=== PATIENT | male | born 1970 | race Caucasian/White ===

== ENCOUNTER 2017-03-30 13:00 | Emergency (ER) | payer BC ==
--- NOTE | 2017-03-30 13:41 | EKG REPORT ---
SEVERITY:- NORMAL ECG - SINUS RHYTHM : Confirmed by: Tereso Le MD 30-Mar-2017 13:40:14
--- NOTE | 2017-03-30 13:48 | ER Document Report ---
ED Medical Screen (RME) - General Chief Complaint: Chest Pain Stated Complaint: CHEST PAIN Time Seen by Provider: 03/30/17 13:45 Notes: Patient complains of epigastric abdominal pain. It does radiate to the chest. No shortness of breath. No cough or cold symptoms. He did recently have a Clostridium difficile infection but has finished the antibiotics. He states he has been constipated as well. TRAVEL OUTSIDE OF THE [place] 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 - Immunizations Hx Diphtheria, Pertussis, Tetanus Vaccination: Yes - unknowon Physical Exam - Vital signs Vitals: Temp Pulse Resp BP Pulse Ox 97.8 F 105 H 18 141/111 H 100 03/30/17 13:12 03/30/17 13:12 03/30/17 13:12 03/30/17 13:12 03/30/17 13:12 Course - Vital Signs Vital signs: Temp Pulse Resp BP Pulse Ox 97.8 F 105 H 18 141/111 H 100 03/30/17 13:12 03/30/17 13:12 03/30/17 13:12 03/30/17 13:12 03/30/17 13:12
[2017-03-30] MEDS ORDERED: LIDOCAINE 2% VISCOUS SOLN 20 ML UDCUP PO ONE (14:20)
[2017-03-30] MEDS ORDERED: METOCLOPRAMIDE HCL ORAL SOLN 10 MG/10 ML UDCUP PO ONE (14:20)
[2017-03-30] MEDS ORDERED: MAG HYDROX/AL HYDROX/SIMETH SUSP 30 ML UDCUP PO ONE (14:20)
[2017-03-30 14:29] LABS: ABSOLUTE BASOPHILS # (AUTO) 0.1 10^3/uL (0.0-0.2); ABSOLUTE LYMPHOCYTES (AUTO) 1.6 10^3/uL (0.5-4.7); ABSOLUTE NEUT (AUTO) 7.7 10^3/uL (1.7-8.2); BASOPHILS % (AUTO) 0.7 % (0-2); EOSINOPHILS % (AUTO) 0.2 % (0-6); HEMATOCRIT 49.8 % (37.9-51.0); HEMOGLOBIN 17.4 g/dL (13.5-17.0); HGB HCT DIFFERENCE 2.4; LYMPHOCYTES % (AUTO) 15.2 % (13-45); MEAN CORPUSCULAR VOLUME 106 fl (80-97); MONOCYTES % (AUTO) 9.7 % (3-13); RED BLOOD COUNT 4.72 10^6/uL (4.35-5.55); RED CELL DISTRIBUTION WIDTH 17.4 % (11.5-14.0); SEGMENTED NEUTROPHILS % (AUTO) 74.2 % (42-78); WHITE BLOOD COUNT 10.4 10^3/uL (4.0-10.5)
[2017-03-30 14:41] LABS: ALANINE AMINOTRANSFERASE 32 U/L (21-72); ALBUMIN 4.2 g/dL (3.5-5.0); ALKALINE PHOSPHATASE 120 U/L (38-126); ANION GAP 11 (5-19); ASPARTATE AMINO TRANSFERASE 29 U/L (17-59); BILIRUBIN,DIRECT 0.4 mg/dL (0.0-0.4); BILIRUBIN,TOTAL 0.9 mg/dL (0.2-1.3); BLOOD UREA NITROGEN 4 mg/dL (7-20); CALCIUM 9.7 mg/dL (8.4-10.2); CARBON DIOXIDE 29 mmol/L (22-30); CHLORIDE 100 mmol/L (98-107); CREATININE RESULT 0.68 mg/dL (0.52-1.25); GLUCOSE 98 mg/dL (75-110); LIPASE 34.6 U/L (23-300); POTASSIUM 4.6 mmol/L (3.6-5.0); SODIUM 139.7 mmol/L (137-145); TOTAL PROTEIN 7.5 g/dL (6.3-8.2)
--- NOTE | 2017-03-30 15:07 | RADIOLOGY REPORT (SQ) ---
EXAM DESCRIPTION: CHEST SINGLE VIEW COMPLETED DATE/TIME: 03/30/2017 2:56 pm REASON FOR STUDY: chest pain COMPARISON: 08/27/2014. EXAM PARAMETERS: NUMBER OF VIEWS: One view. TECHNIQUE: Single frontal radiographic view of the chest acquired. RADIATION DOSE: NA LIMITATIONS: None. FINDINGS: LUNGS AND PLEURA: No opacities, masses or pneumothorax. No pleural effusion. MEDIASTINUM AND HILAR STRUCTURES: No masses. Contour normal. HEART AND VASCULAR STRUCTURES: Heart normal in size. Normal vasculature. BONES: No acute findings. HARDWARE: None in the chest. OTHER: No other significant finding. IMPRESSION: NO ACUTE RADIOGRAPHIC FINDING IN THE CHEST. TECHNICAL DOCUMENTATION: JOB ID: [id number]
[2017-03-30] MEDS ORDERED: SUCRALFATE 1 GM TABLET PO ONE (15:11)
--- NOTE | 2017-03-30 15:44 | RADIOLOGY REPORT (SQ) ---
EXAM DESCRIPTION: CT HEAD WITHOUT COMPLETED DATE/TIME: 03/30/2017 3:34 pm REASON FOR STUDY: headache, blurred vision COMPARISON: 12/16/2006. TECHNIQUE: Axial images acquired through the brain without intravenous contrast. Images reviewed wi th bone, brain and subdural windows. Images stored on PACS. All CT scanners at this facility use dose modulation, iterative reconstruction, and/or weight based d osing when appropriate to reduce radiation dose to as low as reasonably achievable (ALARA). [facility]: Dose Right [facility]: CareDose [facility]: Dose Right [facility]: Teradose 4D [facility]: [employer] RADIATION DOSE: Up-to-date CT equipment and radiation dose reduction techniques were employed. CTDIv ol: 49.0 mGy. DLP: 881 mGy-cm. mGy. LIMITATIONS: None. FINDINGS: VENTRICLES: Normal size and contour. CEREBRUM: No masses. No hemorrhage. No midline shift. Normal romo/white matter differentiation. N o evidence for acute infarction. CEREBELLUM: No masses. No hemorrhage. No alteration of density. No evidence for acute infarction. EXTRAAXIAL SPACES: No fluid collections. No masses. ORBITS AND GLOBE: No intra- or extraconal masses. Normal contour of globe without masses. CALVARIUM: No fracture. PARANASAL SINUSES: Mucosal nodules in the left maxillary sinus. No fluid levels. SOFT TISSUES: No mass or hematoma. OTHER: No other significant finding. IMPRESSION: NORMAL BRAIN CT WITHOUT CONTRAST. 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 TECHNICAL DOCUMENTATION: JOB ID: [id number] Quality ID # [id number]: Final reports with documentation of one or more dose reduction techniques (e.g., Au tomated exposure control, adjustment of the mA and/or kV according to patient size, use of iterative reconstruction technique) 2010 [employer]- All Rights Reserved
[2017-03-30] MEDS ORDERED: ONDANSETRON HCL INJ/PF 4 MG/2 ML SDV IV ONE (17:35)
[2017-03-30] MEDS ORDERED: MORPHINE SULFATE 10 MG/ML INJ IV ONE ×2 (17:35→18:33)
[2017-03-30] MEDS ORDERED: NORMAL SALINE 1000 ML 1,000 ML IV ONE (17:35)
--- NOTE | 2017-03-30 18:36 | ER Document Report ---
ED General - General Chief Complaint: Chest Pain Stated Complaint: CHEST PAIN Time Seen by Provider: 03/30/17 13:45 Mode of Arrival: Ambulatory Information source: Patient Notes: Patient is a 47-year-old male presents to the ER today for upper abdominal pain. Patient just got off antibiotics for C. difficile infection, states that he and felt a little better from that but never completely recovered this feels "like the same pain." He states that it is more difficult to have a bowel movement but when he does it is mucousy and diarrhea. He denies any fevers or chills that he is noticed, admits to some nausea but no vomiting. Also complains of a headache worse on the left side of his head with some blurred vision. He is not on any blood thinners, he denies any head injury. He denies history of migraines. TRAVEL OUTSIDE OF THE [place] 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 - Immunizations Hx Diphtheria, Pertussis, Tetanus Vaccination: Yes - unknowon Review of Systems - Review of Systems Constitutional: No symptoms reported EENT: No symptoms reported Cardiovascular: No symptoms reported Respiratory: No symptoms reported Gastrointestinal: See HPI Genitourinary: No symptoms reported Male Genitourinary: No symptoms reported Musculoskeletal: No symptoms reported Skin: No symptoms reported Hematologic/Lymphatic: No symptoms reported Neurological/Psychological: See HPI Physical Exam - Vital signs Vitals: Temp Pulse Resp BP Pulse Ox 97.8 F 105 H 18 141/111 H 100 03/30/17 13:12 03/30/17 13:12 03/30/17 13:12 03/30/17 13:12 03/30/17 13:12 - Notes Notes: PHYSICAL EXAMINATION: GENERAL: obviously uncomfortable, but in no acute distress. HEAD: Atraumatic, normocephalic. EYES: Pupils equal round and reactive to light, extraocular movements intact, sclera anicteric, conjunctiva are normal. NECK: Normal range of motion, supple without lymphadenopathy LUNGS: CTAB and equal. No wheezes rales or rhonchi. HEART: Regular rate and rhythm without murmurs ABDOMEN: Soft, epigastric, periumbilical tenderness. No guarding, no rebound BACK: no vertebral tenderness, normal ROM GI/: no CVA tenderness EXTREMITIES: Normal range of motion, no pitting edema. No cyanosis. NEUROLOGICAL: Cranial nerves grossly intact. Normal sensory/motor exams. PSYCH: Normal mood, normal affect. SKIN: Warm, Dry, normal turgor, no rashes or lesions noted Course - Re-evaluation Re-evalutation: 03/30/17 19:08 Lab work is unremarkable including a normal white blood cell count, however patient is still positive for C. difficile today. CAT scan was ordered to evaluate patient's abdominal pain after GI cocktail and Carafate failed to help his pain at all. After C. difficile came back positive, patient elected to cancel the CAT scan and start the new antibiotic for the C. difficile recurrence. As his vital signs are all stable, he is not tachycardic or febrile and his lab work is unremarkable today, he is also not vomited here and can tolerate p.o. medication, I see no problem with this and I am sending him home on new abx for 14 days for the c diff infection for first recurrence. - Vital Signs Vital signs: Temp Pulse Resp BP Pulse Ox 98.1 F 105 H 20 146/97 H 97 03/30/17 18:54 03/30/17 13:12 03/30/17 18:43 03/30/17 18:43 03/30/17 18:43 - Laboratory Result Diagrams: 03/30/17 14:10 03/30/17 14:10 Laboratory results interpreted by me: 03/30/17 03/30/17 14:10 14:10 Hgb 17.4 H MCV 106 H MCH 37.0 H RDW 17.4 H BUN 4 L Discharge - Discharge Clinical Impression: C. difficile colitis Condition: Stable Disposition: HOME, SELF-CARE Additional Instructions: Drink plenty fluids! return immediately for any new or worsening symptoms. Follow up with primary care provider, call tomorrow to make followup appointment. Prescriptions: Fidaxomicin [Dificid 200 mg Tablet] 200 mg PO BID #28 tablet Oxycodone HCl/Acetaminophen [Percocet 5-325 mg Tablet] 1 tab PO Q4 PRN #15 tab PRN Reason:
[2017-03-30 18:49] VITALS: BP 146/97
== END 2017-03-30 18:54 | disposition home or self-care (01) ==
LOC: ER 13:00
DX: A04.7 Enterocolitis due to Clostridium difficile (principal); R07.9 Chest pain, unspecified; R10.10 Upper abdominal pain, unspecified; R19.7 Diarrhea, unspecified; F17.200 Nicotine dependence, unspecified, uncomplicated
CPT/HCPCS: 93005; 96376; 99285; 96361; 96374; 96375; 36415; 87045; 87205; 83690; 85025; 80053; 84484; 87493 ×2; 71010; 70450; 93010; J3490; J2270; J2405; J7030

== ENCOUNTER 2017-04-02 16:12 | Emergency (ER) | payer OTHER, BC ==
[2017-04-02] MEDS ORDERED: METOCLOPRAMIDE HCL ORAL SOLN 10 MG/10 ML UDCUP PO ONE (17:02)
[2017-04-02] MEDS ORDERED: MAG HYDROX/AL HYDROX/SIMETH SUSP 30 ML UDCUP PO ONE (17:02)
[2017-04-02] MEDS ORDERED: LIDOCAINE 2% VISCOUS SOLN 20 ML UDCUP PO ONE (17:02)
--- NOTE | 2017-04-02 17:04 | ER Document Report ---
ED Medical Screen (RME) - General Chief Complaint: Abdominal Pain Stated Complaint: ABDOMINAL PAIN Time Seen by Provider: 04/02/17 16:22 Mode of Arrival: Ambulatory Information source: Patient TRAVEL OUTSIDE OF THE [place] IN LAST 30 DAYS: No - HPI Patient complains to provider of: Epigastric abdominal pain Onset: Other - 4 days Quality of pain: Sharp, Stabbing Severity: Severe Pain Level: 5 Associated Symptoms: Diarrhea, Nausea, Vomiting Notes: 04/02/17 17:03 Patient is a 47-year-old male who presents to the emergency room complaining of sharp stabbing epigastric pain that has been present constantly over the past 4- 5 days, he reports nausea, vomiting and diarrhea associated, no fevers, was seen in this emergency room 4 days ago and diagnosed with C. 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 - Immunizations Hx Diphtheria, Pertussis, Tetanus Vaccination: Yes - unknowon Physical Exam - Vital signs Vitals: Temp Pulse Resp BP Pulse Ox 98.3 F 86 8 L 149/97 H 100 04/02/17 16:16 04/02/17 16:16 04/02/17 16:16 04/02/17 16:16 04/02/17 16:16 Course - Vital Signs Vital signs: Temp Pulse Resp BP Pulse Ox 98.3 F 86 8 L 149/97 H 100 04/02/17 16:16 04/02/17 16:16 04/02/17 16:16 04/02/17 16:16 04/02/17 16:16
[2017-04-02] MEDS ORDERED: ONDANSETRON 4 MG TAB.RAPDIS SL ONE (17:10)
[2017-04-02] MEDS ORDERED: HYDROMORPHONE HCL INJ/PF 2 MG/ML AMPULE IV ONE ×5 (17:37→21:45)
[2017-04-02 17:49] LABS: ABSOLUTE BASOPHILS # (AUTO) 0.1 10^3/uL (0.0-0.2); ABSOLUTE EOSINOPHILS # (AUTO) 0.1 10^3/uL (0.0-0.6); ABSOLUTE LYMPHOCYTES (AUTO) 3.1 10^3/uL (0.5-4.7); ABSOLUTE MONOCYTES (AUTO) 1.2 10^3/uL (0.1-1.4); ABSOLUTE NEUT (AUTO) 5.3 10^3/uL (1.7-8.2); EOSINOPHILS % (AUTO) 0.7 % (0-6); HEMATOCRIT 51.4 % (37.9-51.0); HEMOGLOBIN 17.5 g/dL (13.5-17.0); HGB HCT DIFFERENCE 1.1; LYMPHOCYTES % (AUTO) 31.7 % (13-45); MEAN CORPUSCULAR HGB CONC 34.1 g/dL (32.0-36.0); MEAN CORPUSCULAR VOLUME 106 fl (80-97); RED BLOOD COUNT 4.87 10^6/uL (4.35-5.55); RED CELL DISTRIBUTION WIDTH 17.7 % (11.5-14.0); SEGMENTED NEUTROPHILS % (AUTO) 54.6 % (42-78); WHITE BLOOD COUNT 9.7 10^3/uL (4.0-10.5)
[2017-04-02] MEDS ORDERED: NORMAL SALINE 1000 ML 1,000 ML IV ONE (18:29)
[2017-04-02] MEDS ORDERED: ENOXAPARIN SODIUM INJ 100 MG/1 ML DISP.SYRIN SUBCUT SCH (18:30)
--- NOTE | 2017-04-02 18:31 | RADIOLOGY REPORT (SQ) ---
EXAM DESCRIPTION: CTA ABDOMEN/PELVIS W WO; CTA CHEST COMPLETED DATE/TIME: 04/02/2017 6:00 pm REASON FOR STUDY: epigastric tearing COMPARISON: None. CONTRAST TYPE AND DOSE: contrast/concentration: Isovue 370.00 mg/ml; Total Contrast Delivered: 95.0 ml; Total Saline Delivered: 55.0 ml RENAL FUNCTION: BUN 4 creatinine 0.68 TECHNIQUE: CTA scan of the chest performed using helical scanning technique with dynamic intravenous contrast injection. Images reviewed with lung, soft tissue and bone windows. Reconstructed coronal and sagittal MPR images reviewed. All images stored on PACS. CTA scan of the abdomen and pelvis performed with intravenous and without oral contrastusing helical scanning technique with dynamic intravenous contrast injection. Images reviewed with lung, soft tiss ue and bone windows. Reconstructed coronal and sagittal MPR images reviewed. Delayed images for javier luation of the urinary system also acquired and evaluated. All images stored on PACS. All CT scanners at this facility use dose modulation, iterative reconstruction, and/or weight based d osing when appropriate to reduce radiation dose to as low as reasonably achievable (ALARA). [facility]: Dose Right [facility]: CareDose [facility]: Dose Right [facility]: Teradose 4D [facility]: [employer] RADIATION DOSE: Up-to-date CT equipment and radiation dose reduction techniques were employed. CTDIv ol: 9.7 - 28.3 mGy. DLP: 1524 mGy-cm. . LIMITATIONS: None. FINDINGS: Angiographic findings: AORTA: The ascending, descending, and abdominal aorta are free of dissection, aneurysm, penetrating ulcer, or pseudoaneurysm. No hemodynamically significant stenosis identified. There is calcific and fibrofatty plaque noted of the infrarenal abdominal aorta which is moderate in nature. GREAT VESSELS: Normal three-vessel arch. Visualized portions of the great vessels are patent. No d issection identified. ILIACS: No dissection or significant aneurysm identified. There is fibrofatty plaque versus thrombu s seen within the mid right common iliac artery causing approximately 50% narrowing of the vessel (im age 89). The common iliac arteries are otherwise patent. The hypogastric arteries are patent witho ut hemodynamically significant stenosis. External iliac arteries are patent without hemodynamically significant stenosis. FEMORALS: The common femoral arteries demonstrate calcific in fiber fatty atheromatous plaque withou t greater than 50% stenosis. The visualized portions of the SFA and profunda femoral arteries are pa tent without hemodynamically significant stenosis. MESENTERIC & RENALS: There is acute thrombus noted within the proximal SMA consistent with acute emb sandro (series 3 image 145 through 157 and series 204, image 54)). This is concerning for possible dev elopment of acute mesenteric ischemia. There is filling cyst within the SMA distal to the thrombus. The celiac artery is patent without hemodynamically significant stenosis. The CAITLIN is patent. Both renal arteries are noted to be patent. PULMONARY: No acute pulmonary embolus. Non Angiographic findings: CHEST: LUNGS AND PLEURA: Mild paraseptal emphysematous disease noted at the lung apices on the right. No fo rosemarie consolidations. No worrisome pulmonary nodules. No pleural pericardial effusions. No pneumotho rax. HILAR AND MEDIASTINAL STRUCTURES: No identified masses or abnormal nodes. HARDWARE: None. THYROID AND OTHER SOFT TISSUES: No masses. No adenopathy. BONES: Multilevel degenerative changes. No acute osseous abnormality identified. OTHER: No other significant finding. ABDOMEN AND PELVIS: LIVER: Normal size. No masses. No dilated ducts. SPLEEN: Normal size. No focal lesions. PANCREAS: No masses. No significant calcifications. No adjacent inflammation or peripancreatic fluid collections. Pancreatic duct not dilated. GALLBLADDER: No identified stones by CT criteria. No inflammatory changes to suggest cholecystitis. ADRENAL GLANDS: No significant masses or asymmetry. RIGHT KIDNEY AND URETER: No solid masses. No significant calcification. No hydronephrosis or hydroure ter. LEFT KIDNEY AND URETER: No solid masses. No significant calcification. No hydronephrosis or hydrouret er. RETROPERITONEUM: No retroperitoneal adenopathy, hemorrhage or masses. BOWEL AND PERITONEAL CAVITY: No masses or inflammatory changes. No evidence of abnormal profusion se en to the bowel wall. No pneumatosis. No free air. No free fluid or peritoneal masses. Colonic di verticulosis, uncomplicated. APPENDIX: Normal. ABDOMINAL WALL: No masses. No hernias. BONES: Multilevel degenerative changes of the spine. OTHER: No other significant finding. IMPRESSION: 1. Acute thrombus noted within the SMA proximally. There is flow contrast seen distal t o the thrombus within the distal portions of the SMA. This is concerning for acute embolic event and possible development of acute mesenteric ischemia though there is no current CT evidence. 2. Focal fibrofatty plaque was seen within the mid common iliac artery causing approximately 50% ermias nosis. This is not appear to demonstrate nonocclusive thrombus but this is not occludes at entirely excluded. 3. No evidence of aortic dissection, aneurysm, or pseudoaneurysm. 4. Uncomplicated colonic diverticulosis. COMMENT: Pertinent findings on the imaging study reported as a CRITICAL RESULT to MOHSEN HUITRON MD at18:23 on 04/02/2017. Category of Critical Result: 1 TECHNICAL DOCUMENTATION: JOB ID: [id number] Quality ID # [id number]: Final reports with documentation of one or more dose reduction techniques (e.g., Au tomated exposure control, adjustment of the mA and/or kV according to patient size, use of iterative reconstruction technique) 2010 [employer]- All Rights Reserved
[2017-04-02 18:52] LABS: ALANINE AMINOTRANSFERASE 29 U/L (21-72); ALBUMIN 3.8 g/dL (3.5-5.0); ALCOHOL 26 mg/dL (NONE DETECTED); ALKALINE PHOSPHATASE 120 U/L (38-126); ANION GAP 16 (5-19); ASPARTATE AMINO TRANSFERASE 23 U/L (17-59); BILIRUBIN,DIRECT 0.4 mg/dL (0.0-0.4); BILIRUBIN,TOTAL 0.7 mg/dL (0.2-1.3); BLOOD UREA NITROGEN 5 mg/dL (7-20); CALCIUM 9.3 mg/dL (8.4-10.2); CARBON DIOXIDE 18 mmol/L (22-30); CHLORIDE 103 mmol/L (98-107); CREATININE RESULT 0.69 mg/dL (0.52-1.25); GLUCOSE 78 mg/dL (75-110); LIPASE 41.1 U/L (23-300); POTASSIUM 4.1 mmol/L (3.6-5.0); SODIUM 137.4 mmol/L (137-145); TOTAL PROTEIN 6.7 g/dL (6.3-8.2)
[2017-04-02] MEDS ORDERED: HYDROMORPHONE HCL INJ/PF 2 MG/ML AMPULE ONE (19:03)
--- NOTE | 2017-04-02 19:28 | ER Document Report ---
ED GI/ - General Chief Complaint: Abdominal Pain Stated Complaint: ABDOMINAL PAIN Time Seen by Provider: 04/02/17 16:22 Mode of Arrival: Ambulatory Notes: The patient is a 47-year-old male, past medical history C. difficile colitis diagnosed 2 weeks ago, GERD, presents with sudden onset of epigastric and back pain and nausea. He says that this pain is different than his GERD episodes. He also felt some tingling in his left arm that has resolved. He is on Dificid for his C. diff. Patient denies vomiting, fevers, ataxia, blurry vision, saddle anesthesia, difficulty walking, chest pain or shortness of breath. TRAVEL OUTSIDE OF THE [place] 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 - Immunizations Hx Diphtheria, Pertussis, Tetanus Vaccination: Yes - unknowon Review of Systems - Review of Systems Notes: REVIEW OF SYSTEMS: CONSTITUTIONAL: -fevers, -chills EENT: -eye pain, -difficulty swallowing, -nasal congestion CARDIOVASCULAR:-chest pain, -syncope. RESPIRATORY: -cough, -SOB GASTROINTESTINAL: +abdominal pain, +nausea, -vomiting, -diarrhea GENITOURINARY: -dysuria, -hematuria MUSCULOSKELETAL: -back pain, -neck pain SKIN: -rash or skin lesions. HEMATOLOGIC: -easy bruising or bleeding. LYMPHATIC: -swollen, enlarged glands. NEUROLOGICAL: -altered mental status or loss of consciousness, -headache, - neurologic symptoms PSYCHIATRIC: -anxiety, -depression. ALL OTHER SYSTEMS REVIEWED AND NEGATIVE. Physical Exam - Vital signs Vitals: Temp Pulse Resp BP Pulse Ox 98.3 F 86 8 L 149/97 H 100 08/03/17 16:16 04/02/17 16:16 04/02/17 16:16 04/02/17 16:16 04/02/17 16:16 - Notes Notes: PHYSICAL EXAMINATION: GENERAL: Moderate distress. Writhing on bed. HEAD: Atraumatic, normocephalic. EYES: Pupils equal round and reactive to light, extraocular movements intact, sclera anicteric, conjunctiva are normal. ENT: nares patent, oropharynx clear without exudates. Moist mucous membranes. NECK: Normal range of motion, supple without lymphadenopathy LUNGS: Breath sounds clear to auscultation bilaterally and equal. No wheezes rales or rhonchi. HEART: Regular rate and rhythm without murmurs ABDOMEN: Soft, moderate epigastric tenderness, normoactive bowel sounds. No masses appreciated. EXTREMITIES: Normal range of motion, no pitting or edema. No cyanosis. NEUROLOGICAL: Cranial nerves grossly intact. Normal speech, normal gait. Normal sensory and motor exams. PSYCH: Normal mood, normal affect. SKIN: Warm, Dry, normal turgor, no rashes or lesions noted. Course - Re-evaluation Re-evalutation: Patient seen immediately when brought back to the main ER. Concern for aortic dissection with severe abdominal pain and back pain and patient was rushed to the CT scan. CT scan shows evidence of acute SMA thrombus, but no evidence of mesenteric ischemia on CT scan. Lactate 2.2 and IVF given. No signs of infection at this time. Spoke to Dr. Rosado (radiologist) and he suspects that there was a clot that was thrown from the heart. No history of a fib or hypercoaguable disorders. With normal kidney function, Lovenox started. Pain under control. 04/02/17 20:[address] Alba (Hospitalist) and he recommends transfer to center with Vascular Surgery. 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 [facility] to [facility] Placed call to [facility] and waiting for callback. 04/02/17 20:[address] Delgado ([facility]) and he recommends transfer to [facility] for potential catheter-directed tPa due to the specialized nature of the procedure. Placed call to [facility]. 04/02/17 21:[address] Sinha ([facility]) and he recommends consult with Vascular Surgery. 04/02/17 21:[address] Tavarez ([facility] Surgery) and he has accepted patient as ER to ER transfer. Trying to arrange helicopter transport. - Vital Signs Vital signs: Temp Pulse Resp BP Pulse Ox 98.3 F 86 19 133/84 H 93 04/02/17 16:16 04/02/17 16:16 04/02/17 21:01 04/02/17 21:01 04/02/17 21:01 - Laboratory Result Diagrams: 04/02/17 17:35 04/02/17 18:20 Laboratory results interpreted by me: 04/02/17 04/02/17 04/02/17 17:35 18:20 19:01 Hgb 17.5 H Hct 51.4 H MCV 106 H MCH 36.0 H RDW 17.7 H Carbon Dioxide 18 L BUN 5 L Lactic Acid 2.2 H - Diagnostic Test Radiology reviewed: Image reviewed, Reports reviewed Radiology results interpreted by me: CTA Chest/A/P: 1. Acute thrombus noted within the SMA proximally. There is flow contrast seen distal to the thrombus within the distal portions of the SMA. This is concerning for acute embolic event and possible development of acute mesenteric ischemia though there is no current CT evidence. 2. Focal fibrofatty plaque was seen within the mid common iliac artery causing approximately 50% stenosis. This is not appear to demonstrate nonocclusive thrombus but this is not occludes at entirely excluded. 3. No evidence of aortic dissection, aneurysm, or pseudoaneurysm. 4. Uncomplicated colonic diverticulosis. - EKG Interpretation by Me EKG shows normal: Sinus rhythm, [place], Intervals, QRS Complexes, ST-T Waves Rate: Normal Critical Care Note - Critical Care Note Total time excluding time spent on procedures (mins): 65 Discharge - Discharge Clinical Impression: Superior mesenteric artery thrombosis Condition: Stable Disposition: [facility] Referrals: FLEX EVERETT FNP [Primary Care Provider] - Follow up as needed
[2017-04-02 19:50] LABS: APPEARANCE,URINE CLEAR; BILIRUBIN,URINE NEGATIVE (NEGATIVE); GLUCOSE, URINE NEGATIVE (NEGATIVE); KETONES,URINE NEGATIVE (NEGATIVE); LEUKOCYTE ESTERASE,URINE NEGATIVE (NEGATIVE); NITRITE,URINE NEGATIVE (NEGATIVE); PROTEIN,URINE NEGATIVE (NEGATIVE); URINE SPECIFIC GRAVITY 1.038; UROBILINOGEN,URINE NEGATIVE mg/dL (<2.0)
[2017-04-02] MEDS ORDERED: NORMAL SALINE 1000 ML 1,000 ML IV PRN (20:14)
[2017-04-02] MEDS ORDERED: KETOROLAC TROMETHAMINE INJ/PF 30 MG/1 ML SDV IV ONE (20:37)
[2017-04-02 22:25] VITALS: BP 139/93
--- NOTE | 2017-04-03 13:03 | EKG REPORT ---
SEVERITY:- NORMAL ECG - SINUS RHYTHM : Confirmed by: Tereso Le MD 03-Apr-2017 13:02:50
== END 2017-04-02 22:26 | disposition short-term general hospital (02) ==
LOC: ER 16:12
DX: K55.069 Acute infarction of intestine, part and extent unspecified (principal); K21.9 Gastro-esophageal reflux disease without esophagitis; A04.7 Enterocolitis due to Clostridium difficile; F17.200 Nicotine dependence, unspecified, uncomplicated
CPT/HCPCS: 93005; 96376; 99291; 96372; 96361; 96374; 96375; 36415; 80307; 83690; 85025; 80053; 81001; 84484; 83605; 71275; 74174; 93010; S0119; J3490; J1885; J1170; J7030; J1650

== ENCOUNTER 2017-05-06 18:34 | Emergency (ER) | payer BC ==
[2017-05-06] MEDS ORDERED: NORMAL SALINE 1000 ML 1,000 ML IV ONE (19:33)
[2017-05-06] MEDS ORDERED: ONDANSETRON HCL INJ/PF 4 MG/2 ML SDV IV ONE (19:43)
[2017-05-06] MEDS ORDERED: MORPHINE SULFATE 10 MG/ML INJ IV ONE ×2 (19:43→23:14)
[2017-05-06 20:32] LABS: ABSOLUTE BASOPHILS # (AUTO) 0.1 10^3/uL (0.0-0.2); ABSOLUTE EOSINOPHILS # (AUTO) 0.1 10^3/uL (0.0-0.6); ABSOLUTE LYMPHOCYTES (AUTO) 2.3 10^3/uL (0.5-4.7); ABSOLUTE MONOCYTES (AUTO) 0.8 10^3/uL (0.1-1.4); ABSOLUTE NEUT (AUTO) 5.4 10^3/uL (1.7-8.2); BASOPHILS % (AUTO) 0.7 % (0-2); EOSINOPHILS % (AUTO) 1.6 % (0-6); HEMATOCRIT 41.5 % (37.9-51.0); HEMOGLOBIN 14.2 g/dL (13.5-17.0); HGB HCT DIFFERENCE 1.1; LYMPHOCYTES % (AUTO) 26.2 % (13-45); MEAN CORPUSCULAR HEMOGLOBIN 34.2 pg (27.0-33.4); MEAN CORPUSCULAR HGB CONC 34.3 g/dL (32.0-36.0); MEAN CORPUSCULAR VOLUME 100 fl (80-97); MONOCYTES % (AUTO) 9.3 % (3-13); RED BLOOD COUNT 4.17 10^6/uL (4.35-5.55); RED CELL DISTRIBUTION WIDTH 16.5 % (11.5-14.0); SEGMENTED NEUTROPHILS % (AUTO) 62.2 % (42-78); WHITE BLOOD COUNT 8.6 10^3/uL (4.0-10.5)
[2017-05-06 20:38] LABS: PROTHROMBIN TIME 14.1 SEC (11.4-15.4)
[2017-05-06 20:54] LABS: ALANINE AMINOTRANSFERASE 39 U/L (21-72); ALBUMIN 3.5 g/dL (3.5-5.0); ALKALINE PHOSPHATASE 99 U/L (38-126); ANION GAP 11 (5-19); ASPARTATE AMINO TRANSFERASE 31 U/L (17-59); BILIRUBIN,DIRECT 0.4 mg/dL (0.0-0.4); BILIRUBIN,TOTAL 0.7 mg/dL (0.2-1.3); BLOOD UREA NITROGEN 11 mg/dL (7-20); CALCIUM 9.5 mg/dL (8.4-10.2); CARBON DIOXIDE 26 mmol/L (22-30); CHLORIDE 99 mmol/L (98-107); CREATININE RESULT 0.65 mg/dL (0.52-1.25); GLUCOSE 94 mg/dL (75-110); LIPASE 91.5 U/L (23-300); SODIUM 135.5 mmol/L (137-145); TOTAL PROTEIN 6.2 g/dL (6.3-8.2)
--- NOTE | 2017-05-06 21:51 | RADIOLOGY REPORT (SQ) ---
EXAM DESCRIPTION: CTA ABDOMEN COMPLETED DATE/TIME: 05/06/2017 9:34 pm REASON FOR STUDY: LLQ recent sx for ischemic bowel COMPARISON: 04/02/2017 TECHNIQUE: CT scan of the abdominal aorta extending to the iliac bifurcation performed with intraven ous contrast using helical scanning technique with dynamic intravenous contrast injection. Images rev iewed with lung, soft tissue, and bone windows. Reconstructed coronal and sagittal MPR images reviewe d. All images stored on PACS. Advanced 3D imaging as volume rendering, MIPS, SSD performed? yes All CT scanners at this facility use dose modulation, iterative reconstruction, and/or weight based d osing when appropriate to reduce radiation dose to as low as reasonably achievable (ALARA). [facility]: Dose Right [facility]: CareDose [facility]: Dose Right [facility]: Teradose 4D [facility]: [place] CONTRAST TYPE AND DOSE: contrast/concentration: Isovue 370.00 mg/ml; Total Contrast Delivered: 75.0 ml; Total Saline Delivered: 40.0 ml RENAL FUNCTION: BUN 11, creatinine 0.65 LIMITATIONS: None. FINDINGS: POST-CONTRAST IMAGING: AORTA AND VESSELS: The aorta demonstrates no aneurysmal dilatation. No dissection. Mild inflammatio n is again noted surrounding the proximal SMA. The SMA has recannulized. No significant narrowing a t this time. The celiac axis is patent. Both renal arteries are patent. There is considerable dise ase in the right common iliac artery stable from prior study. LUNG BASES: No significant findings. No nodules or infiltrates. LIVER: Normal size. No masses or dilated ducts. SPLEEN: Normal size. No focal lesions. PANCREAS: No masses. No significant calcifications. No adjacent inflammation or peripancreatic fluid collections. Pancreatic duct not dilated. GALLBLADDER: No identified stones by CT criteria. No inflammatory changes to suggest cholecystitis. ADRENAL GLANDS: No significant masses or asymmetry. RIGHT KIDNEY AND URETER: No mass, calculi or urinary tract obstruction. LEFT KIDNEY AND URETER: No mass, calculi or urinary tract obstruction. RETROPERITONEUM: No retroperitoneal adenopathy, hemorrhage or masses. BOWEL AND PERITONEAL CAVITY: No bowel wall thickening. No obstruction. No mesenteric edema. There is diverticular change in the sigmoid colon. There is no CT evidence of acute diverticulitis. The g astric wall does appear thickened but the stomach is nondistended. APPENDIX: Normal. ABDOMINAL WALL: There is an umbilical hernia containing omental fat. BONY STRUCTURES: No significant or acute findings. 3-D IMAGING: Confirms the above findings. OTHER: No other significant finding. IMPRESSION: Mild inflammation surrounding the proximal superior mesenteric artery. The SMA has reca nnulized. No significant stenosis. No CT evidence of acute bowel wall ischemia. There is diverticu lar change in the sigmoid colon but no acute diverticulitis. TECHNICAL DOCUMENTATION: JOB ID: [id number] Quality ID # [id number]: Final reports with documentation of one or more dose reduction techniques (e.g., Au tomated exposure control, adjustment of the mA and/or kV according to patient size, use of iterative reconstruction technique) 2010 [employer]- All Rights Reserved
--- NOTE | 2017-05-06 21:51 | RADIOLOGY REPORT (SQ) ---
EXAM DESCRIPTION: CTA PELVIS COMPLETE DATE/TIME: 05/06/2017 9:34 pm REASON FOR STUDY: LLQ recent sx for ischemic bowel FINDINGS: Please see combined report for performance of procedure and radiologic supervision and int erpretation. IMPRESSION: Please see combined report for performance of procedure and radiologic supervision and i nterpretation.
[2017-05-06 22:49] LABS: APPEARANCE,URINE CLEAR; BILIRUBIN,URINE NEGATIVE (NEGATIVE); GLUCOSE, URINE NEGATIVE (NEGATIVE); KETONES,URINE NEGATIVE (NEGATIVE); LEUKOCYTE ESTERASE,URINE NEGATIVE (NEGATIVE); NITRITE,URINE NEGATIVE (NEGATIVE); PROTEIN,URINE NEGATIVE (NEGATIVE); URINE SPECIFIC GRAVITY 1.029; UROBILINOGEN,URINE NEGATIVE mg/dL (<2.0)
--- NOTE | 2017-05-06 23:22 | ER Document Report ---
ED General - General TRAVEL OUTSIDE OF THE [place] IN LAST 30 DAYS: No - HPI Patient complains to provider of: Left lower quadrant abdominal pain <RUBEN DOMÍNGUEZ - Last Filed: 05/06/17 23:19> <CYNDEE GARCIA - Last Filed: 05/07/17 04:51> - General Chief Complaint: Lower Abdominal Pain Stated Complaint: LOW LEFT ABDOMINAL PAIN Time Seen by Provider: 05/06/17 19:29 - HPI Notes: Patient coming in for evaluation left lower quadrant abdominal pain with nausea vomiting diarrhea. 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 Patient underwent thrombectomy however uncertain etiology of the origin of the clot. Patient currently has a court monitor in place. Patient states pain similar to this episode however initially was epigastric pain. Patient now complaining of lower quadrant pain. Patient states no recent antibiotics. Denies fevers or chills. Patient states multiple bouts of diarrhea states diarrhea is more mucousy now. Denies any recent travel. Patient is resting guarding the left lower quadrant upon my evaluation. 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 - Immunizations Hx Diphtheria, Pertussis, Tetanus Vaccination: Yes - unknowon <RUBEN DOMÍNGUEZ - Last Filed: 05/06/17 23:19> Review of Systems - Review of Systems Constitutional: No symptoms reported EENT: No symptoms reported Cardiovascular: No symptoms reported Respiratory: No symptoms reported Gastrointestinal: Abdominal pain, Diarrhea, Nausea, Vomiting Genitourinary: No symptoms reported Male Genitourinary: No symptoms reported Musculoskeletal: No symptoms reported Skin: No symptoms reported Hematologic/Lymphatic: No symptoms reported Neurological/Psychological: No symptoms reported <RUBEN DOMÍNGUEZ - Last Filed: 05/06/17 23:19> Physical Exam - Vital signs Interpretation: Normal - General General appearance: Appears well, Alert - HEENT Head: Normocephalic, Atraumatic Eyes: Normal Pupils: PERRL - Respiratory Respiratory status: No respiratory distress Chest status: Nontender Breath sounds: Normal Chest palpation: Normal - Cardiovascular Rhythm: Regular Heart sounds: Normal auscultation Murmur: No - Abdominal Inspection: No: Normal - Surgical scar midline Distension: No distension Bowel sounds: Normal Tenderness: Tender - Left lower quadrant pain mild to moderate to palpation voluntary guarding Organomegaly: No organomegaly - Back Back: Normal, Nontender - Extremities General upper extremity: Normal inspection, Nontender, Normal color, Normal ROM , Normal temperature General lower extremity: Normal inspection, Nontender, Normal color, Normal ROM , Normal temperature, Normal weight bearing. No: Ihsan's sign - Neurological Neuro grossly intact: Yes Cognition: Normal Orientation: AAOx4 Ines Coma Scale Eye Opening: Spontaneous Lindsay Coma Scale Verbal: Oriented Lindsay Coma Scale Motor: Obeys Commands Lindsay Coma Scale Total: 15 Speech: Normal Motor strength normal: LUE, RUE, LLE, RLE Sensory: Normal - Psychological Associated symptoms: Normal affect, Normal mood - Skin Skin Temperature: Warm Skin Moisture: Dry Skin Color: Normal <RUBEN DOMÍNGUEZ - Last Filed: 05/06/17 23:19> - Vital signs Vitals: Temp Pulse Resp BP Pulse Ox 98.5 F 94 22 H 144/96 H 100 05/06/17 18:46 05/06/17 18:46 05/06/17 18:46 05/06/17 18:46 05/06/17 18:46 Course - Laboratory Result Diagrams: 05/06/17 20:07 05/06/17 20:07 <RUBEN DOMÍNGUEZ - Last Filed: 05/06/17 23:19> - Laboratory Result Diagrams: 05/06/17 20:07 05/06/17 20:07 <CYNDEE GARCIA - Last Filed: 05/07/17 04:51> - Re-evaluation Re-evalutation: 05/06/17 23:21 CTA was performed evaluating the patient's abdominal pain show any inflammation around the mesenteric artery however no signs of thrombosis. Diverticular changes however no signs diverticulitis. Patient continues to have pain therefore did have our surgeon cotton tipper evaluate the patient. Requesting a CT scan of the abdomen performed with oral contrast at this time updated family surgeon cotton tipper will be notified with the CT scan results (RUBEN DOMNÍGUEZ) 05/07/17 04:49 Patient was checked out to me by Dr. Domínguez with pending repeat CT scan that was requested by the general surgeon. Repeat CT scan did not show any abnormalities about self. Did show thickened gastric mucosa consistent with chronic gastritis versus malignancy. I did call Dr. majano informed him of the results. At this time he agrees with Dr. Domínguez's original opinion that this could be early diverticulitis based on location of pain the patient's diarrhea. He recommends Cipro and Flagyl. He recommends the patient follow-up closely with his surgeon at [facility] to arrange for an outpatient endoscopy and colonoscopy. A straight informed the patient of the recommendations and agrees with the plan. He strongly encouraged to return to ER if has worsening pain, fevers, vomiting, or bloody stools. On reassessment the patient looks well. His abdomen is tender in the left lower quadrant only. His abdomen is not rigid. It is soft. Dictation of this chart was performed using voice recognition software; therefore, there may be some unintended grammatical errors. (CYNDEE GARCIA) - Vital Signs Vital signs: Temp Pulse Resp BP Pulse Ox 98.2 F 64 16 135/97 H 99 05/06/17 19:59 05/07/17 02:32 05/07/17 04:01 05/07/17 04:00 05/07/17 04:01 - Laboratory Laboratory results interpreted by me: 05/06/17 05/06/17 20:07 20:07 RBC 4.17 L MCV 100 H MCH 34.2 H RDW 16.5 H Sodium 135.5 L Total Protein 6.2 L Discharge <RUBEN DOMÍNGUEZ - Last Filed: 05/06/17 23:19> <CYNDEE GARCIA - Last Filed: 05/07/17 04:51> - Discharge Clinical Impression: Abdominal pain Qualifiers: Abdominal location: left lower quadrant Qualified Code(s): R10.32 - Left lower quadrant pain Condition: Good Disposition: HOME, SELF-CARE Additional Instructions: ABDOMINAL PAIN: There are many causes of abdominal pain. Pain can mean a serious problem requiring surgery (such as appendicitis). It can also be an innocent problem that goes away on its own (such as a viral infection). Often, time must pass to determine the cause of pain. The physician does not feel that hospitalization is necessary, at present. Things may change within the next 24 hours. Call the doctor or come back for re- examination if any problems occur, such as: (1) Pain that becomes more severe, steady, or becomes concentrated in one specific area. Also, pain that is more severe with movement or coughing. (2) Vomiting that persists or becomes more frequent. (3) Blood in the vomitus, urine, or bowel movements. Blood in the stool may have a tarry or black appearance. (4) Shaking chills or fever greater than 100 degrees F. (5) The abdomen becomes more distended or swollen. (6) Bowel movements cease. (7) Failure to improve as expected. PAIN MEDICATION INJECTION: You have received an injection of a pain medication. You should experience significant pain relief within 45 minutes. This drug is a narcotic - - it will impair your judgement, slow your reaction time and make you sleepy ( as well as relieve your pain). Narcotics also can cause nausea. You should not drive, work with machinery, or perform any task requiring mental alertness until all effects of the medication are gone -- six to eight hours. Do not take any alcohol, or sedatives, and do not take any other medication without checking with your physician. ORAL NARCOTIC MEDICATION: You have been given a prescription for pain control. This medication is a narcotic. It's best taken with food, as nausea can result if taken on an empty stomach. Don't operate machinery or drive within six hours of taking this medication. Do not combine this medicine with alcohol, or with any medication which can cause sedation (such as cold tablets or sleeping pills) unless you get permission from the physician. Narcotics tend to cause constipation. If possible, drink plenty of fluids and eat a diet high in fiber and fruits. Please be aware that prescription narcotics also have the potential for abuse. People become addicted to these medications because of the general sense of wellbeing that they induce. This feeling along with a significant reduction in tension, anxiety, and aggression provides a stimulating seductive quality to these drugs. Once your pain is under control, we encourage you to discard your unused narcotics. FOLLOW-UP CARE: If you have been referred to a physician for follow-up care, call the physician s office for an appointment as you were instructed or within the next two days. If you experience worsening or a significant change in your symptoms, notify the physician immediately or return to the Emergency Department at any time for re-evaluation. FOLLOW-UP CARE: Please take the antibiotics as prescribed. Please only take the [place] pain medicine if pain is moderate to severe. Please call your doctors at [facility] to be reevaluated and talk to them about arranging a colonoscopy and upper endoscopy. This is Dr. Wilkerson's recommendations. Please return to the ER immediately if you develop worsening pain, fevers, vomiting, or bloody diarrhea. Prescriptions: Ciprofloxacin HCl [Cipro 500 mg Tablet] 500 mg PO BID #14 tablet Metronidazole [Flagyl 500 mg Tablet] 500 mg PO Q6H #28 tablet Referrals: FLEX EVERETT FNP [Primary Care Provider] - Follow up in 3-5 days
[2017-05-07] MEDS ORDERED: MORPHINE SULFATE 10 MG/ML INJ IV ONE ×2 (01:44→03:56)
--- NOTE | 2017-05-07 01:53 | CONSULTATION REPORT E ---
Consultation Report NAME: BRENDA JENSEN : 1970 AGE: 47Y DATE: 05/06/2017 TO: MICHAEL TURNER M.D. FROM: Janet MARCELO, Requesting Physician REASON FOR CONSULTATION: Patient is post SMA embolectomy on 04/02/17 at [facility]. Patient has been complaining of abdominal pain since postop and been taking pain medications. He stopped the OxyContin about 2 1/2 weeks ago and his pain were more noticeable, going up to 5 with a range of 1-10, 10 being the worse pain. This has been for the past week, and almost every day it has been getting worse. Only associated with nausea. He went to the emergency room today where a CT angio of the abdomen was performed, which showed recanalized SMA. Patient also has diverticulosis but no acute diverticulitis. This is primarily noted in the sigmoid colon. Patient's pain is primarily on the left lower quadrant. His white count is normal at 8.6 and hemoglobin of 14.2. He has been on Xarelto since postop. His PT is 14.1 and INR is 1.02, and a PTT of 31 seconds. His chemistries are essentially normal with electrolytes, BUN, and creatinine, and liver function tests. Amylase normal at 91.5. PAST MEDICAL HISTORY: 1. History of hypertension. 2. Insect bites. 3. Hypercholesterolemia. 4 Malignancy: Reports history of skin cancer. Squamous cell cancer removal from the hand. 5 Gastrointestinal: History of GERD and ulcer. 6 Psychiatric History: Reports history of anxiety and depression. PAST SURGICAL HISTORY: 1. Abdominal surgery with embolectomy of the superior mesenteric artery. 2. Foot surgery. 3. 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 SOCIAL HISTORY: Still smokes at this time. Denies alcohol or drug use. FAMILY HISTORY: Brother who is age 41, just had sigmoid resection for diverticulitis. Also, his father had diverticulitis. REVIEW OF SYSTEMS: CONSTITUTIONAL: Denies any fever or weakness. ENT: No symptoms reported. CARDIOVASCULAR: No symptoms reported. RESPIRATORY: No symptoms reported. GASTROINTESTINAL: Abdominal pains primarily in the left lower quadrant. There is also mild diarrhea with nausea. GENITOURINARY: No dysuria. MALE GENITOURINARY: No symptoms reported. MUSCULOSKELETAL: No joint pain. SKIN: No rash. hematologic/LYMPHATIC: No history of bruisability or lymph node enlargement. NEUROLOGIC/PSYCHOLOGICAL: No symptoms reported. Other systems reviewed and all are normal. PHYSICAL EXAM: VITAL SIGNS: Temperature 98.5 degrees Fahrenheit, pulse rate of 94 per minute, respiration of 22 per minute, blood pressure 144/96, and pulse ox of 100% on room air. GENERAL APPEARANCE: Appears well, alert. HEENT: Head: Normocephalic, atraumatic. Eyes: Normal. RESPIRATORY: No respiratory distress. Lungs clear. HEART: Regular rate and rhythm. ABDOMEN: There is a midline surgical scar. Soft, mild tenderness in the left lower quadrant but no rebound tenderness. The rest of the abdomen is nontender. No organomegaly. BACK: Normal, nontender. EXTREMITIES: No edema. No Ihsan's sign. Intact ankle pulses, both dorsalis pedis and posterior tibial arteries. For his wrist, the right radial artery was not palpable but the ulnar artery is palpable. In the left wrist, both radial and ulnar arteries are palpable. NEUROLOGIC: Patient is alert and oriented x3. IMAGING STUDIES: CT angio of the chest showed no evidence of pulmonary embolism. CTA down to the mid abdomen was unremarkable. No evidence of bleeding around the liver or the spleen. However, the CT scan did not have any p.o. contrast. LABORATORY DATA: His white count is normal at 8.6 with a hemoglobin of 14.2. Platelet count is 250. Differential also is normal. Coagulation is PT 14.1, INR 1.02, and APTT was 31.0 seconds. Patient on Xarelto. Chemistry: Electrolytes are within normal limits. BUN and creatinine are normal. Glucose 94, lactic acid 1.3. Liver function tests are all normal with a lipase of 91.5. IMPRESSION: 1. Abdominal pains; etiology ?.Possibly post operative vs early diverticulitis 2. Post embolectomy of SMA. Source of the clot unknown but patient placed on Xarelto. No apparent clot from the heart. PLAN: We will do a CT scan of the abdomen with p.o. contrast, primarily concentrating on the left lower quadrant. Make sure there is no evidence of sigmoid diverticulitis since his pains are quite localized in the left lower quadrant. However, if there is definite diverticulitis, he might still need to be followed closely or to be admitted to [facility], since he is on Xarelto, they can monitor his anticoagulation and better for them to differentiate from the effect of postoperative versus definite diverticulitis. DICTATING PHYSICIAN: MICHAEL TURNER M.D. [id number] PHY#: [id number] ID: [id number] JOB#: [id number] ACCT: [id number] cc:MICHAEL TURNER M.D. > [facility]
--- NOTE | 2017-05-07 02:43 | RADIOLOGY REPORT (SQ) ---
EXAM DESCRIPTION: CT ABD/PELVIS ORAL ONLY COMPLETED DATE/TIME: 05/07/2017 2:20 am REASON FOR STUDY: LLQ pain COMPARISON: CTA abdomen and pelvis 05/06/2017, 04/02/2017. CT abdomen and pelvis 02/23/2014, 06/21/2013. TECHNIQUE: CT scan of the abdomen and pelvis performed without intravenous contrast. Oral contrast was administered. Images reviewed with lung, soft tissue, and bone windows. Reconstructed coronal an d sagittal MPR images reviewed. All images stored on PACS. All CT scanners at this facility use dose modulation, iterative reconstruction, and/or weight based d osing when appropriate to reduce radiation dose to as low as reasonably achievable (ALARA). [facility]: Dose Right [facility]: CareDose [facility]: Dose Right [facility]: Teradose 4D [facility]: [employer] RADIATION DOSE: Up-to-date CT equipment and radiation dose reduction techniques were employed. CTDIv ol: 9.6 mGy. DLP: 517 mGy-cm.mGy. LIMITATIONS: None. FINDINGS: LOWER CHEST: There is mild bibasilar atelectasis. No pleural effusion. NON-CONTRASTED LIVER, SPLEEN, ADRENALS: Evaluation limited by lack of IV contrast. No identified sign ificant masses. PANCREAS: No peripancreatic inflammatory changes. GALLBLADDER: Hyperdense material is seen within the gallbladder. RIGHT KIDNEY AND URETER: There is contrast excretion from the recent CT angiogram. No hydronephrosi s or hydroureter. LEFT KIDNEY AND URETER: There is contrast excretion from the recent CT angiogram. No hydronephrosis or hydroureter. AORTA AND RETROPERITONEUM: No abdominal aortic aneurysm. No retroperitoneal masses or hemorrhage. BOWEL AND PERITONEAL CAVITY: No small bowel obstruction, the oral contrast has reached the cecum. Th ere are prominent gastric folds. There is sigmoid diverticulosis with no CT evidence of acute divert iculitis. APPENDIX: Normal. PELVIS, BLADDER, AND ABDOMINAL WALL:Contrast excretion within the urinary bladder. No pelvic mass. No free fluid. Postsurgical changes are seen in the midline upper abdomen. There is a small fat con taining paraumbilical hernia. BONES: Degenerative disc disease at L4-L5. IMPRESSION: No small bowel obstruction. Hyperdense material in the gallbladder, suggestive of vicar ious excretion of intravenous contrast. Prominent gastric folds, nonspecific, may be seen with chronic gastritis, lymphoid hyperplasia, gastr ic malignancy. Evaluation with upper endoscopy may be worthwhile. Sigmoid diverticulosis. COMMENT: Quality ID # [id number]: Final reports with documentation of one or more dose reduction techniques (e.g., Automated exposure control, adjustment of the mA and/or kV according to patient size, use of iterative reconstruction technique) TECHNICAL DOCUMENTATION: JOB ID: [id number] 2010 [employer]- All Rights Reserved
[2017-05-07 04:04] VITALS: BP 135/97
[2017-05-07] MEDS ORDERED: METRONIDAZOLE 500 MG TABLET PO ONE (04:06)
[2017-05-07] MEDS ORDERED: CIPROFLOXACIN HCL 500 MG TABLET PO ONE (04:06)
[2017-05-07] MEDS ORDERED: HYDROCODONE/ACETAMINOPHEN 5-325 MG 6 TAB/DSPK PO PRN (04:07)
== END 2017-05-07 04:35 | disposition home or self-care (01) ==
LOC: ER 18:34
DX: R10.32 Left lower quadrant pain (principal); R11.2 Nausea with vomiting, unspecified; R19.7 Diarrhea, unspecified; F17.200 Nicotine dependence, unspecified, uncomplicated
CPT/HCPCS: 96376; 99285; 96361; 96374; 96375; 36415; 83690; 85025; 85610; 85730; 80053; 81001; 83605; 74176; 74175; 72191; J2270 ×2; J2405; J7030

== ENCOUNTER 2017-06-05 15:26 | Emergency (ER) | payer BC ==
[2017-06-05] MEDS ORDERED: DICYCLOMINE HCL 20 MG TABLET PO ONE (16:42)
[2017-06-05] MEDS ORDERED: LORAZEPAM 1 MG TABLET PO ONE (16:42)
[2017-06-05 17:44] LABS: ABSOLUTE BASOPHILS # (AUTO) 0.1 10^3/uL (0.0-0.2); ABSOLUTE MONOCYTES (AUTO) 0.7 10^3/uL (0.1-1.4); ABSOLUTE NEUT (AUTO) 7.8 10^3/uL (1.7-8.2); BASOPHILS % (AUTO) 0.9 % (0-2); EOSINOPHILS % (AUTO) 0.3 % (0-6); HEMATOCRIT 44.9 % (37.9-51.0); HEMOGLOBIN 15.3 g/dL (13.5-17.0); MEAN CORPUSCULAR HEMOGLOBIN 32.9 pg (27.0-33.4); MEAN CORPUSCULAR VOLUME 97 fl (80-97); MONOCYTES % (AUTO) 6.7 % (3-13); RED BLOOD COUNT 4.65 10^6/uL (4.35-5.55); RED CELL DISTRIBUTION WIDTH 16.1 % (11.5-14.0); SEGMENTED NEUTROPHILS % (AUTO) 73.1 % (42-78); WHITE BLOOD COUNT 10.7 10^3/uL (4.0-10.5)
[2017-06-05 17:59] LABS: ALANINE AMINOTRANSFERASE 37 U/L (21-72); ALBUMIN 3.8 g/dL (3.5-5.0); ALKALINE PHOSPHATASE 108 U/L (38-126); ANION GAP 12 (5-19); APPEARANCE,URINE CLEAR; ASPARTATE AMINO TRANSFERASE 36 U/L (17-59); BILIRUBIN,DIRECT 0.4 mg/dL (0.0-0.4); BILIRUBIN,TOTAL 0.8 mg/dL (0.2-1.3); BILIRUBIN,URINE NEGATIVE (NEGATIVE); BLOOD UREA NITROGEN 3 mg/dL (7-20); CALCIUM 9.3 mg/dL (8.4-10.2); CARBON DIOXIDE 22 mmol/L (22-30); CHLORIDE 106 mmol/L (98-107); GLUCOSE 89 mg/dL (75-110); GLUCOSE, URINE NEGATIVE (NEGATIVE); KETONES,URINE NEGATIVE (NEGATIVE); LEUKOCYTE ESTERASE,URINE NEGATIVE (NEGATIVE); LIPASE 46.2 U/L (23-300); NITRITE,URINE NEGATIVE (NEGATIVE); POTASSIUM 4.2 mmol/L (3.6-5.0); PROTEIN,URINE NEGATIVE (NEGATIVE); SODIUM 139.8 mmol/L (137-145); TOTAL PROTEIN 6.5 g/dL (6.3-8.2); URINE SPECIFIC GRAVITY 1.004; UROBILINOGEN,URINE NEGATIVE mg/dL (<2.0)
[2017-06-05 18:29] VITALS: BP 150/95
--- NOTE | 2017-06-05 18:55 | ER Document Report ---
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 He has been seen and had a couple of CT scans of his abdomen, the most recent being just 3 days ago in [place]. Both of these CT scans have been negative. All of his labs have been negative as well. He has been referred to pain management and was at that office this afternoon when he was having abdominal pains and his blood pressure was noted to be 125/70, which is low for him, so EMS was called and brought the patient here. Patient has nausea but not vomiting. He had some diarrhea about a week ago. For the past couple of days, he has been passing tarry stools. Has not taken any Pepto-Bismol. He was here at this emergency department 2 weeks ago with a normal workup for the same complaint. He is also had an upper GI and a colonoscopy done in May without significant findings. Patient is currently taking 5 mg oxycodone once a day in the morning to try to avoid the pain. He occasionally takes a second pill in the evening. He is also taking plain Tylenol. He has been tried on gabapentin with no help. He has an appointment to see his surgeon who did the procedure in March next .. He is also supposed to return to pain management the first of the week. TRAVEL OUTSIDE OF THE [place] 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 - Immunizations Hx Diphtheria, Pertussis, Tetanus Vaccination: Yes - unknowon Review of Systems - Review of Systems Notes: REVIEW OF SYSTEMS: CONSTITUTIONAL : Denies fever. EENT: Denies eye, ear, nose or mouth or throat pain or other symptoms. CARDIOVASCULAR: Denies chest pain. RESPIRATORY: Denies cough, chest congestion, or shortness of breath. GASTROINTESTINAL: See HPI. GENITOURINARY: Denies difficulty or painful urinating, urinary frequency, blood in urine. MUSCULOSKELETAL: Denies back or neck pain. Denies joint pain or swelling. SKIN: Denies rash or skin lesions. NEUROLOGICAL: Denies LOC or altered mental status. Denies headache. Denies sensory loss or motor deficits. ALL OTHER SYSTEMS REVIEWED AND NEGATIVE. Physical Exam - Vital signs Vitals: Temp Pulse Resp BP Pulse Ox 98.5 F 93 16 152/103 H 99 06/05/17 16:25 06/05/17 16:25 06/05/17 16:25 06/05/17 16:25 06/05/17 16:25 Interpretation: Hypertensive - Mild - Notes Notes: PHYSICAL EXAMINATION: GENERAL: Well-appearing, in no acute distress. Blood pressure slightly elevated , but other vital signs are unremarkable. HEAD: Atraumatic, normocephalic. NECK: Normal range of motion, supple. LUNGS: Breath sounds clear and equal bilaterally. HEART: Regular rate and rhythm without murmurs. ABDOMEN: Soft, tender but not true guarding or rebound. No masses present. No bruits heard. Long vertical scar present. No hernia felt around the umbilicus or around the scar. BACK: No tenderness throughout entire back. EXTREMITIES: Normal range of motion without pain. NEUROLOGICAL: Normal speech, normal gait. Normal sensory, motor, and reflex exams. Awake, alert, and oriented x3. Cranial nerves normal. PSYCH: Normal mood, normal affect. Anxious SKIN: Warm, dry, no rashes. Course - Re-evaluation Re-evalutation: 06/06/17 00:32 All the labs are essentially normal. Shared this information with the patient. Patient says 1 mg of Ativan with 40 mg of Bentyl did not help his pain at all. I have no idea why he is having this continuing pain and he will have to work that out with his doctors. At his request, I did write him a prescription for about 10 Percocets to hold him until he sees his doctor next week. - Vital Signs Vital signs: Temp Pulse Resp BP Pulse Ox 98.5 F 93 15 150/95 H 98 06/05/17 16:25 06/05/17 16:25 06/05/17 18:00 06/05/17 18:00 06/05/17 18:00 - Laboratory Result Diagrams: 06/05/17 17:30 06/05/17 17:30 Laboratory results interpreted by me: 06/05/17 06/05/17 06/05/17 17:30 17:30 17:30 WBC 10.7 H RDW 16.1 H BUN 3 L Urine Blood SMALL H Discharge - Discharge Clinical Impression: Abdominal pain Condition: Stable Disposition: HOME, SELF-CARE Additional Instructions: ABDOMINAL PAIN: There are many causes of abdominal pain. Pain can mean a serious problem requiring surgery (such as appendicitis). It can also be an innocent problem that goes away on its own (such as a viral infection). Often, time must pass to determine the cause of pain. The physician does not feel that hospitalization is necessary, at present. Things may change within the next 24 hours. Call the doctor or come back for re- examination if any problems occur, such as: (1) Pain that becomes more severe, steady, or becomes concentrated in one specific area. Also, pain that is more severe with movement or coughing. (2) Vomiting that persists or becomes more frequent. (3) Blood in the vomitus, urine, or bowel movements. Blood in the stool may have a tarry or black appearance. (4) Shaking chills or fever greater than 100 degrees F. (5) The abdomen becomes more distended or swollen. (6) Bowel movements cease. (7) Failure to improve as expected. NORMAL EXAM AND WORKUP: At this time, your examination and workup show no significant abnormality. No significant abnormal physical findings are noted. All laboratory, EKG, and imaging (x-ray, CT scans, ultrasound) studies that were ordered show no significant abnormality. Although your examination and all studies that were ordered showed no significant abnormal finding, there are no examinations and no studies that are 100% accurate. There is always the possibility that some abnormality could exist and not be detected with physical examination or within the limits and capabilities of laboratory and other studies. You should return or follow up as you were instructed on your visit today for further evaluation if your symptoms do not resolve. ORAL NARCOTIC MEDICATION: You have been given a prescription for pain control. This medication is a narcotic. It's best taken with food, as nausea can result if taken on an empty stomach. Don't operate machinery or drive within six hours of taking this medication. Do not combine this medicine with alcohol, or with any medication which can cause sedation (such as cold tablets or sleeping pills) unless you get permission from the physician. Narcotics tend to cause constipation. If possible, drink plenty of fluids and eat a diet high in fiber and fruits. FOLLOW-UP CARE: If you have been referred to a physician for follow-up care, call the physician s office for an appointment as you were instructed or within the next two days. If you experience worsening or a significant change in your symptoms, notify the physician immediately or return to the Emergency Department at any time for re-evaluation. Prescriptions: Oxycodone HCl 5 mg PO QAMP PRN #10 tablet PRN Reason: Forms: Return to Work Referrals: MATILDE DANIELS PA-C [Primary Care Provider] - Follow up as needed
== END 2017-06-05 19:02 | disposition home or self-care (01) ==
LOC: ER 15:26
DX: R10.9 Unspecified abdominal pain (principal); Z79.899 Other long term (current) drug therapy
CPT/HCPCS: 99284; 36415; 83690; 85025; 82272; 80053; 81001; J3490

== ENCOUNTER → 2017-07-10 | Outpatient (CLI) | payer BC ==
--- NOTE | 2017-07-10 09:14 | RADIOLOGY REPORT (SQ) ---
EXAM DESCRIPTION: CT CHEST WITHOUT COMPLETED DATE/TIME: 07/10/2017 8:33 am REASON FOR STUDY: K55.069 SUPERIOR MESENTERIC ARTERY THROMBOSIS K55.069 ACUTE INFARCTION OF INTESTI NE, PART AND EXTENT UNSPE R19.7 DIARRHEA, UNSPECIFIED R10.30 LOWER ABDOMINAL PAIN, UNSPECIFIED COMPARISON: 05/07/2017 CT. TECHNIQUE: CT scan performed of the chest without intravenous contrast. Images reviewed with lung, soft tissue and bone windows. Reconstructed coronal and sagittal MPR images reviewed. All images st ored on PACS. All CT scanners at this facility use dose modulation, iterative reconstruction, and/or weight based d osing when appropriate to reduce radiation dose to as low as reasonably achievable (ALARA). [facility]: Dose Right [facility]: CareDose [facility]: Dose Right [facility]: Teradose 4D [facility]: [employer] RADIATION DOSE: Up-to-date CT equipment and radiation dose reduction techniques were employed. CTDIv ol: 5.5 mGy. DLP: 246 mGy-cm. mGy. LIMITATIONS: No technical limitations. FINDINGS: LUNGS AND PLEURA: No masses, infiltrates, pneumothorax. No pleural effusions, calcificati ons. HILAR AND MEDIASTINAL STRUCTURES: No identified masses or abnormal nodes. No obvious aneurysm. HEART AND VASCULAR STRUCTURES: No aneurysm. No pericardial effusion. UPPER ABDOMEN: See recent dedicated dictation. There is diffuse hepatic steatosis. No adrenal mass. THYROID AND OTHER SOFT TISSUES: Subcentimeter calcified nodule left thyroid. Normal size. No axilla ry or supraclavicular adenopathy evident. BONES: No significant finding. HARDWARE: None in the chest. OTHER: No other significant findings. IMPRESSION: 1. No acute or suspicious thoracic abnormality. TECHNICAL DOCUMENTATION: JOB ID: [id number] Quality ID # [id number]: Final reports with documentation of one or more dose reduction techniques (e.g., Au tomated exposure control, adjustment of the mA and/or kV according to patient size, use of iterative reconstruction technique) 2010 [employer]- All Rights Reserved
--- NOTE | 2017-07-10 12:41 | RADIOLOGY REPORT (SQ) ---
EXAM DESCRIPTION: UPPER GI/SM BOWEL COMPLETED DATE/TIME: 07/10/2017 11:37 am REASON FOR STUDY: R10.30 LOWER ABDOMINAL PAIN K55.069 ACUTE INFARCTION OF INTESTINE, PART AND EXTEN T UNSPE R19.7 DIARRHEA, UNSPECIFIED R10.30 LOWER ABDOMINAL PAIN, UNSPECIFIED COMPARISON: None. TECHNIQUE: Under fluoroscopic guidance, patient ingested effervescent granules followed by thick an d thin barium. Fluoroscopic spot images and routine radiographic images acquired and stored on PACS . Following evaluation of esophagus and stomach, additional barium administered with serial delayed ab dominal radiographs until colonic identification. Fluoroscopic images recorded of the terminal ileu m. 12 MM BARIUM TABLET GIVEN: Yes Barium tablet paused in the mid 3rd of the esophagus at the level of the aortic arch for 5 minutes be fore dropping through into the stomach. No stricture in the mid 3rd esophagus is identified. FLUOROSCOPY TIME: 54 seconds 23 seriesof images saved to PACS. LIMITATIONS: None. FINDINGS: NEUROMUSCULAR COORDINATION OF SWALLOW: Normal. No aspiration. ESOPHAGEAL MOTILITY: Normal peristalsis. No esophageal spasm. ESOPHAGEAL MUCOSA: Normal mucosa without masses or ulceration. GASTRO-ESOPHAGEAL JUNCTION: Tiny hiatal hernia with trace gastroesophageal reflux. STOMACH: Markedly thickened folds throughout the stomach, with barium pooling in recesses between fol ds. Findings are strongly suggestive of H pylori gastritis. Sejal-Gray syndrome is possible. Menetriere disease or lymphoma are considered much less likely. No gastric outlet obstruction. GASTRIC OUTLET: No delay in emptying. Normal pylorus. DUODENAL BULB: Thickened folds, likely from H pylori or peptic disease DUODENUM: Thickened folds, likely from H pylori or peptic disease PROXIMAL SMALL BOWEL: Normal as visualized. JEJUNUM: Normal mucosal pattern. No dilatation, segmentation, strictures or masses. ILEUM: Normal mucosal pattern. No dilatation, segmentation, strictures or masses. TERMINAL ILEUM AND ILEO-CECAL VALVE: Normal mucosal pattern without cobble-stoning or stricture. Nor mal compression. PROXIMAL COLON: Incompletely imaged. No abnormality. NON-GI TRACT STRUCTURES: No significant finding. OTHER: No other significant finding. IMPRESSION: Tiny hiatal hernia with mild gastroesophageal reflux Diffuse massive thickening of gastric and duodenum folds, most likely seen in H pylori infection. Zo llinger-Gray syndrome could also cause this appearance. Menetriere disease or lymphoma are consid ered less likely. COMMENT: Radiology 246;1:33-48 Quality ID [id number]: Final reports for procedures using fluoroscopy that document radiation exposure siva tracy, or exposure time and number of fluorographic images (if radiation exposure indices are not avail able) TECHNICAL DOCUMENTATION: JOB ID: [id number] [employer]- All Rights Reserved
== END ==
LOC: RAD 08:17
PROVIDERS: ATTEND Internal Medicine Gastroenterology
DX: K55.069 Acute infarction of intestine, part and extent unspecified (principal)
CPT/HCPCS: 71250; 74249

== ENCOUNTER 2017-08-10 10:06 | Emergency (ER) | payer BC ==
[2017-08-10] MEDS ORDERED: NORMAL SALINE 1000 ML 1,000 ML IV ONE (10:46)
--- NOTE | 2017-08-10 11:00 | ER Document Report ---
ED GI Bleed / Rectal Pain - General Mode of Arrival: Ambulatory Information source: Patient TRAVEL OUTSIDE OF THE [place] IN LAST 30 DAYS: No - HPI Patient complains to provider of: Bright red bld from rect.. No: Hemorrhoids Onset: Yesterday Timing/Duration: Persistent Quality of pain: Achy, Sharp Pain Level: 5 Emesis description: Bright red blood Rectal bleeding: Bleeding w/o stool Associated symptoms: Abdominal pain. denies: Back pain, Chest pain, Constipation, Sweaty Exacerbated by: Denies Relieved by: Denies Similar symptoms previously: No Recently seen / treated by doctor: No <RC ALMANZAR - Last Filed: 08/10/17 20:48> <ROBSON SOLORIO - Last Filed: 08/11/17 06:47> <RADHA SIDHU - Last Filed: 08/11/17 10:16> - General Chief Complaint: Bloody Stools Stated Complaint: POSSIBLE BLOOD IN STOOL ABDOMINAL PAIN Time Seen by Provider: 08/10/17 10:36 Notes: Patient presents complaining of rectal bleeding that started yesterday with increased abdominal pain today. 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 Patient states that since the surgery he has had loose stools chronically and chronic abdominal pain. Patient states that the intensity of his pain changed today becoming more severe. Patient states that he had bloody bowel movements 11 yesterday and 1 today but is a new symptom for him. Patient does take Xarelto. Patient denies any fever, nausea or vomiting. 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 - Immunizations Hx Diphtheria, Pertussis, Tetanus Vaccination: Yes - unknowon <RC ALMANZAR - Last Filed: 08/10/17 20:48> Review of Systems - Review of Systems Constitutional: No symptoms reported. denies: Fever, Recent illness EENT: No symptoms reported Cardiovascular: No symptoms reported. denies: Chest pain, Syncope, Dizziness Respiratory: No symptoms reported. denies: Cough, Short of breath Gastrointestinal: Abdominal pain, Diarrhea, Rectal bleeding. denies: Vomiting, Constipation Genitourinary: No symptoms reported. denies: Dysuria, Flank pain Male Genitourinary: No symptoms reported Musculoskeletal: No symptoms reported. denies: Back pain Skin: No symptoms reported Hematologic/Lymphatic: No symptoms reported Neurological/Psychological: No symptoms reported <RC ALMANZAR - Last Filed: 08/10/17 20:48> Physical Exam - General General appearance: Alert, Anxious In distress: None - HEENT Head: Normocephalic, Atraumatic Eyes: Normal Conjunctiva: Normal Nasal: Normal Mouth/Lips: Normal Mucous membranes: Normal Neck: Normal - Respiratory Respiratory status: No respiratory distress Chest status: Nontender Breath sounds: Normal. No: Rales, Rhonchi, Stridor, Wheezing Chest palpation: Normal - Cardiovascular Rhythm: Regular Heart sounds: S1 appreciated, S2 appreciated Murmur: No - Abdominal Inspection: Other - linear scar Distension: No distension Bowel sounds: Normal Tenderness: Tender - Right lower pelvic tenderness, left lower pelvic tenderness Organomegaly: No organomegaly - Rectal Tenderness: Yes Stool: See lab result - Back Back: Normal, Nontender. No: CVA tenderness - Extremities General upper extremity: Normal inspection, Normal ROM General lower extremity: Normal inspection, Normal ROM - Neurological Neuro grossly intact: Yes Cognition: Normal [place] Coma Scale Eye Opening: Spontaneous [place] Coma Scale Verbal: Oriented [place] Coma Scale Motor: Obeys Commands [place] Coma Scale Total: 15 - Psychological Associated symptoms: Normal affect, Normal mood - Skin Skin Temperature: Warm Skin Moisture: Dry Skin Color: Normal <RC ALMANZAR - Last Filed: 08/10/17 20:48> <ROBSON SOLORIO - Last Filed: 08/11/17 06:47> <RADHA SIDHU - Last Filed: 08/11/17 10:16> - Vital signs Vitals: Temp Pulse Resp BP Pulse Ox 98.1 F 103 H 18 153/104 H 98 08/10/17 10:17 08/10/17 10:17 08/10/17 10:17 08/10/17 10:17 08/10/17 10:17 - Rectal Notes: PCT Jada as standby (RC ALMANZAR) Course - Laboratory Result Diagrams: 08/10/17 15:13 08/10/17 11:12 - Diagnostic Test Radiology reviewed: Reports reviewed <RC ALMANZAR - Last Filed: 08/10/17 20:48> - Laboratory Result Diagrams: 08/10/17 15:13 08/10/17 11:12 <ROBSON SOLORIO - Last Filed: 08/11/17 06:47> - Laboratory Result Diagrams: 08/11/17 07:45 08/10/17 11:12 <RADHA SIDHU - Last Filed: 08/11/17 10:16> - Re-evaluation Re-evalutation: 08/10/17 11:[address] Jaime who recommends CT imaging with IV contrast as well as transfer to facility with GI services 08/10/17 14:03 Discuss results of patient's CT scan with Dr. Jaime, Dr. Jaime advises consultation and transfer to provide and where patient's GI doctor is on staff Patient states that he continues with abdominal pain and has had 2 episodes of bloody stools today. Rectal exam performed, no obvious blood on digital rectal , no stool on SAMPSON. 08/10/17 14:[address] Canada (GI) at [facility] who does advise transferring patient to their facility but recommends having patient admitted to the hospitalist services. Consulted with Dr. Cummins who is the hospitalist at [facility], who does agree to accept patient for transfer. Advises holding patient Xarelto and repeating H&H. If H&H drops recommends consultation with transfer center so that bed assignment can be adjusted. 08/10/17 17:23 Call center advised of repeat H&H results. Patient continues stable no additional bleeding episodes. 08/10/17 18:47 Dr. Garcia (GI) at [facility] advised of patient's occult blood test results. Patient continues with similar abdominal tenderness at this time. Patient's vital signs continue stable. Consulted with Dr. Lake, discussed patient's presentation as well as diagnostic test results including negative occult blood stool test results here. Discussed concern about possible intermittent bleeding and patient's history of SMA thrombus in the past. Dr. Lake advises transferring patient to facility with GI services on so that patient can still receive colonoscopy to definitively evaluate source of patient's rectal bleeding given his complicated history as well as use of Xarelto. Pt is agreeable with this plan of care. 08/10/17 19:00 Patient states that he just had a bloody stool, patient states that the toilet flushed prior to being able to notify the nurse. Patient given a handout and advised to let nursing know when he has bowel movements. 08/10/17 20:48 RN to contact transfer center to get an estimate on wait time. Bedside report and handoff given to Robson MATOS (RC ALMANZAR) 08/11/17 09:04 08/11/17 10:[address] Dk Martin GI fellow at [facility] who states there is not urgent need for transfer if we have not been able to assess presence of GI bleed over the past 24 hours over the course of his stay in the ED. has had two negative occult stools, with stable hgb x3. will d/c patient home to continue taking his xarelto and dollow up with GI this week. (RADHA SIDHU) - Vital Signs Vital signs: Temp Pulse Resp BP Pulse Ox 97.5 F 90 12 158/102 H 99 08/11/17 07:02 08/11/17 07:02 08/11/17 07:02 08/11/17 07:02 08/11/17 07:02 - Laboratory Laboratory results interpreted by id: 08/10/17 08/10/17 08/10/17 11:12 11:12 11:12 WBC RBC MCV 99 H MCH 34.3 H RDW 21.9 H PT 16.6 H APTT 36.7 H BUN 4 L Direct Bilirubin 0.5 H AST 90 H Alkaline Phosphatase 166 H 08/10/17 08/11/17 15:13 07:45 WBC 10.8 H RBC 4.18 L MCV 98 H 99 H MCH 34.8 H 33.7 H RDW 22.1 H 21.9 H PT APTT BUN Direct Bilirubin AST Alkaline Phosphatase Labs- Entire Visit 08/10/17 08/10/17 08/10/17 11:12 11:12 11:12 WBC 8.6 RBC 4.43 Hgb 15.2 Hct 44.0 MCV 99 H MCH 34.3 H MCHC 34.5 RDW 21.9 H Plt Count 347 Seg Neutrophils % 60.1 Lymphocytes % 28.2 Monocytes % 9.1 Eosinophils % 1.8 Basophils % 0.8 Absolute Neutrophils 5.2 Absolute Lymphocytes 2.4 Absolute Monocytes 0.8 Absolute Eosinophils 0.2 Absolute Basophils 0.1 PT 16.6 H INR 1.26 APTT 36.7 H Sodium 138.3 Potassium 3.7 Chloride 102 Carbon Dioxide 24 Anion Gap 12 BUN 4 L Creatinine 0.67 Est GFR ( Amer) > 60 Est GFR (Non-Af Amer) > 60 Glucose 89 Lactic Acid Calcium 8.5 Total Bilirubin 0.6 Direct Bilirubin 0.5 H Neonat Total Bilirubin Not Reportable Neonat Direct Bilirubin Not Reportable Neonat Indirect Bili Not Reportable AST 90 H ALT 70 Alkaline Phosphatase 166 H Total Protein 7.0 Albumin 3.9 Lipase 41.9 Urine Color Urine Appearance Urine pH Ur Specific Rosenberg Urine Protein Urine Glucose (UA) Urine Ketones Urine Blood Urine Nitrite Urine Bilirubin Urine Urobilinogen Ur Leukocyte Esterase Urine WBC (Auto) Urine Mucus (Auto) Urine Ascorbic Acid Stool Occult Blood Blood Type Antibody Screen 08/10/17 08/10/17 08/10/17 11:12 11:12 13:20 WBC RBC Hgb Hct MCV MCH MCHC RDW Plt Count Seg Neutrophils % Lymphocytes % Monocytes % Eosinophils % Basophils % Absolute Neutrophils Absolute Lymphocytes Absolute Monocytes Absolute Eosinophils Absolute Basophils PT INR APTT Sodium Potassium Chloride Carbon Dioxide Anion Gap BUN Creatinine Est GFR ( Amer) Est GFR (Non-Af Amer) Glucose Lactic Acid 1.7 Calcium Total Bilirubin Direct Bilirubin Neonat Total Bilirubin Neonat Direct Bilirubin Neonat Indirect Bili AST ALT Alkaline Phosphatase Total Protein Albumin Lipase Urine Color Urine Appearance Urine pH Ur Specific Rosenberg Urine Protein Urine Glucose (UA) Urine Ketones Urine Blood Urine Nitrite Urine Bilirubin Urine Urobilinogen Ur Leukocyte Esterase Urine WBC (Auto) Urine Mucus (Auto) Urine Ascorbic Acid Stool Occult Blood Blood Type Cancelled O POSITIVE Antibody Screen Cancelled NEGATIVE 08/10/17 08/10/17 13:58 14:15 WBC RBC Hgb Hct MCV MCH MCHC RDW Plt Count Seg Neutrophils % Lymphocytes % Monocytes % Eosinophils % Basophils % Absolute Neutrophils Absolute Lymphocytes Absolute Monocytes Absolute Eosinophils Absolute Basophils PT INR APTT Sodium Potassium Chloride Carbon Dioxide Anion Gap BUN Creatinine Est GFR ( Amer) Est GFR (Non-Af Amer) Glucose Lactic Acid Calcium Total Bilirubin Direct Bilirubin Neonat Total Bilirubin Neonat Direct Bilirubin Neonat Indirect Bili AST ALT Alkaline Phosphatase Total Protein Albumin Lipase Urine Color STRAW Urine Appearance CLEAR Urine pH 7.0 Ur Specific Rosenberg 1.010 Urine Protein NEGATIVE Urine Glucose (UA) NEGATIVE Urine Ketones NEGATIVE Urine Blood NEGATIVE Urine Nitrite NEGATIVE Urine Bilirubin NEGATIVE Urine Urobilinogen NEGATIVE Ur Leukocyte Esterase NEGATIVE Urine WBC (Auto) 0 Urine Mucus (Auto) RARE Urine Ascorbic Acid NEGATIVE Stool Occult Blood NEGATIVE Blood Type Antibody Screen (RC ALMANZAR) Discharge <RC ALMANZAR - Last Filed: 08/10/17 20:48> <ROBSON SOLORIO - Last Filed: 08/11/17 06:47> <RADHA SIDHU - Last Filed: 08/11/17 10:16> - Discharge Clinical Impression: Rectal bleeding Abdominal pain Qualifiers: Abdominal location: lower abdomen, unspecified Qualified Code(s): R10.30 - Lower abdominal pain, unspecified Condition: Stable Disposition: HOME, SELF-CARE Additional Instructions: You have been evaluated in our emergency department for presence of a gastrointestinal bleed. You have been bleed free for approximately 24 hours with stable blood work and lab testing. Based on your assessment here in consultation with gwen, you have been deemed stable for discharge home. Please follow-up with [facility] gastroenterology this week. Please call to touch base with their office after your discharge. If you do notice signs of GI bleeding again please stop your xarelto, attempt to get to [place] given relationship of gastroenterology care. If not able, please return to the emergency department immediately Referrals: EDINSON HUIZAR PA-C [Primary Care Provider] - Follow up as needed [facility] [Provider Group] - Follow up tomorrow (Gasrtoenterology)
[2017-08-10 11:45] LABS: ABSOLUTE BASOPHILS # (AUTO) 0.1 10^3/uL (0.0-0.2); ABSOLUTE EOSINOPHILS # (AUTO) 0.2 10^3/uL (0.0-0.6); ABSOLUTE LYMPHOCYTES (AUTO) 2.4 10^3/uL (0.5-4.7); ABSOLUTE MONOCYTES (AUTO) 0.8 10^3/uL (0.1-1.4); ABSOLUTE NEUT (AUTO) 5.2 10^3/uL (1.7-8.2); BASOPHILS % (AUTO) 0.8 % (0-2); EOSINOPHILS % (AUTO) 1.8 % (0-6); HEMOGLOBIN 15.2 g/dL (13.5-17.0); HGB HCT DIFFERENCE 1.6; LYMPHOCYTES % (AUTO) 28.2 % (13-45); MEAN CORPUSCULAR HEMOGLOBIN 34.3 pg (27.0-33.4); MEAN CORPUSCULAR HGB CONC 34.5 g/dL (32.0-36.0); MEAN CORPUSCULAR VOLUME 99 fl (80-97); MONOCYTES % (AUTO) 9.1 % (3-13); RED BLOOD COUNT 4.43 10^6/uL (4.35-5.55); RED CELL DISTRIBUTION WIDTH 21.9 % (11.5-14.0); SEGMENTED NEUTROPHILS % (AUTO) 60.1 % (42-78); WHITE BLOOD COUNT 8.6 10^3/uL (4.0-10.5)
[2017-08-10 11:52] LABS: PROTHROMBIN TIME 16.6 SEC (11.4-15.4)
[2017-08-10 11:53] LABS: PARTIAL THROMBOPLASTIN TIME 36.7 SEC (23.5-35.8)
[2017-08-10] MEDS ORDERED: HYDROMORPHONE HCL INJ/PF 2 MG/ML AMPULE IV ONE ×5 (11:54→22:01)
[2017-08-10 12:30] LABS: ALANINE AMINOTRANSFERASE 70 U/L (21-72); ALBUMIN 3.9 g/dL (3.5-5.0); ALKALINE PHOSPHATASE 166 U/L (38-126); ANION GAP 12 (5-19); ASPARTATE AMINO TRANSFERASE 90 U/L (17-59); BILIRUBIN,DIRECT 0.5 mg/dL (0.0-0.4); BILIRUBIN,TOTAL 0.6 mg/dL (0.2-1.3); BLOOD UREA NITROGEN 4 mg/dL (7-20); CALCIUM 8.5 mg/dL (8.4-10.2); CARBON DIOXIDE 24 mmol/L (22-30); CHLORIDE 102 mmol/L (98-107); CREATININE RESULT 0.67 mg/dL (0.52-1.25); GLUCOSE 89 mg/dL (75-110); LIPASE 41.9 U/L (23-300); POTASSIUM 3.7 mmol/L (3.6-5.0); SODIUM 138.3 mmol/L (137-145)
--- NOTE | 2017-08-10 13:28 | RADIOLOGY REPORT (SQ) ---
EXAM DESCRIPTION: CT ABD/PELVIS WITH IV ONLY COMPLETED DATE/TIME: 08/10/2017 12:37 pm REASON FOR STUDY: abd pain,rect bleeding,hx sma thrombus, menetriers COMPARISON: 05/06/2017 TECHNIQUE: CT scan of the abdomen and pelvis performed using helical scanning technique with dynamic intravenous contrast injection. No oral contrast. Images reviewed with lung, soft tissue, and bone windows. Reconstructed coronal and sagittal MPR images reviewed. Delayed images for evaluation of the urinary system also acquired. All images stored on PACS. All CT scanners at this facility use dose modulation, iterative reconstruction, and/or weight based d osing when appropriate to reduce radiation dose to as low as reasonably achievable (ALARA). [facility]: Dose Right [facility]: CareDose [facility]: Dose Right [facility]: Teradose 4D [facility]: WittyParrot CONTRAST TYPE AND DOSE: contrast/concentration: Isovue 370.00 mg/ml; Total Contrast Delivered: 91.0 ml; Total Saline Delivered: 69.1 ml RENAL FUNCTION: Not available. RADIATION DOSE: CT Rad equipment meets quality standard of care and radiation dose reduction techniq ues were employed. CTDIvol: 7.4 - 10.2 mGy. DLP: 980 mGy-cm.. LIMITATIONS: None. FINDINGS: LOWER CHEST: No significant findings. No nodules or infiltrates. LIVER: Steatosis. Normal size. No masses. No dilated ducts. SPLEEN: Normal size. No focal lesions. PANCREAS: No masses. No significant calcifications. No adjacent inflammation or peripancreatic fluid collections. Pancreatic duct not dilated. GALLBLADDER: No identified stones by CT criteria. No inflammatory changes to suggest cholecystitis. ADRENAL GLANDS: No significant masses or asymmetry. RIGHT KIDNEY AND URETER: No solid masses. No significant calcifications. No hydronephrosis or hyd roureter. LEFT KIDNEY AND URETER: No solid masses. No significant calcifications. No hydronephrosis or hydr oureter. AORTA AND VESSELS: Chronic nonocclusive thrombus in the SMA. RETROPERITONEUM: No retroperitoneal adenopathy, hemorrhage or masses. BOWEL AND PERITONEAL CAVITY: No masses or inflammatory changes. No free fluid or peritoneal masses. APPENDIX: Normal. PELVIS: No mass. No free fluid. Normal bladder. ABDOMINAL WALL: Anterior abdominal wall hernia containing fat. BONES: No acute findings. OTHER: No other significant finding. IMPRESSION: Chronic nonocclusive thrombus in the SMA. No acute findings. TECHNICAL DOCUMENTATION: JOB ID: [id number] Quality ID # [id number]: Final reports with documentation of one or more dose reduction techniques (e.g., Au tomated exposure control, adjustment of the mA and/or kV according to patient size, use of iterative reconstruction technique) 2010 [employer]- All Rights Reserved
[2017-08-10 14:30] LABS: APPEARANCE,URINE CLEAR; BILIRUBIN,URINE NEGATIVE (NEGATIVE); GLUCOSE, URINE NEGATIVE (NEGATIVE); KETONES,URINE NEGATIVE (NEGATIVE); LEUKOCYTE ESTERASE,URINE NEGATIVE (NEGATIVE); NITRITE,URINE NEGATIVE (NEGATIVE); PROTEIN,URINE NEGATIVE (NEGATIVE); UROBILINOGEN,URINE NEGATIVE mg/dL (<2.0)
[2017-08-10] MEDS ORDERED: NICOTINE 21 MG/24 HR PATCH.TD24 TD ONE (15:16)
[2017-08-10 15:23] LABS: HEMOGLOBIN 14.5 g/dL (13.5-17.0); HGB HCT DIFFERENCE 2.5; MEAN CORPUSCULAR HEMOGLOBIN 34.8 pg (27.0-33.4); MEAN CORPUSCULAR HGB CONC 35.4 g/dL (32.0-36.0); MEAN CORPUSCULAR VOLUME 98 fl (80-97); RED BLOOD COUNT 4.18 10^6/uL (4.35-5.55); RED CELL DISTRIBUTION WIDTH 22.1 % (11.5-14.0); WHITE BLOOD COUNT 7.7 10^3/uL (4.0-10.5)
[2017-08-10] MEDS: NORMAL SALINE 1000 ML 1,000 ML IV PRN (15:45)
[2017-08-11] MEDS: NORMAL SALINE 1000 ML 1,000 ML IV PRN (02:27)
[2017-08-11] MEDS ORDERED: HYDROMORPHONE HCL INJ/PF 2 MG/ML AMPULE IV ONE (02:51)
[2017-08-11] MEDS ORDERED: ONDANSETRON HCL INJ/PF 4 MG/2 ML SDV IV ONE (07:42)
[2017-08-11] MEDS: HYDROMORPHONE HCL INJ/PF 2 MG/ML AMPULE IV PRN ×2 (07:50→11:05)
[2017-08-11 07:56] LABS: ABSOLUTE BASOPHILS # (AUTO) 0.1 10^3/uL (0.0-0.2); ABSOLUTE EOSINOPHILS # (AUTO) 0.4 10^3/uL (0.0-0.6); ABSOLUTE LYMPHOCYTES (AUTO) 2.3 10^3/uL (0.5-4.7); ABSOLUTE MONOCYTES (AUTO) 1.1 10^3/uL (0.1-1.4); BASOPHILS % (AUTO) 0.6 % (0-2); EOSINOPHILS % (AUTO) 3.9 % (0-6); HEMATOCRIT 43.8 % (37.9-51.0); HEMOGLOBIN 14.9 g/dL (13.5-17.0); HGB HCT DIFFERENCE 0.9; LYMPHOCYTES % (AUTO) 20.9 % (13-45); MEAN CORPUSCULAR HEMOGLOBIN 33.7 pg (27.0-33.4); MEAN CORPUSCULAR HGB CONC 34.1 g/dL (32.0-36.0); MEAN CORPUSCULAR VOLUME 99 fl (80-97); MONOCYTES % (AUTO) 9.8 % (3-13); RED BLOOD COUNT 4.43 10^6/uL (4.35-5.55); RED CELL DISTRIBUTION WIDTH 21.9 % (11.5-14.0); SEGMENTED NEUTROPHILS % (AUTO) 64.8 % (42-78); WHITE BLOOD COUNT 10.8 10^3/uL (4.0-10.5)
[2017-08-11 12:17] VITALS: BP 139/105
== END 2017-08-11 11:10 | disposition home or self-care (01) ==
LOC: ER 10:06
DX: K62.5 Hemorrhage of anus and rectum (principal); R10.30 Lower abdominal pain, unspecified; F17.200 Nicotine dependence, unspecified, uncomplicated; E78.00 Pure hypercholesterolemia, unspecified; I10 Essential (primary) hypertension; K21.9 Gastro-esophageal reflux disease without esophagitis; Z85.828 Personal history of other malignant neoplasm of skin; Z79.02 Long term (current) use of antithrombotics/antiplatelets
CPT/HCPCS: 96376; 99284; 96374; 96361; 86900; 86901; 36415; 87045; 87205; 86850; 83605; 83690; 85025; 85027; 85610; 85730; 82272; 80053; 81001; 87493; 74177; J1170 ×2; J2405; J7030 ×2

== ENCOUNTER 2017-10-12 10:09 | Emergency (ER) | payer BC ==
[2017-10-12] MEDS ORDERED: NORMAL SALINE 1000 ML 1,000 ML IV ONE (10:32)
[2017-10-12] MEDS ORDERED: ONDANSETRON HCL INJ/PF 4 MG/2 ML SDV IV ONE (10:33)
--- NOTE | 2017-10-12 10:35 | ER Document Report ---
ED Medical Screen (RME) - General Chief Complaint: Abdominal Pain Stated Complaint: ABDOMINAL AND BACK PAIN Time Seen by Provider: 10/12/17 10:32 Mode of Arrival: Ambulatory Information source: Patient Notes: Patient presents complaining of right-sided abdominal pain with abdominal swelling. 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 Patient states he has had nausea vomiting 8 times and diarrhea 15 today. Patient denies any fever. I have greeted and performed a rapid initial assessment of this patient. A comprehensive ED assessment and evaluation of the patient, analysis of test results and completion of the medical decision making process will be conducted by additional ED providers. TRAVEL OUTSIDE OF THE [place] 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 - Immunizations Hx Diphtheria, Pertussis, Tetanus Vaccination: Yes - unknowon Physical Exam - Vital signs Vitals: Temp Pulse Resp BP Pulse Ox 98.4 F 112 H 16 129/98 H 96 10/12/17 10:24 10/12/17 10:24 10/12/17 10:24 10/12/17 10:24 10/12/17 10:24 - Abdominal Tenderness: Tender - Right side abdominal tenderness with subtle swelling Course - Re-evaluation Re-evalutation: 10/12/17 10:[address] Jaime and who advises CT of abdomen - Vital Signs Vital signs: Temp Pulse Resp BP Pulse Ox 98.4 F 112 H 16 129/98 H 96 10/12/17 10:24 10/12/17 10:24 10/12/17 10:24 10/12/17 10:24 10/12/17 10:24
[2017-10-12 11:28] LABS: APPEARANCE,URINE SLIGHTLY-CLOUDY; BILIRUBIN,URINE NEGATIVE (NEGATIVE); GLUCOSE, URINE NEGATIVE (NEGATIVE); KETONES,URINE TRACE mg/dL (NEGATIVE); LEUKOCYTE ESTERASE,URINE NEGATIVE (NEGATIVE); NITRITE,URINE NEGATIVE (NEGATIVE); PROTEIN,URINE 30 mg/dL (NEGATIVE); URINE SPECIFIC GRAVITY 1.021
[2017-10-12 11:29] LABS: COLOR,URINE YELLOW
[2017-10-12 12:00] LABS: ABSOLUTE BASOPHILS # (AUTO) 0.1 10^3/uL (0.0-0.2); ABSOLUTE EOSINOPHILS # (AUTO) 0.2 10^3/uL (0.0-0.6); ABSOLUTE MONOCYTES (AUTO) 0.6 10^3/uL (0.1-1.4); ABSOLUTE NEUT (AUTO) 7.4 10^3/uL (1.7-8.2); BASOPHILS % (AUTO) 0.8 % (0-2); EOSINOPHILS % (AUTO) 2.3 % (0-6); HEMATOCRIT 40.3 % (37.9-51.0); HEMOGLOBIN 13.6 g/dL (13.5-17.0); LYMPHOCYTES % (AUTO) 19.7 % (13-45); MEAN CORPUSCULAR HGB CONC 33.8 g/dL (32.0-36.0); MEAN CORPUSCULAR VOLUME 98 fl (80-97); MONOCYTES % (AUTO) 5.4 % (3-13); PLATELET COUNT 552 10^3/uL (150-450); RED BLOOD COUNT 4.12 10^6/uL (4.35-5.55); RED CELL DISTRIBUTION WIDTH 17.9 % (11.5-14.0); SEGMENTED NEUTROPHILS % (AUTO) 71.8 % (42-78); TOTAL CELLS COUNTED % (AUTO) 100 %; WHITE BLOOD COUNT 10.4 10^3/uL (4.0-10.5)
[2017-10-12 12:05] LABS: PROTHROMBIN TIME 21.9 SEC (11.4-15.4)
[2017-10-12 12:06] LABS: PARTIAL THROMBOPLASTIN TIME 38.5 SEC (23.5-35.8)
[2017-10-12 12:25] LABS: ALANINE AMINOTRANSFERASE 37 U/L (21-72); ALBUMIN 4.4 g/dL (3.5-5.0); ALKALINE PHOSPHATASE 107 U/L (38-126); ANION GAP 13 (5-19); ASPARTATE AMINO TRANSFERASE 48 U/L (17-59); BILIRUBIN,DIRECT 0.4 mg/dL (0.0-0.4); BILIRUBIN,TOTAL 0.4 mg/dL (0.2-1.3); BLOOD UREA NITROGEN 4 mg/dL (7-20); CARBON DIOXIDE 24 mmol/L (22-30); CHLORIDE 104 mmol/L (98-107); GLUCOSE 80 mg/dL (75-110); LIPASE 101.4 U/L (23-300); SODIUM 141.4 mmol/L (137-145); TOTAL PROTEIN 7.7 g/dL (6.3-8.2)
--- NOTE | 2017-10-12 13:47 | RADIOLOGY REPORT (SQ) ---
EXAM DESCRIPTION: CTA ABDOMEN COMPLETED DATE/TIME: 10/12/2017 1:17 pm REASON FOR STUDY: hx mesenteric artery clot/stent, abd pain COMPARISON: 05/06/2017 and 04/02/2017. TECHNIQUE: CT scan of the abdomen and pelvis performed using helical scanning technique with dynamic intravenous contrast injection. No oral contrast. Images reviewed with lung, soft tissue, and bone windows. Reconstructed coronal and sagittal MPR images reviewed. Delayed images for evaluation of the urinary system also acquired. All images stored on PACS. All CT scanners at this facility use dose modulation, iterative reconstruction, and/or weight based d osing when appropriate to reduce radiation dose to as low as reasonably achievable (ALARA). [facility]: Dose Right [facility]: CareDose [facility]: Dose Right [facility]: Teradose 4D [facility]: Linq3 CONTRAST TYPE AND DOSE: contrast/concentration: Isovue 370.00 mg/ml; Total Contrast Delivered: 89.0 ml; Total Saline Delivered: 50.0 ml RENAL FUNCTION: BUN 4 creatinine 0.67. RADIATION DOSE: CT Rad equipment meets quality standard of care and radiation dose reduction techniq ues were employed. CTDIvol: 9.9 - 25.5 mGy. DLP: 982 mGy-cm.. LIMITATIONS: None. FINDINGS: LOWER CHEST: No significant findings. No nodules or infiltrates. LIVER: Normal size. Diffuse fatty infiltration. No masses. No dilated ducts. SPLEEN: Normal size. No focal lesions. PANCREAS: No masses. No significant calcifications. No adjacent inflammation or peripancreatic fluid collections. Pancreatic duct not dilated. GALLBLADDER: No identified stones by CT criteria. No inflammatory changes to suggest cholecystitis. ADRENAL GLANDS: No significant masses or asymmetry. RIGHT KIDNEY AND URETER: No solid masses. No significant calcifications. No hydronephrosis or hyd roureter. LEFT KIDNEY AND URETER: No solid masses. No significant calcifications. No hydronephrosis or hydr oureter. AORTA AND VESSELS: No aneurysm. No dissection. Progressive narrowing of the proximal superior mesent holly artery with at least 90% luminal narrowing at this time. Length of involvement is approximately 2.5 cm. Distal mesenteric arterial branches appear patent. RETROPERITONEUM: No retroperitoneal adenopathy, hemorrhage or masses. BOWEL AND PERITONEAL CAVITY: Bowel wall thickening, suspect bowel wall edema, involving the colon fro m the hepatic flexure to the lower descending colon. Scattered diverticuli primarily in the sigmoid colon. No masses or inflammatory changes. No free fluid or peritoneal masses. APPENDIX: Normal. PELVIS: No mass. No free fluid. Normal bladder. ABDOMINAL WALL: No masses. No hernias. BONES: No significant or acute findings. OTHER: No other significant finding. IMPRESSION: 1. PROGRESSIVE NARROWING OF THE PROXIMAL SUPERIOR MESENTERIC ARTERY DESCRIBED. HIGH-GRADE STENOSI S WITH AT LEAST 90% LUMINAL NARROWING. 2. SUSPECT BOWEL WALL EDEMA INVOLVING THE COLON DESCRIBED. THIS COULD BE DUE TO BOWEL ISCHEMIA. 3. SIGMOID DIVERTICULOSIS. NO CT FINDINGS OF ACUTE DIVERTICULITIS. 4. DIFFUSE FATTY INFILTRATION OF THE LIVER. NO OTHER SIGNIFICANT OR ACUTE FINDING IN THE ABDOMEN OR PELVIS ON CT SCAN WITH IV CONTRAST. TECHNICAL DOCUMENTATION: JOB ID: [id number] Quality ID # [id number]: Final reports with documentation of one or more dose reduction techniques (e.g., Au tomated exposure control, adjustment of the mA and/or kV according to patient size, use of iterative reconstruction technique) 2010 [employer]- All Rights Reserved
[2017-10-12] MEDS ORDERED: HEPARIN SODIUM,PORCINE/D5W 25,000 UNIT/250 ML RTUINJ IV PRN (13:59)
[2017-10-12] MEDS ORDERED: HEPARIN SOD (PORCINE) 1,000 UNIT/ML 10 ML VIAL IV ONE (13:59)
[2017-10-12] MEDS ORDERED: NORMAL SALINE 1000 ML 1,000 ML IV PRN (14:02)
--- NOTE | 2017-10-12 14:12 | ER Document Report ---
ED GI/ - General Mode of Arrival: Ambulatory Information source: Patient TRAVEL OUTSIDE OF THE [place] IN LAST 30 DAYS: No - HPI Patient complains to provider of: Abdominal pain Onset: Other - 2 weeks, worse today Timing/Duration: Worse Quality of pain: Sharp Pain Level: 5 Location: Other - Right periumbilical area Associated symptoms: Other - Abdominal, back pain. denies: Constipation, Dysuria, Fever, Loss of appetite, Nausea, Urinary hesitancy, Urinary frequency, Urinary retention, Urinary urgency Exacerbated by: Movement Relieved by: Denies Similar symptoms previously: Yes Recently seen / treated by doctor: Yes <RC ALMANZAR - Last Filed: 10/12/17 19:09> <MOHSEN HUITRON - Last Filed: 10/12/17 21:03> - General Chief Complaint: Abdominal Pain Stated Complaint: ABDOMINAL AND BACK PAIN Time Seen by Provider: 10/12/17 10:32 Notes: Patient presents complaining of right-sided abdominal pain that he states he chronically has but that the pain worsened gradually over the past 2 weeks that became noticeably worse today. Patient reports nausea vomiting and diarrhea. Patient states he has vomited 8 times today and had diarrhea about 15. Patient additionally complains of increased abdominal swelling to the right side of his abdomen. Patient denies any fever. 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 Patient states the stent was placed 2 weeks ago. Patient does take Xarelto. (RC ALMANZAR) - Related Data Allergies/Adverse Reactions: No Known Allergies Allergy (Verified 10/12/17 20:00) Past Medical History - General Information source: Patient - Social History Smoking Status: Current Every Day Smoker Frequency of alcohol use: Occasional Occupation: None Lives with: Family Family History: CAD, DM, Reviewed & Not Pertinent Patient has suicidal ideation: No Patient has homicidal ideation: No - Past Medical History Cardiac Medical History: Reports: Hx Hypercholesterolemia, Hx Hypertension, Other - SMA thrombus Renal/ Medical History: Denies: Hx Peritoneal Dialysis Malignancy Medical History: Reports Hx Skin Cancer - 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 Squamous cell carcinoma removed from the hand., Other - Stent SMA - Immunizations Hx Diphtheria, Pertussis, Tetanus Vaccination: Yes - unknowon <RC ALMANZAR - Last Filed: 10/12/17 19:09> Review of Systems - Review of Systems Constitutional: No symptoms reported. denies: Fever EENT: No symptoms reported Cardiovascular: No symptoms reported. denies: Chest pain Respiratory: No symptoms reported. denies: Cough, Short of breath Gastrointestinal: Abdominal pain, Diarrhea, Nausea, Vomiting. denies: Constipation Genitourinary: No symptoms reported. denies: Dysuria, Flank pain Male Genitourinary: No symptoms reported Musculoskeletal: Back pain Skin: No symptoms reported Hematologic/Lymphatic: No symptoms reported Neurological/Psychological: No symptoms reported <RC ALMANZAR - Last Filed: 10/12/17 19:09> Physical Exam - General General appearance: Appears well, Alert In distress: None - HEENT Head: Normocephalic Eyes: Normal Nasal: Normal Mouth/Lips: Normal Mucous membranes: Normal Neck: Normal, Supple. No: Lymphadenopathy - Respiratory Respiratory status: No respiratory distress Chest status: Nontender Breath sounds: Normal. No: Rales, Rhonchi, Stridor, Wheezing Chest palpation: Normal - Cardiovascular Rhythm: Tachycardia Heart sounds: S1 appreciated Murmur: No - Abdominal Inspection: Other - Scars from previous abdominal surgery Distension: Other - Subtle fullness noted to the right periumbilical area Bowel sounds: Normal Tenderness: Tender - Right abdominal tenderness. No: Guarding Organomegaly: No organomegaly - Back Back: Nontender. No: CVA tenderness, Vertebra tenderness - Extremities General upper extremity: Normal inspection, Normal strength General lower extremity: Normal inspection, Normal strength - Neurological Neuro grossly intact: Yes Cognition: Normal [place] Coma Scale Eye Opening: Spontaneous [place] Coma Scale Verbal: Oriented [place] Coma Scale Motor: Obeys Commands Ines Coma Scale Total: 15 - Psychological Associated symptoms: Normal affect, Normal mood - Skin Skin Temperature: Warm Skin Moisture: Dry Skin Color: Normal <RC ALMANZAR - Last Filed: 10/12/17 19:09> - Vital signs Vitals: Temp Pulse Resp BP Pulse Ox 98.4 F 112 H 16 129/98 H 96 10/12/17 10:24 10/12/17 10:24 10/12/17 10:24 10/12/17 10:24 10/12/17 10:24 Course - Laboratory Result Diagrams: 10/12/17 11:35 10/12/17 11:35 - Diagnostic Test Radiology reviewed: Reports reviewed <RC ALMANZAR - Last Filed: 10/12/17 19:09> - Laboratory Result Diagrams: 10/12/17 11:35 10/12/17 11:35 <MOHSEN HUITRON Elen - Last Filed: 10/12/17 21:03> - Re-evaluation Re-evalutation: 10/12/17 14:00 Consulted with general surgeon who does not feel that this facility can manage patient's symptoms as he will need a vascular surgeon. Recommends consultation with vascular surgeon. Dr. Jaime recommends starting patient on heparin drip at this time. Call placed to [facility] transfer center for consultation with vascular surgeon. 10/12/17 14:[address] Shaw, vascular surgeon, at [facility]. Dr. Shaw states that patient recently had an angiogram 2 weeks ago that did not show any occlusion and he does not feel that patient could have reoccluded in [address] Shaw advises having our general surgeon admit patient here, Dr. Shaw plans excepting patient for transfer. Dr. Jaime spoke with Dr. Shaw regarding request for transfer given concerning findings on CT scan, pt's reported worsening symptoms, and due to the fact that we do not have interventional vascular services here. Dr Shaw again declines accepting pt for transfer. Pt agreeable with transfer to different facility. [facility] to [facility]. 10/12/17 16:[address] Hunter, vascular surgery, at [facility] who agrees to accept patient for transfer and recommends having patient transferred via helicopter. 10/12/17 16:14 Patient with stable vital signs, patient continues with subtle swelling to right side of abdomen. Patient stable for transfer at this time. 10/12/17 18:00 Patient does have a ready bed but is awaiting trans-rotation. Helicopter is not flying due to weather. [facility] is attempting to arrange transport. [facility] is available to transport patient at 830 tonight. 10/12/17 19:09 Bedside report and handout given to Shadi MATOS (RC ALMANZAR) 10/12/17 21:03 Transport in ED. Patient reevaluated and he is stable for transport. (MOHSEN HUITRON) - Vital Signs Vital signs: Temp Pulse Resp BP Pulse Ox 97.9 F 112 H 15 117/83 99 10/12/17 19:57 10/12/17 16:04 10/12/17 20:36 10/12/17 20:36 10/12/17 20:36 - Laboratory Laboratory results interpreted by me: 10/12/17 10/12/17 10/12/17 10:35 11:35 11:35 RBC 4.12 L MCV 98 H RDW 17.9 H Plt Count 552 H PT 21.9 H APTT 38.5 H BUN Urine Protein 30 H Urine Ketones TRACE H Urine Urobilinogen 2.0 H Urine Ascorbic Acid 20 H 10/12/17 11:35 RBC MCV RDW Plt Count PT APTT BUN 4 L Urine Protein Urine Ketones Urine Urobilinogen Urine Ascorbic Acid 10/12/17 18:35 Labs- Entire Visit 10/12/17 10/12/17 10/12/17 10:35 11:35 11:35 WBC 10.4 RBC 4.12 L Hgb 13.6 Hct 40.3 MCV 98 H MCH 33.0 MCHC 33.8 RDW 17.9 H Plt Count 552 H Seg Neutrophils % 71.8 Lymphocytes % 19.7 Monocytes % 5.4 Eosinophils % 2.3 Basophils % 0.8 Absolute Neutrophils 7.4 Absolute Lymphocytes 2.0 Absolute Monocytes 0.6 Absolute Eosinophils 0.2 Absolute Basophils 0.1 PT 21.9 H INR 1.80 APTT 38.5 H Sodium Potassium Chloride Carbon Dioxide Anion Gap BUN Creatinine Est GFR ( Amer) Est GFR (Non-Af Amer) Glucose Lactic Acid Calcium Total Bilirubin Direct Bilirubin Neonat Total Bilirubin Neonat Direct Bilirubin Neonat Indirect Bili AST ALT Alkaline Phosphatase Total Protein Albumin Lipase Urine Color YELLOW Urine Appearance SLIGHTLY-CLOUDY Urine pH 5.0 Ur Specific [place] 1.021 Urine Protein 30 H Urine Glucose (UA) NEGATIVE Urine Ketones TRACE H Urine Blood NEGATIVE Urine Nitrite NEGATIVE Urine Bilirubin NEGATIVE Urine Urobilinogen 2.0 H Ur Leukocyte Esterase NEGATIVE Urine WBC (Auto) 2 Urine RBC (Auto) 3 U Hyaline Cast (Auto) 52 Squamous Epi Cells Auto <1 Urine Mucus (Auto) MANY Urine Ascorbic Acid 20 H 10/12/17 10/12/17 11:35 14:41 WBC RBC Hgb Hct MCV MCH MCHC RDW Plt Count Seg Neutrophils % Lymphocytes % Monocytes % Eosinophils % Basophils % Absolute Neutrophils Absolute Lymphocytes Absolute Monocytes Absolute Eosinophils Absolute Basophils PT INR APTT Sodium 141.4 Potassium 4.0 Chloride 104 Carbon Dioxide 24 Anion Gap 13 BUN 4 L Creatinine 0.67 Est GFR ( Amer) > 60 Est GFR (Non-Af Amer) > 60 Glucose 80 Lactic Acid 1.7 Calcium 10.0 Total Bilirubin 0.4 Direct Bilirubin 0.4 Neonat Total Bilirubin Not Reportable Neonat Direct Bilirubin Not Reportable Neonat Indirect Bili Not Reportable AST 48 ALT 37 Alkaline Phosphatase 107 Total Protein 7.7 Albumin 4.4 Lipase 101.4 Urine Color Urine Appearance Urine pH Ur Specific [place] Urine Protein Urine Glucose (UA) Urine Ketones Urine Blood Urine Nitrite Urine Bilirubin Urine Urobilinogen Ur Leukocyte Esterase Urine WBC (Auto) Urine RBC (Auto) U Hyaline Cast (Auto) Squamous Epi Cells Auto Urine Mucus (Auto) Urine Ascorbic Acid (RC ALMANZAR) Discharge <RC ALMANZAR - Last Filed: 10/12/17 19:09> <MOHSEN HUITRON - Last Filed: 10/12/17 21:03> - Discharge Referrals: GALILEA HATCH DO [Primary Care Provider] - Follow up as needed
[2017-10-12] MEDS ORDERED: MORPHINE SULFATE 10 MG/ML INJ IV ONE (14:51)
[2017-10-12] MEDS ORDERED: HYDROMORPHONE HCL INJ/PF 2 MG/ML AMPULE IV ONE ×6 (15:12→20:12)
[2017-10-12] MEDS ORDERED: CEFTRIAXONE 1 GM/D5W RTU 1 GM/50 ML RTUPB IV ONE (17:27)
[2017-10-12] MEDS ORDERED: CEFTRIAXONE SODIUM 1,000 MG in NORMAL SALINE 50 ML IV ONE (19:00)
[2017-10-12 21:03] VITALS: BP 139/103
== END 2017-10-12 21:24 | disposition short-term general hospital (02) ==
LOC: ER 10:09
DX: M54.9 Dorsalgia, unspecified (principal); R10.33 Periumbilical pain; R19.7 Diarrhea, unspecified; R11.2 Nausea with vomiting, unspecified; Z79.01 Long term (current) use of anticoagulants; F17.200 Nicotine dependence, unspecified, uncomplicated
CPT/HCPCS: 96376; 99285; 96375; 96365; 36415; 87040; 83605; 83690; 85025; 85610; 85730; 80053; 81001; 74175; J1644 ×2; J1170; J0696; J2405; J7030

== ENCOUNTER → 2017-10-31 | Outpatient (CLI) | payer BC ==
--- NOTE | 2017-11-01 16:57 | RADIOLOGY REPORT (SQ) ---
EXAM DESCRIPTION: MRI LUMBAR SPINE COMBO COMPLETED DATE/TIME: 10/31/2017 11:08 am REASON FOR STUDY: LOW BACK OAIN Z53.9 PROCEDURE AND TREATMENT NOT CARRIED OUT, UNSPECIFIED R COMPARISON: 08/04/2013 TECHNIQUE: Sagittal and Axial imaging includes T1, T1 post gadolinium, T2, STIR and gradient echo se quences. Coronal T2/HASTE imaging. CONTRAST TYPE AND DOSE: 15 mL Multihance. RENAL FUNCTION: GFR > 60. LIMITATIONS: Motion. FINDINGS: VISUALIZED UPPER ABDOMEN: Limited evaluation. No acute or suspicious findings suggested. SEGMENTATION: No transitional anatomy. The lowest well-developed disc space is labeled L5-S1. ALIGNMENT: Mild convex left scoliosis. VERTEBRAE: Intact. No fractures. BONE MARROW: Chronic endplate changes L4-5. Sclerosis to right of midline sacrum. DISC SIGNAL: Desiccation multiple levels. POSTERIOR ELEMENTS: Intact. HARDWARE: None in the spine. CORD AND CONUS: Normal in size and signal intensity. Conus at the appropriate level. SOFT TISSUES: No aortic aneurysm seen. No bulky retroperitoneal adenopathy or mass. No paraspinal mas s or fluid. L1-L2: No significant spinal stenosis or exit foraminal stenosis. L2-L3: No significant spinal stenosis or exit foraminal stenosis. L3-L4: Minimal spinal stenosis due to disc bulge. Unchanged small right lateral disc protrusion cont acts the exiting right L3 nerve root. L4-L5: Mild spinal stenosis due to small chronic central disc protrusion and facet arthropathy. Mode rate neural foraminal narrowing bilaterally. L5-S1: Left paracentral annular fissure. No significant spinal stenosis. Facet arthropathy. LOWER THORACIC: Incompletely imaged. No stenosis seen. SACRUM: Visualized upper sacrum intact. ENHANCEMENT: No abnormal enhancement. OTHER: No other significant findings. IMPRESSION: Mild spinal stenosis. No acute findings. No significant change. TECHNICAL DOCUMENTATION: JOB ID: [id number] [employer]- All Rights Reserved Reading location - IP/workstation name: [email or web address]
== END ==
LOC: RAD 10-16 17:05
PROVIDERS: ATTEND Student in an Organized Health Care Education/Training Program
DX: M54.5 Low back pain (principal)
CPT/HCPCS: 72158; A9577

== ENCOUNTER 2017-11-05 22:25 | Emergency (ER) | payer BC ==
[2017-11-05] MEDS ORDERED: HYDROMORPHONE HCL INJ/PF 2 MG/ML AMPULE IV ONE (23:27)
--- NOTE | 2017-11-05 23:35 | RADIOLOGY REPORT (SQ) ---
EXAM DESCRIPTION: CHEST SINGLE VIEW COMPLETED DATE/TIME: 11/05/2017 11:26 pm REASON FOR STUDY: chest pain COMPARISON: 07/10/2017 EXAM PARAMETERS: NUMBER OF VIEWS: One view. TECHNIQUE: Single frontal radiographic view of the chest acquired. RADIATION DOSE: NA LIMITATIONS: None. FINDINGS: LUNGS AND PLEURA: No opacities, masses or pneumothorax. No pleural effusion. MEDIASTINUM AND HILAR STRUCTURES: No masses. Contour normal. HEART AND VASCULAR STRUCTURES: Heart normal in size. Normal vasculature. BONES: No acute findings. HARDWARE: None in the chest. OTHER: No other significant finding. IMPRESSION: NO ACUTE RADIOGRAPHIC FINDING IN THE CHEST. TECHNICAL DOCUMENTATION: JOB ID: [id number] [id number] 2010 [employer] acquired by [employer]- All Rights Reserved Reading location - IP/workstation name: [email or web address]
--- NOTE | 2017-11-05 23:40 | RADIOLOGY REPORT (SQ) ---
EXAM DESCRIPTION: CT HEAD WITHOUT COMPLETED DATE/TIME: 11/05/2017 11:27 pm REASON FOR STUDY: left arm numbness COMPARISON: 03/30/2017 TECHNIQUE: Axial images acquired through the brain without intravenous contrast. Images reviewed wi th bone, brain and subdural windows. Images stored on PACS. All CT scanners at this facility use dose modulation, iterative reconstruction, and/or weight based d osing when appropriate to reduce radiation dose to as low as reasonably achievable (ALARA). [facility]: Dose Right [facility]: CareDose [facility]: Dose Right [facility]: Teradose 4D [facility]: Smart [employer] RADIATION DOSE: CT Rad equipment meets quality standard of care and radiation dose reduction techniq ues were employed. CTDIvol: 64.6 mGy. DLP: 1163 mGy-cm. mGy. LIMITATIONS: None. FINDINGS: VENTRICLES: Normal size and contour. CEREBRUM: No masses. No hemorrhage. No midline shift. No evidence for acute infarction. Normal gra y/white matter differentiation. No areas of low density in the white matter. CEREBELLUM: No masses. No hemorrhage. No alteration of density. No evidence for acute infarction. EXTRAAXIAL SPACES: No fluid collections. No masses. ORBITS AND GLOBE: No intra- or extraconal masses. Normal contour of globe without masses. CALVARIUM: No fracture. PARANASAL SINUSES: Similar left maxillary sinus mucosal thickening. SOFT TISSUES: No mass or hematoma. OTHER: No other significant finding. IMPRESSION: No acute intracranial findings. EVIDENCE OF ACUTE STROKE: NO. COMMENT: Quality ID # [id number]: Final reports with documentation of one or more dose reduction techniques (e.g., Automated exposure control, adjustment of the mA and/or kV according to patient size, use of iterative reconstruction technique) TECHNICAL DOCUMENTATION: JOB ID: [id number] [place]-72 2010 [employer]- All Rights Reserved Reading location - IP/workstation name: [email or web address]
--- NOTE | 2017-11-05 23:47 | ER Document Report ---
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 He is also having some mild shortness of breath. Pt has had extensive workup at [facility] for his abdominal pain and possibility of carcinoid syndrome. Pt is also having increased diarrhea and worsening pain in his left lower quadrant. Patient denies fevers, nausea, vomiting, difficulty walking, weakness, neck pain, ataxia, rash or headache. TRAVEL OUTSIDE OF THE [place] 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 Squamous cell carcinoma removed from the hand., Other - Stent SMA - Immunizations Hx Diphtheria, Pertussis, Tetanus Vaccination: Yes - unknowon Review of Systems - Review of Systems Notes: REVIEW OF SYSTEMS: CONSTITUTIONAL: -fevers, -chills EENT: -eye pain, -difficulty swallowing, -nasal congestion CARDIOVASCULAR: +chest pain, -syncope. RESPIRATORY: -cough, -SOB GASTROINTESTINAL: +LLQ abdominal pain, -nausea, -vomiting, +diarrhea GENITOURINARY: -dysuria, -hematuria MUSCULOSKELETAL: +back pain, -neck pain SKIN: -rash or skin lesions. HEMATOLOGIC: -easy bruising or bleeding. LYMPHATIC: -swollen, enlarged glands. NEUROLOGICAL: -altered mental status or loss of consciousness, -headache, +left arm numbness PSYCHIATRIC: -anxiety, -depression. ALL OTHER SYSTEMS REVIEWED AND NEGATIVE. Physical Exam - Vital signs Vitals: Temp Pulse Resp BP Pulse Ox 98.2 F 117 H 20 139/96 H 98 11/05/17 22:40 11/05/17 22:40 11/05/17 22:40 11/05/17 22:40 11/05/17 22:40 - Notes Notes: PHYSICAL EXAMINATION: GENERAL: Uncomfortable. HEAD: Atraumatic, normocephalic. EYES: Pupils equal round and reactive to light, extraocular movements intact, sclera anicteric, conjunctiva are normal. ENT: nares patent, oropharynx clear without exudates. Moist mucous membranes. NECK: Normal range of motion, supple without lymphadenopathy LUNGS: Breath sounds clear to auscultation bilaterally and equal. No wheezes rales or rhonchi. HEART: Tachycardia, regular rhythm. ABDOMEN: Soft, mild LLQ tenderness, normoactive bowel sounds. No guarding, no rebound. No masses appreciated. EXTREMITIES: Normal range of motion, no pitting or edema. No cyanosis. Strong distal pulses. NEUROLOGICAL: Cranial nerves grossly intact. Normal speech. Normal sensory and motor exams. PSYCH: Normal mood, normal affect. SKIN: Warm, Dry, normal turgor, no rashes or lesions noted. Course - Re-evaluation Re-evalutation: Patient seen immediately on arrival to the room. He appeared distressed. Concern for aortic dissection with chest pain, back pain and decreased sensation in his left arm. Patient emergently taken over to CT scan to assess for aortic dissection. However CT did not show any evidence of an aortic dissection and he has no evidence of CVA on his Head CT. EKG shows sinus tachycardia without ischemic changes and two troponins are negative. HEART score is 2. Patient does have evidence of possible colitis in the sigmoid and he does have tenderness in his left lower quadrant with diarrhea. Will treat him for colitis with Cipro and Flagyl. Upon discharge, patient feels much more comfortable and his tachycardia resolved. Patient is following at [facility] for his GI issues. Given very strict return precautions and he understands. - Vital Signs Vital signs: Temp Pulse Resp BP Pulse Ox 98.2 F 117 H 19 139/96 H 96 11/05/17 22:40 11/05/17 22:40 11/06/17 01:00 11/05/17 22:40 11/06/17 01:00 - Laboratory Result Diagrams: 11/06/17 01:15 11/06/17 01:15 Laboratory results interpreted by me: 11/06/17 11/06/17 01:15 01:15 RBC 3.80 L Hgb 11.9 L Hct 35.1 L RDW 19.2 H Chloride 108 H BUN 3 L Direct Bilirubin 0.5 H AST 65 H Creatine Kinase 338 H - Diagnostic Test Radiology reviewed: Image reviewed, Reports reviewed Radiology results interpreted by me: CT Head: NAD CXR: NAD - EKG Interpretation by Me EKG shows normal: Sinus rhythm Rate: Tachycardia Additional EKG results interpreted by me: QTc 479, no STEMI Discharge - Discharge Clinical Impression: Colitis Chest pain Qualifiers: Chest pain type: unspecified Qualified Code(s): R07.9 - Chest pain, unspecified Condition: Stable Disposition: HOME, SELF-CARE Additional Instructions: CHEST PAIN OF UNCLEAR CAUSE: The exact cause of your chest pain isn't clear. Fortunately, there is no evidence of a dangerous medical condition. Further testing may be required to find the source of the pain. Most often, we find that this pain is coming from the chest wall -- the muscles or rib joints in the chest. But chest pain can come from the lung and lung lining, the esophagus, the heart valves or heart lining, and even the stomach or gallbladder. Rest. Eat lightly until the pain is gone. We may prescribe medicine for pain and inflammation. You should call the physician immediately if the pain radiates to the shoulder, jaw or arms; if you start to run a fever or develop a cough; or if you develop shortness of breath, or other new or alarming symptoms. NORMAL EXAM AND WORKUP: At this time, your examination and workup show no significant abnormality. No significant abnormal physical findings were noted. All laboratory, EKG, and imaging (x-ray, CT scans, ultrasound) studies that were ordered show no significant abnormality. Although your examination and all studies that were ordered showed no significant abnormal finding, there are no examinations and no studies that are 100% accurate. There is always the possibility that some abnormality could exist and not be detected with physical examination or within the limits and capabilities of laboratory and other studies. You should return or follow up as you were instructed on your visit today for further evaluation if your symptoms do not resolve. FOLLOW-UP CARE: If you have been referred to a physician for follow-up care, call the physician s office for an appointment as you were instructed or within the next two days. If you experience worsening or a significant change in your symptoms, notify the physician immediately or return to the Emergency Department at any time for re-evaluation. ABDOMINAL PAIN: There are many causes of abdominal pain. Pain can mean a serious problem requiring surgery (such as appendicitis). It can also be an innocent problem that goes away on its own (such as a viral infection). Often, time must pass to determine the cause of pain. The physician does not feel that hospitalization is necessary, at present. Things may change within the next 24 hours. Call the doctor or come back for re- examination if any problems occur, such as: (1) Pain that becomes more severe, steady, or becomes concentrated in one specific area. Also, pain that is more severe with movement or coughing. (2) Vomiting that persists or becomes more frequent. (3) Blood in the vomitus, urine, or bowel movements. Blood in the stool may have a tarry or black appearance. (4) Shaking chills or fever greater than 100 degrees F. (5) The abdomen becomes more distended or swollen. (6) Bowel movements cease. (7) Failure to improve as expected. COLITIS, NONSPECIFIC: Colitis is an inflammatory disease of the large intestine which affects the lining of the bowel. The cause is uncertain, though it is often caused by an infection. In some cases, the symptoms resolve and can return again in the future. Colitis is characterized by abdominal pain, often nausea and vomiting, and either diarrhea or difficulty with bowel movements. Sometimes blood will be present in the bowel movements. Fever is often present as well. Milder cases of colitis can be managed as an outpatient with medications for nausea and vomiting and pain, oral fluid therapy, and perhaps antibiotics, if a bacterial origin is suspected. Antidiarrhea medicine should usually be avoided in colitis. If you have increasing abdominal pain, repeated vomiting, fever, rectal bleeding, or worsening diarrhea, you should return for re-evaluation. PAIN MEDICATION INJECTION: You have received an injection of a pain medication. You should experience significant pain relief within 45 minutes. This drug is a narcotic - - it will impair your judgement, slow your reaction time and make you sleepy ( as well as relieve your pain). Narcotics also can cause nausea. You should not drive, work with machinery, or perform any task requiring mental alertness until all effects of the medication are gone -- six to eight hours. Do not take any alcohol, or sedatives, and do not take any other medication without checking with your physician. ANTIBIOTIC THERAPY: You have been given an antibiotic prescription. It's important that you take all the medication, unless instructed otherwise by your physician. Failure to complete the entire course can result in relapse of your condition. Common side effects of antibiotics include nausea, intestinal cramping, or diarrhea. Women may develop vaginal yeast infections, and babies can get yeast (thrush) in the mouth following the use of antibiotics. Contact your physician if you develop significant side effects from this medication. Allergy to this antibiotic can result in hives, wheezing, faintness, or itching. If symptoms of allergy occur, stop the medication and call the doctor. CIPROFLOXACIN: You have been given an antibacterial agent, ciprofloxacin (Cipro). This medicine is not related to the penicillins, sulfas, cephalosporins, or tetracyclines. It is often given to patients who are allergic to these drugs. It has been chosen for you either because other drugs are not appropriate, or because of the nature of your problem. Cipro should not be taken with antacids, as these can decrease its effectiveness. It can be taken without regard to meals. CIPRO SHOULD NOT BE TAKEN BY CHILDREN, NURSING WOMEN, OR WOMEN. Although Cipro is usually well-tolerated, common side effects can include nausea and diarrhea. Contact your doctor if you experience any unusual symptoms while on this medication, such as joint pain or swelling, shortness of breath, wheezing, faintness, or hives. METRONIDAZOLE: Metronidazole (Flagyl) has been prescribed. This medication is used to kill a type of bacteria called anaerobes, and protozoan parasites such as trichomonas and Giardia. Flagyl often causes a metallic taste in the mouth and mild nausea. Do not use alcohol in any form with Flagyl (including alcohol in medication elixirs). Flagyl interacts with alcohol to cause flushing, palpitations, headache, stomach cramps, and vomiting. Do not use Flagyl if you are taking Antabuse (disulfiram). Call the doctor at once if you develop rash, shortness of breath, itching, or lightheadedness. FOLLOW-UP CARE: If you have been referred to a physician for follow-up care, call the physician s office for an appointment as you were instructed or within the next two days. If you experience worsening or a significant change in your symptoms, notify the physician immediately or return to the Emergency Department at any time for re-evaluation. Prescriptions: Ciprofloxacin HCl [Cipro 500 mg Tablet] 500 mg PO BID #14 tablet Metronidazole [Flagyl 500 mg Tablet] 500 mg PO Q8H #21 tablet Forms: Elevated Blood Pressure Referrals: GALILEA HATCH DO [Primary Care Provider] - Follow up as needed
--- NOTE | 2017-11-06 00:39 | RADIOLOGY REPORT (SQ) ---
EXAM DESCRIPTION: CTA of the chest, abdomen, and pelvis evaluating the aorta. CLINICAL HISTORY: chest/back pain, numbness of left arm COMPARISON: 10/12/2017 TECHNIQUE: CTA of the chest, abdomen, and pelvis obtained following the uncomplicated intravenous administration of 100 mL Isovue-370. 3-D/MIP reformatted images available. DLP: 1939.88 mGycm FINDINGS: CTA: The descending thoracic aorta, aortic arch, and descending thoracic aorta have normal caliber. Mild atherosclerotic plaque. No evidence of aneurysm or dissection. No penetrating aortic ulcer identified. The great vessels have normal anatomic configuration. The abdominal aorta has normal caliber with mild atherosclerotic plaque. No aneurysm or dissection identified. Renal arteries are widely patent without evidence of flow-limiting stenosis. No evidence of significant atherosclerosis involving the celiac artery. Redemonstrated superior mesenteric artery stent. There is approximately 55% stenosis of the superior mesenteric artery immediately prior to the origin of the superior mesenteric arterial stent. No definite stenosis of the origin of the inferior mesenteric artery. There is flow from the aorta into the common iliac arteries where there is diffuse atherosclerotic plaque. There is in-line flow from the common to the external iliac arteries and common femoral arteries without evidence of flow-limiting stenosis. No evidence of stenosis involving the proximal superior mesenteric arteries. No visceral artery pseudoaneurysm identified. CHEST: There is a 1.5 cm calcified left thyroid nodule. This is stable. No abnormalities of the esophagus. No definite mediastinal lymphadenopathy. No cardiomegaly or pericardial effusion. Coronary artery atherosclerosis. No large pulmonary embolus identified. No consolidation, pneumothorax, or pleural effusion. Minimal dependent atelectasis. Abdomen: The liver has normal size and decreased density. No intrahepatic mass or biliary dilatation. No calcified gallstones. The spleen, pancreas, and adrenal glands are unremarkable. The kidneys have normal size and contour without evidence of solid mass or hydronephrosis. IVC is unremarkable. The portal vein is patent. No free intraperitoneal air. The stomach and duodenum have normal course. Pelvis: Prostate is not enlarged. Urinary bladder is unremarkable. No free pelvic fluid or lymphadenopathy. Scattered diverticula of the colon. No dilated loops of large or small bowel. Questionable wall thickening versus underdistention of the sigmoid colon. Normal appendix. No destructive bone lesions identified. Degenerative spondylosis thoracic and lumbar spine. Degenerative change of the hips. IMPRESSION: 1. No evidence of aortic aneurysm or dissection. 2. Greater than 50% stenosis of the proximal superior mesenteric artery proximal to the previously placed stent. 3. Diverticulosis without evidence of diverticulitis. 4. Hepatic steatosis. 5. Mild wall thickening versus under distention of the sigmoid colon. 6. 1.5 cm left thyroid nodule. Thyroid ultrasound recommended if not previously performed. This exam was performed according to our departmental dose-optimization program, which includes automated exposure control, adjustment of the mA and/or kV according to patient size and/or use of iterative reconstruction technique.
[2017-11-06 01:26] LABS: ABSOLUTE BASOPHILS # (AUTO) 0.1 10^3/uL (0.0-0.2); ABSOLUTE EOSINOPHILS # (AUTO) 0.1 10^3/uL (0.0-0.6); ABSOLUTE LYMPHOCYTES (AUTO) 2.1 10^3/uL (0.5-4.7); ABSOLUTE MONOCYTES (AUTO) 0.8 10^3/uL (0.1-1.4); ABSOLUTE NEUT (AUTO) 4.7 10^3/uL (1.7-8.2); BASOPHILS % (AUTO) 0.7 % (0-2); EOSINOPHILS % (AUTO) 1.7 % (0-6); HEMATOCRIT 35.1 % (37.9-51.0); HEMOGLOBIN 11.9 g/dL (13.5-17.0); LYMPHOCYTES % (AUTO) 27.4 % (13-45); MEAN CORPUSCULAR HEMOGLOBIN 31.2 pg (27.0-33.4); MEAN CORPUSCULAR HGB CONC 33.8 g/dL (32.0-36.0); MONOCYTES % (AUTO) 9.8 % (3-13); PLATELET COUNT 242 10^3/uL (150-450); RED CELL DISTRIBUTION WIDTH 19.2 % (11.5-14.0); SEGMENTED NEUTROPHILS % (AUTO) 60.4 % (42-78); TOTAL CELLS COUNTED % (AUTO) 100 %; WHITE BLOOD COUNT 7.8 10^3/uL (4.0-10.5)
[2017-11-06 01:30] LABS: INTERNATIONAL RATION (INR) 1.01
[2017-11-06 01:31] LABS: PARTIAL THROMBOPLASTIN TIME 33.2 SEC (23.5-35.8)
[2017-11-06] MEDS ORDERED: CIPROFLOXACIN 400 MG/D5W RTU 400 MG/200 ML RTUPB IV ONE (01:32)
[2017-11-06] MEDS ORDERED: METRONIDAZOLE 500 MG/NS RTU 100 ML IV ONE (01:32)
[2017-11-06] MEDS ORDERED: NORMAL SALINE 1000 ML 1,000 ML IV ONE (01:32)
[2017-11-06 01:39] LABS: MEAN CORPUSCULAR VOLUME 92 fl (80-97)
[2017-11-06 01:47] LABS: ALANINE AMINOTRANSFERASE 52 U/L (21-72); ALBUMIN 3.8 g/dL (3.5-5.0); ALKALINE PHOSPHATASE 108 U/L (38-126); ANION GAP 11 (5-19); ASPARTATE AMINO TRANSFERASE 65 U/L (17-59); BILIRUBIN,DIRECT 0.5 mg/dL (0.0-0.4); BILIRUBIN,TOTAL 0.6 mg/dL (0.2-1.3); BLOOD UREA NITROGEN 3 mg/dL (7-20); CALCIUM 9.2 mg/dL (8.4-10.2); CARBON DIOXIDE 23 mmol/L (22-30); CHLORIDE 108 mmol/L (98-107); CREATINE KINASE 338 U/L (55-170); GLUCOSE 79 mg/dL (75-110); LIPASE 197.5 U/L (23-300); POTASSIUM 3.7 mmol/L (3.6-5.0); SODIUM 142.1 mmol/L (137-145); TOTAL PROTEIN 6.8 g/dL (6.3-8.2)
[2017-11-06 02:01] LABS: NT PRO BNP 44 pg/mL (<125)
[2017-11-06 02:03] LABS: TROPONIN I < 0.012 ng/mL
[2017-11-06] MEDS ORDERED: HYDROMORPHONE HCL INJ/PF 2 MG/ML AMPULE IV ONE (02:18)
[2017-11-06] MEDS ORDERED: KETOROLAC TROMETHAMINE INJ/PF 30 MG/1 ML SDV IV ONE (02:18)
[2017-11-06 05:15] VITALS: BP 141/87
--- NOTE | 2017-11-06 08:42 | EKG REPORT ---
SEVERITY:- ABNORMAL ECG - SINUS TACHYCARDIA PROBABLE INFERIOR INFARCT, OLD BORDERLINE PROLONGED QT INTERVAL : Confirmed by: Lorne Hanson 06-Nov-2017 08:42:11
== END 2017-11-06 05:40 | disposition home or self-care (01) ==
LOC: ER 22:25
DX: K52.9 Noninfective gastroenteritis and colitis, unspecified (principal); R07.9 Chest pain, unspecified; R06.02 Shortness of breath; R20.0 Anesthesia of skin; R10.32 Left lower quadrant pain; R00.0 Tachycardia, unspecified; I10 Essential (primary) hypertension; Z79.01 Long term (current) use of anticoagulants; Z79.02 Long term (current) use of antithrombotics/antiplatelets; Z86.718 Personal history of other venous thrombosis and embolism; Z85.828 Personal history of other malignant neoplasm of skin
CPT/HCPCS: 93005; 96376; 99285; 96375; 96365; 96368; 36415; 82550; 83690; 85025; 85610; 85730; 80053; 84484; 83880; 71045; 70450; 71275; 74174; 93010; J1885; J1170; J7030; J0744

== ENCOUNTER 2017-12-25 11:27 | Inpatient (IN) | payer BC ==
--- NOTE | 2017-12-25 12:16 | ER Document Report ---
ED Medical Screen (RME) - General Chief Complaint: Rectal Bleeding Stated Complaint: RECTAL BLEEDING Time Seen by Provider: 12/25/17 12:15 Mode of Arrival: Ambulatory Information source: Patient Notes: 47 yr old male history of mesenteric ischemia who is on Xarelto presents with complaints of rectal bleeding nasal bleeding. Patient denies any fevers or chills admits to abdominal pain as well as a fall yesterday striking his back causing some back pain revcieved call [facility], noting history of mesenteric ischemia I have greeted and performed a rapid initial assessment of this patient. A comprehensive ED assessment and evaluation of the patient, analysis of test results and completion of the medical decision making process will be conducted by additional ED providers. PHYSICAL EXAMINATION: GENERAL: Well-appearing, well-nourished and in mild distress HEAD: Atraumatic, normocephalic. EYES: Pupils equal round extraocular movements intact, conjunctiva are normal. ENT: Nares patent NECK: Normal range of motion LUNGS: No respiratory distress Musculoskeletal: Normal range of motion NEUROLOGICAL: Normal speech, normal gait. PSYCH: Normal mood, normal affect. SKIN: Warm, Dry, normal turgor, no rashes or lesions noted. TRAVEL OUTSIDE OF THE [place] 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 Squamous cell carcinoma removed from the hand., Other - Stent SMA - Immunizations Hx Diphtheria, Pertussis, Tetanus Vaccination: Yes - unknowon Physical Exam - Vital signs Vitals: Temp Pulse Resp BP Pulse Ox 98.1 F 102 H 16 135/95 H 99 12/25/17 11:34 12/25/17 11:34 12/25/17 11:34 12/25/17 11:34 12/25/17 11:34 Course - Vital Signs Vital signs: Temp Pulse Resp BP Pulse Ox 98.1 F 102 H 16 135/95 H 99 12/25/17 11:34 12/25/17 11:34 12/25/17 11:34 12/25/17 11:34 12/25/17 11:34
[2017-12-25] MEDS ORDERED: HYDROMORPHONE HCL INJ/PF 2 MG/ML AMPULE IV ONE (12:34)
[2017-12-25] MEDS ORDERED: NORMAL SALINE 1000 ML 1,000 ML IV ONE ×2 (12:35→15:34)
[2017-12-25 13:17] LABS: ABSOLUTE BASOPHILS # (AUTO) 0.1 10^3/uL (0.0-0.2); ABSOLUTE LYMPHOCYTES (AUTO) 1.1 10^3/uL (0.5-4.7); ABSOLUTE MONOCYTES (AUTO) 0.5 10^3/uL (0.1-1.4); ABSOLUTE NEUT (AUTO) 4.6 10^3/uL (1.7-8.2); BASOPHILS % (AUTO) 1.1 % (0-2); EOSINOPHILS % (AUTO) 0.4 % (0-6); HEMATOCRIT 32.3 % (37.9-51.0); HEMOGLOBIN 10.6 g/dL (13.5-17.0); LYMPHOCYTES % (AUTO) 17.8 % (13-45); MEAN CORPUSCULAR HEMOGLOBIN 29.7 pg (27.0-33.4); MEAN CORPUSCULAR HGB CONC 32.7 g/dL (32.0-36.0); MEAN CORPUSCULAR VOLUME 91 fl (80-97); MONOCYTES % (AUTO) 7.7 % (3-13); PLATELET COUNT 211 10^3/uL (150-450); RED BLOOD COUNT 3.56 10^6/uL (4.35-5.55); RED CELL DISTRIBUTION WIDTH 23.7 % (11.5-14.0); TOTAL CELLS COUNTED % (AUTO) 100 %; WHITE BLOOD COUNT 6.3 10^3/uL (4.0-10.5)
[2017-12-25 13:20] LABS: INTERNATIONAL RATION (INR) 1.19; PROTHROMBIN TIME 15.7 SEC (11.4-15.4)
[2017-12-25] MEDS ORDERED: ONDANSETRON HCL INJ/PF 4 MG/2 ML SDV IV ONE (13:25)
[2017-12-25] MEDS ORDERED: DIAZEPAM INJ 10 MG/2 ML DISP.SYRIN IV ONE (13:25)
[2017-12-25 13:26] LABS: ALANINE AMINOTRANSFERASE 140 U/L (21-72); ALBUMIN 4.2 g/dL (3.5-5.0); ALKALINE PHOSPHATASE 199 U/L (38-126); ANION GAP 12 (5-19); ASPARTATE AMINO TRANSFERASE 263 U/L (17-59); BILIRUBIN,DIRECT 0.4 mg/dL (0.0-0.4); BILIRUBIN,TOTAL 0.6 mg/dL (0.2-1.3); BLOOD UREA NITROGEN 5 mg/dL (7-20); CALCIUM 9.1 mg/dL (8.4-10.2); CARBON DIOXIDE 27 mmol/L (22-30); CHLORIDE 106 mmol/L (98-107); GLUCOSE 83 mg/dL (75-110); POTASSIUM 3.8 mmol/L (3.6-5.0); SODIUM 145.1 mmol/L (137-145); TOTAL PROTEIN 7.4 g/dL (6.3-8.2)
--- NOTE | 2017-12-25 13:30 | ER Document Report ---
ED General - General Chief Complaint: Rectal Bleeding Stated Complaint: RECTAL BLEEDING Time Seen by Provider: 12/25/17 12:15 Mode of Arrival: Ambulatory Notes: History of complain-47 years old male with a history of mesenteric thrombosis, colitis, was having abdominal pain particularly on the right side as well as shaking since yesterday. This morning he fell and hit his lower back on the bathtub. Since then having pain over the lower back too. Therefore he presented to the ED. Denies any nausea vomiting diarrhea or constipation. But had nosebleed as well as rectal bleed on and off for the last few days. Denies any headache focal weaknesses. Denies any neck pain neck stiffness. Denies any chest pain shortness of breath. Denies any dysuria frequency or urgency. REVIEW OF SYSTEMS: CONSTITUTIONAL : Denies fever, chills, or sweats. Denies recent illness. EENT: Denies eye, ear, throat, or mouth pain or symptoms. Denies nasal or sinus congestion or discharge. Denies throat, tongue, or mouth swelling or difficulty swallowing. CARDIOVASCULAR: Denies chest pain. Denies palpitations or racing or irregular heart beat. Denies ankle edema. RESPIRATORY: Denies cough, cold, or chest congestion. Denies shortness of breath, difficulty breathing, or wheezing. GASTROINTESTINAL: Denies abdominal pain or distention. Denies nausea, vomiting , or diarrhea. Denies blood in vomitus, stools, or per rectum. Denies black, tarry stools. Denies constipation. GENITOURINARY: Denies difficulty urinating, painful urination, burning, frequency, blood in urine, or discharge. MUSCULOSKELETAL: Denies back or neck pain or stiffness. Denies joint pain or swelling. SKIN: Denies rash, lesions or sores. HEMATOLOGIC : Denies easy bruising or bleeding. LYMPHATIC: Denies swollen, enlarged glands. NEUROLOGICAL: Denies confusion or altered mental status. Denies passing out or loss of consciousness. Denies dizziness or lightheadedness. Denies headache. Denies weakness or paralysis or loss of use of either side. Denies problems with gait or speech. Denies sensory loss, numbness, or tingling. Denies seizures. PSYCHIATRIC: Denies anxiety or stress. Denies depression, suicidal ideation, or homicidal ideation. ALL OTHER SYSTEMS REVIEWED AND NEGATIVE. Dictation was performed using Dragon voice recognition software PHYSICAL EXAMINATION: GENERAL: He was shivering throughout. Seems to be in severe pain and discomfort. HEAD: Atraumatic, normocephalic. EYES: Pupils equal round and reactive to light, extraocular movements intact, sclera anicteric, conjunctiva are normal. ENT: Nares patent, oropharynx clear without exudates. Moist mucous membranes. NECK: Normal range of motion, supple without lymphadenopathy LUNGS: Breath sounds clear to auscultation bilaterally and equal. No wheezes rales or rhonchi. HEART: Regular rate and rhythm without murmurs ABDOMEN: Abdomen has midline surgical scar, right side of the abdomen around the umbilical region there is slight bulging which is very tender on palpation. With guarding. Positive bowel sounds. Musculoskeletal: Normal range of motion, no pitting or edema. No cyanosis. NEUROLOGICAL: Cranial nerves grossly intact. Normal speech, normal gait. Normal sensory, motor exams PSYCH: Normal mood, normal affect. SKIN: Warm, Dry, normal turgor, no rashes or lesions noted. TRAVEL OUTSIDE OF THE [place] IN LAST 30 DAYS: No - HPI Onset: Yesterday Onset/Duration: Gradual Quality of pain: Sharp Severity: Severe Pain Level: 4 Associated symptoms: Nausea, Other - Shivering. denies: None, Allergy/hay fever , Body/muscle aches, Chest pain, Chills, Nonproductive cough, Productive cough, Diarrhea, Drooling, Earache, Fever, Headache, Hoarseness, Hurts to breath, Leg swelling, Vomiting, Rhinnorhea, Sinus pain/drainage, Shortness of breath, Slow to respond, Sore throat, Sweating, Weakness Exacerbated by: Denies, Supine, Sitting, Standing, Movement, Walking, Coughing, Deep breathing, Food, Other Relieved by: denies: Denies, Supine, Sitting, Standing, Remaining still, Antacids, Food, Other Similar symptoms previously: No Recently seen / treated by doctor: No - Related Data Allergies/Adverse Reactions: No Known Allergies Allergy (Verified 12/25/17 11:29) Past Medical History - General Information source: Patient - Social History Smoking Status: Current Every Day Smoker Chew tobacco use (# tins/day): No Frequency of alcohol use: Occasional Drug Abuse: None Family History: CAD, DM, Reviewed & Not Pertinent Patient has suicidal ideation: No Patient has homicidal ideation: No - Past Medical History Cardiac Medical History: Reports: Hx Hypercholesterolemia, Hx Hypertension Renal/ Medical History: Denies: Hx Peritoneal Dialysis Malignancy Medical History: Reports Hx Skin Cancer - 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 Squamous cell carcinoma removed from the hand., Other - Stent SMA - Immunizations Hx Diphtheria, Pertussis, Tetanus Vaccination: Yes - unknowon Review of Systems - Review of Systems Constitutional: Chills. denies: No symptoms reported, See HPI, Diaphoresis, Fever, Malaise, Weakness, Other, Weight gain, Weight loss, Recent illness EENT: denies: No symptoms reported, See HPI, Eye pain, Eye discharge, Blurred vision, Tearing, Double vision, Ear pain, Ear discharge, Nose pain, Nose congestion, Nose discharge, Sinus pressure, Sinus discharge, Throat pain, Difficulty swallowing, Throat swelling, Mouth pain, Mouth swelling, Dental problem, Vertigo, Other Cardiovascular: denies: No symptoms reported, See HPI, Chest pain, Palpitations , Heart racing, Orthopnea, Dyspnea, Syncope, Dizziness, Lightheaded, Edema, Other, Paroxysmal Nocturnal Dysp Respiratory: denies: No symptoms reported, See HPI, Cough, Hurts to breathe, Hemoptysis, Short of breath, Sputum, Stridor, Wheezing, Other Gastrointestinal: See HPI Genitourinary: denies: No symptoms reported, See HPI, Burning, Dysuria, Discharge, Frequency, Flank pain, Hematuria, Incontinence, Pain, Urgency, Retention, Other Male Genitourinary: denies: No symptoms reported, See HPI, Erectile dysfunction , Testicular pain, Penile discharge, Other Hematologic/Lymphatic: denies: No symptoms reported, See HPI, Anemia, Blood clots, Easy bleeding, Easy bruising, Enlarged lymph nodes, Swollen glands, Other Neurological/Psychological: denies: No symptoms reported, See HPI, Confusion, Dementia, Depression, Hallucinations, Anxiety, Homicidal ideation, Sensory change, Weakness, Gait changes, Loss of power, Paralysis, Seizure, Lost consciousness, Headaches, Speech impairment, Numbness, Suicidal ideation, Tingling, Tremor, Other Physical Exam - Vital signs Vitals: Temp Pulse Resp BP Pulse Ox 98.1 F 102 H 16 135/95 H 99 12/25/17 11:34 12/25/17 11:34 12/25/17 11:34 12/25/17 11:34 12/25/17 11:34 - Notes Notes: Dictated Course - Re-evaluation Re-evalutation: 12/25/17 16:04 Patient was reevaluated finding was explained to the patient. 12/25/17 16:05 This case also discussed in detail with the surgeon spinner continuous - Vital Signs Vital signs: Temp Pulse Resp BP Pulse Ox 98.1 F 102 H 16 135/95 H 99 12/25/17 11:34 12/25/17 11:34 12/25/17 11:34 12/25/17 11:34 12/25/17 11:34 - Laboratory Result Diagrams: 12/25/17 12:54 12/25/17 12:54 Laboratory results interpreted by me: 12/25/17 12/25/17 12/25/17 12:54 12:54 12:54 RBC 3.56 L Hgb 10.6 L Hct 32.3 L RDW 23.7 H PT 15.7 H Sodium 145.1 H BUN 5 L Lactic Acid AST 263 H ALT 140 H Alkaline Phosphatase 199 H 12/25/17 14:50 RBC Hgb Hct RDW PT Sodium BUN Lactic Acid 2.2 H AST ALT Alkaline Phosphatase - Diagnostic Test Radiology reviewed: Reports reviewed - CTA was report was reviewed, and also discussed with the radiologist. No signs of obstruction Discharge - Discharge Clinical Impression: Elevated lactic acid level, SMA stenosis, Chills Condition: Fair Disposition: ADMITTED INPATIENT Admitting Provider: Hospitalist Unit Admitted: Telemetry Referrals: GALILEA HATCH DO [Primary Care Provider] - Follow up as needed
--- NOTE | 2017-12-25 14:32 | RADIOLOGY REPORT (SQ) ---
EXAM DESCRIPTION: CTA ABDOMEN/PELVIS W WO COMPLETED DATE/TIME: 12/25/2017 1:53 pm REASON FOR STUDY: hx mesenteric ischemia COMPARISON: 11/05/2017 TECHNIQUE: CT scan of the abdomen and pelvis performed with intravenous contrast using helical scann ing technique with dynamic intravenous contrast injection. Images reviewed with lung, soft tissue, an d bone windows. Reconstructed coronal and sagittal MPR images reviewed. All images stored on PACS. Advanced 3D imaging as volume rendering, MIPS, SSD performed? yes All CT scanners at this facility use dose modulation, iterative reconstruction, and/or weight based d osing when appropriate to reduce radiation dose to as low as reasonably achievable (ALARA). [facility]: Dose Right [facility]: CareDose [facility]: Dose Right [facility]: Teradose 4D [facility]: [employer] CONTRAST TYPE AND DOSE: contrast/concentration: Isovue 370.00 mg/ml; Total Contrast Delivered: 65.0 ml; Total Saline Delivered: 60.0 ml RENAL FUNCTION: GFR > 60. LIMITATIONS: None. FINDINGS: NON-CONTRASTED IMAGING: Post contrast images only. POST-CONTRAST IMAGING: AORTA AND VESSELS: Stenosis proximal to the SMA stent is unchanged. No significant stenosis in the c eliac artery. The CAITLIN is patent. No aneurysm. LUNG BASES: No significant findings. No nodules or infiltrates. LIVER: Steatosis. No masses. SPLEEN: Normal size. No focal lesions. PANCREAS: No masses. No significant calcifications. No adjacent inflammation or peripancreatic fluid collections. Pancreatic duct not dilated. GALLBLADDER: No identified stones by CT criteria. No inflammatory changes to suggest cholecystitis. ADRENAL GLANDS: No significant masses or asymmetry. RIGHT KIDNEY AND URETER: No mass, calculi or urinary tract obstruction. LEFT KIDNEY AND URETER: No mass, calculi or urinary tract obstruction. RETROPERITONEUM: No retroperitoneal adenopathy, hemorrhage or masses. BOWEL AND PERITONEAL CAVITY: Sigmoid diverticulosis. No masses or inflammatory changes. No free flui d or peritoneal masses. APPENDIX: Normal. ABDOMINAL WALL: Anterior abdominal wall hernia containing fat. BONY STRUCTURES: No acute findings. 3-D IMAGING: Confirms the above findings. OTHER: No other significant finding. IMPRESSION: Unchanged stenosis proximal to the SMA stent, which is patent. The celiac and CAITLIN are p atent. No acute findings. TECHNICAL DOCUMENTATION: JOB ID: [id number] Quality ID # [id number]: Final reports with documentation of one or more dose reduction techniques (e.g., Au tomated exposure control, adjustment of the mA and/or kV according to patient size, use of iterative reconstruction technique) 2010 [employer]- All Rights Reserved Reading location - IP/workstation name: [email or web address]
[2017-12-25] MEDS ORDERED: NORMAL SALINE 1000 ML 1,000 ML IV PRN (15:34)
[2017-12-25] MEDS ORDERED: IPRATROPIUM/ALBUTEROL 0.5-2.5 MG/3 ML AMPUL NEB PRN (17:19)
[2017-12-25] MEDS ORDERED: ONDANSETRON HCL INJ/PF 4 MG/2 ML SDV IV PRN (17:19)
--- NOTE | 2017-12-25 17:20 | PDOC CONSULTATION ---
Consultation Consult Date: 12/25/17 Consult reason:: Rule out ischemic intestines History of Present Illness Admission Date/PCP: 12/25/17 16:36 GALILEA HATCH DO History of Present Illness: BRENDA JENSEN is a 47 year old male Patient presents emergency department via ground rescue complaining of abdominal pain, shaking, blood per rectum. 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 Patient has a long history of alcohol abuse, worse over the last 2 months. He did not started drinking again after taking himself off of prescription pain medicine and prescription anti-anxiety medications. He is accompanied by his who spoke with Dr. Hays and the hospitalist this afternoon. He admits to drinking up until yesterday. Evaluated in the emergency department where he is found to have abdominal tenderness, mild elevation in lactate level in the CT scan of the abdomen showing patent superior mesenteric artery with stent. No evidence of acute findings otherwise. Surgery was consulted for opinion. According to patient's , patient has been evaluated over the last 6 months by multiple providers at multiple institutions including gastroenterology vascular surgery general medicine etc. He is also been seen by pain management. He has a history of GI bleeding, previous upper and lower endoscopy proximally 3 months ago. We do not have any of these formal records. Patient has been on Eliquis for months. According to the patient he fell in the shower yesterday for unexplained reasons. 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 Squamous cell carcinoma removed from the hand., Other - Exploratory laparotomy, superior mesenteric artery thrombectomy; sstent SMA Social History Smoking Status: Current Every Day Smoker Amount of Alcoholic Beverages Per Day: Drinks 4 beers a day Last Alcohol Use: 12/24/17 Family History Family History: CAD, DM, Reviewed & Not Pertinent Parental Family History Reviewed: No Children Family History Reviewed: No Sibling(s) Family History Reviewed.: No Medication/Allergy Home Medications: Clopidogrel Bisulfate [Clopidogrel] 75 mg PO DAILY 12/25/17 Dexlansoprazole [Dexilant 60 mg Capsule] 60 mg PO DAILY 12/25/17 Oxycodone HCl/Acetaminophen [Percocet 10-325 Mg Tablet] 1 tab PO BIDP PRN Ropinirole HCl 0.25 mg PO DAILY 12/25/17 Sertraline HCl 100 mg PO DAILY 12/25/17 Allergies/Adverse Reactions: No Known Allergies Allergy (Verified 12/25/17 11:29) Review of Systems ROS unobtainable: Due to mental status, Other - Patient very agitated unable to reliably convey consistent information about review of systems Physical Exam Vital Signs: Temp Pulse Resp BP Pulse Ox 98.1 F 102 H 16 135/95 H 99 12/25/17 11:34 12/25/17 11:34 12/25/17 11:34 12/25/17 11:34 12/25/17 11:34 General appearance: PRESENT: other - Taking very agitated, smells of alcohol Head exam: PRESENT: normocephalic Eye exam: PRESENT: EOMI Ear exam: PRESENT: normal external ear exam Mouth exam: PRESENT: dry mucosa Neck exam: PRESENT: full ROM Respiratory exam: PRESENT: decreased breath sounds Cardiovascular exam: PRESENT: RRR Pulses: PRESENT: normal carotid pulses GI/Abdominal exam: PRESENT: other - Midline scar well-healed no hernias; no peritoneal signs no rigidity no organomegaly. Rectal exam: PRESENT: deferred Musculoskeletal exam: PRESENT: full ROM Neurological exam: PRESENT: other - Agitated but follows commands with no neurologic deficit. Results Impressions: Abdomen/Pelvis CTA 12/25/17 12:34 IMPRESSION: Unchanged stenosis proximal to the SMA stent, which is patent. The celiac and CAITLIN are patent. No acute findings. Assessment & Plan - Diagnosis (1) Alcohol withdrawal Qualifiers: Complication of substance-induced condition: uncomplicated Qualified Code(s ): F10.230 - Alcohol dependence with withdrawal, uncomplicated Is this a current diagnosis for this admission?: Yes Plan: Overall impression and discussion I believe the patient is suffering acutely from alcohol withdrawal, possible anxiolytic withdrawal. Patient has multiple comorbidities some acute some chronic including atherosclerotic aortic disease, chronic pharmacologic anticoagulation. Acutely he has elevation in his liver function studies and worsening anemia may be due to chronic alcohol abuse, possible peptic ulcer disease or other etiology. I have personally reviewed the CT scan of the abdomen and pelvis which reveals no acute findings. The SMA stent is in satisfactory position and all mesenteric vessels are patent. Recommendations: 1. I do not believe the patient is experiencing acute intra-abdominal pathologic process. Therefore further immediate imaging is required. Furthermore no exploratory surgery is required. 2. The patient is suffering primarily from substance withdrawal and needs admission for withdrawal management which can be handled by the primary care team. 3. Acquisition of previous medical records may be useful in determining what further studies if any from a diagnostic standpoint should be performed. Patient may require upper and lower endoscopy pending clinical stability. 4. We explained to the patient's that he is he deteriorates clinically he may require transfer to higher level of care institution. (2) Anemia Qualifiers: Iron deficiency anemia type: chronic blood loss Is this a current diagnosis for this admission?: Yes (3) SMA stenosis Is this a current diagnosis for this admission?: Yes (4) GI bleed Qualifiers: GI bleed type/associated pathology: unspecified gastrointestinal hemorrhage type Qualified Code(s): K92.2 - Gastrointestinal hemorrhage, unspecified Is this a current diagnosis for this admission?: Yes (5) Pain management Is this a current diagnosis for this admission?: Yes - Time Time Spent: 50 to 70 Minutes Smoking Cessation Education: over 10 minutes - Inpatient Certification Based on my medical assessment, after consideration of the patient's comorbidities, presenting symptoms, or acuity I expect that the services needed warrant INPATIENT care.: Yes I certify that my determination is in accordance with my understanding of Medicare's requirements for reasonable and necessary INPATIENT services [42 CFR 412.3e].: Yes Medical Necessity: Need For IV Fluids, Need for Neurological Checks
[2017-12-25] MEDS ORDERED: LORAZEPAM INJ 2 MG/1 ML VIAL IV PRN (17:30)
[2017-12-25] MEDS ORDERED: (PENDING PHARMACY ID) (Oxycodone Hcl/Acetaminophen [Percocet 10-325 Mg Tablet] 1 TAB) PO PRN (17:57)
--- NOTE | 2017-12-25 17:57 | PDOC H&P ---
History of Present Illness Admission Date/PCP: 12/25/17 16:36 GALILEA HATCH DO Patient complains of: This patient presents to the emergency room with complaints of abdominal pain for about a week. Patient is a 47-year-old complicated gentleman with recent history of mesenteric thrombosis as well as colitis who has been having some abdominal and back pain History of Present Illness: BRENDA JENSEN is a 47 year old male This patient presents to the emergency room with complaints of abdominal pain for about a week. Patient is a 47-year-old complicated gentleman with recent history of mesenteric thrombosis as well as colitis who has been having some abdominal and back pain. He was flown to [place] in March last year when he had presented with abdominal pain and he appears was found to have a mesentery ischemia. He had a clot removed according to him and subsequently also had a stent put in. CT scan done today reveals patent SMA stent as well as celiac and CAITLIN. There is a unchanged stenosis proximal to the SMA stent. Patient also complained of back pain. He apparently had falling yesterday in the bathtub and he also complains of rectal bleeding as well as epistaxis. Patient is on Xarelto. He says his bleeding has been a little bit more than usual and was uncontrollable although the epistaxis has since stopped. Patient also says he is depressed and been thinking of unspecified things. In fact he called the [place] suicide hotline. He denies being suicidal currently and states he has no intention of harming himself. Patient has been drinking alcohol daily he says 2-4 beers per day with his last drink being yesterday. He is very jittery and shaking while talking to him. Because of his myriad medical problems and his abdominal pain which is no clear of the severe review of acuteness I requested Dr. Hays to see him which he did in the ED. After examining him and after consultations with him it was felt that his abdominal pain was likely chronic and no acute surgical intervention was needed. It is felt that his main problems at this time are likely related to alcohol use and abuse. He also has some transaminitis which is likely from the alcohol abuse and his hemoglobin is noted to be lower than his baseline. 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 Squamous cell carcinoma removed from the hand., Other - Exploratory laparotomy, superior mesenteric artery thrombectomy; sstent SMA Social History Information Source: Patient Smoking Status: Current Every Day Smoker Frequency of Alcohol Use: Heavy Amount of Alcoholic Beverages Per Day: 2 to 4 Last Alcohol Use: 12/24/17 Hx Recreational Drug Use: No Hx Prescription Drug Abuse: Yes - since his surgery - Advance Directive Resuscitation Status: Full Code Family History Family History: CAD, DM, Reviewed & Not Pertinent Parental Family History Reviewed: Yes Children Family History Reviewed: Yes Sibling(s) Family History Reviewed.: Yes Medication/Allergy Home Medications: Clopidogrel Bisulfate [Clopidogrel] 75 mg PO DAILY 12/25/17 Dexlansoprazole [Dexilant 60 mg Capsule] 60 mg PO DAILY 12/25/17 Oxycodone HCl/Acetaminophen [Percocet 10-325 Mg Tablet] 1 tab PO BIDP PRN Ropinirole HCl 0.25 mg PO DAILY 12/25/17 Sertraline HCl 100 mg PO DAILY 12/25/17 Allergies/Adverse Reactions: No Known Allergies Allergy (Verified 12/25/17 11:29) Review of Systems Constitutional: PRESENT: as per HPI Eyes: PRESENT: as per HPI Nose, Mouth, and Throat: PRESENT: other - epistatxis Cardiovascular: ABSENT: chest pain, dyspnea on exertion, edema, orthropnea, palpitations Respiratory: ABSENT: cough, hemoptysis Gastrointestinal: PRESENT: abdominal pain, diarrhea, hematochezia, melena Genitourinary: ABSENT: dysuria, hematuria Neurological: PRESENT: tremor(s) Psychiatric: PRESENT: depression Hematologic/Lymphatic: PRESENT: easy bleeding Physical Exam Vital Signs: Temp Pulse Resp BP Pulse Ox 98.7 F 102 H 25 H 139/84 H 97 12/25/17 17:26 12/25/17 11:34 12/25/17 17:01 12/25/17 17:00 12/25/17 17:01 General appearance: PRESENT: no acute distress, well-developed, well-nourished, other - shaking and tremors Head exam: PRESENT: atraumatic, normocephalic Eye exam: PRESENT: conjunctiva pink, EOMI, PERRLA. ABSENT: scleral icterus Ear exam: PRESENT: normal external ear exam Mouth exam: PRESENT: moist, tongue midline Neck exam: ABSENT: carotid bruit, JVD, lymphadenopathy, thyromegaly Respiratory exam: PRESENT: clear to auscultation elia. ABSENT: rales, rhonchi, wheezes Cardiovascular exam: PRESENT: tachycardia. ABSENT: diastolic murmur, rubs, systolic murmur Pulses: PRESENT: normal dorsalis pedis pul Vascular exam: PRESENT: normal capillary refill GI/Abdominal exam: PRESENT: normal bowel sounds, soft, tenderness - RLQ tenderness. ABSENT: distended, guarding, mass, organolmegaly, rebound Rectal exam: PRESENT: deferred Extremities exam: PRESENT: full ROM. ABSENT: calf tenderness, clubbing, pedal edema Musculoskeletal exam: PRESENT: ambulatory Neurological exam: PRESENT: alert, awake, oriented to person, oriented to place , oriented to time, oriented to situation, CN II-XII grossly intact. ABSENT: motor sensory deficit Psychiatric exam: PRESENT: appropriate affect, depressed, normal mood, suicidal ideation, other. ABSENT: homicidal ideation Skin exam: PRESENT: dry, intact, warm. ABSENT: cyanosis, rash Results Laboratory Results: Laboratory 12/25/17 12/25/17 12/25/17 12:54 12:54 12:54 WBC 6.3 RBC 3.56 L Hgb 10.6 L Hct 32.3 L MCV 91 MCH 29.7 MCHC 32.7 RDW 23.7 H Plt Count 211 Seg Neutrophils % 73.0 Lymphocytes % 17.8 Monocytes % 7.7 Eosinophils % 0.4 Basophils % 1.1 Absolute Neutrophils 4.6 Absolute Lymphocytes 1.1 Absolute Monocytes 0.5 Absolute Eosinophils 0.0 Absolute Basophils 0.1 PT 15.7 H INR 1.19 Sodium 145.1 H Potassium 3.8 Chloride 106 Carbon Dioxide 27 Anion Gap 12 BUN 5 L Creatinine 0.61 Est GFR ( Amer) > 60 Est GFR (Non-Af Amer) > 60 Glucose 83 Lactic Acid Calcium 9.1 Total Bilirubin 0.6 Direct Bilirubin 0.4 Neonat Total Bilirubin Not Reportable Neonat Direct Bilirubin Not Reportable Neonat Indirect Bili Not Reportable AST 263 H ALT 140 H Alkaline Phosphatase 199 H Total Protein 7.4 Albumin 4.2 12/25/17 14:50 WBC RBC Hgb Hct MCV MCH MCHC RDW Plt Count Seg Neutrophils % Lymphocytes % Monocytes % Eosinophils % Basophils % Absolute Neutrophils Absolute Lymphocytes Absolute Monocytes Absolute Eosinophils Absolute Basophils PT INR Sodium Potassium Chloride Carbon Dioxide Anion Gap BUN Creatinine Est GFR ( Amer) Est GFR (Non-Af Amer) Glucose Lactic Acid 2.2 H Calcium Total Bilirubin Direct Bilirubin Neonat Total Bilirubin Neonat Direct Bilirubin Neonat Indirect Bili AST ALT Alkaline Phosphatase Total Protein Albumin Impressions: Abdomen/Pelvis CTA 12/25/17 12:34 IMPRESSION: Unchanged stenosis proximal to the SMA stent, which is patent. The celiac and CAITLIN are patent. No acute findings. Assessment & Plan - Diagnosis (1) Transaminitis Is this a current diagnosis for this admission?: Yes Plan: Likely from ETOH abuse. Will trend LFT (2) Depression Qualifiers: Depression Type: unspecified Qualified Code(s): F32.9 - Major depressive disorder, single episode, unspecified Plan: Psychiatry evaluation (3) Alcohol withdrawal Qualifiers: Complication of substance-induced condition: uncomplicated Qualified Code(s ): F10.230 - Alcohol dependence with withdrawal, uncomplicated Is this a current diagnosis for this admission?: Yes Plan: Patient was placed on alcohol withdrawal protocol. Will continue with Ringer's lactate as well as multivitamin and thiamine. Bruits judicious benzodiazepines. Patient needs counseling regarding alcohol abuse (4) Anemia Qualifiers: Iron deficiency anemia type: chronic blood loss Is this a current diagnosis for this admission?: Yes Plan: I am concerned about his anemia although there is no evidence of large volume bleeding. He does have some rectal bleeding and his hemoglobin has trended down from about 13.6 in October -10.6 today. He does admit to some rectal bleeding and he has also had some epistaxis although there is none at this time. Because of his SMA stenosis and stent he is on Plavix as well as Xarelto. Throwing the fact of his alcohol abuse wound has to be worried about occult bleeding. At this time I will continue his antiplatelet and Xarelto and will carefully monitor his H&H. (5) GI bleed Qualifiers: GI bleed type/associated pathology: unspecified gastrointestinal hemorrhage type Qualified Code(s): K92.2 - Gastrointestinal hemorrhage, unspecified Is this a current diagnosis for this admission?: Yes Plan: We will place on intravenous PPI carefully monitor his H&H (6) SMA stenosis Is this a current diagnosis for this admission?: Yes Plan: Patient has a recent history. He does have a stent which is patent - Time Time Spent: 50 to 70 Minutes Critical Time spent with patient: Less than 15 minutes Medications reviewed and adjusted accordingly: Yes Anticipated discharge: Home - Inpatient Certification Based on my medical assessment, after consideration of the patient's comorbidities, presenting symptoms, or acuity I expect that the services needed warrant INPATIENT care.: Yes Medical Necessity: Need Close Monitoring Due to Risk of Patient Decompensation, Risk of Complication if Not Cared For in Hospital, Risk of Diagnosis Which Will Require Inpatient Eval/Care/Monitoring
[2017-12-25] MEDS ORDERED: OXYCODONE-ACETAMINOPHEN 5-325 MG TABLET PO PRN (18:06)
[2017-12-25] MEDS: HYDROMORPHONE HCL INJ/PF 2 MG/ML AMPULE IV PRN ×2 (18:24→23:12)
[2017-12-25] MEDS ORDERED: LORAZEPAM INJ 2 MG/1 ML VIAL ONE ×2 (19:17→20:17)
[2017-12-25] MEDS: RINGERS SOLUTION,LACTATED 1,000 ML IV PRN (19:29)
[2017-12-25] MEDS ORDERED: LORAZEPAM INJ 2 MG/1 ML VIAL IV ONE ×2 (19:45→21:00)
[2017-12-25 20:15] LABS: HEMATOCRIT 25.7 % (37.9-51.0); MEAN CORPUSCULAR HEMOGLOBIN 29.8 pg (27.0-33.4); MEAN CORPUSCULAR HGB CONC 33.2 g/dL (32.0-36.0); MEAN CORPUSCULAR VOLUME 90 fl (80-97); PLATELET COUNT 155 10^3/uL (150-450); RED BLOOD COUNT 2.86 10^6/uL (4.35-5.55); RED CELL DISTRIBUTION WIDTH 23.1 % (11.5-14.0); WHITE BLOOD COUNT 5.4 10^3/uL (4.0-10.5)
[2017-12-25] MEDS: LORAZEPAM INJ 2 MG/1 ML VIAL IV PRN ×2 (20:21→23:15)
[2017-12-25 20:24] LABS: HEMOGLOBIN 8.5 g/dL (13.5-17.0)
[2017-12-26 04:56] LABS: ABSOLUTE MONOCYTES (AUTO) 0.4 10^3/uL (0.1-1.4); ABSOLUTE NEUT (AUTO) 3.2 10^3/uL (1.7-8.2); BASOPHILS % (AUTO) 0.9 % (0-2); HEMATOCRIT 25.3 % (37.9-51.0); HEMOGLOBIN 8.5 g/dL (13.5-17.0); LYMPHOCYTES % (AUTO) 20.4 % (13-45); MEAN CORPUSCULAR HEMOGLOBIN 29.9 pg (27.0-33.4); MEAN CORPUSCULAR HGB CONC 33.5 g/dL (32.0-36.0); MEAN CORPUSCULAR VOLUME 89 fl (80-97); MONOCYTES % (AUTO) 8.2 % (3-13); PLATELET COUNT 139 10^3/uL (150-450); RED BLOOD COUNT 2.83 10^6/uL (4.35-5.55); RED CELL DISTRIBUTION WIDTH 23.3 % (11.5-14.0); SEGMENTED NEUTROPHILS % (AUTO) 69.5 % (42-78); TOTAL CELLS COUNTED % (AUTO) 100 %; WHITE BLOOD COUNT 4.7 10^3/uL (4.0-10.5)
[2017-12-26 05:14] LABS: ALANINE AMINOTRANSFERASE 160 U/L (21-72); ALBUMIN 3.2 g/dL (3.5-5.0); ALKALINE PHOSPHATASE 182 U/L (38-126); ANION GAP 9 (5-19); ASPARTATE AMINO TRANSFERASE 379 U/L (17-59); BILIRUBIN,DIRECT 0.4 mg/dL (0.0-0.4); BLOOD UREA NITROGEN 5 mg/dL (7-20); CALCIUM 8.9 mg/dL (8.4-10.2); CARBON DIOXIDE 29 mmol/L (22-30); CHLORIDE 106 mmol/L (98-107); GLUCOSE 101 mg/dL (75-110); POTASSIUM 3.6 mmol/L (3.6-5.0); SODIUM 143.9 mmol/L (137-145); TOTAL PROTEIN 5.9 g/dL (6.3-8.2)
[2017-12-26] MEDS: DIAZEPAM 5 MG TABLET PO SCH ×3 (06:17→19:12)
[2017-12-26] MEDS: FAMOTIDINE INJ/PF 20 MG/2 ML SDV IV SCH ×3 (06:17→21:37)
[2017-12-26] MEDS: LORAZEPAM INJ 2 MG/1 ML VIAL IV PRN ×5 (09:04→21:38)
[2017-12-26] MEDS: CLOPIDOGREL BISULFATE 75 MG TABLET PO SCH (09:04)
[2017-12-26] MEDS: OXYCODONE-ACETAMINOPHEN 5-325 MG TABLET PO PRN (09:05)
[2017-12-26] MEDS: OXYCODONE HCL IR 5 MG TABLET PO PRN (09:05)
[2017-12-26] MEDS: DOCUSATE SODIUM 100 MG CAPSULE PO SCH (09:19)
[2017-12-26] MEDS ORDERED: RIVAROXABAN 15 MG TABLET PO SCH (10:00)
[2017-12-26 10:18] LABS: URINE AMPHETAMINES SCREEN NEGATIVE; URINE BARBITURATES SCREEN NEGATIVE; URINE COCAINE SCREEN NEGATIVE; URINE MARIJUANA (THC) SCREEN NEGATIVE; URINE METHADONE SCREEN NEGATIVE; URINE PHENCYCLIDINE SCREEN NEGATIVE
[2017-12-26 10:21] LABS: URINE BENZODIAZEPINES SCREEN UNCONFIRMED POSITIVE
--- NOTE | 2017-12-26 10:33 | PDOC PROGRESS REPORT ---
Subjective Progress Note for:: 12/26/17 Subjective:: Patient very tremulous, shaking but awake and alert and insisting that he drinks 4-6 bears max daily and denies illicit drug use, He is full blown DT. He was hallucinating and requiring a heavy dose of Ativan so he was moved to ICU overnight. He is still trembling but not agitated at this time. His other symptoms are unchanged Reason For Visit: ALCOHOL ABUSE,ANEMIA,ETOH WITHDRAWAL Physical Exam Vital Signs: Temp Pulse Resp BP Pulse Ox 98.9 F 96 19 124/109 H 99 12/25/17 20:27 12/26/17 08:00 12/26/17 08:00 12/26/17 05:33 12/26/17 08:00 Intake & Output 12/25/17 12/26/17 12/27/17 06:59 06:59 06:59 Intake Total 1116 Output Total 350 Balance 766 Weight 86.8 kg General appearance: PRESENT: no acute distress, other - tremor Head exam: PRESENT: atraumatic Eye exam: PRESENT: conjunctiva pink, EOMI, PERRLA. ABSENT: scleral icterus Ear exam: ABSENT: bleeding Neck exam: ABSENT: carotid bruit, JVD, lymphadenopathy, thyromegaly Respiratory exam: PRESENT: clear to auscultation elia. ABSENT: rales, rhonchi, wheezes Cardiovascular exam: PRESENT: +S1, +S2, tachycardia Pulses: PRESENT: normal dorsalis pedis pul GI/Abdominal exam: PRESENT: normal bowel sounds, soft, tenderness - minimal RLQ. ABSENT: distended, guarding, mass, organolmegaly, rebound Rectal exam: PRESENT: deferred Extremities exam: PRESENT: full ROM. ABSENT: calf tenderness, clubbing, pedal edema Neurological exam: PRESENT: alert, awake, oriented to person, oriented to place , oriented to time, oriented to situation Psychiatric exam: PRESENT: appropriate affect Results Laboratory Results: 12/26/17 04:40 12/26/17 04:40 12/25/17 12/25/17 12/26/17 19:56 19:56 04:40 WBC 5.4 4.7 RBC 2.86 L 2.83 L Hgb 8.5 L D 8.5 L Hct 25.7 L 25.3 L MCV 90 89 MCH 29.8 29.9 MCHC 33.2 33.5 RDW 23.1 H 23.3 H Plt Count 155 139 L Seg Neutrophils % 69.5 Lymphocytes % 20.4 Monocytes % 8.2 Eosinophils % 1.0 Basophils % 0.9 Absolute Neutrophils 3.2 Absolute Lymphocytes 1.0 Absolute Monocytes 0.4 Absolute Eosinophils 0.0 Absolute Basophils 0.0 Sodium Potassium Chloride Carbon Dioxide Anion Gap BUN Creatinine Est GFR ( Amer) Est GFR (Non-Af Amer) Glucose Lactic Acid 2.0 Calcium Total Bilirubin AST ALT Alkaline Phosphatase Ammonia Total Protein Albumin Lipase 12/26/17 12/26/17 12/26/17 04:40 04:40 04:40 WBC RBC Hgb Hct MCV MCH MCHC RDW Plt Count Seg Neutrophils % Lymphocytes % Monocytes % Eosinophils % Basophils % Absolute Neutrophils Absolute Lymphocytes Absolute Monocytes Absolute Eosinophils Absolute Basophils Sodium 143.9 Potassium 3.6 Chloride 106 Carbon Dioxide 29 Anion Gap 9 BUN 5 L Creatinine 0.55 Est GFR ( Amer) > 60 Est GFR (Non-Af Amer) > 60 Glucose 101 Lactic Acid 0.7 Calcium 8.9 Total Bilirubin 1.0 AST 379 H ALT 160 H Alkaline Phosphatase 182 H Ammonia 22.8 Total Protein 5.9 L Albumin 3.2 L Lipase 68.0 Impressions: Abdomen/Pelvis CTA 12/25/17 12:34 IMPRESSION: Unchanged stenosis proximal to the SMA stent, which is patent. The celiac and CAITLIN are patent. No acute findings. Assessment & Plan - Diagnosis (1) Alcohol withdrawal Qualifiers: Complication of substance-induced condition: with delirium Qualified Code(s ): F10.231 - Alcohol dependence with withdrawal delirium Is this a current diagnosis for this admission?: Yes Plan: Patient was moved to ICU for better care. He is in full DT Continue judicious Benzo prn Patient needs counseling regarding alcohol abuse (2) Transaminitis Is this a current diagnosis for this admission?: Yes Plan: Likely from ETOH abuse. LFT worse today. Obtail Sono when more stable Check Hepatitis profile (3) Depression Qualifiers: Depression Type: unspecified Qualified Code(s): F32.9 - Major depressive disorder, single episode, unspecified Is this a current diagnosis for this admission?: Yes Plan: Psychiatry evaluation pending (4) Anemia Qualifiers: Iron deficiency anemia type: chronic blood loss Is this a current diagnosis for this admission?: Yes Plan: Hg dropped again but remains stable, no evidence of acute bleeding. Will check iron studies, B12 and Folate and occult blood. Continue with PPI (5) GI bleed Qualifiers: GI bleed type/associated pathology: unspecified gastrointestinal hemorrhage type Qualified Code(s): K92.2 - Gastrointestinal hemorrhage, unspecified Is this a current diagnosis for this admission?: Yes (6) SMA stenosis Is this a current diagnosis for this admission?: Yes Plan: Patient has a recent history. He does have a stent which is patent Appreciate Dr. Denton input (7) Alcohol withdrawal delirium Is this a current diagnosis for this admission?: Yes Plan: Supportive care - Time Time Spent with patient: 25-34 minutes Medications reviewed and adjusted accordingly: Yes Anticipated discharge: Home - Inpatient Certification Based on my medical assessment, after consideration of the patient's comorbidities, presenting symptoms, or acuity I expect that the services needed warrant INPATIENT care.: Yes Medical Necessity: Significant Comorbidiites Make Outpatient Treatment Too Risky , Need For IV Fluids, Risk of Complication if Not Cared For in Hospital
[2017-12-26] MEDS ORDERED: RIVAROXABAN 10 MG TABLET PO ONE (10:45)
[2017-12-26] MEDS: ROPINIROLE HCL 0.25 MG TABLET PO SCH (10:48)
[2017-12-26] MEDS: RINGERS SOLUTION,LACTATED 1,000 ML IV PRN (11:38)
[2017-12-26 11:43] LABS: ABSOLUTE RETICS # 0.044 10^6/uL (0.028-0.122); HEMOGLOBIN 8.5 g/dL (13.5-17.0); MEAN CORPUSCULAR HEMOGLOBIN 30.7 pg (27.0-33.4); MEAN CORPUSCULAR VOLUME 90 fl (80-97); PLATELET COUNT 129 10^3/uL (150-450); RED BLOOD COUNT 2.77 10^6/uL (4.35-5.55); RED CELL DISTRIBUTION WIDTH 23.8 % (11.5-14.0); WHITE BLOOD COUNT 5.3 10^3/uL (4.0-10.5)
[2017-12-26 11:59] LABS: IRON(TIBC) 237.2 ug/dL (49-181)
[2017-12-26 13:17] LABS: FOLATE 5.36 ng/mL (>2.76)
--- NOTE | 2017-12-26 13:30 | PDOC PROGRESS REPORT ---
Subjective Progress Note for:: 12/26/17 Subjective:: This is a 47-year-old alcoholic male, undergoing alcohol withdrawals. He presents to the emergency department with tremors, hallucinations, agitation, and abdominal pain. Surgery was consulted to evaluate the patient's abdominal pain. This morning he does complain of abdominal pain, but states that it is stable from yesterday. Patient denies any nausea or vomiting. He is hungry this morning. Patient denies fevers, chills, chest pain, shortness of breath. Reason For Visit: ALCOHOL ABUSE,ANEMIA,ETOH WITHDRAWAL Physical Exam Vital Signs: Temp Pulse Resp BP Pulse Ox 98.9 F 97 21 H 143/93 H 97 12/25/17 20:27 12/26/17 10:00 12/26/17 12:48 12/26/17 12:48 12/26/17 12:48 Intake & Output 12/25/17 12/26/17 12/27/17 06:59 06:59 06:59 Intake Total 1116 Output Total 350 250 Balance 766 -250 Weight 86.8 kg General appearance: PRESENT: other - Moderate distress. Tremulous. Mildly tachycardic. Head exam: PRESENT: atraumatic, normocephalic Eye exam: PRESENT: EOMI, PERRLA Mouth exam: PRESENT: neck supple Neck exam: ABSENT: lymphadenopathy, meningismus, tenderness, thyromegaly, tracheal deviation Respiratory exam: PRESENT: clear to auscultation elia. ABSENT: accessory muscle use, chest wall tenderness, rales, retraction, rhonchi, stridor Cardiovascular exam: PRESENT: tachycardia - Mild Pulses: PRESENT: normal radial pulses Vascular exam: PRESENT: normal capillary refill GI/Abdominal exam: PRESENT: soft, tenderness - Mild epigastric abdominal tenderness.. ABSENT: distended, firm, guarding, Meadows's sign, rebound, rigid Extremities exam: ABSENT: joint swelling, pedal edema Neurological exam: PRESENT: alert, awake, other - Tremulous. Psychiatric exam: PRESENT: agitated - Mild Skin exam: ABSENT: cyanosis, jaundice, rash Results Laboratory Results: 12/26/17 11:25 12/26/17 04:40 12/25/17 12/25/17 12/26/17 19:56 19:56 04:40 WBC 5.4 4.7 RBC 2.86 L 2.83 L Hgb 8.5 L D 8.5 L Hct 25.7 L 25.3 L MCV 90 89 MCH 29.8 29.9 MCHC 33.2 33.5 RDW 23.1 H 23.3 H Plt Count 155 139 L Seg Neutrophils % 69.5 Lymphocytes % 20.4 Monocytes % 8.2 Eosinophils % 1.0 Basophils % 0.9 Absolute Neutrophils 3.2 Absolute Lymphocytes 1.0 Absolute Monocytes 0.4 Absolute Eosinophils 0.0 Absolute Basophils 0.0 Retic Count (auto) Absolute Retic Sodium Potassium Chloride Carbon Dioxide Anion Gap BUN Creatinine Est GFR ( Amer) Est GFR (Non-Af Amer) Glucose Lactic Acid 2.0 Calcium Total Bilirubin AST ALT Alkaline Phosphatase Ammonia Total Protein Albumin Lipase 12/26/17 12/26/17 12/26/17 04:40 04:40 04:40 WBC RBC Hgb Hct MCV MCH MCHC RDW Plt Count Seg Neutrophils % Lymphocytes % Monocytes % Eosinophils % Basophils % Absolute Neutrophils Absolute Lymphocytes Absolute Monocytes Absolute Eosinophils Absolute Basophils Retic Count (auto) Absolute Retic Sodium 143.9 Potassium 3.6 Chloride 106 Carbon Dioxide 29 Anion Gap 9 BUN 5 L Creatinine 0.55 Est GFR ( Amer) > 60 Est GFR (Non-Af Amer) > 60 Glucose 101 Lactic Acid 0.7 Calcium 8.9 Total Bilirubin 1.0 AST 379 H ALT 160 H Alkaline Phosphatase 182 H Ammonia 22.8 Total Protein 5.9 L Albumin 3.2 L Lipase 68.0 12/26/17 11:25 WBC 5.3 RBC 2.77 L Hgb 8.5 L Hct 25.0 L MCV 90 MCH 30.7 MCHC 34.0 RDW 23.8 H Plt Count 129 L Seg Neutrophils % Lymphocytes % Monocytes % Eosinophils % Basophils % Absolute Neutrophils Absolute Lymphocytes Absolute Monocytes Absolute Eosinophils Absolute Basophils Retic Count (auto) 1.60 Absolute Retic 0.044 Sodium Potassium Chloride Carbon Dioxide Anion Gap BUN Creatinine Est GFR ( Amer) Est GFR (Non-Af Amer) Glucose Lactic Acid Calcium Total Bilirubin AST ALT Alkaline Phosphatase Ammonia Total Protein Albumin Lipase Impressions: Abdomen/Pelvis CTA 12/25/17 12:34 IMPRESSION: Unchanged stenosis proximal to the SMA stent, which is patent. The celiac and CAITLIN are patent. No acute findings. Assessment & Plan - Diagnosis (1) Abdominal pain Is this a current diagnosis for this admission?: Yes - Plan Summary Plan Summary: This is a 47-year-old male undergoing delirium tremens/alcohol withdrawal. Patient does have mild abdominal pain, however he does not have significant tenderness on exam. The patient's lipase is normal. The patient is hungry and eating breakfast upon my exam. He has no nausea or vomiting. At this time, I recommend continuation of his current treatment for delirium tremens. The patient does not require any surgical intervention at present. I will see the patient again on an as-needed basis. Please re-notify with any new questions or concerns.
[2017-12-26] MEDS: MAGNESIUM SULFATE/D5W 1 GM/100 ML RTUPB IV SCH ×3 (15:15→18:38)
[2017-12-26] MEDS: HYDROMORPHONE HCL INJ/PF 2 MG/ML AMPULE IV PRN (21:37)
[2017-12-27] MEDS: DIAZEPAM 5 MG TABLET PO SCH ×3 (01:27→11:07)
[2017-12-27] MEDS: OXYCODONE HCL IR 5 MG TABLET PO PRN ×2 (03:17→18:42)
[2017-12-27] MEDS: OXYCODONE-ACETAMINOPHEN 5-325 MG TABLET PO PRN ×2 (03:18→18:43)
[2017-12-27 04:16] LABS: ABSOLUTE BASOPHILS # (AUTO) 0.1 10^3/uL (0.0-0.2); ABSOLUTE EOSINOPHILS # (AUTO) 0.1 10^3/uL (0.0-0.6); ABSOLUTE LYMPHOCYTES (AUTO) 1.1 10^3/uL (0.5-4.7); ABSOLUTE MONOCYTES (AUTO) 0.5 10^3/uL (0.1-1.4); ABSOLUTE NEUT (AUTO) 3.5 10^3/uL (1.7-8.2); BASOPHILS % (AUTO) 1.1 % (0-2); EOSINOPHILS % (AUTO) 1.6 % (0-6); HEMATOCRIT 26.2 % (37.9-51.0); HEMOGLOBIN 8.8 g/dL (13.5-17.0); LYMPHOCYTES % (AUTO) 21.1 % (13-45); MEAN CORPUSCULAR HGB CONC 33.4 g/dL (32.0-36.0); MEAN CORPUSCULAR VOLUME 90 fl (80-97); MONOCYTES % (AUTO) 9.2 % (3-13); PLATELET COUNT 132 10^3/uL (150-450); RED BLOOD COUNT 2.92 10^6/uL (4.35-5.55); RED CELL DISTRIBUTION WIDTH 23.2 % (11.5-14.0); TOTAL CELLS COUNTED % (AUTO) 100 %; WHITE BLOOD COUNT 5.3 10^3/uL (4.0-10.5)
[2017-12-27 04:36] LABS: ALANINE AMINOTRANSFERASE 205 U/L (21-72); ALBUMIN 3.2 g/dL (3.5-5.0); ALKALINE PHOSPHATASE 213 U/L (38-126); ANION GAP 7 (5-19); ASPARTATE AMINO TRANSFERASE 459 U/L (17-59); BILIRUBIN,DIRECT 0.5 mg/dL (0.0-0.4); BILIRUBIN,TOTAL 1.1 mg/dL (0.2-1.3); BLOOD UREA NITROGEN 3 mg/dL (7-20); CALCIUM 8.9 mg/dL (8.4-10.2); CARBON DIOXIDE 30 mmol/L (22-30); CHLORIDE 102 mmol/L (98-107); GLUCOSE 84 mg/dL (75-110); POTASSIUM 3.3 mmol/L (3.6-5.0); SODIUM 139.2 mmol/L (137-145); TOTAL PROTEIN 6.1 g/dL (6.3-8.2)
[2017-12-27] MEDS: HYDROMORPHONE HCL INJ/PF 2 MG/ML AMPULE IV PRN ×2 (07:43→20:35)
[2017-12-27] MEDS: LORAZEPAM INJ 2 MG/1 ML VIAL IV PRN ×2 (07:44→17:39)
--- NOTE | 2017-12-27 08:44 | RADIOLOGY REPORT (SQ) ---
EXAM DESCRIPTION: U/S ABDOMEN COMPLETE W/DOPPLER COMPLETED DATE/TIME: 12/27/2017 8:19 am REASON FOR STUDY: Alcohol abuse COMPARISON: None. TECHNIQUE: Dynamic and static grayscale images acquired of the abdomen and recorded on PACS. Additio nal selected color Doppler and spectral images recorded. LIMITATIONS: None. FINDINGS: PANCREAS: No masses. Visualized pancreatic duct normal caliber. LIVER: Echotexture is coarse with increased echogenicity consistent with fatty infiltration. LIVER VASCULATURE: Normal directional flow of the main portal vein and hepatic veins. GALLBLADDER: No stones. Normal wall thickness. No pericholecystic fluid. ULTRASOUND-DETECTED ANDREWS'S SIGN: Negative. INTRAHEPATIC DUCTS AND COMMON DUCT: CBD and intrahepatic ducts normal caliber. No filling defects. INFERIOR VENA CAVA: Normal flow. AORTA: No aneurysm. RIGHT KIDNEY: Normal size. Normal echogenicity. No solid or suspicious masses. No hydronephrosis. No calcifications. LEFT KIDNEY: Normal size. Normal echogenicity. No solid or suspicious masses. No hydronephrosis. No calcifications. SPLEEN:Normal size. No solid masses. PERITONEAL AND PLEURAL SPACES: No ascites or effusions. OTHER: No other significant finding. IMPRESSION: FATTY LIVER. NO OTHER SIGNIFICANT FINDING. TECHNICAL DOCUMENTATION: JOB ID: [id number] [employer]- All Rights Reserved Reading location - IP/workstation name: [email or web address]
[2017-12-27] MEDS ORDERED: POTASSIUM CHLORIDE 10 MEQ TABLET.SA PO ONE (10:00)
[2017-12-27] MEDS: RINGERS SOLUTION,LACTATED 1,000 ML IV PRN (10:39)
[2017-12-27] MEDS: ROPINIROLE HCL 0.25 MG TABLET PO SCH (10:39)
[2017-12-27] MEDS: FAMOTIDINE INJ/PF 20 MG/2 ML SDV IV SCH ×2 (10:40→22:44)
[2017-12-27] MEDS: DOCUSATE SODIUM 100 MG CAPSULE PO SCH (10:40)
[2017-12-27] MEDS: CLOPIDOGREL BISULFATE 75 MG TABLET PO SCH (10:40)
[2017-12-27] MEDS: RIVAROXABAN 10 MG TABLET PO SCH (10:40)
--- NOTE | 2017-12-27 13:34 | PDOC PROGRESS REPORT ---
Subjective Progress Note for:: 12/27/17 Subjective:: Patient very tremulous, shaking but awake and alert and insisting that he drinks 4-6 beers max daily and denies illicit drug use, He is still tremulous but less agitated. Reason For Visit: ALCOHOL ABUSE,ANEMIA,ETOH WITHDRAWAL Physical Exam Vital Signs: Temp Pulse Resp BP Pulse Ox 98.9 F 105 H 23 H 125/81 92 12/25/17 20:27 12/27/17 08:39 12/27/17 12:18 12/27/17 12:18 12/27/17 12:18 Intake & Output 12/26/17 12/27/17 12/28/17 06:59 06:59 06:59 Intake Total 1116 2433 100 Output Total 350 3835 400 Balance 766 -1402 -300 Weight 86.8 kg 84.8 kg General appearance: PRESENT: no acute distress Neck exam: ABSENT: carotid bruit, JVD, lymphadenopathy, thyromegaly Respiratory exam: PRESENT: clear to auscultation elia. ABSENT: rales, rhonchi, wheezes Cardiovascular exam: PRESENT: tachycardia GI/Abdominal exam: PRESENT: normal bowel sounds, soft. ABSENT: distended, guarding, mass, organolmegaly, rebound, tenderness Rectal exam: PRESENT: deferred - sleeping but easily arousable tremors Results Laboratory Results: 12/27/17 04:03 12/27/17 04:03 12/26/17 12/27/17 12/27/17 11:25 04:03 04:03 WBC 5.3 RBC 2.92 L Hgb 8.8 L Hct 26.2 L MCV 90 MCH 30.0 MCHC 33.4 RDW 23.2 H Plt Count 132 L Seg Neutrophils % 67.0 Lymphocytes % 21.1 Monocytes % 9.2 Eosinophils % 1.6 Basophils % 1.1 Absolute Neutrophils 3.5 Absolute Lymphocytes 1.1 Absolute Monocytes 0.5 Absolute Eosinophils 0.1 Absolute Basophils 0.1 Sodium 139.2 Potassium 3.3 L Chloride 102 Carbon Dioxide 30 Anion Gap 7 BUN 3 L Creatinine 0.47 L Est GFR ( Amer) > 60 Est GFR (Non-Af Amer) > 60 Glucose 84 Calcium 8.9 Magnesium 1.5 L Iron 237.2 H TIBC 305 % Saturation 78 Ferritin 45.10 Total Bilirubin 1.1 AST 459 H ALT 205 H Alkaline Phosphatase 213 H Total Protein 6.1 L Albumin 3.2 L Vitamin B12 591.0 Folate 5.36 12/27/17 04:03 WBC RBC Hgb Hct MCV MCH MCHC RDW Plt Count Seg Neutrophils % Lymphocytes % Monocytes % Eosinophils % Basophils % Absolute Neutrophils Absolute Lymphocytes Absolute Monocytes Absolute Eosinophils Absolute Basophils Sodium Potassium Chloride Carbon Dioxide Anion Gap BUN Creatinine Est GFR ( Amer) Est GFR (Non-Af Amer) Glucose Calcium Magnesium 2.2 Iron TIBC % Saturation Ferritin Total Bilirubin AST ALT Alkaline Phosphatase Total Protein Albumin Vitamin B12 Folate Impressions: Abdomen/Pelvis CTA 12/25/17 12:34 IMPRESSION: Unchanged stenosis proximal to the SMA stent, which is patent. The celiac and CAITLIN are patent. No acute findings. Abdomen Ultrasound 12/27/17 00:00 IMPRESSION: FATTY LIVER. NO OTHER SIGNIFICANT FINDING. Assessment & Plan - Diagnosis (1) Transaminitis Is this a current diagnosis for this admission?: Yes Plan: Likely from ETOH abuse. Abdominal sonogram shows fatty liver but otherwise negative. We will continue to trend LFTs (2) Depression Qualifiers: Depression Type: unspecified Qualified Code(s): F32.9 - Major depressive disorder, single episode, unspecified Is this a current diagnosis for this admission?: Yes Plan: Psychiatry evaluation (3) Alcohol withdrawal Qualifiers: Complication of substance-induced condition: with delirium Qualified Code(s ): F10.231 - Alcohol dependence with withdrawal delirium Is this a current diagnosis for this admission?: Yes Plan: Continue judicious benzodiazepines to monitor closely however patient has been relatively stable think he can be moved out of the ICU Patient needs counseling regarding alcohol abuse (4) Anemia Qualifiers: Iron deficiency anemia type: chronic blood loss Is this a current diagnosis for this admission?: Yes Plan: hemoglobin remains stable (5) GI bleed Qualifiers: GI bleed type/associated pathology: unspecified gastrointestinal hemorrhage type Qualified Code(s): K92.2 - Gastrointestinal hemorrhage, unspecified Is this a current diagnosis for this admission?: Yes Plan: cont on intravenous PPI carefully monitor his H&H (6) SMA stenosis Is this a current diagnosis for this admission?: Yes Plan: Patient has a recent history. He does have a stent which is patent No acute abdominal issues symptoms seem to be related to his alcohol abuse (7) Alcoholic hepatitis Qualifiers: Ascites presence: without ascites Qualified Code(s): K70.10 - Alcoholic hepatitis without ascites Is this a current diagnosis for this admission?: Yes Plan: Viral hepatitis profile is negative. We will continue to trend - Time Time Spent with patient: 15-24 minutes Medications reviewed and adjusted accordingly: Yes Anticipated discharge: Home Within: within 72 hours
--- NOTE | 2017-12-27 14:34 | PSYCHOLOGICAL NOTE ---
Psych Note - Psych Note Psych Note: Reason for Consult: Depression Patient disclosed that he drinks 4-6 24oz beers a day. He reports that he did have 3 years of sobriety back in 2006 but he then had a blood clot and started drinking again. He disclosed that he was thinking of suicide last Thursday and thought about "going into the backyard and ending it all...but I thought about the neighborhood kids and didn't want them to see it...then I realized that I just did not have the guts." Patient continued to disclose that he is "very glad" he did not do anything. Patient reports he no longer wants to but is still depressed. he disclosed he is in a lot of pain and [facility] Patient is alert and orientated to person, place, time and circumstance. Mood is euthymic with congruent affect. Patient is observed with tremors and has difficulties using his hands because of this. Patient denies suicidal and homicidal ideation; reports depression. Delusions are absent and behavior is congruent with an intact reality based presentation ie organized and linear thought processes. eye contact is well maintained. Intellectual abilities appear to be average range. Attention and concentration are good. Insight, judgment and impulse control are currently good. Medication recommendations per [facility]'s contracted psychiatrist, Dr. Donya SIMPSON are as follows 1. please discontinue Valium or Ativan 2. please discontinue requip 3. please start effexor 37.5mg twice daily for depression and assistance with alcohol cravings 4.please start buspar 10mg twice daily for anxiety and agitation Diagnosis 1. 291.81 (F10.239) Alcohol Withdrawal without perceptual disturbances 2. 311 (F32.9) Unspecified Depressive Disorder Impression/Plan: patient is cleared from acute psychological services. Patient does not meet IVC criteria per [place] GS 122C. Patient disclosed depression with pervious suicidal ideation. Patient currently denies wanting to and reports he was "very glad" he did not act on his thoughts. Patient is currently suffering from alcohol withdrawal (tremors). Medication recommendations have been provided. If any new concerns present, please re-consult. Dr. Crocker was consulted on the care and management of this patient.
[2017-12-27] MEDS: BUSPIRONE HCL 10 MG TABLET PO SCH (17:38)
[2017-12-27] MEDS: VENLAFAXINE HCL 37.5 MG CAP.SR.24H PO SCH (22:42)
[2017-12-28] MEDS: RINGERS SOLUTION,LACTATED 1,000 ML IV PRN ×2 (02:19→13:24)
[2017-12-28] MEDS: HYDROMORPHONE HCL INJ/PF 2 MG/ML AMPULE IV PRN ×5 (02:33→23:34)
[2017-12-28] MEDS: RIVAROXABAN 10 MG TABLET PO SCH (09:22)
[2017-12-28] MEDS: CLOPIDOGREL BISULFATE 75 MG TABLET PO SCH (09:33)
[2017-12-28] MEDS: OXYCODONE HCL IR 5 MG TABLET PO PRN (09:33)
[2017-12-28] MEDS: DOCUSATE SODIUM 100 MG CAPSULE PO SCH (09:33)
[2017-12-28] MEDS: BUSPIRONE HCL 10 MG TABLET PO SCH ×3 (09:33→18:47)
[2017-12-28] MEDS: FAMOTIDINE INJ/PF 20 MG/2 ML SDV IV SCH ×2 (09:34→23:34)
[2017-12-28] MEDS: LORAZEPAM INJ 2 MG/1 ML VIAL IV PRN ×3 (09:34→18:46)
[2017-12-28] MEDS ORDERED: NICOTINE 21 MG/24 HR PATCH.TD24 TD ONE (12:00)
--- NOTE | 2017-12-28 12:16 | PDOC PROGRESS REPORT ---
Subjective Progress Note for:: 12/28/17 Subjective:: Patient very tremulous, shaking but awake and alert and insisting that he drinks 4-6 beers max daily and denies illicit drug use, Patient is much calmer today and is less tremulous. He is still very shaky with movement. He is much less agitated. His is at bedside. She has expressed some concern about patient being discharged home. It appears he was seen by behavioral health and I have not read their notes. As it is not in the computer however there is a suggestion that he had been cleared for discharge. I do concur that this patient is probably not safe to be discharged home in his present condition and I will like to see an inpatient disposition arranged for him. He said that they have been in contact with [facility] for the last month or so and so this probably should be another avenue to pursue. At this time I do not think patient is safe to go home with his . Reason For Visit: ALCOHOL ABUSE,ANEMIA,ETOH WITHDRAWAL Physical Exam Vital Signs: Temp Pulse Resp BP Pulse Ox 98.4 F 96 12 132/90 H 94 12/28/17 07:42 12/28/17 08:00 12/28/17 07:42 12/28/17 07:42 12/28/17 07:42 Intake & Output 12/27/17 12/28/17 12/29/17 06:59 06:59 06:59 Intake Total 2433 3086 360 Output Total 3835 2050 Balance -1402 1036 360 Weight 84.8 kg 86 kg General appearance: PRESENT: no acute distress Head exam: PRESENT: atraumatic Respiratory exam: PRESENT: clear to auscultation elia. ABSENT: rales, rhonchi, wheezes Pulses: PRESENT: normal dorsalis pedis pul GI/Abdominal exam: PRESENT: firm, tenderness - mild vague RLQ. ABSENT: ascites , diminished bowel sounds, distended Rectal exam: PRESENT: deferred Neurological exam: PRESENT: alert, awake, oriented to person, oriented to place , oriented to time, other - unsraedy gait Psychiatric exam: PRESENT: anxious, other - tremor Results Laboratory Results: 12/27/17 04:03 12/27/17 04:03 Impressions: Abdomen/Pelvis CTA 12/25/17 12:34 IMPRESSION: Unchanged stenosis proximal to the SMA stent, which is patent. The celiac and CAITLIN are patent. No acute findings. Abdomen Ultrasound 12/27/17 00:00 IMPRESSION: FATTY LIVER. NO OTHER SIGNIFICANT FINDING. Assessment & Plan - Diagnosis (1) Transaminitis Is this a current diagnosis for this admission?: Yes Plan: Likely from ETOH abuse. Abdominal sonogram shows fatty liver but otherwise negative. We will continue to trend LFTs (2) Depression Qualifiers: Depression Type: unspecified Qualified Code(s): F32.9 - Major depressive disorder, single episode, unspecified Is this a current diagnosis for this admission?: Yes Plan: Psychiatry evaluation and further management. I feel patient needs inpatient angella and he is not safe for home discharge at this time (3) Alcohol withdrawal Qualifiers: Complication of substance-induced condition: with delirium Qualified Code(s ): F10.231 - Alcohol dependence with withdrawal delirium Is this a current diagnosis for this admission?: Yes Plan: Continue judicious benzodiazepines. PT eval Patient needs counseling regarding alcohol abuse (4) Anemia Qualifiers: Iron deficiency anemia type: chronic blood loss Is this a current diagnosis for this admission?: Yes Plan: hemoglobin remains stable, no evidence of acute blood loss (5) GI bleed Qualifiers: GI bleed type/associated pathology: unspecified gastrointestinal hemorrhage type Qualified Code(s): K92.2 - Gastrointestinal hemorrhage, unspecified Is this a current diagnosis for this admission?: Yes Plan: cont on intravenous PPI carefully monitor his H&H (6) SMA stenosis Is this a current diagnosis for this admission?: Yes Plan: Patient has a recent history. He does have a stent which is patent No acute abdominal issues symptoms seem to be related to his alcohol abuse (7) Alcoholic hepatitis Qualifiers: Ascites presence: without ascites Qualified Code(s): K70.10 - Alcoholic hepatitis without ascites Is this a current diagnosis for this admission?: Yes Plan: Viral hepatitis profile is negative. We will continue to trend LFT - Time Time Spent with patient: 15-24 minutes Medications reviewed and adjusted accordingly: Yes Anticipated discharge: Home - Inpatient Certification Based on my medical assessment, after consideration of the patient's comorbidities, presenting symptoms, or acuity I expect that the services needed warrant INPATIENT care.: Yes Medical Necessity: Need Close Monitoring Due to Risk of Patient Decompensation, Risk of Diagnosis Which Will Require Inpatient Eval/Care/Monitoring
[2017-12-28 12:37] LABS: HEPATITIS A AB IGM Negative (Negative); HEPATITIS B CORE AB IGM Negative (Negative); HEPATITS B SURFACE ANTIGEN Negative (Negative)
[2017-12-28 13:00] LABS: HEPATITIS C VIRUS ANTIBODY <0.1 s/co ratio (0.0-0.9)
[2017-12-28] MEDS: VENLAFAXINE HCL 37.5 MG CAP.SR.24H PO SCH ×2 (15:52→23:34)
--- NOTE | 2017-12-28 18:03 | Progress Note ---
Provider Note Provider Note: Discussed patient's care with behavioral health. patient will be reevaluated in am as he is less sedated and on less Benzo. Will follow up with assessment in am.
[2017-12-29] MEDS: LORAZEPAM INJ 2 MG/1 ML VIAL IV PRN ×4 (01:10→22:41)
[2017-12-29] MEDS: HYDROMORPHONE HCL INJ/PF 2 MG/ML AMPULE IV PRN ×5 (03:48→22:41)
[2017-12-29] MEDS: RINGERS SOLUTION,LACTATED 1,000 ML IV PRN ×2 (03:56→18:09)
[2017-12-29 05:14] LABS: ABSOLUTE EOSINOPHILS # (AUTO) 0.2 10^3/uL (0.0-0.6); ABSOLUTE LYMPHOCYTES (AUTO) 1.5 10^3/uL (0.5-4.7); ABSOLUTE NEUT (AUTO) 4.2 10^3/uL (1.7-8.2); BASOPHILS % (AUTO) 0.4 % (0-2); EOSINOPHILS % (AUTO) 3.1 % (0-6); HEMATOCRIT 25.9 % (37.9-51.0); HEMOGLOBIN 8.7 g/dL (13.5-17.0); LYMPHOCYTES % (AUTO) 21.7 % (13-45); MEAN CORPUSCULAR HEMOGLOBIN 30.7 pg (27.0-33.4); MEAN CORPUSCULAR HGB CONC 33.4 g/dL (32.0-36.0); MEAN CORPUSCULAR VOLUME 92 fl (80-97); MONOCYTES % (AUTO) 14.5 % (3-13); PLATELET COUNT 171 10^3/uL (150-450); RED BLOOD COUNT 2.82 10^6/uL (4.35-5.55); RED CELL DISTRIBUTION WIDTH 23.5 % (11.5-14.0); SEGMENTED NEUTROPHILS % (AUTO) 60.3 % (42-78); TOTAL CELLS COUNTED % (AUTO) 100 %
[2017-12-29 05:34] LABS: ALANINE AMINOTRANSFERASE 160 U/L (21-72); ALBUMIN 3.2 g/dL (3.5-5.0); ALKALINE PHOSPHATASE 200 U/L (38-126); ANION GAP 9 (5-19); ASPARTATE AMINO TRANSFERASE 207 U/L (17-59); BILIRUBIN,DIRECT 0.5 mg/dL (0.0-0.4); BILIRUBIN,TOTAL 0.7 mg/dL (0.2-1.3); BLOOD UREA NITROGEN 3 mg/dL (7-20); CALCIUM 9.1 mg/dL (8.4-10.2); CARBON DIOXIDE 27 mmol/L (22-30); CHLORIDE 105 mmol/L (98-107); GLUCOSE 91 mg/dL (75-110); POTASSIUM 3.5 mmol/L (3.6-5.0); SODIUM 140.9 mmol/L (137-145)
[2017-12-29] MEDS: RIVAROXABAN 10 MG TABLET PO SCH (09:33)
[2017-12-29] MEDS: CLOPIDOGREL BISULFATE 75 MG TABLET PO SCH (09:33)
[2017-12-29] MEDS: BUSPIRONE HCL 10 MG TABLET PO SCH ×3 (09:33→17:19)
[2017-12-29] MEDS: FAMOTIDINE INJ/PF 20 MG/2 ML SDV IV SCH (09:33)
[2017-12-29] MEDS: DOCUSATE SODIUM 100 MG CAPSULE PO SCH (09:33)
[2017-12-29] MEDS: NICOTINE 21 MG/24 HR PATCH.TD24 TD SCH (09:33)
[2017-12-29] MEDS ORDERED: POTASSIUM CHLORIDE 10 MEQ TABLET.SA PO ONE (11:00)
[2017-12-29] MEDS ORDERED: THIAMINE HCL 100 MG TABLET PO SCH (12:00)
--- NOTE | 2017-12-29 12:57 | PDOC PROGRESS REPORT ---
Subjective Progress Note for:: 12/29/17 Subjective:: Patient relates that a lot of doctors do not understand what is going through. States that since he got the surgery far the SMA, the pain has driven him to go back to drinking alcohol. Nurse reports that patient was agitated and unable to sleep last night. Patient's father is at bedside and corroborates story. Review of systems All organ systems evaluated and negative except as in subjective All significant laboratories and diagnostics have been reviewed Reason For Visit: ALCOHOL ABUSE,ANEMIA,ETOH WITHDRAWAL Physical Exam Vital Signs: Temp Pulse Resp BP Pulse Ox 98.4 F 85 18 132/86 H 96 12/28/17 17:35 12/29/17 02:00 12/28/17 17:35 12/28/17 17:35 12/28/17 17:35 Intake & Output 12/28/17 12/29/17 12/30/17 06:59 06:59 06:59 Intake Total 3086 2524 Output Total 2050 1650 Balance 1036 874 Weight 86 kg 87.8 kg General appearance: PRESENT: cooperative, obese Head exam: PRESENT: atraumatic, normocephalic Eye exam: PRESENT: conjunctiva pink, EOMI, PERRLA Ear exam: PRESENT: normal external ear exam Mouth exam: PRESENT: moist Neck exam: PRESENT: full ROM. ABSENT: JVD, lymphadenopathy, tenderness Respiratory exam: PRESENT: clear to auscultation elia Cardiovascular exam: PRESENT: RRR. ABSENT: diastolic murmur, systolic murmur Vascular exam: PRESENT: normal capillary refill GI/Abdominal exam: PRESENT: tenderness. ABSENT: normal bowel sounds, soft Extremities exam: PRESENT: full ROM. ABSENT: pedal edema Musculoskeletal exam: PRESENT: ambulatory Neurological exam: PRESENT: alert, awake, oriented to person, oriented to place , oriented to time, other - Tremulous Psychiatric exam: PRESENT: anxious, depressed Skin exam: PRESENT: intact, normal color Results Laboratory Results: 12/29/17 04:29 12/29/17 04:29 12/26/17 12/29/17 12/29/17 11:25 04:29 04:29 WBC 7.0 RBC 2.82 L Hgb 8.7 L Hct 25.9 L MCV 92 MCH 30.7 MCHC 33.4 RDW 23.5 H Plt Count 171 Seg Neutrophils % 60.3 Lymphocytes % 21.7 Monocytes % 14.5 H Eosinophils % 3.1 Basophils % 0.4 Absolute Neutrophils 4.2 Absolute Lymphocytes 1.5 Absolute Monocytes 1.0 Absolute Eosinophils 0.2 Absolute Basophils 0.0 Sodium 140.9 Potassium 3.5 L Chloride 105 Carbon Dioxide 27 Anion Gap 9 BUN 3 L Creatinine 0.49 L Est GFR ( Amer) > 60 Est GFR (Non-Af Amer) > 60 Glucose 91 Calcium 9.1 Transferrin 208 Total Bilirubin 0.7 AST 207 H ALT 160 H Alkaline Phosphatase 200 H Total Protein 6.0 L Albumin 3.2 L Impressions: Abdomen/Pelvis CTA 12/25/17 12:34 IMPRESSION: Unchanged stenosis proximal to the SMA stent, which is patent. The celiac and CAITLIN are patent. No acute findings. Abdomen Ultrasound 12/27/17 00:00 IMPRESSION: FATTY LIVER. NO OTHER SIGNIFICANT FINDING. Assessment & Plan - Diagnosis (1) Chronic pain Qualifiers: Chronic pain type: chronic pain syndrome Qualified Code(s): G89.4 - Chronic pain syndrome Is this a current diagnosis for this admission?: Yes Plan: Will add gabapentin his current regimen (2) Alcohol withdrawal Qualifiers: Complication of substance-induced condition: with delirium Qualified Code(s ): F10.231 - Alcohol dependence with withdrawal delirium Is this a current diagnosis for this admission?: Yes Plan: To place patient on scheduled and schedule Valium. Continue Ativan as needed IV for agitation. Will wean off as tolerated. To add low-dose metoprolol (3) Anemia Qualifiers: Iron deficiency anemia type: chronic blood loss Is this a current diagnosis for this admission?: Yes Plan: Stable (4) Depression Qualifiers: Depression Type: unspecified Qualified Code(s): F32.9 - Major depressive disorder, single episode, unspecified Is this a current diagnosis for this admission?: Yes (5) Hypokalemia Is this a current diagnosis for this admission?: Yes Plan: Replace orally and trend (6) Alcoholic fatty liver Is this a current diagnosis for this admission?: Yes Plan: Contributing to elevated transaminases which are trending down (7) Depression Qualifiers: Major depression recurrence: recurrent Psychotic features: without psychotic features Is this a current diagnosis for this admission?: Yes Plan: Patient appears to be suffering from bipolar depression. Will change Effexor to once a day to avoid insomnia. To add Seroquel at bedtime. For now continue BuSpar. Awaiting psych evaluation - Time Time Spent with patient: 15-24 minutes Medications reviewed and adjusted accordingly: Yes Anticipated discharge: Home, Acute Rehab - Inpatient Certification Based on my medical assessment, after consideration of the patient's comorbidities, presenting symptoms, or acuity I expect that the services needed warrant INPATIENT care.: Yes I certify that my determination is in accordance with my understanding of Medicare's requirements for reasonable and necessary INPATIENT services [42 CFR 412.3e].: Yes Medical Necessity: Need Close Monitoring Due to Risk of Patient Decompensation, Need For Continuous Telemetry Monitoring, Need for Nebulizer Therapy and Monitoring of Response
[2017-12-29] MEDS: METOPROLOL SUCCINATE 50 MG TAB.SR.24H PO SCH (13:04)
[2017-12-29] MEDS: DIAZEPAM 5 MG TABLET PO SCH ×2 (13:04→17:19)
[2017-12-29] MEDS: MULTIVITAMIN TABLET PO SCH (13:05)
[2017-12-29] MEDS: GABAPENTIN 300 MG CAPSULE PO SCH ×2 (13:07→20:58)
--- NOTE | 2017-12-29 18:39 | PSYCHOLOGICAL NOTE ---
Psych Note - Psych Note Psych Note: Reason for consult: Suicidal ideation Contact Permissions: Patient's Carmela Hinkle and patient's father Ata Hinkle It is a 47-year-old male. Patient reports he is feeling better because he was able to get pain medication and feels that the people have been giving him enough information. Patient reports he feels that his main problem is drinking. Patient reports that he can drink on average 25-30 beers per day. Patient reports in 2006 he went to a 7 day program with [facility] and got better. Patient reports that right now he wants to do is get physically and mentally better. Patient reports he feels there is a fishhook inside of him that his stock and the pain gets so bad that he drinks to mask the pain. Patient reports his left eye will go blank and he has blurred vision. Patient reports he is also dealing with blood clots. Patient reports that if he can shake it out away he would be a whole new person. Patient reports that he is getting frustrated with his because she will not listen to him. Patient reports that he will think and talk about suicide but he would never act on it stating he is "not a selfish person". Patient reports he wants to live because he wants to see his 16-year-old graduate and wants to see his children get and one day become a grandfather. Patient reports he would never leave his children behind. Patient reports that he is willing to get help to address the drinking because he knows he has a problem. Patient reports that he would like to get set up with the detox facility with the [facility] or anywhere that he can go. Patient reports that he feels his does not understand him. Patient stated " you would think you would get more bees with honey but instead my is like vinegar". Collateral information: Patient's Carmela Patient's is upset because she wants patient to go to an acute inpatient psychiatric stay at the [facility]. Patient's reports she was told that the psych department could help her transferring the patient to a psych unit at the [facility]. Patient's reports [facility]. Patient's reports she is afraid he is suicidal and does not understand the difference between having suicidal thoughts and actually going to be attempting suicide. Patient's reports she is angry. Patient's reports she does not want him to go home. Patient's reports that she is going to drive her straight to the [facility] hospital. Impression/Plan: Patient is psychiatrically cleared, our original disposition has not changed. Clinician observed patient denied SI intent/ and plan. We are signing off of this case as we have already provided resource and plan to family and physician. Below were our original recommendations Medication recommendations per [facility]'s contracted psychiatrist, Dr. Donya SIMPSON are as follows 1. please discontinue Valium or Ativan 2. please discontinue requip 3. please start effexor 37.5mg twice daily for depression and assistance with alcohol cravings 4.please start buspar 10mg twice daily for anxiety and agitation Diagnosis 1. 291.81 (F10.239) Alcohol Withdrawal without perceptual disturbances 2. 311 (F32.9) Unspecified Depressive Disorder Impression/Plan: patient is cleared from acute psychological services. Patient does not meet IVC criteria per [facility] GS 122C. Patient disclosed depression with pervious suicidal ideation. Patient currently denies wanting to and reports he was "very glad" he did not act on his thoughts. Patient is currently suffering from alcohol withdrawal (tremors). Medication recommendations have been provided. Dr. Crocker was consulted on the care and management of this patient.
[2017-12-29] MEDS: QUETIAPINE FUMARATE 100 MG TABLET PO SCH (21:00)
[2017-12-30] MEDS: DIAZEPAM 5 MG TABLET PO SCH ×5 (02:10→23:37)
[2017-12-30] MEDS: HYDROMORPHONE HCL INJ/PF 2 MG/ML AMPULE IV PRN ×4 (03:42→22:54)
[2017-12-30 05:12] LABS: ABSOLUTE BASOPHILS # (AUTO) 0.1 10^3/uL (0.0-0.2); ABSOLUTE EOSINOPHILS # (AUTO) 0.2 10^3/uL (0.0-0.6); ABSOLUTE LYMPHOCYTES (AUTO) 1.6 10^3/uL (0.5-4.7); ABSOLUTE MONOCYTES (AUTO) 1.1 10^3/uL (0.1-1.4); ABSOLUTE NEUT (AUTO) 3.3 10^3/uL (1.7-8.2); BASOPHILS % (AUTO) 0.8 % (0-2); EOSINOPHILS % (AUTO) 3.5 % (0-6); HEMATOCRIT 26.3 % (37.9-51.0); HEMOGLOBIN 8.7 g/dL (13.5-17.0); LYMPHOCYTES % (AUTO) 25.9 % (13-45); MEAN CORPUSCULAR HEMOGLOBIN 30.5 pg (27.0-33.4); MEAN CORPUSCULAR VOLUME 92 fl (80-97); MONOCYTES % (AUTO) 17.1 % (3-13); PLATELET COUNT 185 10^3/uL (150-450); RED BLOOD COUNT 2.85 10^6/uL (4.35-5.55); RED CELL DISTRIBUTION WIDTH 24.1 % (11.5-14.0); SEGMENTED NEUTROPHILS % (AUTO) 52.7 % (42-78); TOTAL CELLS COUNTED % (AUTO) 100 %; WHITE BLOOD COUNT 6.3 10^3/uL (4.0-10.5)
[2017-12-30] MEDS: GABAPENTIN 300 MG CAPSULE PO SCH ×3 (05:12→21:04)
[2017-12-30 05:28] LABS: ALANINE AMINOTRANSFERASE 116 U/L (21-72); ALKALINE PHOSPHATASE 178 U/L (38-126); ANION GAP 7 (5-19); ASPARTATE AMINO TRANSFERASE 105 U/L (17-59); BILIRUBIN,DIRECT 0.4 mg/dL (0.0-0.4); BILIRUBIN,TOTAL 0.5 mg/dL (0.2-1.3); BLOOD UREA NITROGEN 5 mg/dL (7-20); CALCIUM 9.2 mg/dL (8.4-10.2); CARBON DIOXIDE 27 mmol/L (22-30); CHLORIDE 106 mmol/L (98-107); GLUCOSE 97 mg/dL (75-110); POTASSIUM 3.9 mmol/L (3.6-5.0); SODIUM 140.1 mmol/L (137-145); TOTAL PROTEIN 5.7 g/dL (6.3-8.2)
[2017-12-30 06:07] LABS: ANISOCYTOSIS 3+; HYPOCHROMASIA 1+; POLYCHROMASIA 1+
[2017-12-30 06:08] LABS: PLATELET COMMENT ADEQUATE
[2017-12-30] MEDS: RINGERS SOLUTION,LACTATED 1,000 ML IV PRN (06:59)
[2017-12-30] MEDS: CLOPIDOGREL BISULFATE 75 MG TABLET PO SCH (09:18)
[2017-12-30] MEDS: BUSPIRONE HCL 10 MG TABLET PO SCH (09:19)
[2017-12-30] MEDS: OXYCODONE-ACETAMINOPHEN 5-325 MG TABLET PO PRN (09:19)
[2017-12-30] MEDS: LANSOPRAZOLE 30 MG TAB.RAP.DR PO SCH (09:19)
[2017-12-30] MEDS: RIVAROXABAN 10 MG TABLET PO SCH (09:19)
[2017-12-30] MEDS: OXYCODONE HCL IR 5 MG TABLET PO PRN (09:19)
[2017-12-30] MEDS: DOCUSATE SODIUM 100 MG CAPSULE PO SCH (09:19)
[2017-12-30] MEDS: LORAZEPAM INJ 2 MG/1 ML VIAL IV PRN ×2 (09:19→13:00)
[2017-12-30] MEDS: NICOTINE 21 MG/24 HR PATCH.TD24 TD SCH (09:19)
[2017-12-30] MEDS ORDERED: VENLAFAXINE HCL 37.5 MG CAP.SR.24H PO SCH (10:00)
[2017-12-30] MEDS ORDERED: DIAZEPAM 5 MG TABLET PO ONE (10:30)
--- NOTE | 2017-12-30 10:53 | PDOC PROGRESS REPORT ---
Subjective Progress Note for:: 12/30/17 Subjective:: Patient had been recently medicated with Ativan IV and sedated. His is at bedside and is requesting an update on his medical condition since she is she is afraid he may have cirrhosis. She states that patient was at alcohol rehab facility 4 years ago and he remained sober for 4 years. He went to Alcoholics Anonymous for the first year and then he quitted because was afraid people at work would found out. He had just started a new job. relates that she works out and travels a lot. She thinks that he has been concealing all the drinking. However, she has been able to tell that she noted that he drinks alcohol primarily at night because in the morning she could smell the alcohol. had been explained current CT findings which shows a steatosis. She was made aware that liver function tests are improving. She was encouraged to contact her insurance and check into her benefit such as covering for rehab for alcohol or substance abuse. Nurse reported that patient had a good night and was able to sleep however was confused in the morning as well as shaky. Review of systems All organ systems evaluated and negative except as in subjective All significant laboratories and diagnostics have been reviewed Reason For Visit: ALCOHOL ABUSE,ANEMIA,ETOH WITHDRAWAL Physical Exam Vital Signs: Temp Pulse Resp BP Pulse Ox 99.5 F 94 8 L 139/89 H 99 12/30/17 07:59 12/30/17 07:59 12/30/17 07:59 12/30/17 07:59 12/30/17 07:59 Intake & Output 12/29/17 12/30/17 12/31/17 06:59 06:59 06:59 Intake Total 2524 3163 Output Total 1650 775 Balance 874 2388 Weight 87.8 kg 87.8 kg General appearance: PRESENT: cooperative, obese Head exam: PRESENT: atraumatic, normocephalic Eye exam: PRESENT: conjunctiva pink, EOMI, scleral icterus Ear exam: PRESENT: normal external ear exam Mouth exam: PRESENT: moist Neck exam: PRESENT: full ROM. ABSENT: JVD, tenderness, thyromegaly Respiratory exam: PRESENT: clear to auscultation elia Cardiovascular exam: PRESENT: RRR. ABSENT: diastolic murmur, systolic murmur Vascular exam: PRESENT: normal capillary refill GI/Abdominal exam: PRESENT: normal bowel sounds, soft, tenderness Extremities exam: PRESENT: full ROM. ABSENT: pedal edema Musculoskeletal exam: PRESENT: ambulatory Neurological exam: PRESENT: alert, other - Somnolent Skin exam: PRESENT: intact, normal color Results Laboratory Results: 12/30/17 04:49 12/30/17 04:49 12/30/17 12/30/17 04:49 04:49 WBC 6.3 RBC 2.85 L Hgb 8.7 L Hct 26.3 L MCV 92 MCH 30.5 MCHC 33.0 RDW 24.1 H Plt Count 185 Seg Neutrophils % 52.7 Lymphocytes % 25.9 Monocytes % 17.1 H Eosinophils % 3.5 Basophils % 0.8 Absolute Neutrophils 3.3 Absolute Lymphocytes 1.6 Absolute Monocytes 1.1 Absolute Eosinophils 0.2 Absolute Basophils 0.1 Sodium 140.1 Potassium 3.9 Chloride 106 Carbon Dioxide 27 Anion Gap 7 BUN 5 L Creatinine 0.54 Est GFR ( Amer) > 60 Est GFR (Non-Af Amer) > 60 Glucose 97 Calcium 9.2 Magnesium 1.7 Total Bilirubin 0.5 AST 105 H ALT 116 H Alkaline Phosphatase 178 H Total Protein 5.7 L Albumin 3.0 L Impressions: Abdomen/Pelvis CTA 12/25/17 12:34 IMPRESSION: Unchanged stenosis proximal to the SMA stent, which is patent. The celiac and CAITLIN are patent. No acute findings. Abdomen Ultrasound 12/27/17 00:00 IMPRESSION: FATTY LIVER. NO OTHER SIGNIFICANT FINDING. Assessment & Plan - Diagnosis (1) Chronic pain Qualifiers: Chronic pain type: chronic pain syndrome Qualified Code(s): G89.4 - Chronic pain syndrome Is this a current diagnosis for this admission?: Yes Plan: Nurse reports that patient refused gabapentin yesterday because it has not worked for him in the past. She was made aware that gabapentin would help with withdrawal to and she well try to educate patient and gave a try today. Continue with oxycodone (2) Alcohol withdrawal Qualifiers: Complication of substance-induced condition: with delirium Qualified Code(s ): F10.231 - Alcohol dependence with withdrawal delirium Is this a current diagnosis for this admission?: Yes Plan: Noted psych recommendations and opting to continue Valium and will increase to 10 mg every 6 hours. Will continue with Ativan IV as needed. (3) Anemia Qualifiers: Iron deficiency anemia type: chronic blood loss Is this a current diagnosis for this admission?: Yes Plan: Stable (4) Depression Qualifiers: Depression Type: unspecified Qualified Code(s): F32.9 - Major depressive disorder, single episode, unspecified Is this a current diagnosis for this admission?: Yes Plan: Will decrease Effexor to 150 mg daily, to add an extra dose of Seroquel in the morning and continue Seroquel at bedtime. Discontinue BuSpar (5) Hypokalemia Is this a current diagnosis for this admission?: Yes Plan: Replaced (6) Alcoholic fatty liver Is this a current diagnosis for this admission?: Yes Plan: Trending down (7) SMA stenosis Is this a current diagnosis for this admission?: Yes Plan: Patient is on Xarelto and will continue. (8) Chronic anticoagulation Is this a current diagnosis for this admission?: Yes Plan: Uncertain as to why he is on Plavix we will will discontinue is also on Xarelto and I am concerned about bleeding. Will add baby aspirin - Time Time Spent with patient: 15-24 minutes Medications reviewed and adjusted accordingly: Yes Anticipated discharge: Acute Rehab Within: within 72 hours - Inpatient Certification Based on my medical assessment, after consideration of the patient's comorbidities, presenting symptoms, or acuity I expect that the services needed warrant INPATIENT care.: Yes I certify that my determination is in accordance with my understanding of Medicare's requirements for reasonable and necessary INPATIENT services [42 CFR 412.3e].: Yes Medical Necessity: Need Close Monitoring Due to Risk of Patient Decompensation, Need For IV Fluids
[2017-12-30] MEDS ORDERED: QUETIAPINE FUMARATE 100 MG TABLET PO ONE (12:00)
--- NOTE | 2017-12-30 16:40 | RADIOLOGY REPORT (SQ) ---
EXAM DESCRIPTION: MRI HEAD WITHOUT COMPLETED DATE/TIME: 12/30/2017 3:26 pm REASON FOR STUDY: acute neurologic syndrome/eval for wernicke COMPARISON: CT brain 11/05/2017 MRI brain 12/23/2006 TECHNIQUE: Multiplanar imaging includes non-contrasted T1, T2, FLAIR, and diffusion with ADC map seq uences. Images stored on PACS. LIMITATIONS: None. FINDINGS: ANATOMY: No developmental anomalies. Normal vascular flow voids. Pituitary fossa normal. CSF SPACES: Normal in size and contour. No hemorrhage. CEREBRUM: Sulci and gyri normal in size and contour. Normal white matter signal on FLAIR imaging. No evidence of hemorrhage, mass, or extraaxial fluid collection. POSTERIOR FOSSA: No signal alteration. No hemorrhage. No edema, masses or mass effect. Internal shaina tory canals, cerebello-pontine angles, mastoids normal. DIFFUSION IMAGING: Negative for acute or sub-acute infarction. ORBITS: No masses. Globes normal. PARANASAL SINUSES: No fluid levels. Mucosa normal. OTHER: No other significant finding. IMPRESSION: NORMAL MRI OF THE BRAIN WITHOUT INTRAVENOUS GADOLINIUM CONTRAST. EVIDENCE OF ACUTE STROKE: NO. TECHNICAL DOCUMENTATION: JOB ID: [id number] [employer]- All Rights Reserved Reading location - IP/workstation name: [email or web address]
[2017-12-30] MEDS: METOPROLOL SUCCINATE 50 MG TAB.SR.24H PO SCH (17:00)
[2017-12-30] MEDS: MULTIVITAMIN TABLET PO SCH (17:01)
[2017-12-30] MEDS: THIAMINE HCL 500 MG in NORMAL SALINE 250 ML IV SCH (21:04)
[2017-12-30] MEDS: QUETIAPINE FUMARATE 100 MG TABLET PO SCH (21:04)
[2017-12-31] MEDS: RINGERS SOLUTION,LACTATED 1,000 ML IV PRN ×3 (03:54→13:11)
[2017-12-31] MEDS: THIAMINE HCL 500 MG in NORMAL SALINE 250 ML IV SCH ×3 (05:07→21:07)
[2017-12-31] MEDS: GABAPENTIN 300 MG CAPSULE PO SCH ×3 (05:08→21:08)
[2017-12-31] MEDS: DIAZEPAM 5 MG TABLET PO SCH ×4 (05:08→23:11)
[2017-12-31] MEDS: HYDROMORPHONE HCL INJ/PF 2 MG/ML AMPULE IV PRN (06:03)
[2017-12-31 06:27] LABS: ABSOLUTE EOSINOPHILS # (AUTO) 0.2 10^3/uL (0.0-0.6); ABSOLUTE LYMPHOCYTES (AUTO) 1.5 10^3/uL (0.5-4.7); ABSOLUTE MONOCYTES (AUTO) 1.3 10^3/uL (0.1-1.4); ABSOLUTE NEUT (AUTO) 4.8 10^3/uL (1.7-8.2); BASOPHILS % (AUTO) 0.6 % (0-2); EOSINOPHILS % (AUTO) 2.6 % (0-6); HEMATOCRIT 27.3 % (37.9-51.0); LYMPHOCYTES % (AUTO) 18.9 % (13-45); MEAN CORPUSCULAR HEMOGLOBIN 30.6 pg (27.0-33.4); MEAN CORPUSCULAR HGB CONC 33.1 g/dL (32.0-36.0); MEAN CORPUSCULAR VOLUME 92 fl (80-97); PLATELET COUNT 203 10^3/uL (150-450); RED BLOOD COUNT 2.96 10^6/uL (4.35-5.55); RED CELL DISTRIBUTION WIDTH 24.5 % (11.5-14.0); SEGMENTED NEUTROPHILS % (AUTO) 60.9 % (42-78); TOTAL CELLS COUNTED % (AUTO) 100 %; WHITE BLOOD COUNT 7.9 10^3/uL (4.0-10.5)
[2017-12-31 06:38] LABS: ALANINE AMINOTRANSFERASE 83 U/L (21-72); ALKALINE PHOSPHATASE 158 U/L (38-126); ANION GAP 8 (5-19); ASPARTATE AMINO TRANSFERASE 66 U/L (17-59); BILIRUBIN,DIRECT 0.3 mg/dL (0.0-0.4); BILIRUBIN,TOTAL 0.4 mg/dL (0.2-1.3); BLOOD UREA NITROGEN 4 mg/dL (7-20); CARBON DIOXIDE 28 mmol/L (22-30); CHLORIDE 106 mmol/L (98-107); GLUCOSE 96 mg/dL (75-110); POTASSIUM 3.5 mmol/L (3.6-5.0)
[2017-12-31 06:51] LABS: ANISOCYTOSIS 2+; PLATELET COMMENT ADEQUATE; POLYCHROMASIA SLIGHT
[2017-12-31] MEDS: LANSOPRAZOLE 30 MG TAB.RAP.DR PO SCH (07:53)
[2017-12-31] MEDS: OXYCODONE-ACETAMINOPHEN 5-325 MG TABLET PO PRN ×2 (07:59→18:54)
[2017-12-31] MEDS: OXYCODONE HCL IR 5 MG TABLET PO PRN (08:00)
[2017-12-31] MEDS ORDERED: QUETIAPINE FUMARATE 100 MG TABLET PO SCH ×2 (08:00→22:00)
[2017-12-31] MEDS: DOCUSATE SODIUM 100 MG CAPSULE PO SCH (09:30)
[2017-12-31] MEDS: RIVAROXABAN 10 MG TABLET PO SCH (09:30)
[2017-12-31] MEDS: MAGNESIUM OXIDE 400 MG TABLET PO SCH (09:34)
[2017-12-31] MEDS: NICOTINE 21 MG/24 HR PATCH.TD24 TD SCH (09:35)
[2017-12-31] MEDS: VENLAFAXINE HCL 75 MG CAP.SR.24H PO SCH (09:35)
[2017-12-31] MEDS ORDERED: VENLAFAXINE HCL 75 MG CAP.SR.24H PO SCH (10:00)
[2017-12-31] MEDS ORDERED: ASPIRIN 81 MG TABLET, ENT COATED PO SCH (10:00)
[2017-12-31] MEDS ORDERED: POTASSIUM CHLORIDE 10 MEQ TABLET.SA PO ONE (12:00)
[2017-12-31] MEDS: MULTIVITAMIN TABLET PO SCH (12:15)
[2017-12-31] MEDS: METOPROLOL SUCCINATE 50 MG TAB.SR.24H PO SCH (12:15)
[2017-12-31] MEDS ORDERED: ONDANSETRON HCL INJ/PF 4 MG/2 ML SDV IV PRN (12:30)
[2017-12-31] MEDS ORDERED: CLOPIDOGREL BISULFATE 75 MG TABLET PO ONE (16:30)
[2017-12-31] MEDS: POTASSI CL 40 MEQ/D5-1/2NS 1L 40 MEQ/1,000 ML RTUINJ IV PRN (18:02)
--- NOTE | 2017-12-31 18:08 | PDOC PROGRESS REPORT ---
Subjective Progress Note for:: 12/31/17 Subjective:: Unable to obtain due to mental status. His is at bedside and is concerned that he appears to be more confused today. Patient also had been talking about seeing objects that are not in the room. 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 Patient also would like for the Seroquel that is being administered in the morning to be moved at bedtime to decrease somnolence. was made aware that also somnolence had to do with medications given such as Valium. Patient also still complaining of pain. Review of systems Unable to obtain due to patient's mental status All significant laboratories and diagnostics have been reviewed Reason For Visit: ALCOHOL ABUSE,ANEMIA,ETOH WITHDRAWAL Physical Exam Vital Signs: Temp Pulse Resp BP Pulse Ox 98.5 F 96 16 128/72 H 97 12/31/17 12:18 12/31/17 14:00 12/31/17 12:18 12/31/17 12:18 12/31/17 12:18 Intake & Output 12/30/17 12/31/17 01/01/18 06:59 06:59 06:59 Intake Total 3163 4333 Output Total 775 800 600 Balance 2388 3533 -600 Weight 87.8 kg 85.6 kg General appearance: PRESENT: no acute distress, cooperative Head exam: PRESENT: atraumatic, normocephalic Eye exam: PRESENT: conjunctiva pink, EOMI, PERRLA Mouth exam: PRESENT: moist Neck exam: PRESENT: full ROM. ABSENT: JVD, lymphadenopathy, tenderness Respiratory exam: PRESENT: clear to auscultation elia Cardiovascular exam: PRESENT: RRR. ABSENT: diastolic murmur, systolic murmur Vascular exam: PRESENT: normal capillary refill GI/Abdominal exam: PRESENT: normal bowel sounds, soft, tenderness Extremities exam: PRESENT: full ROM. ABSENT: pedal edema Musculoskeletal exam: ABSENT: ambulatory Neurological exam: PRESENT: alert, other - Somnolent and confused Skin exam: PRESENT: intact, normal color Results Laboratory Results: 12/31/17 05:24 12/31/17 05:24 12/31/17 12/31/17 05:24 05:24 WBC 7.9 RBC 2.96 L Hgb 9.0 L Hct 27.3 L MCV 92 MCH 30.6 MCHC 33.1 RDW 24.5 H Plt Count 203 Seg Neutrophils % 60.9 Lymphocytes % 18.9 Monocytes % 17.0 H Eosinophils % 2.6 Basophils % 0.6 Absolute Neutrophils 4.8 Absolute Lymphocytes 1.5 Absolute Monocytes 1.3 Absolute Eosinophils 0.2 Absolute Basophils 0.0 Sodium 142.0 Potassium 3.5 L Chloride 106 Carbon Dioxide 28 Anion Gap 8 BUN 4 L Creatinine 0.57 Est GFR ( Amer) > 60 Est GFR (Non-Af Amer) > 60 Glucose 96 Calcium 9.0 Magnesium 1.8 Total Bilirubin 0.4 AST 66 H ALT 83 H Alkaline Phosphatase 158 H Total Protein 6.0 L Albumin 3.0 L Impressions: Abdomen/Pelvis CTA 12/25/17 12:34 IMPRESSION: Unchanged stenosis proximal to the SMA stent, which is patent. The celiac and CAITLIN are patent. No acute findings. Abdomen Ultrasound 12/27/17 00:00 IMPRESSION: FATTY LIVER. NO OTHER SIGNIFICANT FINDING. Head MRI 12/30/17 11:53 IMPRESSION: NORMAL MRI OF THE BRAIN WITHOUT INTRAVENOUS GADOLINIUM CONTRAST. EVIDENCE OF ACUTE STROKE: NO. Assessment & Plan - Diagnosis (1) Chronic pain Qualifiers: Chronic pain type: chronic pain syndrome Qualified Code(s): G89.4 - Chronic pain syndrome Is this a current diagnosis for this admission?: Yes Plan: Discontinue Dilaudid IV and to place on OxyContin and Percocet for breakthrough pain (2) Alcohol withdrawal Qualifiers: Complication of substance-induced condition: with delirium Qualified Code(s ): F10.231 - Alcohol dependence with withdrawal delirium Is this a current diagnosis for this admission?: Yes Plan: Noted psych recommendations and opting to continue Valium and will increase to 10 mg every 6 hours. Will continue with Ativan IV as needed.MRI of the brain ruling out Wernicke encephalopathy. Continue thiamine 500 mg IV every 8 hours (3) Anemia Qualifiers: Iron deficiency anemia type: chronic blood loss Is this a current diagnosis for this admission?: Yes Plan: Stable (4) Depression Qualifiers: Depression Type: unspecified Qualified Code(s): F32.9 - Major depressive disorder, single episode, unspecified Is this a current diagnosis for this admission?: Yes Plan: To continue Effexor XR 150 mgs once a day and change Seroquel a.m. dose to be added to nighttime dose for a total of 400 mg of Seroquel at bedtime and follow- up response (5) Hypokalemia Is this a current diagnosis for this admission?: Yes Plan: Continue replacing via IV fluids and orally. To trend (6) Alcoholic fatty liver Is this a current diagnosis for this admission?: Yes Plan: Trending down (7) SMA stenosis Is this a current diagnosis for this admission?: Yes Plan: To place patient back on Plavix and continue Xarelto (8) Chronic anticoagulation Is this a current diagnosis for this admission?: Yes Plan: Continue Plavix and Xarelto - Time Time Spent with patient: 15-24 minutes Medications reviewed and adjusted accordingly: Yes Anticipated discharge: Acute Rehab Within: within 72 hours - Inpatient Certification Based on my medical assessment, after consideration of the patient's comorbidities, presenting symptoms, or acuity I expect that the services needed warrant INPATIENT care.: Yes I certify that my determination is in accordance with my understanding of Medicare's requirements for reasonable and necessary INPATIENT services [42 CFR 412.3e].: Yes Medical Necessity: Need Close Monitoring Due to Risk of Patient Decompensation, Need For IV Fluids
[2017-12-31] MEDS: OXYCODONE HCL SR 10 MG TABLET PO SCH (21:08)
[2017-12-31] MEDS: LORAZEPAM INJ 2 MG/1 ML VIAL IV PRN (21:49)
[2018-01-01] MEDS: LORAZEPAM INJ 2 MG/1 ML VIAL IV PRN ×2 (01:07→04:28)
[2018-01-01] MEDS: OXYCODONE-ACETAMINOPHEN 5-325 MG TABLET PO PRN ×3 (01:07→23:17)
[2018-01-01] MEDS: POTASSI CL 40 MEQ/D5-1/2NS 1L 40 MEQ/1,000 ML RTUINJ IV PRN ×2 (04:29→17:35)
[2018-01-01] MEDS: THIAMINE HCL 500 MG in NORMAL SALINE 250 ML IV SCH (05:08)
[2018-01-01] MEDS: GABAPENTIN 300 MG CAPSULE PO SCH (05:08)
[2018-01-01] MEDS: DIAZEPAM 5 MG TABLET PO SCH (05:08)
[2018-01-01] MEDS: LANSOPRAZOLE 30 MG TAB.RAP.DR PO SCH (07:43)
[2018-01-01] MEDS: VENLAFAXINE HCL 75 MG CAP.SR.24H PO SCH (09:52)
[2018-01-01] MEDS: NICOTINE 21 MG/24 HR PATCH.TD24 TD SCH (09:52)
[2018-01-01] MEDS: MAGNESIUM OXIDE 400 MG TABLET PO SCH (09:52)
[2018-01-01] MEDS: CLOPIDOGREL BISULFATE 75 MG TABLET PO SCH (09:52)
[2018-01-01] MEDS: RIVAROXABAN 10 MG TABLET PO SCH (09:53)
[2018-01-01] MEDS: DOCUSATE SODIUM 100 MG CAPSULE PO SCH (09:53)
[2018-01-01] MEDS ORDERED: ASPIRIN 81 MG TABLET, ENT COATED PO SCH (10:00)
[2018-01-01] MEDS: OXYCODONE HCL SR 10 MG TABLET PO SCH (10:08)
[2018-01-01] MEDS: METOPROLOL SUCCINATE 50 MG TAB.SR.24H PO SCH (12:45)
[2018-01-01] MEDS: MULTIVITAMIN TABLET PO SCH (12:45)
--- NOTE | 2018-01-01 14:09 | PDOC PROGRESS REPORT ---
Subjective Progress Note for:: 01/01/18 Subjective:: Patient refers that feels better after taking a bath. Patient is not specific as far as what he means by feeling better. His is as usual at bedside and continues being concerned that he is confused. Was not able to sleep well last night. Nurse reported that patient was agitated early this morning and was medicated with Ativan and Valium. Patient had been able to eat. Review of systems Unable to obtain due to patient's mental status. Patient sedated All significant laboratories and diagnostics have been reviewed Reason For Visit: ALCOHOL ABUSE,ANEMIA,ETOH WITHDRAWAL Physical Exam Vital Signs: Temp Pulse Resp BP Pulse Ox 98.5 F 79 18 131/88 H 98 01/01/18 07:37 01/01/18 07:37 01/01/18 07:37 01/01/18 07:37 01/01/18 07:37 Intake & Output 12/31/17 01/01/18 01/02/18 06:59 06:59 06:59 Intake Total 4333 4077 Output Total 800 1100 Balance 3533 2977 Weight 85.6 kg 83.6 kg General appearance: PRESENT: no acute distress, cooperative, well-developed, well-nourished Head exam: PRESENT: atraumatic, normocephalic Eye exam: PRESENT: conjunctiva pink, EOMI, PERRLA Ear exam: PRESENT: normal external ear exam Mouth exam: PRESENT: moist Neck exam: PRESENT: full ROM. ABSENT: JVD, lymphadenopathy, tenderness, thyromegaly Respiratory exam: PRESENT: clear to auscultation elia Cardiovascular exam: PRESENT: RRR. ABSENT: diastolic murmur, systolic murmur Vascular exam: PRESENT: normal capillary refill GI/Abdominal exam: PRESENT: normal bowel sounds, soft. ABSENT: tenderness Extremities exam: PRESENT: full ROM. ABSENT: pedal edema Musculoskeletal exam: PRESENT: ambulatory Neurological exam: PRESENT: alert, oriented to person, other - Sedated but able to answer some few questions Psychiatric exam: PRESENT: flat affect Skin exam: PRESENT: intact, normal color Results Laboratory Results: 12/31/17 05:24 12/31/17 05:24 Impressions: Abdomen/Pelvis CTA 12/25/17 12:34 IMPRESSION: Unchanged stenosis proximal to the SMA stent, which is patent. The celiac and CAITLIN are patent. No acute findings. Abdomen Ultrasound 12/27/17 00:00 IMPRESSION: FATTY LIVER. NO OTHER SIGNIFICANT FINDING. Head MRI 12/30/17 11:53 IMPRESSION: NORMAL MRI OF THE BRAIN WITHOUT INTRAVENOUS GADOLINIUM CONTRAST. EVIDENCE OF ACUTE STROKE: NO. Assessment & Plan - Diagnosis (1) Chronic pain Qualifiers: Chronic pain type: chronic pain syndrome Qualified Code(s): G89.4 - Chronic pain syndrome Is this a current diagnosis for this admission?: Yes Plan: To keep him Percocet 5 mg p.o. every 4 hours as needed. (2) Alcohol withdrawal Qualifiers: Complication of substance-induced condition: with delirium Qualified Code(s ): F10.231 - Alcohol dependence with withdrawal delirium Is this a current diagnosis for this admission?: Yes Plan: Discontinue schedule Valium and Ativan IV. Changed to Ativan as needed. To add baclofen to prevent alcohol cravings. (3) Anemia Qualifiers: Iron deficiency anemia type: chronic blood loss Is this a current diagnosis for this admission?: Yes Plan: Stable (4) Depression Qualifiers: Depression Type: unspecified Qualified Code(s): F32.9 - Major depressive disorder, single episode, unspecified Is this a current diagnosis for this admission?: Yes Plan: To place patient back on Zoloft since states that he was doing better on that medicine. Issue was that patient stop taking it. To discontinue Seroquel and place him on Zyprexa at bedtime (5) Hypokalemia Is this a current diagnosis for this admission?: Yes Plan: Continue replacing via IV fluids and orally. To trend (6) Alcoholic fatty liver Is this a current diagnosis for this admission?: Yes Plan: Trending down. would like to take patient when he is discharged to [facility]. She was made aware that major recommendations still the same, that is quit drinking alcohol (7) SMA stenosis Is this a current diagnosis for this admission?: Yes Plan: Continue Plavix and Xarelto (8) Chronic anticoagulation Is this a current diagnosis for this admission?: Yes Plan: Continue Xarelto - Time Time Spent with patient: 15-24 minutes Medications reviewed and adjusted accordingly: Yes Anticipated discharge: Acute Rehab Within: within 72 hours - Inpatient Certification Based on my medical assessment, after consideration of the patient's comorbidities, presenting symptoms, or acuity I expect that the services needed warrant INPATIENT care.: Yes I certify that my determination is in accordance with my understanding of Medicare's requirements for reasonable and necessary INPATIENT services [42 CFR 412.3e].: Yes Medical Necessity: Need Close Monitoring Due to Risk of Patient Decompensation, Need For IV Fluids
[2018-01-01] MEDS: BACLOFEN 10 MG TABLET PO SCH ×2 (15:10→17:31)
[2018-01-01] MEDS: LORAZEPAM 1 MG TABLET PO PRN (20:00)
[2018-01-01] MEDS: OLANZAPINE 5 MG TABLET PO SCH (21:35)
[2018-01-01] MEDS ORDERED: ZOLPIDEM TARTRATE 5 MG TABLET PO PRN (22:00)
[2018-01-02] MEDS: LORAZEPAM 1 MG TABLET PO PRN (01:08)
[2018-01-02] MEDS: POTASSI CL 40 MEQ/D5-1/2NS 1L 40 MEQ/1,000 ML RTUINJ IV PRN (01:59)
[2018-01-02] MEDS: OXYCODONE-ACETAMINOPHEN 5-325 MG TABLET PO PRN (05:31)
[2018-01-02 07:13] LABS: ABSOLUTE BASOPHILS # (AUTO) 0.1 10^3/uL (0.0-0.2); ABSOLUTE EOSINOPHILS # (AUTO) 0.1 10^3/uL (0.0-0.6); ABSOLUTE LYMPHOCYTES (AUTO) 1.4 10^3/uL (0.5-4.7); ABSOLUTE MONOCYTES (AUTO) 1.8 10^3/uL (0.1-1.4); ABSOLUTE NEUT (AUTO) 5.9 10^3/uL (1.7-8.2); BASOPHILS % (AUTO) 0.6 % (0-2); EOSINOPHILS % (AUTO) 1.5 % (0-6); HEMOGLOBIN 9.4 g/dL (13.5-17.0); LYMPHOCYTES % (AUTO) 15.4 % (13-45); MEAN CORPUSCULAR HEMOGLOBIN 30.3 pg (27.0-33.4); MEAN CORPUSCULAR HGB CONC 32.6 g/dL (32.0-36.0); MEAN CORPUSCULAR VOLUME 93 fl (80-97); MONOCYTES % (AUTO) 19.7 % (3-13); PLATELET COUNT 284 10^3/uL (150-450); RED BLOOD COUNT 3.12 10^6/uL (4.35-5.55); RED CELL DISTRIBUTION WIDTH 23.9 % (11.5-14.0); SEGMENTED NEUTROPHILS % (AUTO) 62.8 % (42-78); TOTAL CELLS COUNTED % (AUTO) 100 %; WHITE BLOOD COUNT 9.4 10^3/uL (4.0-10.5)
[2018-01-02 07:34] LABS: ALANINE AMINOTRANSFERASE 57 U/L (21-72); ALBUMIN 3.4 g/dL (3.5-5.0); ALKALINE PHOSPHATASE 158 U/L (38-126); ANION GAP 13 (5-19); ASPARTATE AMINO TRANSFERASE 46 U/L (17-59); BILIRUBIN,DIRECT 0.3 mg/dL (0.0-0.4); BILIRUBIN,TOTAL 0.3 mg/dL (0.2-1.3); BLOOD UREA NITROGEN 6 mg/dL (7-20); CALCIUM 9.9 mg/dL (8.4-10.2); CARBON DIOXIDE 23 mmol/L (22-30); CHLORIDE 105 mmol/L (98-107); GLUCOSE 89 mg/dL (75-110); POTASSIUM 4.3 mmol/L (3.6-5.0); SODIUM 140.5 mmol/L (137-145); TOTAL PROTEIN 6.4 g/dL (6.3-8.2)
[2018-01-02] MEDS: CLOPIDOGREL BISULFATE 75 MG TABLET PO SCH (09:02)
[2018-01-02] MEDS: RIVAROXABAN 10 MG TABLET PO SCH (09:02)
[2018-01-02] MEDS: MAGNESIUM OXIDE 400 MG TABLET PO SCH (09:03)
[2018-01-02] MEDS: BACLOFEN 10 MG TABLET PO SCH ×2 (09:03→21:39)
[2018-01-02] MEDS: LANSOPRAZOLE 30 MG TAB.RAP.DR PO SCH (09:03)
[2018-01-02] MEDS: SERTRALINE HCL 50 MG TABLET PO SCH (09:03)
[2018-01-02] MEDS: NICOTINE 21 MG/24 HR PATCH.TD24 TD SCH (09:04)
[2018-01-02] MEDS: DOCUSATE SODIUM 100 MG CAPSULE PO SCH (09:10)
[2018-01-02] MEDS: MULTIVITAMIN TABLET PO SCH (11:16)
[2018-01-02] MEDS: PSYLLIUM SEED-SF 5.85 GM PACKET PO SCH (11:16)
[2018-01-02] MEDS: METOPROLOL SUCCINATE 50 MG TAB.SR.24H PO SCH (11:17)
[2018-01-02] MEDS ORDERED: ACETAMINOPHEN 325 MG TABLET PO PRN (12:50)
[2018-01-02] MEDS ORDERED: LORAZEPAM 1 MG TABLET PO PRN (12:51)
--- NOTE | 2018-01-02 16:23 | PDOC PROGRESS REPORT ---
Subjective Progress Note for:: 01/02/18 Subjective:: Unable to obtain since patient is somnolent. Review of systems Unable to obtain due to patient's mental status. Patient sedated All significant laboratories and diagnostics have been reviewed Reason For Visit: ALCOHOL ABUSE,ANEMIA,ETOH WITHDRAWAL Physical Exam Vital Signs: Temp Pulse Resp BP Pulse Ox 98.7 F 92 16 126/82 H 95 01/02/18 03:27 01/02/18 03:27 01/02/18 03:27 01/02/18 03:27 01/02/18 03:27 Intake & Output 01/01/18 01/02/18 01/03/18 06:59 06:59 06:59 Intake Total 4077 2991 Output Total 1100 550 Balance 2977 2441 Weight 83.6 kg 89.5 kg General appearance: PRESENT: no acute distress, cooperative, well-developed, well-nourished Head exam: PRESENT: atraumatic, normocephalic Eye exam: PRESENT: conjunctiva pink, EOMI, PERRLA Ear exam: PRESENT: normal external ear exam Neck exam: PRESENT: full ROM. ABSENT: JVD, lymphadenopathy, tenderness Respiratory exam: PRESENT: clear to auscultation elia Vascular exam: PRESENT: normal capillary refill GI/Abdominal exam: PRESENT: normal bowel sounds, soft. ABSENT: tenderness Extremities exam: PRESENT: full ROM. ABSENT: pedal edema Musculoskeletal exam: ABSENT: ambulatory Neurological exam: PRESENT: other - Somnolent Psychiatric exam: PRESENT: other - Somnolent Skin exam: PRESENT: normal color Results Impressions: Abdomen/Pelvis CTA 12/25/17 12:34 IMPRESSION: Unchanged stenosis proximal to the SMA stent, which is patent. The celiac and CAITLIN are patent. No acute findings. Abdomen Ultrasound 12/27/17 00:00 IMPRESSION: FATTY LIVER. NO OTHER SIGNIFICANT FINDING. Head MRI 12/30/17 11:53 IMPRESSION: NORMAL MRI OF THE BRAIN WITHOUT INTRAVENOUS GADOLINIUM CONTRAST. EVIDENCE OF ACUTE STROKE: NO. Assessment & Plan - Diagnosis (1) Chronic pain Qualifiers: Chronic pain type: chronic pain syndrome Qualified Code(s): G89.4 - Chronic pain syndrome Is this a current diagnosis for this admission?: Yes Plan: To keep him Percocet 5 mg p.o. every 4 hours as needed. (2) Alcohol withdrawal Qualifiers: Complication of substance-induced condition: with delirium Qualified Code(s ): F10.231 - Alcohol dependence with withdrawal delirium Is this a current diagnosis for this admission?: Yes Plan: Baclofen decreased to 5 mg 1 p.o. twice daily. To discontinue Ativan IV and changed to p.o. (3) Anemia Qualifiers: Iron deficiency anemia type: chronic blood loss Is this a current diagnosis for this admission?: Yes Plan: Stable (4) Depression Qualifiers: Depression Type: unspecified Qualified Code(s): F32.9 - Major depressive disorder, single episode, unspecified Is this a current diagnosis for this admission?: Yes Plan: To place patient back on Zoloft since stated that he was doing better on that medicine. Issue was that patient stopped taking it. To continue Zyprexa at bedtime (5) Hypokalemia Is this a current diagnosis for this admission?: Yes Plan: Resolved. Discontinue IV fluids (6) Alcoholic fatty liver Is this a current diagnosis for this admission?: Yes Plan: Transaminases returning back to normal. (7) SMA stenosis Is this a current diagnosis for this admission?: Yes Plan: Continue Plavix and Xarelto (8) Chronic anticoagulation Is this a current diagnosis for this admission?: Yes Plan: Continue Xarelto - Time Time Spent with patient: 15-24 minutes Medications reviewed and adjusted accordingly: Yes Anticipated discharge: Acute Rehab Within: within 72 hours - Inpatient Certification Based on my medical assessment, after consideration of the patient's comorbidities, presenting symptoms, or acuity I expect that the services needed warrant INPATIENT care.: Yes I certify that my determination is in accordance with my understanding of Medicare's requirements for reasonable and necessary INPATIENT services [42 CFR 412.3e].: Yes Medical Necessity: Significant Comorbidiites Make Outpatient Treatment Too Risky , Need Close Monitoring Due to Risk of Patient Decompensation
[2018-01-02] MEDS: LACTOBACILLUS ACIDOPHILUS 250 MG TAB PO SCH (17:31)
[2018-01-02] MEDS: OLANZAPINE 5 MG TABLET PO SCH (21:39)
[2018-01-03] MEDS: BACLOFEN 10 MG TABLET PO SCH ×3 (06:54→21:58)
[2018-01-03] MEDS: LANSOPRAZOLE 30 MG TAB.RAP.DR PO SCH (10:06)
[2018-01-03] MEDS: RIVAROXABAN 10 MG TABLET PO SCH (10:07)
[2018-01-03] MEDS: CLOPIDOGREL BISULFATE 75 MG TABLET PO SCH (10:09)
[2018-01-03] MEDS: SERTRALINE HCL 50 MG TABLET PO SCH (10:09)
[2018-01-03] MEDS: MAGNESIUM OXIDE 400 MG TABLET PO SCH (10:10)
[2018-01-03] MEDS: LACTOBACILLUS ACIDOPHILUS 250 MG TAB PO SCH ×2 (10:10→19:34)
[2018-01-03] MEDS: THIAMINE HCL 100 MG TABLET PO SCH (10:10)
[2018-01-03] MEDS: OXYCODONE-ACETAMINOPHEN 5-325 MG TABLET PO PRN ×2 (10:11→21:57)
[2018-01-03] MEDS: NICOTINE 21 MG/24 HR PATCH.TD24 TD SCH (10:12)
[2018-01-03] MEDS: METOPROLOL SUCCINATE 50 MG TAB.SR.24H PO SCH (14:17)
[2018-01-03] MEDS: MULTIVITAMIN TABLET PO SCH (14:18)
[2018-01-03] MEDS: PSYLLIUM SEED-SF 5.85 GM PACKET PO SCH (14:21)
--- NOTE | 2018-01-03 17:59 | PDOC PROGRESS REPORT ---
Subjective Progress Note for:: 01/03/18 Subjective:: No complaints. Nurse reports that patient slept the whole day yesterday and then was awake at night. Patient has been encouraged as to start getting up. Nurse will assist in ambulating patient Review of systems Unable to obtain due to patient's mental status. Patient sedated All significant laboratories and diagnostics have been reviewed Reason For Visit: ALCOHOL ABUSE,ANEMIA,ETOH WITHDRAWAL Physical Exam Vital Signs: Temp Pulse Resp BP Pulse Ox 98.5 F 66 16 102/64 100 01/03/18 07:03 01/03/18 07:03 01/03/18 07:03 01/03/18 07:03 01/03/18 07:03 Intake & Output 01/02/18 01/03/18 01/04/18 06:59 06:59 06:59 Intake Total 2991 2577 Output Total 550 800 Balance 2441 1777 Weight 89.5 kg 88.4 kg General appearance: PRESENT: no acute distress, cooperative, well-developed, well-nourished Head exam: PRESENT: atraumatic, normocephalic Eye exam: PRESENT: conjunctiva pink, EOMI, PERRLA Ear exam: PRESENT: normal external ear exam Mouth exam: PRESENT: moist Neck exam: PRESENT: full ROM. ABSENT: JVD, lymphadenopathy, tenderness Respiratory exam: PRESENT: clear to auscultation elia Cardiovascular exam: PRESENT: RRR. ABSENT: diastolic murmur, systolic murmur Vascular exam: ABSENT: normal capillary refill GI/Abdominal exam: PRESENT: normal bowel sounds, soft. ABSENT: tenderness Extremities exam: PRESENT: full ROM. ABSENT: pedal edema, tenderness Musculoskeletal exam: PRESENT: ambulatory Neurological exam: PRESENT: alert, awake, oriented to person, oriented to place , oriented to time, CN II-XII grossly intact Skin exam: PRESENT: normal color Results Laboratory Results: 01/02/18 05:53 01/02/18 05:53 Impressions: Abdomen/Pelvis CTA 12/25/17 12:34 IMPRESSION: Unchanged stenosis proximal to the SMA stent, which is patent. The celiac and CAITLIN are patent. No acute findings. Abdomen Ultrasound 12/27/17 00:00 IMPRESSION: FATTY LIVER. NO OTHER SIGNIFICANT FINDING. Head MRI 12/30/17 11:53 IMPRESSION: NORMAL MRI OF THE BRAIN WITHOUT INTRAVENOUS GADOLINIUM CONTRAST. EVIDENCE OF ACUTE STROKE: NO. Assessment & Plan - Diagnosis (1) Chronic pain Qualifiers: Chronic pain type: chronic pain syndrome Qualified Code(s): G89.4 - Chronic pain syndrome Is this a current diagnosis for this admission?: Yes Plan: To keep him Percocet 5 mg p.o. every 4 hours as needed. (2) Alcohol withdrawal Qualifiers: Complication of substance-induced condition: with delirium Qualified Code(s ): F10.231 - Alcohol dependence with withdrawal delirium Is this a current diagnosis for this admission?: Yes Plan: Resolved and to continue present management with baclofen (3) Anemia Qualifiers: Iron deficiency anemia type: chronic blood loss Is this a current diagnosis for this admission?: Yes Plan: Stable (4) Depression Qualifiers: Depression Type: unspecified Qualified Code(s): F32.9 - Major depressive disorder, single episode, unspecified Is this a current diagnosis for this admission?: Yes Plan: Continue Zoloft since stated that he was doing better on that medicine. Issue was that patient stopped taking it. To continue Zyprexa at bedtime (5) Hypokalemia Is this a current diagnosis for this admission?: Yes Plan: Resolved. (6) Alcoholic fatty liver Is this a current diagnosis for this admission?: Yes Plan: Transaminases returning back to normal. (7) SMA stenosis Is this a current diagnosis for this admission?: Yes Plan: Continue Plavix and Xarelto (8) Chronic anticoagulation Is this a current diagnosis for this admission?: Yes Plan: Continue Xarelto - Time Time Spent with patient: 15-24 minutes Medications reviewed and adjusted accordingly: Yes Anticipated discharge: Acute Rehab Within: within 48 hours - Inpatient Certification Based on my medical assessment, after consideration of the patient's comorbidities, presenting symptoms, or acuity I expect that the services needed warrant INPATIENT care.: Yes I certify that my determination is in accordance with my understanding of Medicare's requirements for reasonable and necessary INPATIENT services [42 CFR 412.3e].: Yes Medical Necessity: Significant Comorbidiites Make Outpatient Treatment Too Risky , Need Close Monitoring Due to Risk of Patient Decompensation
[2018-01-03] MEDS: NEOMY SULF/POLYMYX B SULF/HC OTIC SUSP 10 ML OT SCH (19:35)
[2018-01-03] MEDS: OLANZAPINE 5 MG TABLET PO SCH (21:57)
[2018-01-04 05:34] LABS: PROTHROMBIN TIME 12.6 SEC (11.4-15.4)
[2018-01-04 05:55] LABS: ALANINE AMINOTRANSFERASE 43 U/L (21-72); ALKALINE PHOSPHATASE 124 U/L (38-126); ANION GAP 12 (5-19); ASPARTATE AMINO TRANSFERASE 32 U/L (17-59); BLOOD UREA NITROGEN 10 mg/dL (7-20); CALCIUM 9.4 mg/dL (8.4-10.2); CARBON DIOXIDE 22 mmol/L (22-30); CHLORIDE 107 mmol/L (98-107); GLUCOSE 106 mg/dL (75-110); POTASSIUM 3.8 mmol/L (3.6-5.0); SODIUM 141.3 mmol/L (137-145); TOTAL PROTEIN 5.8 g/dL (6.3-8.2)
[2018-01-04 05:56] LABS: ABSOLUTE BASOPHILS # (AUTO) 0.1 10^3/uL (0.0-0.2); ABSOLUTE EOSINOPHILS # (AUTO) 0.2 10^3/uL (0.0-0.6); ABSOLUTE LYMPHOCYTES (AUTO) 2.3 10^3/uL (0.5-4.7); ABSOLUTE MONOCYTES (AUTO) 1.4 10^3/uL (0.1-1.4); ABSOLUTE NEUT (AUTO) 4.7 10^3/uL (1.7-8.2); BASOPHILS % (AUTO) 1.5 % (0-2); EOSINOPHILS % (AUTO) 2.6 % (0-6); HEMATOCRIT 26.7 % (37.9-51.0); HEMOGLOBIN 8.7 g/dL (13.5-17.0); LYMPHOCYTES % (AUTO) 26.8 % (13-45); MEAN CORPUSCULAR HEMOGLOBIN 29.9 pg (27.0-33.4); MEAN CORPUSCULAR HGB CONC 32.4 g/dL (32.0-36.0); MEAN CORPUSCULAR VOLUME 92 fl (80-97); MONOCYTES % (AUTO) 15.7 % (3-13); PLATELET COUNT 565 10^3/uL (150-450); RED BLOOD COUNT 2.89 10^6/uL (4.35-5.55); RED CELL DISTRIBUTION WIDTH 23.1 % (11.5-14.0); SEGMENTED NEUTROPHILS % (AUTO) 53.4 % (42-78); TOTAL CELLS COUNTED % (AUTO) 100 %; WHITE BLOOD COUNT 8.7 10^3/uL (4.0-10.5)
[2018-01-04 06:00] LABS: BILIRUBIN,TOTAL < 0.1 mg/dL (0.2-1.3)
[2018-01-04] MEDS: LANSOPRAZOLE 30 MG TAB.RAP.DR PO SCH (07:13)
[2018-01-04] MEDS: BACLOFEN 10 MG TABLET PO SCH ×3 (07:14→22:12)
[2018-01-04] MEDS: MAGNESIUM OXIDE 400 MG TABLET PO SCH (09:52)
[2018-01-04] MEDS: NICOTINE 21 MG/24 HR PATCH.TD24 TD SCH (09:52)
[2018-01-04] MEDS: RIVAROXABAN 10 MG TABLET PO SCH (09:52)
[2018-01-04] MEDS: THIAMINE HCL 100 MG TABLET PO SCH (09:52)
[2018-01-04] MEDS: CLOPIDOGREL BISULFATE 75 MG TABLET PO SCH (09:53)
[2018-01-04] MEDS: SERTRALINE HCL 50 MG TABLET PO SCH (09:53)
[2018-01-04] MEDS: OXYCODONE-ACETAMINOPHEN 5-325 MG TABLET PO PRN ×2 (09:54→20:24)
[2018-01-04] MEDS: LACTOBACILLUS ACIDOPHILUS 250 MG TAB PO SCH ×2 (09:54→19:27)
[2018-01-04] MEDS: NEOMY SULF/POLYMYX B SULF/HC OTIC SUSP 10 ML OT SCH ×3 (09:55→19:27)
[2018-01-04] MEDS: PSYLLIUM SEED-SF 5.85 GM PACKET PO SCH (12:04)
[2018-01-04] MEDS: MULTIVITAMIN TABLET PO SCH (12:04)
[2018-01-04] MEDS: METOPROLOL SUCCINATE 50 MG TAB.SR.24H PO SCH (12:05)
--- NOTE | 2018-01-04 13:03 | PDOC PROGRESS REPORT ---
Subjective Progress Note for:: 01/04/18 Subjective:: No complaints. Right ear ache resolved according to patient. Pain was going down the right side of his throat Review of systems Unable to obtain due to patient's mental status. Patient sedated All significant laboratories and diagnostics have been reviewed Reason For Visit: ALCOHOL ABUSE,ANEMIA,ETOH WITHDRAWAL Physical Exam Vital Signs: Temp Pulse Resp BP Pulse Ox 98.7 F 66 18 102/52 L 99 01/04/18 04:41 01/04/18 07:00 01/04/18 04:41 01/04/18 04:41 01/04/18 04:41 Intake & Output 01/03/18 01/04/18 01/05/18 06:59 06:59 06:59 Intake Total 2577 1601 Output Total 800 0 Balance 1777 1601 Weight 88.4 kg 91.3 kg General appearance: PRESENT: no acute distress, cooperative, well-developed, well-nourished Head exam: PRESENT: atraumatic, normocephalic Eye exam: PRESENT: conjunctiva pink, EOMI Ear exam: PRESENT: other - Right tympanic membrane by cerumen plug Neck exam: PRESENT: full ROM. ABSENT: JVD, lymphadenopathy, tenderness Respiratory exam: PRESENT: clear to auscultation elia Cardiovascular exam: PRESENT: RRR. ABSENT: diastolic murmur, systolic murmur Vascular exam: PRESENT: normal capillary refill GI/Abdominal exam: PRESENT: normal bowel sounds, soft. ABSENT: tenderness Extremities exam: PRESENT: full ROM. ABSENT: pedal edema Musculoskeletal exam: PRESENT: ambulatory Neurological exam: PRESENT: alert, awake, oriented to person, oriented to place , oriented to time, oriented to situation, CN II-XII grossly intact Psychiatric exam: PRESENT: appropriate affect, normal mood Skin exam: PRESENT: intact, normal color Results Laboratory Results: 01/04/18 04:53 01/04/18 04:53 01/04/18 01/04/18 04:53 04:53 WBC 8.7 RBC 2.89 L Hgb 8.7 L Hct 26.7 L MCV 92 MCH 29.9 MCHC 32.4 RDW 23.1 H Plt Count 565 H Seg Neutrophils % 53.4 Lymphocytes % 26.8 Monocytes % 15.7 H Eosinophils % 2.6 Basophils % 1.5 Absolute Neutrophils 4.7 Absolute Lymphocytes 2.3 Absolute Monocytes 1.4 Absolute Eosinophils 0.2 Absolute Basophils 0.1 Sodium 141.3 Potassium 3.8 Chloride 107 Carbon Dioxide 22 Anion Gap 12 BUN 10 Creatinine 0.63 Est GFR ( Amer) > 60 Est GFR (Non-Af Amer) > 60 Glucose 106 Calcium 9.4 Magnesium 1.7 Total Bilirubin < 0.1 L AST 32 ALT 43 Alkaline Phosphatase 124 Total Protein 5.8 L Albumin 3.0 L Impressions: Abdomen/Pelvis CTA 12/25/17 12:34 IMPRESSION: Unchanged stenosis proximal to the SMA stent, which is patent. The celiac and CAITLIN are patent. No acute findings. Abdomen Ultrasound 12/27/17 00:00 IMPRESSION: FATTY LIVER. NO OTHER SIGNIFICANT FINDING. Head MRI 12/30/17 11:53 IMPRESSION: NORMAL MRI OF THE BRAIN WITHOUT INTRAVENOUS GADOLINIUM CONTRAST. EVIDENCE OF ACUTE STROKE: NO. Assessment & Plan - Diagnosis (1) Chronic pain Qualifiers: Chronic pain type: chronic pain syndrome Qualified Code(s): G89.4 - Chronic pain syndrome Is this a current diagnosis for this admission?: Yes Plan: To change Percocet 5 mg p.o. to every 6 hours as needed. (2) Alcohol withdrawal Qualifiers: Complication of substance-induced condition: with delirium Qualified Code(s ): F10.231 - Alcohol dependence with withdrawal delirium Is this a current diagnosis for this admission?: Yes Plan: Resolved and to continue present management with baclofen (3) Anemia Qualifiers: Iron deficiency anemia type: chronic blood loss Is this a current diagnosis for this admission?: Yes Plan: Stable (4) Depression Qualifiers: Depression Type: unspecified Qualified Code(s): F32.9 - Major depressive disorder, single episode, unspecified Is this a current diagnosis for this admission?: Yes Plan: Continue Zoloft 100 mg daily and Zyprexa at bedtime (5) Hypokalemia Is this a current diagnosis for this admission?: Yes Plan: Resolved. (6) Alcoholic fatty liver Is this a current diagnosis for this admission?: Yes Plan: Transaminases normalized. Case management working on patient to go to rehab unit since health insurance would cover such services (7) SMA stenosis Is this a current diagnosis for this admission?: Yes Plan: Continue Plavix and Xarelto (8) Chronic anticoagulation Is this a current diagnosis for this admission?: Yes Plan: Continue Xarelto - Time Time Spent with patient: 15-24 minutes Medications reviewed and adjusted accordingly: Yes Anticipated discharge: Acute Rehab Within: within 24 hours - Inpatient Certification Based on my medical assessment, after consideration of the patient's comorbidities, presenting symptoms, or acuity I expect that the services needed warrant INPATIENT care.: Yes I certify that my determination is in accordance with my understanding of Medicare's requirements for reasonable and necessary INPATIENT services [42 CFR 412.3e].: Yes Medical Necessity: Significant Comorbidiites Make Outpatient Treatment Too Risky , Need Close Monitoring Due to Risk of Patient Decompensation
[2018-01-04] MEDS: CARBAMIDE PEROXIDE 6.5% OTIC SOLN 15 ML AU SCH ×3 (14:28→22:14)
[2018-01-04] MEDS: OLANZAPINE 5 MG TABLET PO SCH (22:13)
[2018-01-05] MEDS: OXYCODONE-ACETAMINOPHEN 5-325 MG TABLET PO PRN ×2 (04:34→11:30)
[2018-01-05] MEDS: LACTOBACILLUS ACIDOPHILUS 250 MG TAB PO SCH (09:10)
[2018-01-05] MEDS: SERTRALINE HCL 50 MG TABLET PO SCH (09:10)
[2018-01-05] MEDS: THIAMINE HCL 100 MG TABLET PO SCH (09:10)
[2018-01-05] MEDS: NICOTINE 21 MG/24 HR PATCH.TD24 TD SCH (09:10)
[2018-01-05] MEDS: MAGNESIUM OXIDE 400 MG TABLET PO SCH (09:10)
[2018-01-05] MEDS: CLOPIDOGREL BISULFATE 75 MG TABLET PO SCH (09:11)
[2018-01-05] MEDS: LANSOPRAZOLE 30 MG TAB.RAP.DR PO SCH (09:11)
[2018-01-05] MEDS: BACLOFEN 10 MG TABLET PO SCH (09:13)
[2018-01-05] MEDS: RIVAROXABAN 10 MG TABLET PO SCH (09:14)
[2018-01-05] MEDS: CARBAMIDE PEROXIDE 6.5% OTIC SOLN 15 ML AU SCH (09:15)
[2018-01-05] MEDS: NEOMY SULF/POLYMYX B SULF/HC OTIC SUSP 10 ML OT SCH (09:16)
[2018-01-05 11:29] VITALS: BP 132/90
[2018-01-05] MEDS: METOPROLOL SUCCINATE 50 MG TAB.SR.24H PO SCH (11:31)
[2018-01-05] MEDS: MULTIVITAMIN TABLET PO SCH (11:31)
[2018-01-05] MEDS: PSYLLIUM SEED-SF 5.85 GM PACKET PO SCH (11:32)
--- NOTE | 2018-01-05 15:28 | PDOC DISCHARGE SUMMARY ---
General - Admit/Disc Date/PCP Admission Date/Primary Care Provider: 12/25/17 17:20 GALILEA HATCH, DO Discharge Date: 01/05/18 - Discharge Diagnosis (1) Alcoholic gastritis with bleeding Is this a current diagnosis for this admission?: Yes (2) Alcohol withdrawal delirium Is this a current diagnosis for this admission?: Yes (3) Alcoholic fatty liver Is this a current diagnosis for this admission?: Yes (4) Transaminitis Is this a current diagnosis for this admission?: Yes (5) Hypokalemia Is this a current diagnosis for this admission?: Yes (6) Anemia Is this a current diagnosis for this admission?: Yes (7) Chronic pain Is this a current diagnosis for this admission?: Yes (8) Depression Is this a current diagnosis for this admission?: Yes (9) SMA stenosis Is this a current diagnosis for this admission?: Yes (10) Chronic anticoagulation Is this a current diagnosis for this admission?: Yes (11) Hypomagnesemia Is this a current diagnosis for this admission?: Yes - Additional Information Resuscitation Status: Full Code Discharge Diet: Regular, Cardiac Discharge Activity: Activity As Tolerated Prescriptions: Baclofen [Baclofen 10 mg Tablet] 5 mg PO Q8 #60 tablet Metoprolol Succinate [Toprol Xl 50 mg Tab.sr] 50 mg PO DAILY@1200 #30 tab.sr.24h Multivitamin [Tab-A-Kirk (Multiple Vitamin) Tablet] 1 tab PO DAILY@1200 #30 tablet Nicotine [Nicoderm 21 mg/24 Hr Transderm Patch] 1 each TD DAILY #30 patch.td24 Thiamine HCl [Thiamine 100 mg Tablet] 300 mg PO DAILY #90 tablet Home Medications: Clopidogrel Bisulfate [Clopidogrel] 75 mg PO DAILY 12/25/17 Dexlansoprazole [Dexilant 60 mg Capsule] 60 mg PO DAILY 12/25/17 Oxycodone HCl/Acetaminophen [Percocet 10-325 mg Tablet] 1 tab PO BIDP PRN Ropinirole HCl 0.25 mg PO DAILY 12/25/17 Sertraline HCl 100 mg PO DAILY 12/25/17 Baclofen [Baclofen 10 mg Tablet] 5 mg PO Q8 #60 tablet 01/05/18 Metoprolol Succinate [Toprol Xl 50 mg Tab.sr] 50 mg PO DAILY@1200 #30 tab.sr.24h 01/05/18 Multivitamin [Tab-A-Kirk (Multiple Vitamin) Tablet] 1 tab PO DAILY@1200 #30 tablet 01/05/18 Nicotine [Nicoderm 21 mg/24 Hr Transderm Patch] 1 each TD DAILY #30 patch.td24 01/05/18 Rivaroxaban [Xarelto 10 mg Tablet] 20 mg PO DAILY tablet 01/05/18 Thiamine HCl [Thiamine 100 mg Tablet] 300 mg PO DAILY #90 tablet 01/05/18 History of Present Illness History of Present Illness: BRENDA JENSEN is a 47 year old male who presented to the emergency room with complaints of abdominal pain for about a week. Has a history of mesenteric thrombosis as well as colitis. He was flown to [place] in March last year when presented with abdominal pain and he was found to have a mesentery ischemia. He had a clot removed according to him and subsequently also had a stent put in. CT scan done on the day of evaluation revealed a patent SMA stent as well as celiac and CAITLIN. There was an unchanged stenosis proximal to the SMA stent. Patient also complained of back pain. He apparently fell in the bathtub the day prior to presentation and he also complained of rectal bleeding as well as epistaxis. Patient was on Xarelto and Plavix due to blood clot and stent. He stated that his bleeding has been a little bit more than usual and was uncontrollable although the epistaxis has since stopped. Patient also says he is depressed and been thinking of unspecified things. In fact he called the [place] suicide hotline. He denied being suicidal currently and stated he has no intention of harming himself. Patient has been drinking alcohol daily. He admitted drinking 2-4 beers per day with his last drink being yesterday. He is very jittery and shaking while talking to him. Because of his myriad medical problems and his abdominal pain which was unclear about its acuteness,hospitalist service requested to be seen by Dr. Hays while he was in the ED. After was examined by Dr Manzanares, it was felt that his abdominal pain was likely chronic and no acute surgical intervention was needed. Hospital Course Hospital Course: Patient was initially admitted to intensive care unit since there was a concern of active bleeding since patient on Xarelto, Plavix and actively consuming alcohol. Patient was placed on PPI with further improvement. Patient did not need any endoscopic procedure. Hemoglobins were trended and stable. It was deemed that related to alcoholic gastritis. Patient was transfer from ICU to [facility]. Patient was treated with benzodiazepines, thiamine and multivitamins for withdrawal with slow improvement. MRI of the brain was obtained to look for Wernicke encephalopathy and was normal. He was placed on baclofen to prevent alcohol cravings. He is being discharged on this medication. On admission it was noted elevation of transaminases which were deemed to be secondary to alcoholic fatty liver disease and active alcohol abuse. Transaminases normalized by placing patient on IV fluids and abstinence of alcohol. Abdomen sonogram showed a steatosis. All electrolyte abnormalities were replaced. Patient was restarted on Xarelto and Plavix. Patient does have baseline anemia but hemoglobin remained stable while hospitalized. Patient was seen for psychiatry service. Patient denies suicidal thoughts. He was placed back on Zoloft which he had stopped prior to hospitalization. . Patient has been educated about quitting alcohol and smoking and appeared to be motivated. He has been encouraged to attend rehab and [facility] upon discharge. had also been encouraged to attend [facility]. Patient had been consuming large amounts of beers at home and the had found out the empty cans of beers hidden in luggage. was wishing for patient to go to inpatient rehab program. Case management was consulted for referral to inpatient rehab facility covered by 's insurance but at the time of discharge we were not able to get an answer. and patient will have to continue searching for a facility that will be able to accept him as inpatient otherwise will have to go for outpatient treatment. Since he was stable and there were no active medical problems prompted to discharge Physical Exam Vital Signs: Temp Pulse Resp BP Pulse Ox 98.6 F 53 L 14 116/66 97 01/05/18 04:28 01/05/18 07:00 01/05/18 04:28 01/05/18 04:28 01/05/18 04:28 Intake & Output 01/04/18 01/05/18 01/06/18 06:59 06:59 06:59 Intake Total 1601 2165 Output Total 0 Balance 1601 2165 Weight 91.3 kg 91.2 kg General appearance: PRESENT: no acute distress, cooperative, well-developed, well-nourished Head exam: PRESENT: atraumatic, normocephalic Eye exam: PRESENT: conjunctiva pink, EOMI, PERRLA Ear exam: PRESENT: normal external ear exam Mouth exam: PRESENT: moist Neck exam: PRESENT: full ROM. ABSENT: JVD, lymphadenopathy, tenderness Respiratory exam: PRESENT: clear to auscultation elia Cardiovascular exam: PRESENT: RRR. ABSENT: systolic murmur Vascular exam: PRESENT: normal capillary refill GI/Abdominal exam: PRESENT: normal bowel sounds, soft. ABSENT: tenderness Extremities exam: PRESENT: full ROM. ABSENT: pedal edema Musculoskeletal exam: PRESENT: ambulatory Neurological exam: PRESENT: alert, awake, oriented to person, oriented to place , oriented to time, oriented to situation, CN II-XII grossly intact Psychiatric exam: PRESENT: appropriate affect, normal mood Skin exam: PRESENT: intact, normal color Results Laboratory Results: 01/04/18 04:53 01/04/18 04:53 Impressions: Abdomen/Pelvis CTA 12/25/17 12:34 IMPRESSION: Unchanged stenosis proximal to the SMA stent, which is patent. The celiac and CAITLIN are patent. No acute findings. Abdomen Ultrasound 12/27/17 00:00 IMPRESSION: FATTY LIVER. NO OTHER SIGNIFICANT FINDING. Head MRI 12/30/17 11:53 IMPRESSION: NORMAL MRI OF THE BRAIN WITHOUT INTRAVENOUS GADOLINIUM CONTRAST. EVIDENCE OF ACUTE STROKE: NO. Qualifiers - * PATIENT BEING DISCHARGED WITH ANY OF THE FOLLOWING DIAGNOSIS: No Plan Discharge Plan: Discharge home. Patient to follow-up with PCP as scheduled Time Spent: Greater than 30 Minutes
== END 2018-01-05 12:06 | disposition home or self-care (01) | DRG 896 ==
LOC: ER 11:27 → UNDOADMIN 16:36 → EH 16:36 → 3W 18:17 → ICU 20:53 → 3N 12-28 12:36 → 3W 12-28 18:19
PROVIDERS: ADMIT Internal Medicine; ATTEND Internal Medicine
PROC: 3E0F73Z Introduction of Anti-inflammatory into Respiratory Tract, Via Natural or Artificial Opening (ICD-10-PCS; principal; 2017-12-26)
DX: F10.231 Alcohol dependence with withdrawal delirium (principal); K29.21 Alcoholic gastritis with bleeding; K55.1 Chronic vascular disorders of intestine; F33.9 Major depressive disorder, recurrent, unspecified; K70.0 Alcoholic fatty liver; K70.10 Alcoholic hepatitis without ascites; E87.6 Hypokalemia; D64.9 Anemia, unspecified; G89.4 Chronic pain syndrome; E83.42 Hypomagnesemia; E78.00 Pure hypercholesterolemia, unspecified; I10 Essential (primary) hypertension; W18.2XXA Fall in (into) shower or empty bathtub, initial encounter; K21.9 Gastro-esophageal reflux disease without esophagitis; D50.0 Iron deficiency anemia secondary to blood loss (chronic); F17.210 Nicotine dependence, cigarettes, uncomplicated; F41.9 Anxiety disorder, unspecified; H53.8 Other visual disturbances; Z79.01 Long term (current) use of anticoagulants; Z79.899 Other long term (current) drug therapy; Z79.02 Long term (current) use of antithrombotics/antiplatelets; Z91.81 History of falling; Z85.828 Personal history of other malignant neoplasm of skin; Z86.718 Personal history of other venous thrombosis and embolism; Z82.49 Family history of ischemic heart disease and other diseases of the circulatory system; Z83.3 Family history of diabetes mellitus
CPT/HCPCS: 36415; 70551; 74174; 76700; 80053; 80074; 80307; 82140; 82607; 82728; 82746; 83540; 83550; 83605; 83690; 83735; 84466; 85025; 85027; 85045; 85610; 93976; 96361; 96374; 96375; 99285; J1170; J2060; J2405; J3360; J3411; J3475; J3480; J3490; J7030; J7050; J7120; J7620; S0028

== ENCOUNTER 2018-01-22 16:47 | Inpatient (IN) | payer OTHER, BC ==
[2018-01-22] MEDS ORDERED: ASPIRIN 81 MG TABLET, CHEWABLE PO ONE (17:35)
--- NOTE | 2018-01-22 17:36 | ER Document Report ---
ED Medical Screen (RME) - General Chief Complaint: Chest Pain Stated Complaint: CHEST/BACK PAIN Time Seen by Provider: 01/22/18 17:31 Mode of Arrival: Ambulatory Information source: Patient Notes: 47-year-old male history of alcohol abuse presents with concerns of alcohol withdrawal, he notes he wants to quit because a daily notes last drink was a few hours ago, he also notes chest pain back pain I have greeted and performed a rapid initial assessment of this patient. A comprehensive ED assessment and evaluation of the patient, analysis of test results and completion of the medical decision making process will be conducted by additional ED providers. PHYSICAL EXAMINATION: GENERAL: Well-appearing, well-nourished and in no acute distress. HEAD: Atraumatic, normocephalic. EYES: Pupils equal round extraocular movements intact, conjunctiva are normal. ENT: Nares patent NECK: Normal range of motion LUNGS: No respiratory distress Musculoskeletal: Normal range of motion NEUROLOGICAL: Normal speech, normal gait. PSYCH: Normal mood, normal affect. SKIN: Warm, Dry, normal turgor, no rashes or lesions noted. TRAVEL OUTSIDE OF THE [place] 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 Squamous cell carcinoma removed from the hand., Other - Exploratory laparotomy, superior mesenteric artery thrombectomy; sstent SMA - Immunizations Hx Diphtheria, Pertussis, Tetanus Vaccination: Yes - unknowon Physical Exam - Vital signs Vitals: Temp Pulse Resp BP Pulse Ox 98.7 F 82 16 133/82 H 98 01/22/18 17:04 01/22/18 17:04 01/22/18 17:04 01/22/18 17:04 01/22/18 17:04 Course - Vital Signs Vital signs: Temp Pulse Resp BP Pulse Ox 98.7 F 82 16 133/82 H 98 01/22/18 17:04 01/22/18 17:04 01/22/18 17:04 01/22/18 17:04 01/22/18 17:04
--- NOTE | 2018-01-22 18:35 | RADIOLOGY REPORT (SQ) ---
EXAM DESCRIPTION: CHEST SINGLE VIEW COMPLETED DATE/TIME: 01/22/2018 6:23 pm REASON FOR STUDY: chest pain COMPARISON: 11/05/2017 EXAM PARAMETERS: NUMBER OF VIEWS: One view. TECHNIQUE: Single frontal radiographic view of the chest acquired. RADIATION DOSE: NA LIMITATIONS: None. FINDINGS: LUNGS AND PLEURA: No opacities, masses or pneumothorax. No pleural effusion. MEDIASTINUM AND HILAR STRUCTURES: No masses. Contour normal. HEART AND VASCULAR STRUCTURES: Heart normal in size. Normal vasculature. BONES: No acute findings. HARDWARE: None in the chest. OTHER: No other significant finding. IMPRESSION: NO ACUTE RADIOGRAPHIC FINDING IN THE CHEST. TECHNICAL DOCUMENTATION: JOB ID: [id number] [employer]- All Rights Reserved Reading location - IP/workstation name: [email or web address]
[2018-01-22 18:46] LABS: ALANINE AMINOTRANSFERASE 25 U/L (21-72); ALBUMIN 4.4 g/dL (3.5-5.0); ALKALINE PHOSPHATASE 97 U/L (38-126); ANION GAP 15 (5-19); ASPARTATE AMINO TRANSFERASE 51 U/L (17-59); BILIRUBIN,DIRECT 0.4 mg/dL (0.0-0.4); BILIRUBIN,TOTAL 0.4 mg/dL (0.2-1.3); BLOOD UREA NITROGEN 4 mg/dL (7-20); CALCIUM 9.4 mg/dL (8.4-10.2); CARBON DIOXIDE 26 mmol/L (22-30); CHLORIDE 107 mmol/L (98-107); CREATINE KINASE 121 U/L (55-170); GLUCOSE 92 mg/dL (75-110); POTASSIUM 4.3 mmol/L (3.6-5.0); SODIUM 148.4 mmol/L (137-145); TOTAL PROTEIN 7.8 g/dL (6.3-8.2)
[2018-01-22 18:57] LABS: CREATINE KINASE MB 0.74 ng/mL (<4.55)
[2018-01-22 19:03] LABS: TROPONIN I < 0.012 ng/mL
[2018-01-22 19:09] LABS: ALCOHOL 317 mg/dL (NONE DETECTED)
--- NOTE | 2018-01-22 19:42 | ER Document Report ---
ED General - General Chief Complaint: Chest Pain Stated Complaint: CHEST/BACK PAIN Time Seen by Provider: 01/22/18 17:31 Mode of Arrival: Ambulatory Notes: Patient is a 47-year-old male with past medical history of mesenteric ischemia status post stent placement and chronic anticoagulation on Xarelto, chronic alcohol dependence, chronic tobacco abuse, history of alcoholic gastritis, who presents with chest and back pain. Patient describes this as being an acute onset of left-sided chest discomfort that was a pressure, stabbing-like sensation without radiation of the pain. He states the pain has overall resolved since that time without any acute intervention. Nothing improves or worsens his discomfort. His back pain he reports is chronic and diffuse towards his back. He states that this is not new or different today and is not the primary reason for his emergency department visit. Patient also reports that he is concerned about ongoing alcohol abuse and is requesting assistance with detox. He admits to alcohol use several hours prior to arrival in the emergency department. He denies any acute suicidal ideation. TRAVEL OUTSIDE OF THE [place] IN LAST 30 DAYS: No - Related Data Allergies/Adverse Reactions: No Known Allergies Allergy (Verified 01/22/18 16:52) Past Medical History - General Information source: Patient - Social History Smoking Status: Current Every Day Smoker Chew tobacco use (# tins/day): No Frequency of alcohol use: Heavy Drug Abuse: None Lives with: Spouse/Significant other Family History: CAD, DM, Reviewed & Not Pertinent Patient has suicidal ideation: No Patient has homicidal ideation: No - Past Medical History Cardiac Medical History: Reports: Hx Hypercholesterolemia, Hx Hypertension Renal/ Medical History: Denies: Hx Peritoneal Dialysis Malignancy Medical History: Reports Hx Skin Cancer - 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 Squamous cell carcinoma removed from the hand., Other - Exploratory laparotomy, superior mesenteric artery thrombectomy; sstent SMA - Immunizations Hx Diphtheria, Pertussis, Tetanus Vaccination: Yes - unknowon Review of Systems - Review of Systems Notes: Constitutional: Negative for fever. HENT: Negative for sore throat. Eyes: Negative for visual changes. Cardiovascular: Positive for chest pain. Respiratory: Negative for shortness of breath. Gastrointestinal: Negative for abdominal pain, vomiting or diarrhea. Genitourinary: Negative for dysuria. Musculoskeletal: Positive for chronic low back pain Skin: Negative for rash. Neurological: Negative for headaches, weakness or numbness. 10 point ROS negative except as marked above and in HPI. Physical Exam - Vital signs Vitals: Temp Pulse Resp BP Pulse Ox 98.7 F 82 16 133/82 H 98 01/22/18 17:04 01/22/18 17:04 01/22/18 17:04 01/22/18 17:04 01/22/18 17:04 Interpretation: Normal Notes: PHYSICAL EXAMINATION: GENERAL: Well-appearing, well-nourished and in no acute distress. HEAD: Atraumatic, normocephalic. EYES: Pupils equal round and reactive to light, extraocular movements intact, sclera anicteric, conjunctiva are normal. ENT: nares patent, oropharynx clear without exudates. Moist mucous membranes. NECK: Normal range of motion, supple without lymphadenopathy LUNGS: Breath sounds clear to auscultation bilaterally and equal. No wheezes rales or rhonchi. HEART: Regular rate and rhythm without murmurs ABDOMEN: Soft, nontender, normoactive bowel sounds. No guarding, no rebound. No masses appreciated. EXTREMITIES: Normal range of motion, no pitting or edema. No cyanosis. NEUROLOGICAL: No focal neurological deficits. Moves all extremities spontaneously and on command. PSYCH: Somewhat tremulous, moderately anxious SKIN: Warm, Dry, normal turgor, no rashes or lesions noted. Course - Re-evaluation Re-evalutation: 01/22/18 19:40 Presentation of chest pain in an otherwise well appearing patient. Low clinical suspicion for ACS given clinical history, exam, EKG without ST elevations or depressions, and negative initial troponin. HEART score less than or equal to 3. PE also seems unlikely given clinical history, absence of tachycardia or dyspnea. Patient is PERC criteria negative. CXR without evidence of pneumothorax or pneumonia. No widened mediastinum. Aortic dissection also seems unlikely given history, symmetric pulses, CXR, and vitals. Patient's pain started immediately prior to arrival so he will require a period of observation the emergency department and a repeat delta troponin IV hours after the initial. Patient reports that he needs alcohol detox assistance and was recently hospitalized including an ICU admission for the same. He is not currently demonstrating any signs of acute alcohol withdrawal and his current alcohol level is 317. Will therefore not administer benzodiazepines at this time. 01/22/18 23:34 Patient's initial troponin is normal. He has been noted to demonstrate some signs of alcohol withdrawal. Given his heart score is 4 I have discussed with the hospitalist Dr. Alba for admission and he is accepted. We have reviewed the patient's history of severe alcohol withdrawal and the likely need for inpatient alcohol detoxification. The patient is also placed on involuntary commitment as he has explained that he has had ongoing passive suicidal ideation with alcohol use as a means to harm himself. IVC has been completed. - Vital Signs Vital signs: Temp Pulse Resp BP Pulse Ox 98.7 F 74 19 126/80 H 96 01/22/18 17:04 01/22/18 22:01 01/22/18 22:01 01/22/18 22:01 01/22/18 23:00 - Laboratory Result Diagrams: 01/22/18 19:48 01/22/18 18:00 Laboratory results interpreted by me: 01/22/18 01/22/18 18:00 19:48 RBC 3.57 L Hgb 10.3 L Hct 30.3 L RDW 24.3 H Sodium 148.4 H BUN 4 L Serum Alcohol 317 H* - Diagnostic Test Radiology reviewed: Image reviewed, Reports reviewed Radiology results interpreted by me: 01/22/18 19:41 Chest x-ray: No acute infiltrate or pneumothorax Discharge - Discharge Clinical Impression: Passive suicidal ideations Alcohol withdrawal Qualifiers: Complication of substance-induced condition: with unspecified complication Qualified Code(s): F10.239 - Alcohol dependence with withdrawal, unspecified Chest pain Qualifiers: Chest pain type: unspecified Qualified Code(s): R07.9 - Chest pain, unspecified Depression Qualifiers: Depression Type: unspecified Qualified Code(s): F32.9 - Major depressive disorder, single episode, unspecified Condition: Fair Disposition: ADMITTED INPATIENT Admitting Provider: Hospitalist Unit Admitted: Telemetry Referrals: GALILEA HATCH DO [Primary Care Provider] - Follow up as needed
[2018-01-22 20:03] LABS: ABSOLUTE BASOPHILS # (AUTO) 0.1 10^3/uL (0.0-0.2); ABSOLUTE EOSINOPHILS # (AUTO) 0.2 10^3/uL (0.0-0.6); ABSOLUTE LYMPHOCYTES (AUTO) 2.7 10^3/uL (0.5-4.7); ABSOLUTE MONOCYTES (AUTO) 0.4 10^3/uL (0.1-1.4); ABSOLUTE NEUT (AUTO) 2.8 10^3/uL (1.7-8.2); BASOPHILS % (AUTO) 0.9 % (0-2); EOSINOPHILS % (AUTO) 2.7 % (0-6); HEMATOCRIT 30.3 % (37.9-51.0); HEMOGLOBIN 10.3 g/dL (13.5-17.0); MEAN CORPUSCULAR HEMOGLOBIN 28.9 pg (27.0-33.4); MEAN CORPUSCULAR HGB CONC 34.1 g/dL (32.0-36.0); MONOCYTES % (AUTO) 6.9 % (3-13); PLATELET COUNT 414 10^3/uL (150-450); RED BLOOD COUNT 3.57 10^6/uL (4.35-5.55); RED CELL DISTRIBUTION WIDTH 24.3 % (11.5-14.0); SEGMENTED NEUTROPHILS % (AUTO) 45.5 % (42-78); TOTAL CELLS COUNTED % (AUTO) 100 %; WHITE BLOOD COUNT 6.2 10^3/uL (4.0-10.5)
[2018-01-22 20:09] LABS: MEAN CORPUSCULAR VOLUME 85 fl (80-97)
[2018-01-22 20:30] LABS: ANISOCYTOSIS 3+; PLATELET COMMENT ADEQUATE; POIKILOCYTOSIS 1+; TOXIC GRANULATION SLIGHT
[2018-01-22] MEDS ORDERED: DIAZEPAM 5 MG TABLET PO ONE (22:59)
[2018-01-22] MEDS ORDERED: IPRATROPIUM/ALBUTEROL 0.5-2.5 MG/3 ML AMPUL NEB PRN (23:15)
[2018-01-22] MEDS ORDERED: DIAZEPAM 5 MG TABLET PO SCH (23:15)
[2018-01-22] MEDS ORDERED: MAGNESIUM HYDROXIDE SUSP 30 ML UDCUP PO PRN (23:15)
[2018-01-22] MEDS ORDERED: ONDANSETRON HCL INJ/PF 4 MG/2 ML SDV IV PRN (23:15)
[2018-01-22] MEDS ORDERED: HYDROMORPHONE HCL INJ/PF 2 MG/ML AMPULE IV PRN (23:21)
[2018-01-22] MEDS ORDERED: KETOROLAC TROMETHAMINE INJ/PF 30 MG/1 ML SDV IV PRN (23:21)
[2018-01-23] MEDS ORDERED: BACLOFEN 10 MG TABLET PO ONE (00:15)
[2018-01-23] MEDS: NORMAL SALINE 1000 ML 1,000 ML IV PRN (01:06)
[2018-01-23] MEDS: LORAZEPAM INJ 2 MG/1 ML VIAL IV PRN ×2 (02:58→10:57)
[2018-01-23 05:23] LABS: ABSOLUTE EOSINOPHILS # (AUTO) 0.2 10^3/uL (0.0-0.6); ABSOLUTE LYMPHOCYTES (AUTO) 2.4 10^3/uL (0.5-4.7); ABSOLUTE MONOCYTES (AUTO) 0.7 10^3/uL (0.1-1.4); BASOPHILS % (AUTO) 0.7 % (0-2); EOSINOPHILS % (AUTO) 2.7 % (0-6); HEMOGLOBIN 8.9 g/dL (13.5-17.0); LYMPHOCYTES % (AUTO) 38.2 % (13-45); MEAN CORPUSCULAR HEMOGLOBIN 28.2 pg (27.0-33.4); MEAN CORPUSCULAR HGB CONC 33.1 g/dL (32.0-36.0); MEAN CORPUSCULAR VOLUME 85 fl (80-97); MONOCYTES % (AUTO) 10.6 % (3-13); PLATELET COUNT 333 10^3/uL (150-450); RED BLOOD COUNT 3.17 10^6/uL (4.35-5.55); RED CELL DISTRIBUTION WIDTH 24.3 % (11.5-14.0); SEGMENTED NEUTROPHILS % (AUTO) 47.8 % (42-78); TOTAL CELLS COUNTED % (AUTO) 100 %; WHITE BLOOD COUNT 6.3 10^3/uL (4.0-10.5)
[2018-01-23 05:45] LABS: ANISOCYTOSIS 3+; PLATELET COMMENT ADEQUATE; PLATELET LARGE PRESENT
[2018-01-23 05:46] LABS: HYPOCHROMASIA 1+
[2018-01-23 05:49] LABS: ALANINE AMINOTRANSFERASE 32 U/L (21-72); ALBUMIN 3.4 g/dL (3.5-5.0); ALKALINE PHOSPHATASE 84 U/L (38-126); ANION GAP 11 (5-19); ASPARTATE AMINO TRANSFERASE 39 U/L (17-59); BILIRUBIN,DIRECT 0.1 mg/dL (0.0-0.4); BILIRUBIN,TOTAL 0.1 mg/dL (0.2-1.3); BLOOD UREA NITROGEN 6 mg/dL (7-20); CALCIUM 8.6 mg/dL (8.4-10.2); CARBON DIOXIDE 25 mmol/L (22-30); CHLORIDE 108 mmol/L (98-107); GLUCOSE 74 mg/dL (75-110); LIPASE 198.4 U/L (23-300); PHOSPHORUS 4.6 mg/dL (2.5-4.5); POTASSIUM 3.9 mmol/L (3.6-5.0); TOTAL PROTEIN 6.2 g/dL (6.3-8.2)
--- NOTE | 2018-01-23 05:55 | PDOC H&P ---
History of Present Illness Admission Date/PCP: 01/22/18 23:41 GALILEA HATCH DO Patient complains of: Suicidal ideation History of Present Illness: BRENDA JENSEN is a 47 year old male with history of severe ongoing alcoholism, withdrawal delirium, fatty liver, transaminases, gastritis, SMA stenosis, depression on chronic anticoagulation. Patient presents with acute intoxication, abdominal pain and suicidal ideation. Labs are remarkable for serum alcohol greater than 300 however no metabolic acidosis. Previous admission from 2 weeks ago required ICU for severe alcohol withdrawal delirium. At discharge rehab was planned but this he suddenly declined. In the emergency room he has been involuntarily committed secondary to suicidal ideation and referred to the hospitalist for admission. 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 Squamous cell carcinoma removed from the hand., Other - Exploratory laparotomy, superior mesenteric artery thrombectomy; sstent SMA Social History Lives with: Spouse/Significant other Smoking Status: Current Every Day Smoker Cigarettes Packs Per Day: 1 Number of Years Smokin Last Time Smoked: 01/23/2018 Frequency of Alcohol Use: Heavy - 200 ounces of 8% malt liquor per day Hx Recreational Drug Use: No Drugs: None Hx Prescription Drug Abuse: No - Advance Directive Resuscitation Status: Full Code Family History Family History: CAD, DM, Reviewed & Not Pertinent Parental Family History Reviewed: Yes Children Family History Reviewed: Yes Sibling(s) Family History Reviewed.: Yes Medication/Allergy Home Medications: Clopidogrel Bisulfate [Clopidogrel] 75 mg PO DAILY 12/25/17 Dexlansoprazole [Dexilant 60 mg Capsule] 60 mg PO DAILY 12/25/17 Oxycodone HCl/Acetaminophen [Percocet 10-325 mg Tablet] 1 tab PO BIDP PRN Ropinirole HCl 0.25 mg PO QHS 12/25/17 Sertraline HCl 150 mg PO QAM 12/25/17 Baclofen [Baclofen 10 mg Tablet] 5 mg PO Q8 #60 tablet 01/05/18 Metoprolol Succinate [Toprol Xl 50 mg Tab.sr] 50 mg PO DAILY@1200 #30 tab.sr.24h 01/05/18 Rivaroxaban [Xarelto 10 mg Tablet] 20 mg PO DAILY tablet 01/05/18 Quetiapine Fumarate [Seroquel 100 mg Tablet] 50 mg PO QHS 01/23/18 Thiamine Mononitrate [Vitamin B-1] 100 mg PO TID 01/23/18 Allergies/Adverse Reactions: No Known Allergies Allergy (Verified 01/22/18 16:52) Review of Systems Constitutional: ABSENT: chills, fever(s), headache(s), weight gain, weight loss Eyes: ABSENT: visual disturbances Ears: ABSENT: hearing changes Cardiovascular: ABSENT: chest pain, dyspnea on exertion, edema, orthropnea, palpitations Respiratory: ABSENT: cough, hemoptysis Gastrointestinal: ABSENT: abdominal pain, constipation, diarrhea, hematemesis, hematochezia, nausea, vomiting Genitourinary: ABSENT: dysuria, hematuria Musculoskeletal: ABSENT: joint swelling Integumentary: ABSENT: rash, wounds Neurological: ABSENT: abnormal gait, abnormal speech, confusion, dizziness, focal weakness, syncope Psychiatric: ABSENT: anxiety, depression, homidical ideation, suicidal ideation Endocrine: ABSENT: cold intolerance, heat intolerance, polydipsia, polyuria Hematologic/Lymphatic: ABSENT: easy bleeding, easy bruising Physical Exam Vital Signs: Temp Pulse Resp BP Pulse Ox 98.2 F 70 20 111/67 96 01/23/18 04:00 01/23/18 04:00 01/23/18 04:00 01/23/18 04:00 01/23/18 04:00 Intake & Output 01/21/18 01/22/18 01/23/18 11:59 11:59 11:59 Weight 86.2 kg General appearance: PRESENT: no acute distress, well-developed, well-nourished Head exam: PRESENT: atraumatic, normocephalic Eye exam: PRESENT: conjunctiva pink, EOMI, PERRLA. ABSENT: scleral icterus Ear exam: PRESENT: normal external ear exam Mouth exam: PRESENT: moist, tongue midline Neck exam: ABSENT: carotid bruit, JVD, lymphadenopathy, thyromegaly Respiratory exam: PRESENT: clear to auscultation elia. ABSENT: rales, rhonchi, wheezes Cardiovascular exam: PRESENT: RRR. ABSENT: diastolic murmur, rubs, systolic murmur Pulses: PRESENT: normal dorsalis pedis pul Vascular exam: PRESENT: normal capillary refill GI/Abdominal exam: PRESENT: normal bowel sounds, soft. ABSENT: distended, guarding, mass, organolmegaly, rebound, tenderness Rectal exam: PRESENT: deferred Extremities exam: PRESENT: full ROM. ABSENT: calf tenderness, clubbing, pedal edema Neurological exam: PRESENT: alert, awake, oriented to person, oriented to place , oriented to time, oriented to situation, CN II-XII grossly intact. ABSENT: motor sensory deficit Psychiatric exam: PRESENT: appropriate affect, normal mood. ABSENT: homicidal ideation, suicidal ideation Skin exam: PRESENT: dry, intact, warm. ABSENT: cyanosis, rash Results Laboratory Results: 01/23/18 00:42 Troponin I < 0.012 Impressions: Chest X-Ray 01/22/18 17:35 IMPRESSION: NO ACUTE RADIOGRAPHIC FINDING IN THE CHEST. Assessment & Plan - Diagnosis (1) Depression Qualifiers: Depression Type: unspecified Qualified Code(s): F32.9 - Major depressive disorder, single episode, unspecified Is this a current diagnosis for this admission?: Yes Plan: Given suicidal ideation, involuntary commitment, supportive care and psychiatry consult. (2) Abdominal pain Is this a current diagnosis for this admission?: Yes Plan: Limit narcotics, no evidence for SMA occlusion or acidosis. Continue Xarelto and Plavix supportive care and reassurance (3) Alcohol withdrawal delirium Is this a current diagnosis for this admission?: Yes Plan: Benzodiazepine and thiamine, discharge planning for rehab - Time Time Spent: 50 to 70 Minutes
[2018-01-23] MEDS: DIAZEPAM 5 MG TABLET PO SCH ×3 (07:00→21:05)
[2018-01-23] MEDS: BACLOFEN 10 MG TABLET PO SCH ×3 (07:02→21:05)
--- NOTE | 2018-01-23 07:12 | EKG REPORT ---
SEVERITY:- NORMAL ECG - SINUS RHYTHM : Confirmed by: Tereso Le MD 23-Jan-2018 07:11:24
[2018-01-23] MEDS: DOCUSATE SODIUM 100 MG CAPSULE PO SCH ×2 (10:56→17:38)
[2018-01-23] MEDS: CLOPIDOGREL BISULFATE 75 MG TABLET PO SCH (10:56)
[2018-01-23] MEDS: RIVAROXABAN 10 MG TABLET PO SCH (10:56)
[2018-01-23] MEDS: THIAMINE HCL 100 MG, FOLIC ACID 1 MG in NORMAL SALINE 250 ML IV SCH (10:57)
[2018-01-23] MEDS: SERTRALINE HCL 50 MG TABLET PO SCH (10:57)
[2018-01-23] MEDS: PANTOPRAZOLE SODIUM 40 MG VIAL IV SCH ×2 (10:57→17:38)
[2018-01-23] MEDS: METOPROLOL SUCCINATE 50 MG TAB.SR.24H PO SCH (13:27)
--- NOTE | 2018-01-23 14:14 | PDOC PROGRESS REPORT ---
Subjective Progress Note for:: 01/23/18 Subjective:: Currently sleeping soundly. Had been somewhat agitated and hallucinating earlier. Discussed with his nurse Reason For Visit: ALCOHOL WD, SI, GASTRITIS Physical Exam Vital Signs: Temp Pulse Resp BP Pulse Ox 98.2 F 66 15 99/76 L 100 01/23/18 12:00 01/23/18 12:00 01/23/18 12:00 01/23/18 12:00 01/23/18 12:00 Intake & Output 01/22/18 01/23/18 01/24/18 05:59 05:59 05:59 Intake Total 803 Output Total 0 Balance 803 Weight 190 lb 0.615 oz 210 lb 15.718 oz General appearance: PRESENT: no acute distress Respiratory exam: PRESENT: clear to auscultation elia Cardiovascular exam: PRESENT: RRR GI/Abdominal exam: PRESENT: soft Neurological exam: PRESENT: other - Moving all 4 extremities Skin exam: PRESENT: warm Results Laboratory Results: 01/23/18 04:09 01/23/18 04:09 01/23/18 01/23/18 04:09 04:09 WBC 6.3 RBC 3.17 L Hgb 8.9 L Hct 27.0 L MCV 85 MCH 28.2 MCHC 33.1 RDW 24.3 H Plt Count 333 Seg Neutrophils % 47.8 Lymphocytes % 38.2 Monocytes % 10.6 Eosinophils % 2.7 Basophils % 0.7 Absolute Neutrophils 3.0 Absolute Lymphocytes 2.4 Absolute Monocytes 0.7 Absolute Eosinophils 0.2 Absolute Basophils 0.0 Sodium 144.0 Potassium 3.9 Chloride 108 H Carbon Dioxide 25 Anion Gap 11 BUN 6 L Creatinine 0.83 Est GFR ( Amer) > 60 Est GFR (Non-Af Amer) > 60 Glucose 74 L Calcium 8.6 Phosphorus 4.6 H Magnesium 1.7 Total Bilirubin 0.1 L AST 39 ALT 32 Alkaline Phosphatase 84 Total Protein 6.2 L Albumin 3.4 L Lipase 198.4 01/23/18 00:42 Troponin I < 0.012 Impressions: Chest X-Ray 01/22/18 17:35 IMPRESSION: NO ACUTE RADIOGRAPHIC FINDING IN THE CHEST. Assessment & Plan - Diagnosis (1) Acute alcoholic hallucinosis Is this a current diagnosis for this admission?: Yes Plan: Benzodiazepines scheduled and as needed. Thiamine, hydration, monitor labs. (2) Passive suicidal ideations Is this a current diagnosis for this admission?: Yes Plan: Of dubious significance considering his intoxication at the time. (3) Abdominal pain Is this a current diagnosis for this admission?: Yes Plan: Presumably alcoholic gastritis. PPI
[2018-01-23] MEDS: QUETIAPINE FUMARATE 25 MG TABLET PO SCH (21:06)
[2018-01-23] MEDS ORDERED: QUETIAPINE FUMARATE 100 MG TABLET PO SCH (22:00)
[2018-01-24] MEDS: ACETAMINOPHEN 325 MG TABLET PO PRN ×2 (00:27→20:31)
[2018-01-24] MEDS: NORMAL SALINE 1000 ML 1,000 ML IV PRN (00:28)
[2018-01-24] MEDS: BACLOFEN 10 MG TABLET PO SCH ×3 (06:19→22:12)
[2018-01-24] MEDS: DIAZEPAM 5 MG TABLET PO SCH ×3 (06:19→22:12)
[2018-01-24 06:29] LABS: HEMATOCRIT 25.8 % (37.9-51.0); HEMOGLOBIN 8.5 g/dL (13.5-17.0); MEAN CORPUSCULAR HEMOGLOBIN 28.4 pg (27.0-33.4); MEAN CORPUSCULAR HGB CONC 33.2 g/dL (32.0-36.0); MEAN CORPUSCULAR VOLUME 86 fl (80-97); PLATELET COUNT 259 10^3/uL (150-450); RED BLOOD COUNT 3.01 10^6/uL (4.35-5.55); RED CELL DISTRIBUTION WIDTH 24.4 % (11.5-14.0); WHITE BLOOD COUNT 6.5 10^3/uL (4.0-10.5)
[2018-01-24] MEDS: LORAZEPAM INJ 2 MG/1 ML VIAL IV PRN ×5 (06:57→23:00)
[2018-01-24 07:12] LABS: ANION GAP 10 (5-19); BLOOD UREA NITROGEN 5 mg/dL (7-20); CALCIUM 8.6 mg/dL (8.4-10.2); CARBON DIOXIDE 22 mmol/L (22-30); CHLORIDE 111 mmol/L (98-107); GLUCOSE 88 mg/dL (75-110); PHOSPHORUS 3.5 mg/dL (2.5-4.5); POTASSIUM 3.9 mmol/L (3.6-5.0); SODIUM 142.8 mmol/L (137-145)
[2018-01-24] MEDS: RIVAROXABAN 10 MG TABLET PO SCH (10:31)
[2018-01-24] MEDS: CLOPIDOGREL BISULFATE 75 MG TABLET PO SCH (10:32)
[2018-01-24] MEDS: SERTRALINE HCL 50 MG TABLET PO SCH (10:33)
[2018-01-24] MEDS: THIAMINE HCL 100 MG, FOLIC ACID 1 MG in NORMAL SALINE 250 ML IV SCH (10:33)
[2018-01-24] MEDS: PANTOPRAZOLE SODIUM 40 MG VIAL IV SCH ×2 (10:34→18:25)
[2018-01-24] MEDS: DOCUSATE SODIUM 100 MG CAPSULE PO SCH ×2 (10:35→18:26)
[2018-01-24] MEDS: METOPROLOL SUCCINATE 50 MG TAB.SR.24H PO SCH (12:21)
--- NOTE | 2018-01-24 13:20 | PDOC PROGRESS REPORT ---
Subjective Progress Note for:: 01/24/18 Subjective:: Somnolent but easily arousable. Met with the patient and his and answered questions. They appear to be familiar with the treatment. He has no current complaints Reason For Visit: ALCOHOL WD, SI, GASTRITIS Physical Exam Vital Signs: Temp Pulse Resp BP Pulse Ox 98.7 F 62 16 121/63 98 01/24/18 07:51 01/24/18 08:21 01/24/18 08:21 01/24/18 07:51 01/24/18 08:21 Intake & Output 01/23/18 01/24/18 01/25/18 05:59 05:59 05:59 Intake Total 4507 1540 Output Total 0 Balance 4507 1540 Weight 190 lb 0.615 oz 210 lb 15.718 oz 192 lb 7.417 oz General appearance: PRESENT: no acute distress Respiratory exam: PRESENT: chest wall tenderness Cardiovascular exam: PRESENT: RRR GI/Abdominal exam: PRESENT: soft Extremities exam: ABSENT: pedal edema Musculoskeletal exam: PRESENT: normal inspection Neurological exam: PRESENT: other - Arousable but not conversational. Moving all 4 extremities Skin exam: PRESENT: warm Results Laboratory Results: 01/24/18 05:57 01/24/18 05:57 01/24/18 01/24/18 05:57 05:57 WBC 6.5 RBC 3.01 L Hgb 8.5 L Hct 25.8 L MCV 86 MCH 28.4 MCHC 33.2 RDW 24.4 H Plt Count 259 Sodium 142.8 Potassium 3.9 Chloride 111 H Carbon Dioxide 22 Anion Gap 10 BUN 5 L Creatinine 0.63 Est GFR ( Amer) > 60 Est GFR (Non-Af Amer) > 60 Glucose 88 Calcium 8.6 Phosphorus 3.5 Magnesium 1.6 Albumin 3.0 L 01/23/18 00:42 Troponin I < 0.012 Impressions: Chest X-Ray 01/22/18 17:35 IMPRESSION: NO ACUTE RADIOGRAPHIC FINDING IN THE CHEST. Assessment & Plan - Diagnosis (1) Acute alcoholic hallucinosis Is this a current diagnosis for this admission?: Yes Plan: Benzodiazepines scheduled and as needed. Thiamine, hydration, monitor labs. (2) Passive suicidal ideations Is this a current diagnosis for this admission?: Yes Plan: Of dubious significance considering his intoxication at the time. Currently under an IVC with a sitter (3) Abdominal pain Is this a current diagnosis for this admission?: Yes Plan: No current complaints about it. Presumably alcoholic gastritis. PPI
[2018-01-24] MEDS: QUETIAPINE FUMARATE 25 MG TABLET PO SCH (22:12)
[2018-01-25] MEDS: BACLOFEN 10 MG TABLET PO SCH ×3 (06:40→22:15)
[2018-01-25] MEDS: DIAZEPAM 5 MG TABLET PO SCH ×3 (06:40→22:15)
[2018-01-25] MEDS: RIVAROXABAN 10 MG TABLET PO SCH (09:08)
[2018-01-25] MEDS: CLOPIDOGREL BISULFATE 75 MG TABLET PO SCH (09:10)
[2018-01-25] MEDS: LORAZEPAM INJ 2 MG/1 ML VIAL IV PRN ×3 (09:10→17:22)
[2018-01-25] MEDS: SERTRALINE HCL 50 MG TABLET PO SCH (09:10)
[2018-01-25] MEDS: PANTOPRAZOLE SODIUM 40 MG VIAL IV SCH ×2 (09:11→17:22)
[2018-01-25] MEDS: THIAMINE HCL 100 MG, FOLIC ACID 1 MG in NORMAL SALINE 250 ML IV SCH (09:16)
[2018-01-25] MEDS: DOCUSATE SODIUM 100 MG CAPSULE PO SCH ×2 (09:17→17:23)
[2018-01-25] MEDS: METOPROLOL SUCCINATE 50 MG TAB.SR.24H PO SCH (11:48)
--- NOTE | 2018-01-25 14:14 | PDOC PROGRESS REPORT ---
Subjective Progress Note for:: 01/25/18 Subjective:: Somnolent but easily arousable. He has no current complaints Reason For Visit: ALCOHOL WD, SI, GASTRITIS Physical Exam Vital Signs: Temp Pulse Resp BP Pulse Ox 97.9 F 57 L 17 101/56 L 96 01/25/18 04:14 01/25/18 07:00 01/25/18 04:14 01/25/18 04:14 01/25/18 04:14 Intake & Output 01/24/18 01/25/18 01/26/18 05:59 05:59 05:59 Intake Total 4507 3161 Output Total 0 Balance 4507 3161 Weight 210 lb 15.718 oz 192 lb 7.417 oz General appearance: PRESENT: no acute distress, cooperative Respiratory exam: PRESENT: clear to auscultation elia Cardiovascular exam: PRESENT: RRR GI/Abdominal exam: PRESENT: soft Neurological exam: PRESENT: other - Easily arousable, no evident tremor Psychiatric exam: PRESENT: appropriate affect Skin exam: PRESENT: warm Results Laboratory Results: 01/24/18 05:57 01/24/18 05:57 01/23/18 00:42 Troponin I < 0.012 Impressions: Chest X-Ray 01/22/18 17:35 IMPRESSION: NO ACUTE RADIOGRAPHIC FINDING IN THE CHEST. Assessment & Plan - Diagnosis (1) Acute alcoholic hallucinosis Is this a current diagnosis for this admission?: Yes Plan: Benzodiazepines scheduled and as needed. Thiamine, hydration, monitor labs. (2) Passive suicidal ideations Is this a current diagnosis for this admission?: Yes Plan: Of dubious significance considering his intoxication at the time. Currently under an IVC with a sitter (3) Abdominal pain Is this a current diagnosis for this admission?: Yes Plan: No current complaints about it. Presumably alcoholic gastritis. PPI
[2018-01-25] MEDS: ACETAMINOPHEN 325 MG TABLET PO PRN (14:30)
[2018-01-25] MEDS: QUETIAPINE FUMARATE 25 MG TABLET PO SCH (22:15)
[2018-01-26] MEDS: ACETAMINOPHEN 325 MG TABLET PO PRN ×2 (03:14→23:59)
[2018-01-26] MEDS: LORAZEPAM INJ 2 MG/1 ML VIAL IV PRN ×3 (03:15→23:59)
[2018-01-26] MEDS: BACLOFEN 10 MG TABLET PO SCH ×2 (05:27→16:18)
[2018-01-26] MEDS: DIAZEPAM 5 MG TABLET PO SCH ×3 (05:27→21:31)
[2018-01-26 05:31] LABS: HEMATOCRIT 25.6 % (37.9-51.0); HEMOGLOBIN 8.5 g/dL (13.5-17.0); MEAN CORPUSCULAR HEMOGLOBIN 28.5 pg (27.0-33.4); MEAN CORPUSCULAR VOLUME 86 fl (80-97); PLATELET COUNT 223 10^3/uL (150-450); RED BLOOD COUNT 2.97 10^6/uL (4.35-5.55); RED CELL DISTRIBUTION WIDTH 24.6 % (11.5-14.0); WHITE BLOOD COUNT 9.2 10^3/uL (4.0-10.5)
[2018-01-26 05:36] LABS: ALANINE AMINOTRANSFERASE 26 U/L (21-72); ALBUMIN 3.3 g/dL (3.5-5.0); ALKALINE PHOSPHATASE 84 U/L (38-126); ANION GAP 11 (5-19); ASPARTATE AMINO TRANSFERASE 22 U/L (17-59); BILIRUBIN,DIRECT 0.1 mg/dL (0.0-0.4); BILIRUBIN,TOTAL 0.1 mg/dL (0.2-1.3); BLOOD UREA NITROGEN 5 mg/dL (7-20); CALCIUM 9.2 mg/dL (8.4-10.2); CARBON DIOXIDE 24 mmol/L (22-30); CHLORIDE 106 mmol/L (98-107); GLUCOSE 91 mg/dL (75-110); POTASSIUM 3.6 mmol/L (3.6-5.0); SODIUM 140.6 mmol/L (137-145); TOTAL PROTEIN 6.1 g/dL (6.3-8.2)
[2018-01-26] MEDS: RIVAROXABAN 10 MG TABLET PO SCH (10:17)
[2018-01-26] MEDS: CLOPIDOGREL BISULFATE 75 MG TABLET PO SCH (10:17)
[2018-01-26] MEDS: DOCUSATE SODIUM 100 MG CAPSULE PO SCH ×2 (10:17→17:58)
[2018-01-26] MEDS: THIAMINE HCL 100 MG, FOLIC ACID 1 MG in NORMAL SALINE 250 ML IV SCH (10:17)
[2018-01-26] MEDS: SERTRALINE HCL 50 MG TABLET PO SCH (10:17)
[2018-01-26] MEDS: METOPROLOL SUCCINATE 50 MG TAB.SR.24H PO SCH (12:22)
--- NOTE | 2018-01-26 17:30 | PDOC PROGRESS REPORT ---
Subjective Progress Note for:: 01/26/18 Subjective:: Quite somnolent. Reason For Visit: ALCOHOL WD, SI, GASTRITIS Physical Exam Vital Signs: Temp Pulse Resp BP Pulse Ox 98.4 F 82 19 126/73 H 99 01/26/18 15:40 01/26/18 15:40 01/26/18 15:40 01/26/18 15:40 01/26/18 15:40 Intake & Output 01/25/18 01/26/18 01/27/18 05:59 05:59 05:59 Intake Total 3161 869 14 Balance 3161 869 14 Weight 192 lb 7.417 oz 206 lb 5.643 oz General appearance: PRESENT: no acute distress Respiratory exam: PRESENT: clear to auscultation elia Cardiovascular exam: PRESENT: RRR GI/Abdominal exam: PRESENT: soft Musculoskeletal exam: PRESENT: normal inspection Neurological exam: PRESENT: other - Somnolent Skin exam: PRESENT: dry, warm Results Laboratory Results: 01/26/18 04:06 01/26/18 04:06 01/26/18 01/26/18 04:06 04:06 WBC 9.2 RBC 2.97 L Hgb 8.5 L Hct 25.6 L MCV 86 MCH 28.5 MCHC 33.0 RDW 24.6 H Plt Count 223 Sodium 140.6 Potassium 3.6 Chloride 106 Carbon Dioxide 24 Anion Gap 11 BUN 5 L Creatinine 0.59 Est GFR ( Amer) > 60 Est GFR (Non-Af Amer) > 60 Glucose 91 Calcium 9.2 Phosphorus 4.0 Magnesium 1.4 L Total Bilirubin 0.1 L AST 22 ALT 26 Alkaline Phosphatase 84 Total Protein 6.1 L Albumin 3.3 L 01/23/18 00:42 Troponin I < 0.012 Impressions: Chest X-Ray 01/22/18 17:35 IMPRESSION: NO ACUTE RADIOGRAPHIC FINDING IN THE CHEST. Assessment & Plan - Diagnosis (1) Acute alcoholic hallucinosis Is this a current diagnosis for this admission?: Yes Plan: Benzodiazepines scheduled and as needed. Thiamine, hydration, monitor labs. (2) Passive suicidal ideations Is this a current diagnosis for this admission?: Yes Plan: Of dubious significance considering his intoxication at the time. Currently under an IVC with a sitter Continue home SSRI (3) HTN (hypertension) Qualifiers: Hypertension type: essential hypertension Qualified Code(s): I10 - Essential (primary) hypertension Is this a current diagnosis for this admission?: Yes Plan: Stable on home medications (4) SMA stenosis Is this a current diagnosis for this admission?: Yes Plan: Continue outpatient Xarelto and Plavix (5) Alcoholic gastritis without bleeding Qualifiers: Chronicity: chronic Qualified Code(s): K29.20 - Alcoholic gastritis without bleeding Is this a current diagnosis for this admission?: Yes Plan: Continue PPI therapy
[2018-01-26] MEDS: MAGNESIUM SULFATE/D5W 1 GM/100 ML RTUPB IV SCH ×2 (17:58→20:00)
[2018-01-26] MEDS: MAG HYDROX/AL HYDROX/SIMETH SUSP 30 ML UDCUP PO PRN (21:31)
[2018-01-26] MEDS: QUETIAPINE FUMARATE 25 MG TABLET PO SCH (21:31)
[2018-01-27] MEDS: LORAZEPAM INJ 2 MG/1 ML VIAL IV PRN ×2 (02:04→20:27)
[2018-01-27] MEDS: DIAZEPAM 5 MG TABLET PO SCH ×3 (05:29→22:13)
[2018-01-27 06:09] LABS: ALBUMIN 3.4 g/dL (3.5-5.0); ANION GAP 10 (5-19); BLOOD UREA NITROGEN 7 mg/dL (7-20); CALCIUM 9.2 mg/dL (8.4-10.2); CARBON DIOXIDE 24 mmol/L (22-30); CHLORIDE 106 mmol/L (98-107); GLUCOSE 97 mg/dL (75-110); PHOSPHORUS 3.3 mg/dL (2.5-4.5); POTASSIUM 3.9 mmol/L (3.6-5.0); SODIUM 140.4 mmol/L (137-145)
[2018-01-27] MEDS: CLOPIDOGREL BISULFATE 75 MG TABLET PO SCH (12:14)
[2018-01-27] MEDS: SERTRALINE HCL 50 MG TABLET PO SCH (12:17)
[2018-01-27] MEDS: THIAMINE HCL 100 MG, FOLIC ACID 1 MG in NORMAL SALINE 250 ML IV SCH (12:17)
[2018-01-27] MEDS: RIVAROXABAN 10 MG TABLET PO SCH (12:17)
[2018-01-27] MEDS: DOCUSATE SODIUM 100 MG CAPSULE PO SCH ×2 (12:17→17:47)
[2018-01-27] MEDS: METOPROLOL SUCCINATE 50 MG TAB.SR.24H PO SCH (12:17)
[2018-01-27] MEDS ORDERED: ONDANSETRON HCL INJ/PF 4 MG/2 ML SDV IV PRN (15:00)
--- NOTE | 2018-01-27 18:55 | PDOC PROGRESS REPORT ---
Subjective Progress Note for:: 01/27/18 Subjective:: Awake, lying in bed, no acute distress, accompanied by his son. He has no current complaints. Reason For Visit: ALCOHOL WD, SI, GASTRITIS Physical Exam Vital Signs: Temp Pulse Resp BP Pulse Ox 98.2 F 66 14 118/72 100 01/27/18 16:47 01/27/18 16:47 01/27/18 16:47 01/27/18 16:47 01/27/18 16:47 Intake & Output 01/26/18 01/27/18 01/28/18 05:59 05:59 05:59 Intake Total 869 3413 1316 Balance 869 3413 1316 Weight 206 lb 5.643 oz 206 lb 2.115 oz General appearance: PRESENT: no acute distress Respiratory exam: PRESENT: clear to auscultation elia Cardiovascular exam: PRESENT: RRR GI/Abdominal exam: PRESENT: soft Extremities exam: PRESENT: other - No edema Neurological exam: PRESENT: awake, oriented to person, oriented to place, oriented to time, oriented to situation, CN II-XII grossly intact, other - No evident tremor. ABSENT: motor sensory deficit Psychiatric exam: PRESENT: anxious Skin exam: PRESENT: dry, warm Results Laboratory Results: 01/26/18 04:06 01/27/18 05:19 01/27/18 05:19 Sodium 140.4 Potassium 3.9 Chloride 106 Carbon Dioxide 24 Anion Gap 10 BUN 7 Creatinine 0.65 Est GFR ( Amer) > 60 Est GFR (Non-Af Amer) > 60 Glucose 97 Calcium 9.2 Phosphorus 3.3 Magnesium 2.1 Albumin 3.4 L 01/23/18 00:42 Troponin I < 0.012 Impressions: Chest X-Ray 01/22/18 17:35 IMPRESSION: NO ACUTE RADIOGRAPHIC FINDING IN THE CHEST. Assessment & Plan - Diagnosis (1) Acute alcoholic hallucinosis Is this a current diagnosis for this admission?: Yes Plan: Date for of withdrawal. Symptoms are well controlled on current medications. Continue to wean off scheduled benzodiazepines. Continue as needed. Plan is for him to go directly from here to alcohol rehab at discharge. Social work is pursuing the details. (2) Passive suicidal ideations Is this a current diagnosis for this admission?: Yes Plan: Reconsult psychiatry to see if they still feel he needs an IVC (3) HTN (hypertension) Qualifiers: Hypertension type: essential hypertension Qualified Code(s): I10 - Essential (primary) hypertension Is this a current diagnosis for this admission?: Yes Plan: Stable on home medications (4) SMA stenosis Is this a current diagnosis for this admission?: Yes Plan: With history of stent placement. Continue outpatient Xarelto and Plavix (5) Alcoholic gastritis without bleeding Qualifiers: Chronicity: chronic Qualified Code(s): K29.20 - Alcoholic gastritis without bleeding Is this a current diagnosis for this admission?: Yes Plan: No current complaints. Continue PPI therapy
[2018-01-27] MEDS: QUETIAPINE FUMARATE 25 MG TABLET PO SCH (22:13)
[2018-01-27] MEDS: MAG HYDROX/AL HYDROX/SIMETH SUSP 30 ML UDCUP PO PRN (22:13)
[2018-01-28] MEDS: LORAZEPAM INJ 2 MG/1 ML VIAL IV PRN ×2 (02:29→20:13)
[2018-01-28] MEDS ORDERED: LANSOPRAZOLE 30 MG TAB.RAP.DR PO ONE (02:45)
[2018-01-28 05:19] LABS: ALBUMIN 3.6 g/dL (3.5-5.0); ANION GAP 10 (5-19); BLOOD UREA NITROGEN 6 mg/dL (7-20); CALCIUM 9.3 mg/dL (8.4-10.2); CARBON DIOXIDE 26 mmol/L (22-30); CHLORIDE 104 mmol/L (98-107); GLUCOSE 100 mg/dL (75-110); PHOSPHORUS 3.2 mg/dL (2.5-4.5); POTASSIUM 3.9 mmol/L (3.6-5.0); SODIUM 140.1 mmol/L (137-145)
[2018-01-28] MEDS: DIAZEPAM 5 MG TABLET PO SCH ×3 (05:33→22:18)
[2018-01-28] MEDS: DOCUSATE SODIUM 100 MG CAPSULE PO SCH ×2 (11:05→20:19)
[2018-01-28] MEDS: THIAMINE HCL 100 MG, FOLIC ACID 1 MG in NORMAL SALINE 250 ML IV SCH (11:16)
[2018-01-28] MEDS: RIVAROXABAN 10 MG TABLET PO SCH (11:17)
[2018-01-28] MEDS: LANSOPRAZOLE 30 MG TAB.RAP.DR PO SCH ×2 (11:17→22:18)
[2018-01-28] MEDS: SERTRALINE HCL 50 MG TABLET PO SCH (11:17)
[2018-01-28] MEDS: CLOPIDOGREL BISULFATE 75 MG TABLET PO SCH (11:17)
--- NOTE | 2018-01-28 14:37 | PDOC PROGRESS REPORT ---
Subjective Progress Note for:: 01/28/18 Subjective:: Doing better today. Less agitated overnight. Seen by psychiatry today. No other issues. Reason For Visit: ALCOHOL WD, SI, GASTRITIS Physical Exam Vital Signs: Temp Pulse Resp BP Pulse Ox 97.9 F 67 16 117/63 100 01/28/18 11:41 01/28/18 11:41 01/28/18 11:41 01/28/18 11:41 01/28/18 11:41 Intake & Output 01/27/18 01/28/18 01/29/18 06:59 06:59 06:59 Intake Total 3519 1798 Balance 3519 1798 Weight 93.5 kg 92.6 kg General appearance: PRESENT: no acute distress, other - Comfortably resting in bed Head exam: PRESENT: normocephalic Mouth exam: PRESENT: moist Respiratory exam: PRESENT: unlabored. ABSENT: tachypnea Cardiovascular exam: PRESENT: +S1, +S2 GI/Abdominal exam: PRESENT: soft. ABSENT: tenderness Neurological exam: PRESENT: alert, awake, CN II-XII grossly intact Psychiatric exam: PRESENT: anxious. ABSENT: agitated Skin exam: PRESENT: dry, intact Results Laboratory Results: 01/26/18 04:06 01/28/18 04:19 01/28/18 04:19 Sodium 140.1 Potassium 3.9 Chloride 104 Carbon Dioxide 26 Anion Gap 10 BUN 6 L Creatinine 0.65 Est GFR ( Amer) > 60 Est GFR (Non-Af Amer) > 60 Glucose 100 Calcium 9.3 Phosphorus 3.2 Magnesium 2.2 Albumin 3.6 01/23/18 00:42 Troponin I < 0.012 Impressions: Chest X-Ray 01/22/18 17:35 IMPRESSION: NO ACUTE RADIOGRAPHIC FINDING IN THE CHEST. Assessment & Plan - Diagnosis (1) Encounter for alcohol rehabilitation Is this a current diagnosis for this admission?: Yes Plan: Has been evaluated and accepted to alcohol rehab center in [place]. Will be picked up by rehab center directly from the hospital. - Patient is NOT allowed to go home prior to rehab placement (2) Acute alcoholic hallucinosis Is this a current diagnosis for this admission?: Yes Plan: Should be outside the window for withdrawal. Symptoms are well controlled. 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 Qualified Code(s): K29.20 - Alcoholic gastritis without bleeding Is this a current diagnosis for this admission?: Yes Plan: Stable, continue PPI (4) HTN (hypertension) Qualifiers: Hypertension type: essential hypertension Qualified Code(s): I10 - Essential (primary) hypertension Is this a current diagnosis for this admission?: Yes Plan: Blood pressures are well controlled (5) Passive suicidal ideations Is this a current diagnosis for this admission?: Yes Plan: Seen by Psychiatry today - Time Time Spent with patient: Less than 15 minutes Anticipated discharge: Acute Rehab - Alcohol Within: within 24 hours
--- NOTE | 2018-01-28 14:54 | PSYCHOLOGICAL NOTE ---
Psych Note - Psych Note Psych Note: Reason For Consult: IVC BRENDA JENSEN is a 47 year old male with history of severe ongoing alcoholism, withdrawal delirium, fatty liver, transaminases, gastritis, SMA stenosis, depression on chronic anticoagulation. Patient presents with acute intoxication, abdominal pain and suicidal ideation. Labs are remarkable for serum alcohol greater than 300 however no metabolic acidosis. Previous admission from 2 weeks ago required ICU for severe alcohol withdrawal delirium. At discharge rehab was planned but this he suddenly declined. In the emergency room he has been involuntarily committed secondary to suicidal ideation and referred to the hospitalist for admission. Patient disclosed that that he is currently at [facility] because of severe pain in his alcoholism. Patient confirms he is going to [facility] tomorrow upon discharge. Patient denies suicidal ideation discloses last time he had passive suicidal ideation was "a couple weeks after his last [facility] visit" (patient was seen about one month ago). Patient reports there are many things that he would like to accomplish calling it a "bucket list" however denies this is a list of things to do prior to . Patient reports "I feel like it is a second chance of life." Patient states he would like to visit [place], [place] , in [place]. He disclosed that he likes to get out and do things "I used to love go outdoors." However states that his alcoholism has kept him locked up in his garage. Patient is alert and orientated to person, place, time and circumstance. Mood is euthymic with congruent affect. Patient denies current suicidal ideation disclosing last passive suicidal ideation was approximately 2 weeks ago. Patient denies homicidal ideation. Delusions are absent and behaviors congruent with an intact reality based presentation i.e. organized and linear thought processes. Eye contact is well-maintained. Conversational speech was within normal rate, tone and prosody. Intellectual abilities appear to be within the average range. Attention and concentration were good. Insight, judgment, impulse control are currently good. No medication recommendations at this time Diagnosis 1. 291.81 (F10.239) Alcohol Withdrawal without perceptual disturbances 2. 311 (F32.9) Unspecified Depressive Disorder Impression\\plan: Patient is recommended for rescind of [facility] and is cleared from acute psychiatric services. Patient discloses passive suicidal ideation i.e. no plans means or intent approximately 2 weeks ago denies current suicidal ideation. Patient discloses continued interest and willingness to go to [facility] for substance abuse inpatient treatment. Patient demonstrated forward thinking with euthymic mood and congruent affect. patient no longer meets IVC criteria per [place] GS 122C. Dr. Crocker was consulted and the care and management of this patient; attending physician is agreement with her conditions and disposition.
[2018-01-28] MEDS: METOPROLOL SUCCINATE 50 MG TAB.SR.24H PO SCH (22:17)
[2018-01-28] MEDS: QUETIAPINE FUMARATE 25 MG TABLET PO SCH (22:18)
[2018-01-29] MEDS: ACETAMINOPHEN 325 MG TABLET PO PRN (01:01)
[2018-01-29] MEDS: DIAZEPAM 5 MG TABLET PO SCH ×2 (05:52→13:17)
--- NOTE | 2018-01-29 09:43 | PDOC TRANSFER SUMMARY ---
General - Admit/Disc Date/PCP Admission Date/Primary Care Provider: 01/22/18 23:41 GALILEA HATCH DO Discharge Date: 01/29/18 - Discharge Diagnosis (1) Hypomagnesemia Is this a current diagnosis for this admission?: Yes (2) Acute alcoholic hallucinosis Is this a current diagnosis for this admission?: Yes (3) Depression Is this a current diagnosis for this admission?: Yes (4) Encounter for alcohol rehabilitation Is this a current diagnosis for this admission?: Yes (5) HTN (hypertension) Is this a current diagnosis for this admission?: Yes - Additional Information Resuscitation Status: Full Code Home Medications: Clopidogrel Bisulfate [Clopidogrel] 75 mg PO DAILY 12/25/17 Dexlansoprazole [Dexilant 60 mg Capsule] 60 mg PO DAILY 12/25/17 Oxycodone HCl/Acetaminophen [Percocet 10-325 mg Tablet] 1 tab PO BIDP PRN Ropinirole HCl 0.25 mg PO QHS 12/25/17 Sertraline HCl 150 mg PO QAM 12/25/17 Baclofen [Baclofen 10 mg Tablet] 5 mg PO Q8 #60 tablet 01/05/18 Metoprolol Succinate [Toprol Xl 50 mg Tab.sr] 50 mg PO DAILY@1200 #30 tab.sr.24h 01/05/18 Rivaroxaban [Xarelto 10 mg Tablet] 20 mg PO DAILY tablet 01/05/18 Quetiapine Fumarate [Seroquel 100 mg Tablet] 50 mg PO QHS 01/23/18 Thiamine Mononitrate [Vitamin B-1] 100 mg PO TID 01/23/18 History of Present Illness Admission Date/PCP: 01/22/18 23:41 GALILEA HATCH DO Patient complains of: Alcohol related psychosis History of Present Illness: BRENDA JENSEN is a 47 year old male with a history of severe ongoing alcohol abuse. Withdrawal delirium Fatty liver Gastritis Superior mesenteric artery stenosis Depression On chronic anticoagulation. He presented to the hospital on January 22 with acute alcohol intoxication abdominal pain and suicidal ideation. Serum alcohol was greater than 300, no signs of metabolic acidosis. The patient had been previously admitted 2 weeks ago requiring ICU care for severe alcohol withdrawal delirium. Upon admission he was reporting suicidal ideations and therefore was involuntarily committed. He was treated with IV fluids thiamine and benzodiazepines. Upon evaluation by the psychology service on January 28 it was noted that the patient denied any current suicidal or homicidal ideation. There is an absence of delusions and behavior was found to be congruent with an intact reality based presentation. It was recommended that IVC be rescinded. The patient is interested and willing to go to [facility] for substance abuse inpatient treatment, and is clear for discharge this morning. Hospital Course Hospital Course: As above. Physical Exam Vital Signs: Temp Pulse Resp BP Pulse Ox 97.5 F 68 16 107/65 100 01/29/18 08:15 01/29/18 08:15 01/29/18 08:15 01/29/18 08:15 01/29/18 08:15 Intake & Output 01/28/18 01/29/18 01/30/18 06:59 06:59 06:59 Intake Total 1798 1294 Balance 1798 1294 Weight 92.6 kg 93.2 kg General appearance: PRESENT: no acute distress Respiratory exam: PRESENT: symmetrical, unlabored Results Laboratory Results: 01/26/18 04:06 01/28/18 04:19 01/23/18 00:42 Troponin I < 0.012 Impressions: Chest X-Ray 01/22/18 17:35 IMPRESSION: NO ACUTE RADIOGRAPHIC FINDING IN THE CHEST. Transfer Plan - Time Spent with Patient Time spent with patient: Less than 30 Minutes Qualifiers - * PATIENT BEING DISCHARGED WITH ANY OF THE FOLLOWING DIAGNOSIS: No Plan Time Spent: Greater than 30 Minutes
[2018-01-29] MEDS: THIAMINE HCL 100 MG, FOLIC ACID 1 MG in NORMAL SALINE 250 ML IV SCH (10:30)
[2018-01-29] MEDS: LANSOPRAZOLE 30 MG TAB.RAP.DR PO SCH (10:31)
[2018-01-29] MEDS: RIVAROXABAN 10 MG TABLET PO SCH (10:32)
[2018-01-29] MEDS: CLOPIDOGREL BISULFATE 75 MG TABLET PO SCH (10:33)
[2018-01-29] MEDS: SERTRALINE HCL 50 MG TABLET PO SCH (10:33)
[2018-01-29] MEDS: DOCUSATE SODIUM 100 MG CAPSULE PO SCH (10:34)
[2018-01-29 12:27] VITALS: BP 121/82
[2018-01-29] MEDS: METOPROLOL SUCCINATE 50 MG TAB.SR.24H PO SCH (13:16)
== END 2018-01-29 15:12 | DRG 897 ==
LOC: ER 16:47 → EH 23:41 → 5 01-23 02:23
PROVIDERS: ADMIT Internal Medicine; ATTEND Internal Medicine
PROC: 3E0F73Z Introduction of Anti-inflammatory into Respiratory Tract, Via Natural or Artificial Opening (ICD-10-PCS; principal; 2018-01-23)
DX: F10.231 Alcohol dependence with withdrawal delirium (principal); K55.1 Chronic vascular disorders of intestine; R45.851 Suicidal ideations; F10.251 Alcohol dependence with alcohol-induced psychotic disorder with hallucinations; F10.221 Alcohol dependence with intoxication delirium; K29.20 Alcoholic gastritis without bleeding; Y90.8 Blood alcohol level of 240 mg/100 ml or more; E83.42 Hypomagnesemia; F32.9 Major depressive disorder, single episode, unspecified; I10 Essential (primary) hypertension; K70.0 Alcoholic fatty liver; F10.229 Alcohol dependence with intoxication, unspecified; E78.00 Pure hypercholesterolemia, unspecified; K21.9 Gastro-esophageal reflux disease without esophagitis; K44.9 Diaphragmatic hernia without obstruction or gangrene; F17.210 Nicotine dependence, cigarettes, uncomplicated; F41.9 Anxiety disorder, unspecified; Z79.899 Other long term (current) drug therapy; Z79.01 Long term (current) use of anticoagulants; Z85.828 Personal history of other malignant neoplasm of skin; Z83.3 Family history of diabetes mellitus; Z82.49 Family history of ischemic heart disease and other diseases of the circulatory system
CPT/HCPCS: 36415; 71045; 80053; 80069; 80307; 82550; 82553; 83690; 83735; 84100; 84484; 85025; 85027; 93005; 93010; 99285; J1170; J1885; J2060; J3411; J3475; J3490; J7030; J7050; S0164

== ENCOUNTER 2018-03-16 18:26 | Emergency (ER) | payer BC ==
[2018-03-16] MEDS ORDERED: FENTANYL CITRATE INJ/PF 100 MCG/2 ML AMPUL IM ONE (18:51)
[2018-03-16] MEDS ORDERED: ONDANSETRON 4 MG TAB.RAPDIS PO ONE (18:51)
--- NOTE | 2018-03-16 18:53 | ER Document Report ---
ED Medical Screen (RME) - General Chief Complaint: Abdominal Pain Stated Complaint: ABDOMINAL PAIN Time Seen by Provider: 03/16/18 18:47 Notes: RAPID MEDICAL EVALUATION DISCLOSURE I have seen this patient as part of a Rapid Medical Evaluation and, if applicable, placed any initially appropriate orders. The patient will be seen and fully evaluated, including a full history and physical exam, by a provider ( in Main ED or Fast Track) when a room becomes available. 48-year-old male PMH gallbladder sludge mesenteric artery stent here with complaints of right upper quadrant abdominal pain nausea vomiting ongoing for the past 2 hours. He states that the pain hit him immediately after he ate a granola bar. The pain has actually been intermittently ongoing for the past 2 months. He was seen in [place] and told he needed to have his gallbladder taken out however they will not take out his gallbladder until his vascular surgeon will clear him for the surgery. EXAM Mild to moderate epigastric and right upper quadrant TTP No [place] sign TRAVEL OUTSIDE OF THE [place] 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 Squamous cell carcinoma removed from the hand., Other - Exploratory laparotomy, superior mesenteric artery thrombectomy; sstent SMA - Immunizations Hx Diphtheria, Pertussis, Tetanus Vaccination: Yes - unknowon Physical Exam - Vital signs Vitals: Temp Pulse Resp BP Pulse Ox 98.5 F 88 20 129/79 H 98 03/16/18 18:31 03/16/18 18:31 03/16/18 18:31 03/16/18 18:31 03/16/18 18:31 Course - Vital Signs Vital signs: Temp Pulse Resp BP Pulse Ox 98.5 F 88 20 129/79 H 98 03/16/18 18:31 03/16/18 18:31 03/16/18 18:31 03/16/18 18:31 03/16/18 18:31 Doctor's Discharge - Discharge Referrals: KIM VANG MD [Primary Care Provider] - Follow up as needed
[2018-03-16 19:23] LABS: ABSOLUTE BASOPHILS # (AUTO) 0.1 10^3/uL (0.0-0.2); ABSOLUTE EOSINOPHILS # (AUTO) 0.2 10^3/uL (0.0-0.6); ABSOLUTE LYMPHOCYTES (AUTO) 2.8 10^3/uL (0.5-4.7); ABSOLUTE MONOCYTES (AUTO) 1.1 10^3/uL (0.1-1.4); ABSOLUTE NEUT (AUTO) 7.4 10^3/uL (1.7-8.2); BASOPHILS % (AUTO) 0.6 % (0-2); EOSINOPHILS % (AUTO) 1.3 % (0-6); HEMATOCRIT 25.7 % (37.9-51.0); HEMOGLOBIN 8.5 g/dL (13.5-17.0); LYMPHOCYTES % (AUTO) 24.2 % (13-45); MEAN CORPUSCULAR HEMOGLOBIN 24.9 pg (27.0-33.4); MEAN CORPUSCULAR HGB CONC 33.1 g/dL (32.0-36.0); MEAN CORPUSCULAR VOLUME 75 fl (80-97); MONOCYTES % (AUTO) 9.7 % (3-13); PLATELET COUNT 514 10^3/uL (150-450); RED BLOOD COUNT 3.41 10^6/uL (4.35-5.55); RED CELL DISTRIBUTION WIDTH 24.8 % (11.5-14.0); SEGMENTED NEUTROPHILS % (AUTO) 64.2 % (42-78); TOTAL CELLS COUNTED % (AUTO) 100 %; WHITE BLOOD COUNT 11.6 10^3/uL (4.0-10.5)
[2018-03-16 19:30] LABS: APPEARANCE,URINE CLEAR; BILIRUBIN,URINE NEGATIVE (NEGATIVE); COLOR,URINE YELLOW; GLUCOSE, URINE NEGATIVE (NEGATIVE); KETONES,URINE NEGATIVE (NEGATIVE); LEUKOCYTE ESTERASE,URINE NEGATIVE (NEGATIVE); NITRITE,URINE NEGATIVE (NEGATIVE); PROTEIN,URINE NEGATIVE (NEGATIVE); URINE SPECIFIC GRAVITY 1.008; UROBILINOGEN,URINE NEGATIVE mg/dL (<2.0)
[2018-03-16 19:32] LABS: ALANINE AMINOTRANSFERASE 14 U/L (21-72); ALBUMIN 4.1 g/dL (3.5-5.0); ALKALINE PHOSPHATASE 94 U/L (38-126); ANION GAP 13 (5-19); ASPARTATE AMINO TRANSFERASE 25 U/L (17-59); BILIRUBIN,DIRECT 0.3 mg/dL (0.0-0.4); BILIRUBIN,TOTAL 0.3 mg/dL (0.2-1.3); BLOOD UREA NITROGEN 9 mg/dL (7-20); CALCIUM 9.4 mg/dL (8.4-10.2); CARBON DIOXIDE 25 mmol/L (22-30); CHLORIDE 95 mmol/L (98-107); GLUCOSE 83 mg/dL (75-110); LIPASE 104.7 U/L (23-300); POTASSIUM 3.3 mmol/L (3.6-5.0); SODIUM 133.2 mmol/L (137-145); TOTAL PROTEIN 7.5 g/dL (6.3-8.2)
[2018-03-16 19:57] LABS: ANISOCYTOSIS 3+; HYPOCHROMASIA SLIGHT
[2018-03-16 19:58] LABS: OVALOCYTES SLIGHT; PLATELET CLUMPS PRESENT; PLATELET COMMENT INCREASED; PLATELET GIANT PRESENT; PLATELET LARGE PRESENT
--- NOTE | 2018-03-16 21:13 | RADIOLOGY REPORT (SQ) ---
EXAM DESCRIPTION: U/S ABDOMEN LIMITED W/O DOP COMPLETED DATE/TIME: 03/16/2018 8:54 pm REASON FOR STUDY: RUQ pain after eating; stones? cholecystitis? COMPARISON: None. TECHNIQUE: Dynamic and static grayscale images acquired of the abdomen and recorded on PACS. Suha okeefe selected color Doppler and spectral images recorded. LIMITATIONS: None. FINDINGS: PANCREAS: Not visualized. LIVER: No masses. Echotexture normal. LIVER VASCULATURE: Normal directional flow of the main portal vein and hepatic veins. GALLBLADDER: Sludge with wall thickening at 4.1 mm. ULTRASOUND-DETECTED ANDREWS'S SIGN: Positive. INTRAHEPATIC DUCTS AND COMMON DUCT: CBD and intrahepatic ducts normal caliber. No filling defects. INFERIOR VENA CAVA: Normal flow. AORTA: Partially none visualized. No mid aortic aneurysm evident. RIGHT KIDNEY: Normal size. Normal echogenicity. No solid or suspicious masses. No hydronephrosis. No calcifications. PERITONEAL AND RIGHT PLEURAL SPACE: No ascites or effusions. OTHER: No other significant findings. IMPRESSION: Sludge in the gallbladder. Wall thickening with reportedly positive sonographic Andrews' s sign. This may reflect cholecystitis. TECHNICAL DOCUMENTATION: JOB ID: [id number] [employer]- All Rights Reserved Reading location - IP/workstation name: [email or web address]
--- NOTE | 2018-03-16 21:30 | ER Document Report ---
ED General - General Chief Complaint: Abdominal Pain Stated Complaint: ABDOMINAL PAIN Time Seen by Provider: 03/16/18 18:47 Mode of Arrival: Ambulatory Information source: Patient Notes: 48 yr old male with known gallbladder disease presents with complaints of RUQ pain that worsened today. Pt dneies any fevers or chills admits ot nausea. pt is noted to have hx of mesenteric artery clots with stenting who had a recent hida scan and had appt for surgery but needed clearance from surgeon before he can have the gallbladder removed. TRAVEL OUTSIDE OF THE [place] IN LAST 30 DAYS: No - HPI Onset: Other - Intermittent over 1 month duration Onset/Duration: Waxing and waning Quality of pain: Sharp Severity: Moderate Pain Level: 2 Associated symptoms: Nausea, Other Exacerbated by: Denies Relieved by: Denies Similar symptoms previously: Yes Recently seen / treated by doctor: Yes - Related Data Allergies/Adverse Reactions: No Known Allergies Allergy (Verified 01/22/18 16:52) Past Medical History - Social History Smoking Status: Current Every Day Smoker Cigarette use (# per day): Yes Chew tobacco use (# tins/day): No Smoking Education Provided: No Frequency of alcohol use: None Drug Abuse: None Family History: CAD, DM, Reviewed & Not Pertinent Patient has suicidal ideation: No Patient has homicidal ideation: No - Past Medical History Cardiac Medical History: Reports: Hx Hypercholesterolemia, Hx Hypertension Renal/ Medical History: Denies: Hx Peritoneal Dialysis Malignancy Medical History: Reports Hx Skin Cancer - 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 Squamous cell carcinoma removed from the hand., Other - Exploratory laparotomy, superior mesenteric artery thrombectomy; sstent SMA - Immunizations Hx Diphtheria, Pertussis, Tetanus Vaccination: Yes - unknowon Review of Systems - Review of Systems Notes: REVIEW OF SYSTEMS: CONSTITUTIONAL : Denies fever, chills, or sweats. Denies recent illness. EENT: Denies eye, ear, throat, or mouth pain or symptoms. Denies nasal or sinus congestion or discharge. Denies throat, tongue, or mouth swelling or difficulty swallowing. CARDIOVASCULAR: Denies chest pain. Denies palpitations or racing or irregular heart beat. Denies ankle edema. RESPIRATORY: Denies cough, cold, or chest congestion. Denies shortness of breath, difficulty breathing, or wheezing. GASTROINTESTINAL: Admits to abdominal pain GENITOURINARY: Denies difficulty urinating, painful urination, burning, frequency, blood in urine, or discharge. MUSCULOSKELETAL: Denies back or neck pain or stiffness. Denies joint pain or swelling. SKIN: Denies rash, lesions or sores. HEMATOLOGIC : Denies easy bruising or bleeding. LYMPHATIC: Denies swollen, enlarged glands. NEUROLOGICAL: Denies confusion or altered mental status. Denies passing out or loss of consciousness. Denies dizziness or lightheadedness. Denies headache. Denies weakness or paralysis or loss of use of either side. Denies problems with gait or speech. Denies sensory loss, numbness, or tingling. Denies seizures. PSYCHIATRIC: Denies anxiety or stress. Denies depression, suicidal ideation, or homicidal ideation. ALL OTHER SYSTEMS REVIEWED AND NEGATIVE. Dictation was performed using [employer] voice recognition software PHYSICAL EXAMINATION: GENERAL: Well-appearing, well-nourished and in no acute distress. HEAD: Atraumatic, normocephalic. EYES: Pupils equal round and reactive to light, extraocular movements intact, sclera anicteric, conjunctiva are normal. ENT: Nares patent, oropharynx clear without exudates. Moist mucous membranes. NECK: Normal range of motion, supple without lymphadenopathy LUNGS: Breath sounds clear to auscultation bilaterally and equal. No wheezes rales or rhonchi. HEART: Regular rate and rhythm without murmurs ABDOMEN: Soft, tender with guarding right upper quadrant. Musculoskeletal: Normal range of motion, no pitting or edema. No cyanosis. NEUROLOGICAL: Cranial nerves grossly intact. Normal speech, normal gait. Normal sensory, motor exams PSYCH: Normal mood, normal affect. SKIN: Warm, Dry, normal turgor, no rashes or lesions noted. Physical Exam - Vital signs Vitals: Temp Pulse Resp BP Pulse Ox 98.5 F 88 20 129/79 H 98 03/16/18 18:31 03/16/18 18:31 03/16/18 18:31 03/16/18 18:31 03/16/18 18:31 Course - Re-evaluation Re-evalutation: 03/16/18 21:39 Patient appears to be in significant pain from his, ultrasound noted sludge with wall thickening, patient appears to have acute cholecystitis, my concern is that the patient will require surgery I did talk to my surgical his request transferred to [facility] given the extensive nature of the patient's case [email or web address] was paged awaiting callback 03/16/18 22:[address] Sampson, he notes that he will accept pending bed opening. [facility] notes they have 1 bed open, but will defer till more beds are open in the morning. 03/16/18 23:[address] Duke he graciously will admit the patient awaiting transfer - Vital Signs Vital signs: Temp Pulse Resp BP Pulse Ox 98.5 F 88 20 129/79 H 98 03/16/18 18:31 03/16/18 18:31 03/16/18 18:31 03/16/18 18:31 03/16/18 18:31 - Laboratory Result Diagrams: 03/16/18 19:00 03/16/18 19:00 Laboratory results interpreted by me: 03/16/18 03/16/18 19:00 19:00 WBC 11.6 H RBC 3.41 L Hgb 8.5 L Hct 25.7 L MCV 75 L MCH 24.9 L RDW 24.8 H Plt Count 514 H Sodium 133.2 L Potassium 3.3 L Chloride 95 L ALT 14 L Discharge - Discharge Clinical Impression: RUQ pain Condition: Stable Disposition: ADMITTED OBSERVATION Admitting Provider: Surgicalist Unit Admitted: Surgical Floor Referrals: KIM VANG MD [NO LOCAL MD] - Follow up as needed
[2018-03-16] MEDS ORDERED: HYDROMORPHONE HCL INJ/PF 2 MG/ML AMPULE IV ONE ×2 (21:31→23:08)
[2018-03-16] MEDS ORDERED: METOCLOPRAMIDE HCL INJ/PF 10 MG/2 ML SDV IV ONE (21:31)
[2018-03-16] MEDS: NORMAL SALINE 1000 ML 1,000 ML IV PRN ×2 (21:47→21:48)
[2018-03-16] MEDS ORDERED: PIPERACILLIN/TAZOBACTAM 3.375 GM VIAL IV ONE (22:50)
[2018-03-16] MEDS ORDERED: NORMAL SALINE 1000 ML 1,000 ML IV ONE (23:39)
[2018-03-16 23:42] LABS: INTERNATIONAL RATION (INR) 1.17; PROTHROMBIN TIME 15.5 SEC (11.4-15.4)
[2018-03-17 00:33] VITALS: BP 104/62
== END 2018-03-17 00:30 | disposition short-term general hospital (02) ==
LOC: ER 18:26
DX: R10.11 Right upper quadrant pain (principal); F17.210 Nicotine dependence, cigarettes, uncomplicated; E78.00 Pure hypercholesterolemia, unspecified; I10 Essential (primary) hypertension
CPT/HCPCS: 99285; 96372; 96361; 96374; 36415; 83605; 83690; 85025; 85610; 80053; 81001; 76705; S0119; J3010; J2765; J1170; J7030; J2543

== ENCOUNTER 2018-03-30 22:51 | Emergency (ER) | payer OTHER, BC ==
[2018-03-30] MEDS ORDERED: NORMAL SALINE 1000 ML 1,000 ML IV ONE ×2 (23:02→23:28)
--- NOTE | 2018-03-30 23:07 | ER Document Report ---
ED General - General Stated Complaint: ABDOMINAL PAIN Time Seen by Provider: 03/30/18 22:54 Notes: Patient is a 48-year-old male who presents with complaint of severe right upper quadrant abdominal pain. Nausea and vomiting. No diarrhea. Patient has known cholecystitis. He was actually seen here approximately 2 weeks ago. 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 He stated that findings for several days and they discharged him because he did not want to surgery immediately due to infection and the fact that the mesenteric stent was just placed a month ago and they want to try and wait little bit longer before taking off the blood thinners to do the surgery. He is on Xarelto. He has been taking all his medications as prescribed. He is also on Augmentin because of the recent history of cholecystitis. Patient and his said that since he has been discharged he has been having pain but in the last 24 hours pain has become very severe and unbearable. TRAVEL OUTSIDE OF THE [place] 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 Squamous cell carcinoma removed from the hand., Other - Exploratory laparotomy, superior mesenteric artery thrombectomy; sstent SMA - Immunizations Hx Diphtheria, Pertussis, Tetanus Vaccination: Yes - unknowon Review of Systems - Review of Systems Notes: My Normal Review Basic REVIEW OF SYSTEMS: CONSTITUTIONAL : Denies fever, chills, or sweats. Denies recent illness. RESPIRATORY: Denies cough, cold, or chest congestion. Denies shortness of breath, difficulty breathing, or wheezing. GASTROINTESTINAL: Right upper quadrant abdominal pain. Nausea. GENITOURINARY: Denies difficulty urinating, painful urination, burning, frequency, or blood in urine. MUSCULOSKELETAL: Denies neck or back pain or joint pain or swelling. SKIN: Denies rash or skin lesions. NEUROLOGICAL: Denies altered mental status or loss of consciousness. Denies headache. Denies weakness or paralysis or loss of use of either side. Denies problems with gait or speech. Denies sensory or motor loss. ALL OTHER SYSTEMS REVIEWED AND NEGATIVE. Physical Exam - Vital signs Vitals: Temp Pulse Resp BP Pulse Ox 97 F L 72 18 119/62 100 03/30/18 22:51 03/30/18 22:51 03/30/18 22:51 03/30/18 22:51 03/30/18 22:51 - Notes Notes: General Appearance: Well nourished, alert, cooperative, no acute distress, moderate to severe obvious discomfort. Vitals: reviewed, See vital signs table. Head: no swelling or tenderness to the head Eyes: PERRL, EOMI, Conjuctiva clear Mouth: No decreasd moisture Lungs: No wheezing, No rales, No rhonci, No accessory muscle use, good air exchange bilaterally. Heart: Normal rate, Regular rythm, No murmur, no rub Abdomen: Normal BS, soft, No rigidity, vision is large amount tenderness in the right upper quadrant. The remainder his abdomen is only minimally tender., Guarding of her right upper quadrant., no rebound, no abdominal masses, no organomegaly Extremities: strength 5/5 in all extremities, good pulses in all extremities, no swelling or tenderness in the extremities, no edema. Skin: warm, dry, appropriate color, no rash Neuro: speech clear, oriented x 3, normal affect, responds appropriately to questions. Course - Re-evaluation Re-evalutation: 03/31/18 00:24 Patient continues to have intermittent stabbing pain in right upper quadrant. Abdomen exam is unchanged. I have ordered some fentanyl. I talked the nurses of the ski technician is now on the way down to do the ultrasound. I have ordered replacement potassium. Blood pressure has continued to hover in the 80s and 90s systolically. 03/31/18 04:37 Patient's pain is actually controlled for the first time now after many doses of pain medicine over several hours. Blood pressure remains systolically anywhere from the low 80s to low 90s. Currently his blood pressure is 93/60. His blood pressure seems to be holding little bit better after receiving the unit of blood. I did speak with the transfer center at [facility]. They had me speak with the surgeon, Dr. Mack. He agrees patient needs to be transported. The exact cause of the patient's pain and intermittent hypotension is not 100% clear this time. He denies any bed availability and therefore they will bring him in as an ER to ER transfer and therefore we spoke with Dr. Taylor, the emergency physician at [facility], who agrees to accept the patient. I did speak with Dr. Mack at this time it is best to continue to treat the hypertension with fluid boluses and try to avoid pressor therapy due to the patient's history of mesenteric ischemia. - Vital Signs Vital signs: Temp Pulse Resp BP Pulse Ox 98.4 F 62 15 100/69 99 03/31/18 09:00 03/31/18 03:10 03/31/18 09:00 03/31/18 08:54 03/31/18 09:00 - Laboratory Result Diagrams: 03/30/18 22:45 03/30/18 23:10 Laboratory results interpreted by me: 03/30/18 03/30/18 03/30/18 22:45 22:45 23:10 RBC 3.44 L Hgb 7.9 L Hct 24.5 L MCV 71 L D MCH 23.1 L RDW 23.3 H PT 15.5 H APTT 38.4 H Sodium 125.5 L Potassium 2.8 L* Chloride 86 L Magnesium Crossmatch 03/30/18 03/31/18 23:10 00:09 RBC Hgb Hct MCV MCH RDW PT APTT Sodium Potassium Chloride Magnesium 1.3 L Crossmatch See Detail - EKG Interpretation by Me Additional EKG results interpreted by me: 03/30/18 23:16 EKG is reviewed and interpreted by me. EKG shows sinus rhythm with rate of [address] segment elevation or depression. No ischemic T-wave inversions. AL interval is within normal range. QRS duration is borderline. QTc interval is prolonged. Old EKG for comparison is from January 22, 2018. Patient does have some small Q waves in inferior leads but these are unchanged comparison to his previous EKG. Critical Care Note - Critical Care Note Total time excluding time spent on procedures (mins): 45 Comments: Vehicle care time for this patient not including time spent on procedures approximately 45 minutes due to frequent re-evaluations and management of the patient's recurrent hypotension. Discharge - Discharge Referrals: GALILEA HATCH, [Primary Care Provider] - Follow up as needed
[2018-03-30] MEDS ORDERED: ONDANSETRON HCL INJ/PF 4 MG/2 ML SDV IV ONE (23:08)
[2018-03-30] MEDS ORDERED: HYDROMORPHONE HCL INJ/PF 2 MG/ML AMPULE IV ONE (23:08)
[2018-03-30] MEDS ORDERED: ERTAPENEM SODIUM INJ 1 GM VIAL IV ONE (23:29)
[2018-03-30 23:39] LABS: ABSOLUTE BASOPHILS # (AUTO) 0.1 10^3/uL (0.0-0.2); ABSOLUTE EOSINOPHILS # (AUTO) 0.2 10^3/uL (0.0-0.6); ABSOLUTE LYMPHOCYTES (AUTO) 2.5 10^3/uL (0.5-4.7); ABSOLUTE MONOCYTES (AUTO) 0.7 10^3/uL (0.1-1.4); ABSOLUTE NEUT (AUTO) 5.7 10^3/uL (1.7-8.2); BASOPHILS % (AUTO) 0.7 % (0-2); EOSINOPHILS % (AUTO) 1.9 % (0-6); HEMATOCRIT 24.5 % (37.9-51.0); LYMPHOCYTES % (AUTO) 27.2 % (13-45); MEAN CORPUSCULAR HEMOGLOBIN 23.1 pg (27.0-33.4); MEAN CORPUSCULAR HGB CONC 32.4 g/dL (32.0-36.0); MONOCYTES % (AUTO) 7.8 % (3-13); PLATELET COUNT 434 10^3/uL (150-450); RED BLOOD COUNT 3.44 10^6/uL (4.35-5.55); RED CELL DISTRIBUTION WIDTH 23.3 % (11.5-14.0); SEGMENTED NEUTROPHILS % (AUTO) 62.4 % (42-78); TOTAL CELLS COUNTED % (AUTO) 100 %
[2018-03-30 23:41] LABS: HEMOGLOBIN 7.9 g/dL (13.5-17.0)
[2018-03-30 23:44] LABS: INTERNATIONAL RATION (INR) 1.17; PROTHROMBIN TIME 15.5 SEC (11.4-15.4)
[2018-03-30 23:45] LABS: PARTIAL THROMBOPLASTIN TIME 38.4 SEC (23.5-35.8)
[2018-03-30 23:48] LABS: ALANINE AMINOTRANSFERASE 26 U/L (21-72); ALBUMIN 3.7 g/dL (3.5-5.0); ALKALINE PHOSPHATASE 62 U/L (38-126); ANION GAP 13 (5-19); ASPARTATE AMINO TRANSFERASE 29 U/L (17-59); BILIRUBIN,DIRECT 0.2 mg/dL (0.0-0.4); BILIRUBIN,TOTAL 0.4 mg/dL (0.2-1.3); BLOOD UREA NITROGEN 10 mg/dL (7-20); CALCIUM 8.7 mg/dL (8.4-10.2); CARBON DIOXIDE 27 mmol/L (22-30); CHLORIDE 86 mmol/L (98-107); GLUCOSE 93 mg/dL (75-110); LIPASE 69.1 U/L (23-300); SODIUM 125.5 mmol/L (137-145); TOTAL PROTEIN 6.6 g/dL (6.3-8.2)
[2018-03-30 23:49] LABS: MEAN CORPUSCULAR VOLUME 71 fl (80-97)
[2018-03-30 23:55] LABS: POTASSIUM 2.8 mmol/L (3.6-5.0)
[2018-03-31] MEDS ORDERED: FENTANYL CITRATE INJ/PF 100 MCG/2 ML AMPUL IV ONE ×2 (00:14→03:27)
[2018-03-31] MEDS ORDERED: NORMAL SALINE 250 ML IV PRN (00:29)
[2018-03-31] MEDS: POTASSI CL 20 MEQ/50 ML RIDER 20 MEQ/50 ML RTUPB IV SCH ×2 (00:31→02:47)
[2018-03-31 01:05] LABS: APPEARANCE,URINE CLEAR; BILIRUBIN,URINE NEGATIVE (NEGATIVE); COLOR,URINE STRAW; GLUCOSE, URINE NEGATIVE (NEGATIVE); KETONES,URINE NEGATIVE (NEGATIVE); LEUKOCYTE ESTERASE,URINE NEGATIVE (NEGATIVE); NITRITE,URINE NEGATIVE (NEGATIVE); PROTEIN,URINE NEGATIVE (NEGATIVE); URINE SPECIFIC GRAVITY 1.004; UROBILINOGEN,URINE NEGATIVE mg/dL (<2.0)
--- NOTE | 2018-03-31 01:21 | RADIOLOGY REPORT (SQ) ---
EXAM DESCRIPTION: US ABDOMEN DOPPLER LIMITED COMPLETED DATE/TME: 03/30/2018 23:01 CLINICAL HISTORY: 48 years Male, RUQ pain Comparison: None. LIMITATIONS: Bowel gas artifact. FINDINGS: Gallbladder, negative sonographic Meadows's test, liver, a 0.3-cm diameter common bile duct, no intrahepatic ductal dilation, 12-cm right kidney, partially obscured pancreas, visualized vasculature/abdominal aorta, and no significant ascites appear otherwise unremarkable. Patient has history of SMA stent, not visualized likely due to bowel gas artifact. IMPRESSION: No acute findings.
--- NOTE | 2018-03-31 02:52 | RADIOLOGY REPORT (SQ) ---
EXAM DESCRIPTION: CT ABDOMEN PELVIS WITHOUT THEN WITH IV CONTRAST COMPLETED DATE/TME: 03/31/2018 01:42 CLINICAL HISTORY: 48 years Male, abdominal pain. Hx of mesentery stenting. Comparison: 4.27.18 Technique: Pre and post IV contrast. Coronal and sagittal reformat. 3-D reformat This exam was performed according to our departmental dose-optimization program, which includes automated exposure control, adjustment of the mA and/or kV according to patient size and/or use of iterative reconstruction technique.[facility]: Dose Right [facility]: CareDose [facility]: Dose Right [facility]: Teradose 4D [facility]: [employer] [facility] LIMITATIONS: None Findings: Moderate disc desiccation at L4-L5, atherosclerosis, large intragastric contents including chronic metallic clips or foreign body at the inferior aspect of the fundus, SMA stent, atherosclerosis, ventral abdominal wall defects with fat only hernia measuring up to 2 cm, mild bilateral perinephric fat stranding, normal appendix, mild retroperitoneal lymphadenopathy, mild stenosis of the right common iliac artery with eccentric thrombus, CTA patency of the mesenteric and celiac vessels. No ascites. Inferior thorax, liver, gallbladder, pancreas, spleen, adrenals, renal system, gastrointestinal tract, pelvic organs, vasculature, and musculoskeleton appear otherwise unremarkable. IMPRESSION: No acute findings. Superior mesenteric arterial stent.
--- NOTE | 2018-03-31 08:58 | ER Document Report ---
Doctor's Note Notes: 03/31/18 08:58 Patient was being transferred out to [facility]. I laid eyes on the patient required she is resting comfortably. Blood pressure was 90 systolic. He is stable for transfer. Helicopter is here paperwork was reviewed and signed.
[2018-03-31 09:11] VITALS: BP 100/69
--- NOTE | 2018-03-31 21:55 | EKG REPORT ---
SEVERITY:- ABNORMAL ECG - SINUS RHYTHM BORDERLINE INFERIOR Q WAVES BORDERLINE T ABNORMALITIES, ANT-LAT LEADS PROLONGED QT INTERVAL : Confirmed by: Lorne Hanson 31-Mar-2018 21:54:44
== END 2018-03-31 09:10 | disposition short-term general hospital (02) ==
LOC: ER 22:51
DX: R10.11 Right upper quadrant pain (principal); R11.2 Nausea with vomiting, unspecified; E78.00 Pure hypercholesterolemia, unspecified; I10 Essential (primary) hypertension; Z79.02 Long term (current) use of antithrombotics/antiplatelets
CPT/HCPCS: 93005; 99291; 96361; 96374; 86900; 86901; 36415; 87040; 36430; 86850; 83605; 83690; 83735; 85025; 85610; 85730; 80053; 81001; 86920; 76705; 93976; 93010; P9016; J1335; J1170; J2405; J7030

== ENCOUNTER → 2019-02-04 | Outpatient (CLI) | payer BC ==
--- NOTE | 2019-02-04 11:26 | RADIOLOGY REPORT (SQ) ---
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 TECHNIQUE: Coronal and Axial imaging with T1 and T2 weighting through the abdomen. Serial contrast e nhanced imaging in the coronal and axial planes. 3-D MIPs performed at the work station. CONTRAST TYPE AND DOSE: 20 mL Dotarem. RENAL FUNCTION: Not indicated. ACR Type II contrast agent associated with few, if any, unconfounded cases of NSF LIMITATIONS: Motion artifact. Artifact related to stent in the SMA. There may also be a stent in t he celiac axis. FINDINGS: AORTA AND ILIAC ARTERIES:Normal caliber aorta. Iliac arteries patent as assessed. MESENTERIC VESSELS:Poorly assessed. Artifact in the SMA with mild flow seen distal to this. Celiac axis is not seen on the reconstructed views. On the source images, artifact suggests a stent in the celiac axis. CT from last year shows stent only in the SMA. RENAL ARTERIES:No significant finding or stenosis. ABDOMINAL ORGANS: Limited evaluation. No gross pathology. BONY STRUCTURES: Limited evaluation. No gross pathology. OTHER: No other significant finding. IMPRESSION: Limited study for mesenteric artery evaluation. Known stent in the SMA with suboptimal valuation of patency. Possible stent in the celiac axis since last year's CT. CT study better evalu ates the mesenteric arteries in the setting of stents. TECHNICAL DOCUMENTATION: JOB ID: [id number]- All Rights Reserved Reading location - IP/workstation name: [email or web address]
== END ==
LOC: RAD 08:14
PROVIDERS: ATTEND Internal Medicine
DX: I77.1 Stricture of artery (principal); R19.7 Diarrhea, unspecified
CPT/HCPCS: 82565; A9576; C8902

== ENCOUNTER 2019-04-13 20:13 | Observation (INO) | payer BC ==
[2019-04-13] MEDS ORDERED: MORPHINE SULFATE 10 MG/ML INJ IV ONE (20:46)
[2019-04-13] MEDS ORDERED: ONDANSETRON HCL INJ/PF 4 MG/2 ML SDV IV ONE (20:46)
[2019-04-13] MEDS ORDERED: RINGERS SOLUTION,LACTATED 1,000 ML IV ONE (20:46)
[2019-04-13 21:04] LABS: ABSOLUTE BASOPHILS # (AUTO) 0.1 10^3/uL (0.0-0.2); ABSOLUTE EOSINOPHILS # (AUTO) 0.1 10^3/uL (0.0-0.6); ABSOLUTE LYMPHOCYTES (AUTO) 2.5 10^3/uL (0.5-4.7); ABSOLUTE MONOCYTES (AUTO) 0.7 10^3/uL (0.1-1.4); ABSOLUTE NEUT (AUTO) 4.4 10^3/uL (1.7-8.2); BASOPHILS % (AUTO) 1.1 % (0-2); EOSINOPHILS % (AUTO) 1.6 % (0-6); LYMPHOCYTES % (AUTO) 32.4 % (13-45); MEAN CORPUSCULAR HEMOGLOBIN 18.6 pg (27.0-33.4); MEAN CORPUSCULAR HGB CONC 30.7 g/dL (32.0-36.0); MONOCYTES % (AUTO) 9.3 % (3-13); PLATELET COUNT 269 10^3/uL (150-450); RED BLOOD COUNT 3.64 10^6/uL (4.35-5.55); RED CELL DISTRIBUTION WIDTH 21.5 % (11.5-14.0); SEGMENTED NEUTROPHILS % (AUTO) 55.6 % (42-78); TOTAL CELLS COUNTED % (AUTO) 100 %; WHITE BLOOD COUNT 7.9 10^3/uL (4.0-10.5)
[2019-04-13 21:13] LABS: ALBUMIN 4.1 g/dL (3.5-5.0); ALKALINE PHOSPHATASE 70 U/L (38-126); ANION GAP 12 (5-19); ASPARTATE AMINO TRANSFERASE 70 U/L (17-59); BILIRUBIN,DIRECT 0.3 mg/dL (0.0-0.4); BILIRUBIN,TOTAL 0.5 mg/dL (0.2-1.3); BLOOD UREA NITROGEN 5 mg/dL (7-20); CALCIUM 8.7 mg/dL (8.4-10.2); CARBON DIOXIDE 20 mmol/L (22-30); CHLORIDE 100 mmol/L (98-107); POTASSIUM 3.9 mmol/L (3.6-5.0); TOTAL PROTEIN 6.8 g/dL (6.3-8.2)
[2019-04-13 21:16] LABS: GLUCOSE 66 mg/dL (75-110)
[2019-04-13 21:30] LABS: HEMOGLOBIN 6.8 g/dL (13.5-17.0)
[2019-04-13 21:31] LABS: MEAN CORPUSCULAR VOLUME 61 fl (80-97)
[2019-04-13 21:33] LABS: ANISOCYTOSIS 3+; HYPOCHROMASIA 4+; OVALOCYTES SLIGHT; POIKILOCYTOSIS 2+; POLYCHROMASIA 1+; SCHISTOCYTES SLIGHT; TARGET CELLS 1+; TEAR DROP CELLS SLIGHT
[2019-04-13 21:34] LABS: PLATELET COMMENT ADEQUATE
[2019-04-13] MEDS ORDERED: HYDROMORPHONE HCL INJ/PF 2 MG/ML AMPULE IV ONE ×3 (21:44→22:29)
[2019-04-13 22:27] LABS: URINE AMPHETAMINES SCREEN NEGATIVE; URINE BARBITURATES SCREEN NEGATIVE; URINE BENZODIAZEPINES SCREEN NEGATIVE; URINE COCAINE SCREEN NEGATIVE; URINE MARIJUANA (THC) SCREEN UNCONFIRMED POSITIVE; URINE METHADONE SCREEN NEGATIVE; URINE PHENCYCLIDINE SCREEN NEGATIVE
--- NOTE | 2019-04-13 22:42 | RADIOLOGY REPORT (SQ) ---
EXAM DESCRIPTION: CT ABDOMEN PELVIS WITH IV CONTRAST COMPLETED DATE/TME: 04/13/2019 20:47 CLINICAL HISTORY: 49 years, Male, Hx mesenteric thrombosis, severe abdominal pain COMPARISON: CT abdomen pelvis 03/31/2018 TECHNIQUE: Axial images of the abdomen and pelvis were performed utilizing intravenous contrast, with sagittal and coronal reformatted images. Images stored on PACS. All CT scanners at this facility use dose modulation, iterative reconstruction, and/or weight based dosing when appropriate to reduce radiation dose to as low as reasonably achievable (ALARA). [facility]: Dose Right [facility]: CareDose [facility]: Dose Right [facility]: Teradose 4D [facility]: [employer] LIMITATIONS: None. FINDINGS: The superior mesenteric artery stent is patent. There is no evidence of bowel dilatation. There is no evidence of mesenteric ischemia. The stomach is collapsed, limiting its evaluation. There is questionable gastric wall thickening. There are atherosclerotic changes involving the abdominal aorta, but there is no aneurysm. The appendix appears normal. There is diverticulosis without diverticulitis. There is no significant radiographic abnormality of the liver, spleen, pancreas, adrenal glands or kidneys. IMPRESSION: Questionable gastric wall thickening. A nonemergent upper GI series might prove helpful for further evaluation, if clinically warranted. No evidence of mesenteric ischemia. Other findings as described. TECHNICAL DOCUMENTATION: Quality ID # [id number]: Final reports with documentation of one or more dose reduction techniques (e.g., Automated exposure control, adjustment of the mA and/or kV according to patient size, use of iterative reconstruction technique) copyright 2011 [employer]- All Rights Reserved
[2019-04-13] MEDS ORDERED: PANTOPRAZOLE SODIUM 40 MG VIAL IV ONE (22:45)
--- NOTE | 2019-04-14 00:26 | ER Document Report ---
ED General - General Chief Complaint: Upper Abdominal Pain Stated Complaint: ABDOMINAL PAIN Time Seen by Provider: 04/13/19 20:39 TRAVEL OUTSIDE OF THE [place] IN LAST 30 DAYS: No - HPI Notes: 49-year-old male with an extenuating history of prior mesenteric ischemia and SMA stenting x2 who presents with sudden onset severe abdominal pain. Couple hours prior to arrival patient states sudden onset severe pain in his sub- epigastric and supraumbilical region. Indicates it feels just like it did when he thrombosed before. Is been compliant with his anticoagulants medication. He had initial opening procedure to subsequent stents placed since 2017. Sharp severe cramping, unable get comfortable. Nausea but no vomiting. He denies any hematemesis, no coffee grounds emesis, no history of melena or hematochezia. Denies any substance abuse. Not currently on a PPI. No other modifying factors, no other associated symptoms, no other provocative or palliative factors. Pain is no different with motion. - Related Data Allergies/Adverse Reactions: No Known Allergies Allergy (Verified 01/22/18 16:52) Past Medical History - Social History Smoking Status: Current Every Day Smoker Chew tobacco use (# tins/day): No Frequency of alcohol use: Social Drug Abuse: None Family History: CAD, DM, Reviewed & Not Pertinent Patient has suicidal ideation: No Patient has homicidal ideation: No - Medical History Notes: With history of prior mesenteric ischemia and abdominal vascular stenting - Past Medical History Cardiac Medical History: Reports: Hx Hypercholesterolemia, Hx Hypertension Renal/ Medical History: Denies: Hx Peritoneal Dialysis Malignancy Medical History: Reports Hx Skin Cancer - 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 Squamous cell carcinoma removed from the hand., Other - Exploratory laparotomy, superior mesenteric artery thrombectomy; sstent SMA - Immunizations Hx Diphtheria, Pertussis, Tetanus Vaccination: Yes - unknowon Review of Systems - Review of Systems Notes: Review of systems as in the history of present illness, otherwise negative x 10 systems. Physical Exam - Vital signs Vitals: Resp 22 H 04/13/19 20:19 - Notes Notes: General: Well developed . Not severe distress HEENT: Normocephalic, atraumatic. Pupils equal round reactive to light. No JVD. Chest: No trauma. Respiratory: Good air exchange, normal excursion. Cardiac: Regular rhythm. No murmurs or gallops. Abdomen: Soft, nondistended. Moderate mid abdominal tenderness. No guarding or rebound. It appears to be out of proportion his examination. Back: No asymmetry or gross abnormality. Motor: Grossly normal power and tone. Neurologic: Alert, nonfocal. Cranial nerves II-12 are intact. Sensation intact. Vascular: Well perfused. Normal peripheral pulses. Skin: No petechiae or purpura. Course - Re-evaluation Re-evalutation: 04/14/19 01:23 This is an ill-appearing 49-year-old male with pain out of proportion exam and strong risk factors and suspicion for possible mesenteric ischemia. Consider perforation, ulcer, pancreatitis or biliary tract disease. Plan to proceed with conference of laboratory evaluation, volume resuscitation, emergent CTA, IV analgesics, reassess. Labs reviewed. CBC unremarkable. Hemoglobin is depressed at 6.8, Hemoccult is pending. Patient's hemoglobin when trended has been going down now for several months. Lipase unremarkable. Patient underwent CTA and I discussed with radiologist. There is no evidence of acute thrombosis or occlusion or acute intra-abdominal emergency such as perforation. Patient is required substantial pain medication to get his pain under control. Ultimately after 8 mg of morphine and 2 mg of Dilaudid he is more comfortable. I have given him IV Protonix given the potential for gastritis or ulcer disease potential bleed. Given his significant anemia, he will be admitted to the hospital service for serial exams, further work-up and possible endoscopy. - Vital Signs Vital signs: Temp Pulse Resp BP Pulse Ox 99.1 F 12 116/72 99 04/13/19 20:21 04/13/19 20:22 04/13/19 20:22 04/13/19 20:22 - Laboratory Result Diagrams: 04/13/19 20:25 04/13/19 20:25 Laboratory results interpreted by me: 04/13/19 04/13/19 04/13/19 20:25 20:25 22:12 RBC 3.64 L Hgb 6.8 L Hct 22.0 L MCV 61 L MCH 18.6 L MCHC 30.7 L RDW 21.5 H Sodium 132.1 L Carbon Dioxide 20 L BUN 5 L Glucose 66 L Lactic Acid AST 70 H Crossmatch See Detail 04/13/19 23:00 RBC Hgb Hct MCV MCH MCHC RDW Sodium Carbon Dioxide BUN Glucose Lactic Acid 2.5 H AST Crossmatch Discharge - Discharge Clinical Impression: Abdominal pain Qualifiers: Abdominal location: unspecified location Qualified Code(s): R10.9 - Unspecified abdominal pain Anemia Qualifiers: Anemia type: unspecified type Qualified Code(s): D64.9 - Anemia, unspecified Condition: Serious Disposition: ADMITTED OBSERVATION Admitting Provider: Alma (Hospitalist) Unit Admitted: Telemetry
[2019-04-14] MEDS ORDERED: NORMAL SALINE 250 ML IV PRN ×2 (00:35)
--- NOTE | 2019-04-14 02:37 | PDOC H&P ---
History of Present Illness Admission Date/PCP: 04/13/19 01:06 EDINSON HUIZAR PA-C History of Present Illness: BRENDA JENSEN is a 49 year old male with a history of SMA stenosis with ermias nting and he has had a long history of abdominal issues since then. His doctors have had him on Plavix and Xarelto. He has been having bright red blood per rectum for at least a couple of weeks. He has had multiple gastroenterology appointments with doctors at [facility] and at [facility]. His says that nobody is been able to give him a good answer. He was at home this evening and his said he was out on the back porch and started complaining of abdominal pain and she said he was doubled over in pain and she got really scared and so she called EMS. Apparently in the ER it required quite a bit of narcotic pain medication to keep him from writhing around in the bed. CTA of his abdomen was done on his did not show any evidence of mesenteric ischemia or arterial occlusion. He did have a hemoglobin of 6.8. He is been admitted for some IV fluids and some packed red blood cells and further evaluation. 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 Squamous cell carcinoma removed from the hand., Other - Exploratory laparotomy, superior mesenteric artery thrombectomy; sstent SMA Social History Smoking Status: Current Every Day Smoker Frequency of Alcohol Use: Heavy Hx Recreational Drug Use: No Drugs: None Hx Prescription Drug Abuse: No Family History Family History: CAD, DM, Reviewed & Not Pertinent Parental Family History Reviewed: No - Unable to obtain because he was under the influence of a lot of pain meds Children Family History Reviewed: NA Sibling(s) Family History Reviewed.: Unknown Medication/Allergy Home Medications: Clopidogrel Bisulfate [Clopidogrel] 75 mg PO DAILY 12/25/17 Dexlansoprazole [Dexilant 60 mg Capsule] 60 mg PO DAILY 12/25/17 Oxycodone HCl/Acetaminophen [Percocet 10-325 mg Tablet] 1 tab PO BIDP PRN 12/25/17 Ropinirole HCl 0.25 mg PO QHS 12/25/17 Sertraline HCl 150 mg PO QAM 12/25/17 Baclofen [Baclofen 10 mg Tablet] 5 mg PO Q8 #60 tablet 01/05/18 Metoprolol Succinate [Toprol Xl 50 mg Tab.sr] 50 mg PO DAILY@1200 #30 tab.sr.24h 01/05/18 Rivaroxaban [Xarelto 10 mg Tablet] 20 mg PO DAILY tablet 01/05/18 Quetiapine Fumarate [Seroquel 100 mg Tablet] 50 mg PO QHS 01/23/18 Thiamine Mononitrate [Vitamin B-1] 100 mg PO TID 01/23/18 Diazepam [Valium 5 mg Tablet] 5 mg PO Q8 7 Days #21 tablet 01/29/18 Docusate Sodium [Colace 100 mg Capsule] 100 mg PO BID capsule 01/29/18 Allergies/Adverse Reactions: No Known Allergies Allergy (Verified 01/22/18 16:52) Review of Systems ROS unobtainable: Other - He was under the influence of too much pain medication and so his gave me all of his history Physical Exam Vital Signs: Temp Pulse Resp BP Pulse Ox 99.1 F 12 116/72 99 04/13/19 20:21 04/13/19 20:22 04/13/19 20:22 04/13/19 20:22 Intake & Output 04/12/19 04/13/19 04/14/19 06:59 06:59 06:59 Intake Total 1000 Balance 1000 Weight 98.7 kg General appearance: PRESENT: disheveled, mild distress, other - He was asleep and then he woke up startled and then he would go back to sleep, and he seemed to be scratching himself a lot, especially his nose Head exam: PRESENT: atraumatic, normocephalic Eye exam: PRESENT: other - Unable to evaluate because of all the pain medication Ear exam: PRESENT: normal external ear exam Mouth exam: PRESENT: neck supple Neck exam: PRESENT: full ROM. ABSENT: carotid bruit, JVD, lymphadenopathy, meningismus, tenderness, thyromegaly Respiratory exam: PRESENT: clear to auscultation elia, symmetrical, unlabored. ABSENT: accessory muscle use, chest wall tenderness, crackles, prolonged expiratory phas, rhonchi, tachypnea, wheezes Cardiovascular exam: PRESENT: RRR, +S1, +S2 Pulses: PRESENT: normal carotid pulses Vascular exam: PRESENT: normal capillary refill GI/Abdominal exam: PRESENT: normal bowel sounds, soft. ABSENT: distended, guarding, rebound, tenderness Extremities exam: ABSENT: clubbing, pedal edema Musculoskeletal exam: PRESENT: normal inspection. ABSENT: deformity Neurological exam: PRESENT: altered - From pain medication, oriented to person, other - Could not get a satisfactory evaluation because of the influence of the pain medication Focused psych exam: PRESENT: restlessness Skin exam: PRESENT: dry, warm Results Laboratory Results: 04/13/19 20:25 04/13/19 20:25 04/13/19 04/13/19 04/13/19 02:12 20:25 20:25 WBC 7.9 RBC 3.64 L Hgb 6.8 L Hct 22.0 L MCV 61 L MCH 18.6 L MCHC 30.7 L RDW 21.5 H Plt Count 269 Seg Neutrophils % 55.6 Lymphocytes % 32.4 Monocytes % 9.3 Eosinophils % 1.6 Basophils % 1.1 Absolute Neutrophils 4.4 Absolute Lymphocytes 2.5 Absolute Monocytes 0.7 Absolute Eosinophils 0.1 Absolute Basophils 0.1 Sodium 132.1 L Potassium 3.9 Chloride 100 Carbon Dioxide 20 L Anion Gap 12 BUN 5 L Creatinine 0.70 Est GFR ( Amer) > 60 Est GFR (Non-Af Amer) > 60 Glucose 66 L Lactic Acid Cancelled Calcium 8.7 Total Bilirubin 0.5 AST 70 H Alkaline Phosphatase 70 Total Protein 6.8 Albumin 4.1 Lipase 63.3 Blood Type Antibody Screen 04/13/19 04/13/19 22:12 23:00 WBC RBC Hgb Hct MCV MCH MCHC RDW Plt Count Seg Neutrophils % Lymphocytes % Monocytes % Eosinophils % Basophils % Absolute Neutrophils Absolute Lymphocytes Absolute Monocytes Absolute Eosinophils Absolute Basophils Sodium Potassium Chloride Carbon Dioxide Anion Gap BUN Creatinine Est GFR ( Amer) Est GFR (Non-Af Amer) Glucose Lactic Acid 2.5 H Calcium Total Bilirubin AST Alkaline Phosphatase Total Protein Albumin Lipase Blood Type O POSITIVE Antibody Screen NEGATIVE Impressions: Abdomen/Pelvis CTA 04/13/19 20:47 IMPRESSION: Questionable gastric wall thickening. A nonemergent upper GI series might prove helpful for further evaluation, if clinically warranted. No evidence of mesenteric ischemia. Other findings as described. TECHNICAL DOCUMENTATION: Quality ID # [id number]: Final reports with documentation of one or more dose reduction techniques (e.g., Automated exposure control, adjustment of the mA and/or kV according to patient size, use of iterative reconstruction technique) copyright 2011 [employer]- All Rights Reserved Assessment and Plan - Diagnosis (1) Abdominal pain Qualifiers: Abdominal location: unspecified location Qualified Code(s): R10.9 - Unspecified abdominal pain Is this a current diagnosis for this admission?: Yes Plan: Given his history and the lack of a convincing acute cause on the CTA of his abdomen, my suspicion is that his blood loss and lower blood pressure have given decreased perfusion to the abdominal viscera and therefore provoked pain. He has been given some IV fluids and a lot of pain medication in the ER. With his hemoglobin down, I decided to give him some packed red blood cells in addition to the IV fluids to see if increasing his perfusion and oxygen carrying capacity will help alleviate his symptoms. (2) Anemia Qualifiers: Anemia type: other cause Other causes of anemia: acute posthemorrhagic Qualified Code(s): D62 - Acute posthemorrhagic anemia Is this a current diagnosis for this admission?: Yes Plan: He is been on Xarelto and Plavix. He has had multiple GI visits and endoscopic evaluations at [place] and in [place]. We will try to obtain those records. If he has not had a colonoscopy recently, he may benefit from one here. I have stopped his Xarelto and his Plavix for the time being. (3) GI bleed Qualifiers: GI bleed type/associated pathology: anorectal hemorrhage Qualified Code(s): K62.5 - Hemorrhage of anus and rectum Is this a current diagnosis for this admission?: Yes Plan: As noted above. We do not have GI coverage but general surgery would be avai lable to perform endoscopic evaluation if needed. - Time Time Spent with patient: 35 or more minutes - Inpatient Certification Based on my medical assessment, after consideration of the patient's comorbidities, presenting symptoms, or acuity I expect that the services needed warrant INPATIENT care.: Yes I certify that my determination is in accordance with my understanding of Medicare's requirements for reasonable and necessary INPATIENT services [42 CFR 412.3e].: Yes Medical Necessity: Need Close Monitoring Due to Risk of Patient Decompensation, Need For IV Fluids, Need For Continuous Telemetry Monitoring, Need for Surgery
[2019-04-14] MEDS ORDERED: MORPHINE SULFATE 10 MG/ML INJ IV ONE (09:05)
--- NOTE | 2019-04-14 11:23 | EKG REPORT ---
SEVERITY:- BORDERLINE ECG - SINUS RHYTHM BORDERLINE INFERIOR Q WAVES : Confirmed by: Lorne Hanson 14-Apr-2019 11:22:04
[2019-04-14] MEDS: RINGERS SOLUTION,LACTATED 1,000 ML IV PRN ×2 (12:41→23:02)
[2019-04-14 12:47] LABS: PATH REVIEW PATHOLOGIST REVIEWED
[2019-04-14 14:25] LABS: ABSOLUTE EOSINOPHILS # (AUTO) 0.2 10^3/uL (0.0-0.6); ABSOLUTE LYMPHOCYTES (AUTO) 1.2 10^3/uL (0.5-4.7); ABSOLUTE MONOCYTES (AUTO) 0.6 10^3/uL (0.1-1.4); ABSOLUTE NEUT (AUTO) 3.5 10^3/uL (1.7-8.2); BASOPHILS % (AUTO) 0.9 % (0-2); EOSINOPHILS % (AUTO) 3.1 % (0-6); HEMATOCRIT 28.5 % (37.9-51.0); HEMOGLOBIN 8.8 g/dL (13.5-17.0); LYMPHOCYTES % (AUTO) 21.6 % (13-45); MEAN CORPUSCULAR HEMOGLOBIN 19.9 pg (27.0-33.4); MEAN CORPUSCULAR HGB CONC 30.8 g/dL (32.0-36.0); MONOCYTES % (AUTO) 10.9 % (3-13); PLATELET COUNT 237 10^3/uL (150-450); RED BLOOD COUNT 4.42 10^6/uL (4.35-5.55); RED CELL DISTRIBUTION WIDTH 25.1 % (11.5-14.0); SEGMENTED NEUTROPHILS % (AUTO) 63.5 % (42-78); TOTAL CELLS COUNTED % (AUTO) 100 %; WHITE BLOOD COUNT 5.5 10^3/uL (4.0-10.5)
[2019-04-14 14:42] LABS: MEAN CORPUSCULAR VOLUME 65 fl (80-97)
[2019-04-14 15:15] LABS: ANISOCYTOSIS 3+; HYPOCHROMASIA 1+; OVALOCYTES SLIGHT; POIKILOCYTOSIS SLIGHT; POLYCHROMASIA SLIGHT; TEAR DROP CELLS SLIGHT
[2019-04-14 15:16] LABS: PLATELET COMMENT ADEQUATE
[2019-04-14] MEDS: NICOTINE 21 MG/24 HR PATCH.TD24 TD SCH (18:13)
[2019-04-14 18:15] LABS: PROTHROMBIN TIME 15.3 SEC (11.4-15.4)
[2019-04-14] MEDS ORDERED: MORPHINE SULFATE 10 MG/ML INJ IV PRN (18:48)
[2019-04-14] MEDS: ONDANSETRON HCL INJ/PF 4 MG/2 ML SDV IV PRN (20:12)
[2019-04-14] MEDS ORDERED: PRAMIPEXOLE DI HCL 0.75 MG PO SCH (22:00)
[2019-04-14] MEDS: ATORVASTATIN CALCIUM 40 MG TABLET PO SCH (22:18)
[2019-04-14] MEDS: QUETIAPINE FUMARATE 100 MG TABLET PO SCH (22:18)
[2019-04-14] MEDS: PRAMIPEXOLE DI-HCL 0.25 MG TABLET PO SCH (22:19)
[2019-04-14] MEDS ORDERED: PEG 3350/NA SULF,BICARB,CL/KCL 4000 ML ONE (22:29)
[2019-04-14] MEDS ORDERED: PEG 3350/NA SULF,BICARB,CL/KCL 4000 ML PO ONE (23:00)
[2019-04-14] MEDS ORDERED: HEPARIN SODIUM,PORCINE/D5W 25,000 UNIT/250 ML RTUINJ IV PRN (23:00)
--- NOTE | 2019-04-14 23:03 | PDOC CONSULTATION ---
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 Patient has been on chronic anticoagulation ever since. He has had a long history of intermittent blood per rectum and anemia status post endoscopic evaluations in the past. According to the patient other than gastric wall thickening and anal fissure no other abnormalities found. Patient has noted bright red blood per rectum with bowel movements for the past couple of years with worsening over the past several weeks. Patient has chronic pain in the perianal region with bowel movements. He also suffers from chronic diarrhea having 10-15 bowel movements a day ever since his surgery couple of years ago. He has had extensive work-up in the past with no clear etiology for his diarrhea. He has had a upper and lower endoscopy about a year ago. He has also had a capsule endoscopy in the past. Patient has noticed some generalized weakness but no syncope. He had severe epigastric abdominal pain last night that has markedly improved. Patient was noted to be anemic and transfused 2 units of packed RBCs during this admission. Overall he feels better. Patient does drink alcohol but not heavily according to him. He still smokes. 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 Squamous cell carcinoma removed from the hand., Other - Exploratory laparotomy, superior mesenteric artery thrombectomy; stent SMA Social History Smoking Status: Current Every Day Smoker Frequency of Alcohol Use: Social Hx Recreational Drug Use: No Drugs: None Hx Prescription Drug Abuse: No Family History Family History: CAD, DM, Reviewed & Not Pertinent Parental Family History Reviewed: Yes - Mother with diabetes Children Family History Reviewed: Yes Sibling(s) Family History Reviewed.: Yes - Brother with mesenteric ischemia. Medication/Allergy Home Medications: Atorvastatin Calcium [Lipitor 40 mg Tablet] 40 mg PO QHS 04/14/19 Cyanocobalamin (Vitamin B-12) [Vitamin B-12 100 mcg Tablet] 100 mcg PO DAILY 04/14/19 Dexlansoprazole [Dexilant 60 mg Capsule] 60 mg PO DAILY 04/14/19 Ergocalciferol (Vitamin D2) [Drisdol] 50,000 unit PO MO@1000 04/14/19 Metoprolol Succinate [Toprol Xl 50 mg Tab.sr] 50 mg PO DAILY 04/14/19 Pramipexole Di-HCl [Pramipexole Dihydrochloride] 0.75 mg PO QHS 04/14/19 Quetiapine Fumarate [Seroquel] 100 mg PO QHS 04/14/19 Rivaroxaban [Xarelto] 20 mg PO DAILY 04/14/19 Sertraline HCl [Zoloft] 100 mg PO QAM 04/14/19 Allergies/Adverse Reactions: No Known Allergies Allergy (Verified 01/22/18 16:52) Review of Systems All systems: reviewed and no additional remarkable complaints except as stated Constitutional: PRESENT: as per HPI Gastrointestinal: PRESENT: as per HPI Physical Exam Vital Signs: Temp Pulse Resp BP Pulse Ox 98.3 F 50 L 12 129/69 H 99 04/14/19 19:51 04/14/19 19:51 04/14/19 15:00 04/14/19 19:51 04/14/19 19:51 Intake & Output 04/13/19 04/14/19 04/15/19 06:59 06:59 06:59 Intake Total 1000 1900 Balance 1000 1900 Weight 95.7 kg General appearance: PRESENT: no acute distress, cooperative Eye exam: PRESENT: conjunctiva pink Neck exam: PRESENT: other - Supple with no masses. Respiratory exam: PRESENT: clear to auscultation elia Cardiovascular exam: PRESENT: RRR GI/Abdominal exam: PRESENT: other - Soft, nondistended, very minimal epigastric abdominal tenderness no peritoneal signs. Neurological exam: PRESENT: alert, awake Psychiatric exam: PRESENT: appropriate affect Results Laboratory Results: 04/14/19 13:33 04/13/19 20:25 04/13/19 04/13/19 04/13/19 02:12 22:12 23:00 WBC RBC Hgb Hct MCV MCH MCHC RDW Plt Count Seg Neutrophils % Lymphocytes % Monocytes % Eosinophils % Basophils % Absolute Neutrophils Absolute Lymphocytes Absolute Monocytes Absolute Eosinophils Absolute Basophils Lactic Acid Cancelled 2.5 H Blood Type O POSITIVE Antibody Screen NEGATIVE 04/14/19 04/14/19 13:33 13:33 WBC 5.5 RBC 4.42 Hgb 8.8 L Hct 28.5 L MCV 65 L D MCH 19.9 L MCHC 30.8 L RDW 25.1 H Plt Count 237 Seg Neutrophils % 63.5 Lymphocytes % 21.6 Monocytes % 10.9 Eosinophils % 3.1 Basophils % 0.9 Absolute Neutrophils 3.5 Absolute Lymphocytes 1.2 Absolute Monocytes 0.6 Absolute Eosinophils 0.2 Absolute Basophils 0.0 Lactic Acid 1.9 Blood Type Antibody Screen Impressions: Abdomen/Pelvis CTA 04/13/19 20:47 IMPRESSION: Questionable gastric wall thickening. A nonemergent upper GI series might prove helpful for further evaluation, if clinically warranted. No evidence of mesenteric ischemia. Other findings as described. TECHNICAL DOCUMENTATION: Quality ID # 436: Final reports with documentation of one or more dose reduction techniques (e.g., Automated exposure control, adjustment of the mA and/or kV according to patient size, use of iterative reconstruction technique) copyright 2011 [employer]- All Rights Reserved Assessment & Plan - Diagnosis (1) Abdominal pain Qualifiers: Abdominal location: unspecified location Qualified Code(s): R10.9 - U nspecified abdominal pain Is this a current diagnosis for this admission?: Yes Plan: Improved during the hospital stay. CT scan does not demonstrate evidence of mesenteric ischemia. With the pain markedly improving combined with the CT scan I do not think he has ongoing mesenteric ischemia. (2) GI bleed Qualifiers: GI bleed type/associated pathology: unspecified gastrointestinal hemorrhage type Qualified Code(s): K92.2 - Gastrointestinal hemorrhage, unspecified Is this a current diagnosis for this admission?: Yes Plan: Likely lower GI bleed with his blood per rectum with bowel movements. In light of his abdominal pain and history of alcohol use in the past I will obtain an esophagogastroduodenoscopy as well as colonoscopy. We will plan anoscopy as well. And if he has prominent internal hemorrhoids we will plan hemorrhoidal banding. I have discussed with the patient the risk and benefits of the pr ocedure including risk of bowel injury, perianal sepsis, recurrence with hemorrhoidal banding. Patient understands and agrees to proceed.
--- NOTE | 2019-04-14 23:11 | PDOC PROGRESS REPORT ---
Subjective Progress Note for:: 04/14/19 Subjective:: Patient had been doing initially well in regards to his abdominal pain however tonight he developed severe abdominal pain that is very similar to the type of pain he had with his mesenteric artery thrombosis couple of years ago. Patient has had morphine with only very transient relief. Reason For Visit: ACUTE BLOOD LOSS ANEMIA Physical Exam Vital Signs: Temp Pulse Resp BP Pulse Ox 98.3 F 50 L 12 129/69 H 99 04/14/19 19:51 04/14/19 19:51 04/14/19 15:00 04/14/19 19:51 04/14/19 19:51 Intake & Output 04/13/19 04/14/19 04/15/19 06:59 06:59 06:59 Intake Total 1000 2900 Balance 1000 2900 Weight 95.7 kg General appearance: PRESENT: severe distress Cardiovascular exam: PRESENT: RRR GI/Abdominal exam: PRESENT: other - Soft, nondistended, very minimal epigastric tenderness. Results Laboratory Results: 04/14/19 13:33 04/13/19 20:25 04/13/19 04/13/19 04/14/19 22:12 23:00 13:33 WBC RBC Hgb Hct MCV MCH MCHC RDW Plt Count Seg Neutrophils % Lymphocytes % Monocytes % Eosinophils % Basophils % Absolute Neutrophils Absolute Lymphocytes Absolute Monocytes Absolute Eosinophils Absolute Basophils Lactic Acid 2.5 H 1.9 Blood Type O POSITIVE Antibody Screen NEGATIVE 04/14/19 13:33 WBC 5.5 RBC 4.42 Hgb 8.8 L Hct 28.5 L MCV 65 L D MCH 19.9 L MCHC 30.8 L RDW 25.1 H Plt Count 237 Seg Neutrophils % 63.5 Lymphocytes % 21.6 Monocytes % 10.9 Eosinophils % 3.1 Basophils % 0.9 Absolute Neutrophils 3.5 Absolute Lymphocytes 1.2 Absolute Monocytes 0.6 Absolute Eosinophils 0.2 Absolute Basophils 0.0 Lactic Acid Blood Type Antibody Screen Impressions: Abdomen/Pelvis CTA 04/13/19 20:47 IMPRESSION: Questionable gastric wall thickening. A nonemergent upper GI series might prove helpful for further evaluation, if clinically warranted. No evidence of mesenteric ischemia. Other findings as described. 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 Patient had his anticoagulation held for 24 hours now and his symptoms could represent an ischemic event. I have discussed this case with vascular surgery at [facility] and the vascular surgeon recommended a repeat CT angiography now rather than transferring him mediately. He is deferring to me as far as his anticoagulation. I will plan to start him on heparin. We will give fluid bolus. Check laboratory studies. (2) GI bleed Qualifiers: GI bleed type/associated pathology: unspecified gastrointestinal hemorrhage type Qualified Code(s): K92.2 - Gastrointestinal hemorrhage, unspecified Is this a current diagnosis for this admission?: Yes Plan: Not hemodynamically significant. Mesenteric ischemia poses a greater risk to the patient at this time and therefore will place on heparin.
[2019-04-14] MEDS ORDERED: MORPHINE SULFATE 10 MG/ML INJ ONE (23:26)
[2019-04-14 23:32] LABS: HEMATOCRIT 27.4 % (37.9-51.0); HEMOGLOBIN 8.4 g/dL (13.5-17.0); INTERNATIONAL RATION (INR) 1.14; MEAN CORPUSCULAR HEMOGLOBIN 19.8 pg (27.0-33.4); MEAN CORPUSCULAR HGB CONC 30.8 g/dL (32.0-36.0); PARTIAL THROMBOPLASTIN TIME 33.4 SEC (23.5-35.8); PLATELET COUNT 241 10^3/uL (150-450); PROTHROMBIN TIME 14.7 SEC (11.4-15.4); RED BLOOD COUNT 4.27 10^6/uL (4.35-5.55); RED CELL DISTRIBUTION WIDTH 24.8 % (11.5-14.0)
[2019-04-14 23:35] LABS: ANION GAP 9 (5-19); BLOOD UREA NITROGEN 5 mg/dL (7-20); CALCIUM 9.1 mg/dL (8.4-10.2); CARBON DIOXIDE 24 mmol/L (22-30); CHLORIDE 102 mmol/L (98-107); GLUCOSE 92 mg/dL (75-110); POTASSIUM 3.9 mmol/L (3.6-5.0)
[2019-04-14] MEDS: MORPHINE SULFATE 10 MG/ML INJ IV PRN (23:40)
[2019-04-14] MEDS ORDERED: NORMAL SALINE 1000 ML 1,000 ML IV ONE (23:45)
[2019-04-15 00:26] LABS: ABSOLUTE LYMPHOCYTES# (MANUAL) 2.5 10^3/uL (0.5-4.7); ABSOLUTE MONOCYTES # (MANUAL) 0.2 10^3/uL (0.1-1.4); ANISOCYTOSIS 3+; BASOPHILS % (MANUAL) 1 % (0-2); EOSINOPHILS % (MANUAL) 2 % (0-6); HYPOCHROMASIA 2+; LYMPHOCYTES % (MANUAL) 41 % (13-45); MONOCYTES % (MANUAL) 4 % (3-13); PLATELET COMMENT ADEQUATE; SEGMENTED NEUTROPHILS % (MAN) 52 % (42-78); TOTAL CELLS COUNTED 100
[2019-04-15 00:27] LABS: MEAN CORPUSCULAR VOLUME 64 fl (80-97)
--- NOTE | 2019-04-15 00:54 | RADIOLOGY REPORT (SQ) ---
EXAM DESCRIPTION: CT ABDOMEN PELVIS WITHOUT THEN WITH IV CONTRAST COMPLETED DATE/TME: 04/15/2019 00:00 CLINICAL HISTORY: 49 years, Male, abdominal pain, hx mesenteric ischemia COMPARISON: CT abdomen pelvis 04/13/2019 TECHNIQUE: Axial images of the abdomen and pelvis were performed utilizing intravenous contrast, with sagittal and coronal reformatted images. Images stored on PACS. All CT scanners at this facility use dose modulation, iterative reconstruction, and/or weight based dosing when appropriate to reduce radiation dose to as low as reasonably achievable (ALARA). [facility]: Dose Right [facility]: CareDose [facility]: Dose Right [facility]: Teradose 4D [facility]: ID [employer] LIMITATIONS: None. FINDINGS: The superior mesenteric artery stent is patent. There is mild stenosis of the superior mesenteric artery, just distal to the stent, however, the artery remains patent. There are several mildly dilated loops of small bowel on the left side of the abdomen, possibly focal ileus. The appendix appears normal. There are atherosclerotic changes involving the abdominal aorta, but there is no aneurysm. There is diverticulosis without diverticulitis. There is possible gastric wall thickening. No free air or free fluid. There is no significant radiographic abnormality of the liver, spleen, pancreas, adrenal glands or kidneys. There is no significant change, as compared with the prior CT scan. IMPRESSION: The superior mesenteric artery stent is patent. Mild stenosis of the superior mesenteric artery, just distal to the stent. The superior mesenteric artery remains patent. Possible small bowel ileus on the left side of the abdomen. Possible gastric wall thickening. TECHNICAL DOCUMENTATION: Quality ID # 436: Final reports with documentation of one or more dose reduction techniques (e.g., Automated exposure control, adjustment of the mA and/or kV according to patient size, use of iterative reconstruction technique) copyright 2010 [employer]- All Rights Reserved
[2019-04-15] MEDS ORDERED: PANTOPRAZOLE SODIUM 40 MG TABLET.DR PO SCH (06:00)
[2019-04-15 06:01] LABS: HEMATOCRIT 28.1 % (37.9-51.0); HEMOGLOBIN 8.6 g/dL (13.5-17.0); MEAN CORPUSCULAR HEMOGLOBIN 19.8 pg (27.0-33.4); MEAN CORPUSCULAR HGB CONC 30.5 g/dL (32.0-36.0); MEAN CORPUSCULAR VOLUME 65 fl (80-97); PLATELET COUNT 241 10^3/uL (150-450); RED BLOOD COUNT 4.34 10^6/uL (4.35-5.55); RED CELL DISTRIBUTION WIDTH 25.4 % (11.5-14.0)
[2019-04-15 06:25] LABS: ANION GAP 7 (5-19); BLOOD UREA NITROGEN 3 mg/dL (7-20); CALCIUM 8.9 mg/dL (8.4-10.2); CARBON DIOXIDE 25 mmol/L (22-30); CHLORIDE 107 mmol/L (98-107); GLUCOSE 83 mg/dL (75-110)
[2019-04-15] MEDS ORDERED: SERTRALINE HCL 50 MG TABLET PO SCH (08:00)
[2019-04-15] MEDS: MORPHINE SULFATE 10 MG/ML INJ IV PRN ×4 (08:10→20:51)
--- NOTE | 2019-04-15 09:08 | PDOC TRANSFER SUMMARY ---
General Admission Date/PCP: 04/14/19 00:37 EDINSON HUIZAR PA-C Transfer Date: 04/15/19 Accepting Facility: [facility] - Transfer Diagnosis (1) GI bleed Is this a current diagnosis for this admission?: Yes (2) SMA stenosis Is this a current diagnosis for this admission?: Yes - Transfer Medications Home Medications: Atorvastatin Calcium [Lipitor 40 mg Tablet] 40 mg PO QHS 04/14/19 Cyanocobalamin (Vitamin B-12) [Vitamin B-12 100 mcg Tablet] 100 mcg PO DAILY 04/14/19 Dexlansoprazole [Dexilant 60 mg Capsule] 60 mg PO DAILY 04/14/19 Ergocalciferol (Vitamin D2) [Drisdol] 50,000 unit PO MO@1000 04/14/19 Metoprolol Succinate [Toprol Xl 50 mg Tab.sr] 50 mg PO DAILY 04/14/19 Pramipexole Di-HCl [Pramipexole Dihydrochloride] 0.75 mg PO QHS 04/14/19 Quetiapine Fumarate [Seroquel] 100 mg PO QHS 04/14/19 Rivaroxaban [Xarelto] 20 mg PO DAILY 04/14/19 Sertraline HCl [Zoloft] 100 mg PO QAM 04/14/19 Transfer Medications: Current Medications Atorvastatin Calcium (Lipitor 40 Mg Tablet) 40 mg PO QHS [facility] Stop: 05/14/19 21:59 Last Admin: 04/14/19 22:18 Dose: 40 mg Documented by: Ergocalciferol (Drisdol 50,000 Unit (1.25mg) Capsule) 50,000 unit PO MO@1000 [facility] Stop: 05/18/19 09:59 Lactated Ringer's (Lactated Ringers 1000 Ml Iv Soln) 1,000 mls @ 100 mls/hr IV CONTINUOUS PRN PRN Reason: THIS MED IS NOT "PRN" Stop: 05/14/19 00:35 Last Admin: 04/14/19 23:02 Dose: 100 mls/hr Documented by: Morphine Sulfate (Morphine 10 Mg/Ml Inj) 2 mg IV Q4HP PRN PRN Reason: FOR PAIN Stop: 04/21/19 18:47 Last Admin: 04/14/19 20:12 Dose: 2 mg Documented by: Morphine Sulfate (Morphine 10 Mg/Ml Inj) 4 mg IV Q4HP PRN PRN Reason: PAIN 3-5 Stop: 04/21/19 23:16 Last Admin: 04/15/19 08:10 Dose: 4 mg Documented by: Nicotine (Nicoderm 21 Mg/24 Hr Transderm Patch) 1 each TD DAILY [facility] Stop: 05/14/19 18:59 Last Admin: 04/14/19 18:13 Dose: 1 each Documented by: Ondansetron HCl (Zofran Inj/Pf 4 Mg/2 Ml Sdv) 4 mg IV Q6HP PRN PRN Reason: NAUSEA Stop: 05/14/19 18:46 Last Admin: 04/14/19 20:12 Dose: 4 mg Documented by: Pantoprazole Sodium (Protonix [address] Tablet) 40 mg PO Q6AM [facility] Stop: 05/15/19 05:59 Last Admin: 04/15/19 06:23 Dose: Not Given Documented by: Patient Own Medication (Cyanocobalamin (Vitamin B-12) [Vitamin B-12 100 Mcg Tablet]) 100 mcg PO .DAILY [facility] Stop: 05/15/19 09:59 Pramipexole Dihydrochloride (Mirapex 0.25 Mg Tablet) 0.75 mg PO QHS [facility] Stop: 05/14/19 21:59 Last Admin: 04/14/19 22:19 Dose: 0.75 mg Documented by: Quetiapine Fumarate (Seroquel 100 Mg Tablet) 100 mg PO QHS [facility] Stop: 05/14/19 21:59 Last Admin: 04/14/19 22:18 Dose: 100 mg Documented by: Sertraline HCl (Zoloft 50 Mg Tablet) 100 mg PO QAM [facility] Stop: 05/15/19 07:59 Last Admin: 04/15/19 08:10 Dose: 100 mg Documented by: - Allergies Allergies/Adverse Reactions: No Known Allergies Allergy (Verified 01/22/18 16:52) Hospital Course Hospital Course: This is a 49 year old male with a history of SMA stenosis with stenting at [facility] by Dr. Gong in 2017 and was placed on Plavix and Xarelto after that. He has been having bright red blood per rectum for at least a couple of weeks. He presented with a hemoglobin of 6.8. He was taken off anticoagulation here. He was transfused with 2 units of pRBCs. Repeat hemoglobin is 8.6. He still had bright red bloody stools this morning and still complained of abdominal pain. CTA showed patent SMA stent and mild stenosis distal to the stent. It also showed thickening of the gastric wall and possible ileus. He will be transferred to [facility] as there is no available GI/endoscopy services at [facility]. Physical Exam Vital Signs: Temp Pulse Resp BP Pulse Ox 97.6 F 52 L 16 110/55 L 93 04/15/19 08:00 04/15/19 08:00 04/15/19 08:00 04/15/19 08:00 04/15/19 08:00 Intake & Output 04/14/19 04/15/19 04/16/19 06:59 06:59 06:59 Intake Total 1000 4704 0 Balance 1000 4704 0 Weight 210 lb 15.718 oz 203 lb 0.732 oz General appearance: PRESENT: no acute distress, well-developed, well-nourished Head exam: PRESENT: atraumatic, normocephalic Eye exam: PRESENT: conjunctiva pink, EOMI, PERRLA. ABSENT: scleral icterus Mouth exam: PRESENT: moist, tongue midline Neck exam: ABSENT: carotid bruit, JVD, lymphadenopathy, thyromegaly Respiratory exam: PRESENT: clear to auscultation elia. ABSENT: rales, rhonchi, wheezes Cardiovascular exam: PRESENT: RRR. ABSENT: diastolic murmur, rubs, systolic murmur Pulses: PRESENT: normal dorsalis pedis pul GI/Abdominal exam: PRESENT: normal bowel sounds, soft. ABSENT: distended, guarding, mass, organolmegaly, rebound, tenderness Rectal exam: PRESENT: deferred Extremities exam: PRESENT: full ROM. ABSENT: calf tenderness, clubbing, pedal edema Neurological exam: PRESENT: alert, awake, oriented to person, oriented to place, oriented to time, oriented to situation, CN II-XII grossly intact. ABSENT: motor sensory deficit Results Laboratory Results: 04/15/19 05:17 04/15/19 05:17 04/14/19 04/14/19 04/14/19 13:33 13:33 23:00 WBC 5.5 6.0 RBC 4.42 4.27 L Hgb 8.8 L 8.4 L Hct 28.5 L 27.4 L MCV 65 L D 64 L MCH 19.9 L 19.8 L MCHC 30.8 L 30.8 L RDW 25.1 H 24.8 H Plt Count 237 241 Seg Neutrophils % 63.5 Not Reportable Lymphocytes % 21.6 Not Reportable Monocytes % 10.9 Not Reportable Eosinophils % 3.1 Not Reportable Basophils % 0.9 Not Reportable Absolute Neutrophils 3.5 Not Reportable Absolute Lymphocytes 1.2 Not Reportable Absolute Monocytes 0.6 Not Reportable Absolute Eosinophils 0.2 Not Reportable Absolute Basophils 0.0 Not Reportable Sodium Potassium Chloride Carbon Dioxide Anion Gap BUN Creatinine Est GFR ( Amer) Est GFR (Non-Af Amer) Glucose Lactic Acid 1.9 Calcium 04/14/19 04/15/19 04/15/19 23:00 00:55 05:17 WBC 5.0 RBC 4.34 L Hgb 8.6 L Hct 28.1 L MCV 65 L MCH 19.8 L MCHC 30.5 L RDW 25.4 H Plt Count 241 Seg Neutrophils % Lymphocytes % Monocytes % Eosinophils % Basophils % Absolute Neutrophils Absolute Lymphocytes Absolute Monocytes Absolute Eosinophils Absolute Basophils Sodium 134.5 L Potassium 3.9 Chloride 102 Carbon Dioxide 24 Anion Gap 9 BUN 5 L Creatinine 0.62 Est GFR ( Amer) > 60 Est GFR (Non-Af Amer) > 60 Glucose 92 Lactic Acid 0.7 Calcium 9.1 04/15/19 05:17 WBC RBC Hgb Hct MCV MCH MCHC RDW Plt Count Seg Neutrophils % Lymphocytes % Monocytes % Eosinophils % Basophils % Absolute Neutrophils Absolute Lymphocytes Absolute Monocytes Absolute Eosinophils Absolute Basophils Sodium 139.3 Potassium 4.0 Chloride 107 Carbon Dioxide 25 Anion Gap 7 BUN 3 L Creatinine 0.68 Est GFR ( Amer) > 60 Est GFR (Non-Af Amer) > 60 Glucose 83 Lactic Acid Calcium 8.9 Impressions: Abdomen/Pelvis CTA 04/15/19 00:00 IMPRESSION: The superior mesenteric artery stent is patent. Mild stenosis of the superior mesenteric artery, just distal to the stent. The superior mesenteric artery remains patent. Possible small bowel ileus on the left side of the abdomen. Possible gastric wall thickening. TECHNICAL DOCUMENTATION: Quality ID # 436: Final reports with documentation of one or more dose reduction techniques (e.g., Automated exposure control, adjustment of the mA and/or kV according to patient size, use of iterative reconstruction technique) copyright 2011 [employer]- All Rights Reserved
[2019-04-15] MEDS: NICOTINE 21 MG/24 HR PATCH.TD24 TD SCH (09:16)
[2019-04-15] MEDS ORDERED: MAG HYDROX/AL HYDROX/SIMETH SUSP 30 ML UDCUP PO ONE ×2 (10:00→15:30)
[2019-04-15] MEDS ORDERED: LIDOCAINE 2% VISCOUS SOLN 20 ML UDCUP PO ONE ×2 (10:00→15:30)
[2019-04-15] MEDS ORDERED: METOCLOPRAMIDE HCL ORAL SOLN 10 MG/10 ML UDCUP PO ONE ×2 (10:00→15:30)
[2019-04-15] MEDS ORDERED: (PENDING PHARMACY ID) (Cyanocobalamin (Vitamin B-12) [Vitamin B-12 100 Mcg Tablet] 100 MCG PO SCH (10:00)
[2019-04-15] MEDS: ONDANSETRON HCL INJ/PF 4 MG/2 ML SDV IV PRN ×2 (10:15→19:42)
[2019-04-15] MEDS: RINGERS SOLUTION,LACTATED 1,000 ML IV PRN ×2 (10:17→20:53)
[2019-04-15 13:53] LABS: PATH REVIEW PATHOLOGIST REVIEWED
[2019-04-15] MEDS ORDERED: MORPHINE SULFATE 10 MG/ML INJ IV ONE (15:30)
--- NOTE | 2019-04-15 17:01 | PDOC PROGRESS REPORT ---
Subjective Progress Note for:: 04/15/19 Subjective:: epigastric pains Reason For Visit: ACUTE BLOOD LOSS ANEMIA Physical Exam Vital Signs: Temp Pulse Resp BP Pulse Ox 98.8 F 51 L 16 141/67 H 100 04/15/19 15:27 04/15/19 15:27 04/15/19 15:27 04/15/19 15:27 04/15/19 15:27 Intake & Output 04/14/19 04/15/19 04/16/19 06:59 06:59 06:59 Intake Total 1000 4704 1120 Output Total 750 Balance 1000 4704 370 Weight 95.7 kg 92.1 kg Exam: abdomen is soft with tenderness subxiphoid area. Was more tender at the epigastric area this am and appears to be going to xiphoid area this pm. Results Laboratory Results: 04/15/19 05:17 04/15/19 05:17 04/14/19 04/14/19 04/15/19 23:00 23:00 00:55 WBC 6.0 RBC 4.27 L Hgb 8.4 L Hct 27.4 L MCV 64 L MCH 19.8 L MCHC 30.8 L RDW 24.8 H Plt Count 241 Seg Neutrophils % Not Reportable Lymphocytes % Not Reportable Monocytes % Not Reportable Eosinophils % Not Reportable Basophils % Not Reportable Absolute Neutrophils Not Reportable Absolute Lymphocytes Not Reportable Absolute Monocytes Not Reportable Absolute Eosinophils Not Reportable Absolute Basophils Not Reportable Sodium 134.5 L Potassium 3.9 Chloride 102 Carbon Dioxide 24 Anion Gap 9 BUN 5 L Creatinine 0.62 Est GFR ( Amer) > 60 Est GFR (Non-Af Amer) > 60 Glucose 92 Lactic Acid 0.7 Calcium 9.1 04/15/19 04/15/19 05:17 05:17 WBC 5.0 RBC 4.34 L Hgb 8.6 L Hct 28.1 L MCV 65 L MCH 19.8 L MCHC 30.5 L RDW 25.4 H Plt Count 241 Seg Neutrophils % Lymphocytes % Monocytes % Eosinophils % Basophils % Absolute Neutrophils Absolute Lymphocytes Absolute Monocytes Absolute Eosinophils Absolute Basophils Sodium 139.3 Potassium 4.0 Chloride 107 Carbon Dioxide 25 Anion Gap 7 BUN 3 L Creatinine 0.68 Est GFR ( Amer) > 60 Est GFR (Non-Af Amer) > 60 Glucose 83 Lactic Acid Calcium 8.9 04/15/19 15:03 Troponin I < 0.012 Impressions: Abdomen/Pelvis CTA 04/15/19 00:00 IMPRESSION: The superior mesenteric artery stent is patent. Mild stenosis of the superior mesenteric artery, just distal to the stent. The superior mesenteric artery remains patent. Possible small bowel ileus on the left side of the abdomen. Possible gastric wall thickening. TECHNICAL DOCUMENTATION: Quality ID # 436: Final reports with documentation of one or more dose reduction techniques (e.g., Automated exposure control, adjustment of the mA and/or kV according to patient size, use of iterative reconstruction technique) copyright 2011 [employer]- All Rights Reserved Assessment & Plan - Diagnosis (1) Gastritis Is this a current diagnosis for this admission?: Yes (2) Abdominal pain Qualifiers: Abdominal location: unspecified location Qualified Code(s): R10.9 - Unspecified abdominal pain Is this a current diagnosis for this admission?: Yes (3) Anemia Qualifiers: Anemia type: other cause Other causes of anemia: acute posthemorrhagic Qualified Code(s): D62 - Acute posthemorrhagic anemia Is this a current diagnosis for this admission?: Yes (4) GI bleed Qualifiers: GI bleed type/associated pathology: unspecified gastrointestinal hemorrhage type Qualified Code(s): K92.2 - Gastrointestinal hemorrhage, unspecified Is this a current diagnosis for this admission?: Yes - Time Time Spent with patient: 15-24 minutes - Inpatient Certification Medical Necessity: Need For IV Fluids, Need for Pain Control - Plan Summary Plan Summary: Monitor H/H if Hb stable will discharge in am with po antacids Schedule ff-up EGD with Dr Roberts in 2-3 weeks t check bleeding site in the stomach.
[2019-04-15] MEDS: ATORVASTATIN CALCIUM 40 MG TABLET PO SCH (21:00)
[2019-04-15] MEDS: QUETIAPINE FUMARATE 100 MG TABLET PO SCH (21:00)
[2019-04-15] MEDS: PRAMIPEXOLE DI-HCL 0.25 MG TABLET PO SCH (21:00)
[2019-04-16 00:30] VITALS: BP 131/73
[2019-04-16] MEDS: MORPHINE SULFATE 10 MG/ML INJ IV PRN (00:50)
--- NOTE | 2019-04-16 10:27 | EKG REPORT ---
SEVERITY:- NORMAL ECG - SINUS RHYTHM : Confirmed by: Lorne Hanson 16-Apr-2019 10:26:11
[2019-04-18] MEDS ORDERED: ERGOCALCIFEROL (VITAMIN D2) 50000 UNIT (1.25 MG) CAPSULE PO SCH (10:00)
== END 2019-04-16 03:15 | disposition short-term general hospital (02) ==
LOC: ER 20:13 → EH 04-14 00:37 → UNDOADMOB 04-14 01:06 → INTOOBSV 04-14 01:06 → EH 04-14 02:35 → 4S 04-14 02:35
PROVIDERS: ADMIT Family Medicine; ATTEND Family Medicine
PROC: 30233N1 Transfusion of Nonautologous Red Blood Cells into Peripheral Vein, Percutaneous Approach (ICD-10-PCS; principal; 2019-04-14)
DX: K92.1 Melena (principal); K55.1 Chronic vascular disorders of intestine; R10.9 Unspecified abdominal pain; K29.70 Gastritis, unspecified, without bleeding; D62 Acute posthemorrhagic anemia; R10.816 Epigastric abdominal tenderness; I10 Essential (primary) hypertension; E78.5 Hyperlipidemia, unspecified; K21.9 Gastro-esophageal reflux disease without esophagitis; R45.1 Restlessness and agitation; Z79.899 Other long term (current) drug therapy; Z95.828 Presence of other vascular implants and grafts; F17.200 Nicotine dependence, unspecified, uncomplicated; Z82.49 Family history of ischemic heart disease and other diseases of the circulatory system; Z85.828 Personal history of other malignant neoplasm of skin; Z79.01 Long term (current) use of anticoagulants; Z79.02 Long term (current) use of antithrombotics/antiplatelets; Z86.718 Personal history of other venous thrombosis and embolism; Z87.11 Personal history of peptic ulcer disease; Z87.19 Personal history of other diseases of the digestive system
CPT/HCPCS: 93005 ×2; 96376; 99285; 96361; 96374; 96375; 86900; 86901; 36415 ×3; 36430; 86850; 83605 ×3; 83690; 85025 ×2; 85027; 85610; 85730; 80048 ×2; 80053; 84484; 80307; 86920; 74174 ×2; 93010 ×2; G0378 ×4; P9016; J1644; J3490 ×3; J2270 ×4; J1170; S0164; J2405 ×3; J7030; J7120 ×3

== ENCOUNTER 2019-07-21 12:02 | Emergency (ER) | payer BC ==
[2019-07-21] MEDS ORDERED: DEXAMETHASONE SOD PHOS INJ 10 MG/1 ML VIAL IV ONE (12:26)
[2019-07-21] MEDS ORDERED: NORMAL SALINE 1000 ML 1,000 ML IV ONE (12:26)
[2019-07-21] MEDS ORDERED: MORPHINE SULFATE 10 MG/ML INJ IV ONE (12:26)
[2019-07-21] MEDS ORDERED: ONDANSETRON HCL INJ/PF 4 MG/2 ML SDV IV ONE (12:26)
--- NOTE | 2019-07-21 12:29 | ER Document Report ---
ED Medical Screen (RME) - General Chief Complaint: Jaw Pain Stated Complaint: FACE SWOLLEN Time Seen by Provider: 07/21/19 12:24 Primary Care Provider: EDINSON HUIZAR PA-C [Primary Care Provider] - Follow up as needed TRAVEL OUTSIDE OF THE [place] IN LAST 30 DAYS: No - HPI Notes: 07/21/19 49-year-old male to the emergency department with 2 days of left facial swelling that has been getting worse. He admits to facial pain as well as headache. He admits to drooling as well as nausea and vomiting. He did go to urgent care this morning and he was told that he had a tooth infection and was given a prescription for antibiotics. He states that he felt uncomfortable and was worried so he came to the emergency department. I performed a brief medical screening exam on patient and determined patient will need further evaluation and management by main side ER provider. I have ordered initial labs as well as imaging to further evaluate patient and expedite care at this morning. 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 Squamous cell carcinoma removed from the hand., Other - Exploratory laparotomy, superior mesenteric artery thrombectomy; stent SMA - Immunizations Hx Diphtheria, Pertussis, Tetanus Vaccination: Yes - unknowon Doctor's Discharge - Discharge Referrals: EDINSON HUIZAR PA-C [Primary Care Provider] - Follow up as needed
[2019-07-21 13:07] LABS: ABSOLUTE LYMPHOCYTES (AUTO) 1.3 10^3/uL (0.5-4.7); ABSOLUTE MONOCYTES (AUTO) 0.5 10^3/uL (0.1-1.4); ABSOLUTE NEUT (AUTO) 6.9 10^3/uL (1.7-8.2); BASOPHILS % (AUTO) 0.5 % (0-2); EOSINOPHILS % (AUTO) 0.5 % (0-6); HEMATOCRIT 43.2 % (37.9-51.0); HEMOGLOBIN 14.7 g/dL (13.5-17.0); LYMPHOCYTES % (AUTO) 14.4 % (13-45); MEAN CORPUSCULAR HEMOGLOBIN 31.7 pg (27.0-33.4); MEAN CORPUSCULAR VOLUME 93 fl (80-97); PLATELET COUNT 360 10^3/uL (150-450); RED BLOOD COUNT 4.64 10^6/uL (4.35-5.55); RED CELL DISTRIBUTION WIDTH 15.6 % (11.5-14.0); SEGMENTED NEUTROPHILS % (AUTO) 78.6 % (42-78); TOTAL CELLS COUNTED % (AUTO) 100 %; WHITE BLOOD COUNT 8.8 10^3/uL (4.0-10.5)
[2019-07-21 13:26] LABS: ALBUMIN 4.6 g/dL (3.5-5.0); ALKALINE PHOSPHATASE 109 U/L (38-126); ANION GAP 11 (5-19); ASPARTATE AMINO TRANSFERASE 60 U/L (17-59); BILIRUBIN,DIRECT 0.2 mg/dL (0.0-0.4); BILIRUBIN,TOTAL 0.6 mg/dL (0.2-1.3); BLOOD UREA NITROGEN 4 mg/dL (7-20); CALCIUM 10.1 mg/dL (8.4-10.2); CARBON DIOXIDE 27 mmol/L (22-30); CHLORIDE 96 mmol/L (98-107); GLUCOSE 79 mg/dL (75-110); POTASSIUM 4.3 mmol/L (3.6-5.0); TOTAL PROTEIN 8.1 g/dL (6.3-8.2)
[2019-07-21 13:28] LABS: ANISOCYTOSIS SLIGHT; PLATELET COMMENT ADEQUATE; PLATELET LARGE PRESENT; POLYCHROMASIA SLIGHT
[2019-07-21] MEDS ORDERED: CLINDAMYCIN 600 MG/D5W RTU 600 MG/50 ML RTUPB IV SCH (14:00)
--- NOTE | 2019-07-21 14:45 | RADIOLOGY REPORT (SQ) ---
EXAM DESCRIPTION: CT FACIAL AREA WITH COMPLETED DATE/TIME: 07/21/2019 2:27 pm REASON FOR STUDY: facial swelling COMPARISON: None. TECHNIQUE: Post contrast images through the facial bones and orbits windowed for bone and soft tissu e. Additional coronal and sagittal reconstructed images reviewed. All images stored on PACS. All CT scanners at this facility use dose modulation, iterative reconstruction, and/or weight based d osing when appropriate to reduce radiation dose to as low as reasonably achievable (ALARA). [facility]: Dose Right [facility]: CareDose [facility]: Dose Right [facility]: Teradose 4D [facility]: [employer] CONTRAST TYPE AND DOSE: contrast/concentration: Isovue 350.00 mg/ml; Total Contrast Delivered: 75.0 ml; Total Saline Delivered: 43.0 ml RENAL FUNCTION: None required. The patient is less than 50 years old. RADIATION DOSE: CT Rad equipment meets quality standard of care and radiation dose reduction techniq ues were employed. CTDIvol: 6.0 mGy. DLP: 147 mGy-cm. . LIMITATIONS: None. FINDINGS: FACIAL BONES: No fracture or bone lesion. ORBITS: Intact. No fracture. Symmetric intact globes and retroorbital soft tissues. PARANASAL SINUSES: Clear. No significant mucosal thickening, mass or fluid. No nasal polyps. Maxilla ry sinus outlets are patent. SOFT TISSUES: There is soft tissue edema about the left mouth and lower jaw without evidence of fluid collection or other discrete abnormality. INFERIOR BRAIN: Limited view. No acute findings. OTHER: No other significant finding. IMPRESSION: There is soft tissue edema about the left mouth and lower jaw without evidence of fluid collection or other discrete abnormality. TECHNICAL DOCUMENTATION: JOB ID: [id number] Quality ID # 436: Final reports with documentation of one or more dose reduction techniques (e.g., Au tomated exposure control, adjustment of the mA and/or kV according to patient size, use of iterative reconstruction technique) 2010 [employer]- All Rights Reserved Reading location - IP/workstation name: [email or web address]
--- NOTE | 2019-07-21 14:55 | ER Document Report ---
ED Oral Problem - General Chief Complaint: Facial Swelling Stated Complaint: FACE SWOLLEN Time Seen by Provider: 07/21/19 12:24 Primary Care Provider: EDINSON HUIZAR PA-C [Primary Care Provider] - Follow up as needed Notes: MARA NOTE: 49-year-old male to the emergency department with 2 days of left facial swelling that has been getting worse. He admits to facial pain as well as headache. He admits to drooling as well as nausea and vomiting. He did go to urgent care this morning and he was told that he had a tooth infection and was given a prescription for antibiotics. He states that he felt uncomfortable and was worried so he came to the emergency department. MY HPI: Patient voices he had a very bad encounter with a dentist previously. States he does not go to the dentist and has not been in over 20 years. States he does have a history of a clot in his mesenteric artery. States he is on Xarelto and Plavix currently denies any other medical problems, denies any allergies. Patient's denying any nausea at this time, he continues to deny any abdominal pain. He is denying any chest pain or respiratory distress. TRAVEL OUTSIDE OF THE [place] IN LAST 30 DAYS: No - Related Data Allergies/Adverse Reactions: No Known Allergies Allergy (Verified 07/21/19 12:26) Past Medical History - General Information source: Patient - Social History Smoking Status: Current Every Day Smoker Chew tobacco use (# tins/day): No Frequency of alcohol use: None Family History: CAD, DM, Reviewed & Not Pertinent Patient has suicidal ideation: No Patient has homicidal ideation: No - Past Medical History Cardiac Medical History: Reports: Hx Hypercholesterolemia, Hx Hypertension Renal/ Medical History: Denies: Hx Peritoneal Dialysis Malignancy Medical History: Reports Hx Skin Cancer - 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 Squamous cell carcinoma removed from the hand., Other - Exploratory laparotomy, superior mesenteric artery thrombectomy; stent SMA - Immunizations Hx Diphtheria, Pertussis, Tetanus Vaccination: Yes - unknowon Review of Systems - Review of Systems Constitutional: denies: Fever EENT: See HPI Cardiovascular: No symptoms reported Respiratory: No symptoms reported Gastrointestinal: See HPI Genitourinary: No symptoms reported Male Genitourinary: No symptoms reported Musculoskeletal: No symptoms reported Skin: See HPI Hematologic/Lymphatic: See HPI Neurological/Psychological: No symptoms reported Physical Exam - Notes Notes: GENERAL: Alert, interacts well. No acute distress. HEAD: Normocephalic, atraumatic, swelling noted left lower jaw. EYES: Pupils equal, round, and reactive to light. Extraocular movements intact. ENT: Oral mucosa moist, tongue midline. Dentition throughout is in poor repair, multiple caries seen, slight erythema noted left lower gumline. Patient voices "all my teeth hurt on the left lower side." No Ludewig's angina noted. NECK: Full range of motion. Supple. Trachea midline. LUNGS: Clear to auscultation bilaterally, no wheezes, rales, or rhonchi. No respiratory distress. HEART: Regular rate and rhythm. No murmur ABDOMEN: Soft, non-tender. Non-distended. Bowel sounds present in all 4 quadrants. EXTREMITIES: Moves all 4 extremities spontaneously. No edema, normal radial and dorsalis pedis pulses bilaterally. No cyanosis. BACK: no cervical, thoracic, lumbar midline tenderness. No saddle anesthesia, normal distal neurovascular exam. NEUROLOGICAL: Alert and oriented x3. Normal speech. cranial nerves II through XII grossly intact. PSYCH: Normal affect, normal mood. SKIN: Warm, dry, normal turgor. Erythematous rash with honey crusted lesions noted corners of bilateral mouth. Course - Re-evaluation Re-evalutation: 07/21/19 14:57 Initial orders placed by [facility] provider as follows: Laboratory 07/21/19 07/21/19 12:44 12:44 WBC 8.8 RBC 4.64 Hgb 14.7 Hct 43.2 MCV 93 MCH 31.7 MCHC 34.0 RDW 15.6 H Plt Count 360 Lymph % (Auto) 14.4 Yates % (Auto) 6.0 Eos % (Auto) 0.5 Baso % (Auto) 0.5 Absolute Neuts (auto) 6.9 Absolute Lymphs (auto) 1.3 Absolute Monos (auto) 0.5 Absolute Eos (auto) 0.0 Absolute Basos (auto) 0.0 Seg Neutrophils % 78.6 H Large Platelets PRESENT Platelet Comment ADEQUATE Polychromasia SLIGHT Anisocytosis SLIGHT Sodium 134.4 L Potassium 4.3 Chloride 96 L Carbon Dioxide 27 Anion Gap 11 BUN 4 L Creatinine 0.72 Est GFR ( Amer) > 60 Est GFR (MDRD) Non-Af > 60 Glucose 79 Calcium 10.1 Total Bilirubin 0.6 Direct Bilirubin 0.2 Neonat Total Bilirubin Not Reportable Neonat Direct Bilirubin Not Reportable Neonat Indirect Bili Not Reportable AST 60 H ALT 30 Alkaline Phosphatase 109 Total Protein 8.1 Albumin [address] 07/21/19 12:25 IMPRESSION: There is soft tissue edema about the left mouth and lower jaw without evidence of fluid collection or other discrete abnormality. Patient was treated with initial dose of clindamycin in the emergency department. Patient CT shows no evidence of fluid collection. Discussed with patient continued use of clindamycin and need to follow-up with the dentist. Discussed close return precautions, patient stable for discharge. - Laboratory Result Diagrams: 07/21/19 12:44 07/21/19 12:44 Laboratory results interpreted by me: 07/21/19 07/21/19 12:44 12:44 RDW 15.6 H Seg Neutrophils % 78.6 H Sodium 134.4 L Chloride 96 L BUN 4 L AST 60 H Discharge - Discharge Clinical Impression: Dental caries, Tooth pain Cellulitis Qualifiers: Site of cellulitis: face Qualified Code(s): L03.211 - Cellulitis of face Condition: Stable Disposition: HOME, SELF-CARE Instructions: [facility], Clindamycin ([facility]), Toothache ([facility]), Oral Narcotic Medication ([facility]) Additional Instructions: As we discussed you have been seen and treated in the emergency department for a potential tooth infection. It also appears that you have a cellulitis, a skin infection overlying your left jaw. Is most you are taking antibiotics as prescribed. Please also make sure you follow-up with a dentist in the next 12 to 24 hours. Phone numbers will be provided in this packet. Please also follow-up with your primary care provider. Return to the emergency room for any concerns. Prescriptions: Clindamycin HCl [Cleocin 150 mg Capsule] 450 mg PO Q8 7 Days capsule Forms: Return to Work Referrals: EDINSON HUIZAR PA-C [Primary Care Provider] - Follow up as needed
[2019-07-21] MEDS ORDERED: HYDROCODONE/ACETAMINOPHEN 5-325 MG (6 TAB/ER DISP) PO PRN (15:00)
[2019-07-21] MEDS ORDERED: ONDANSETRON ODT 4 MG TAB (6 TAB/ER DISP) PO PRN (15:00)
[2019-07-21 15:03] VITALS: BP 150/83
== END 2019-07-21 15:52 | disposition home or self-care (01) ==
LOC: ER 12:02
DX: L03.211 Cellulitis of face (principal); K02.9 Dental caries, unspecified; K08.89 Other specified disorders of teeth and supporting structures; K55.019 Acute (reversible) ischemia of small intestine, extent unspecified; Z79.02 Long term (current) use of antithrombotics/antiplatelets; Z79.01 Long term (current) use of anticoagulants; I10 Essential (primary) hypertension; F17.200 Nicotine dependence, unspecified, uncomplicated
CPT/HCPCS: 36415; 87040; 85025; 80053; 70487; J2270; J2405; J7030; J1100; 96361; 96365; 96375; 99284

== ENCOUNTER 2019-08-06 16:20 | Emergency (ER) | payer BC ==
--- NOTE | 2019-08-06 17:09 | ER Document Report ---
ED General - General Chief Complaint: Suicidal Ideation Stated Complaint: SUICIDAL IDEATION Time Seen by Provider: 08/06/19 16:52 Primary Care Provider: EDINSON HUIZAR PA-C [Primary Care Provider] - Follow up as needed TRAVEL OUTSIDE OF THE [place] IN LAST 30 DAYS: No - HPI Notes: 49-year-old male resenting with a chief complaint of suicidal ideation. This man has long-standing history of severe alcoholism and numerous chronic medical problems and chronic pain syndrome. He has numerous firearms in his home. He says he is been having a toothache for couple days and admits that he has been drinking a lot today. He apparently called a veterans crisis hotline and expressed thoughts about harming himself. He is not willing to tell me a specific plan now but his morning brought here and was very concerned about presence of firearms in the home. 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 Squamous cell carcinoma removed from the hand., Other - Exploratory laparotomy, superior mesenteric artery thrombectomy; stent SMA - Immunizations Hx Diphtheria, Pertussis, Tetanus Vaccination: Yes - unknowon Review of Systems - Review of Systems Notes: Constitutional: Negative for fever. HENT: Dental pain. Eyes: Negative for visual changes. Cardiovascular: Negative for chest pain. Respiratory: Negative for shortness of breath. Gastrointestinal: Negative for abdominal pain, vomiting or diarrhea. Genitourinary: Negative for dysuria. Musculoskeletal: Negative for back pain. Skin: Negative for rash. Neurological: Negative for headaches, weakness or numbness. 10 point ROS negative except as marked above and in HPI. Physical Exam - Vital signs Vitals: Temp Pulse Resp BP Pulse Ox 98.3 F 95 22 H 124/85 95 08/06/19 16:20 08/06/19 16:20 08/06/19 16:20 08/06/19 16:20 08/06/19 16:20 - Notes Notes: GENERAL: Middle-age male very intoxicated with strong odor of alcohol, slurred speech and minimally cooperative. SKIN: Good turgor no rashes. HEAD: Normocephalic atraumatic. EYES: PERRLA. Conjunctivae and sclerae clear. EARS: CANALS AND TMS CLEAR. NOSE: CLEAR. MOUTH: Moist mucosa. Poor dentition with multiple dental caries. No stridor or edema. No drooling. NECK: Supple. No masses or thyromegaly. No adenopathy. Carotids 2+ without bruits. No JVD. BACK: Symmetrical without tenderness. CHEST: Respirations unlabored. Breath sounds clear and symmetrical. HEART: Regular rhythm. No murmur gallop or rub. ABDOMEN: Soft nontender without masses, organomegaly or rebound. Bowel sounds normally active. No bruits. GENITALIA: Deferred. EXTREMITIES: No edema. No calf tenderness. Cap refill less than 1.5 seconds. Dorsalis pedis and posterior tibial pulses 3+ and symmetrical. NEUROLOGICAL: GCS 14. Sleepy but oriented. Very slurred speech. Ataxic gait. Cranial nerves II through XII intact. Sensory and motor normal. Normal tone. Course - Re-evaluation Re-evalutation: 08/06/19 17:14 Patient is obviously dangerous to himself at this time. I have petition for IVC . He physically got up and tried to elope from the department and is belligerent with staff. I will medicate with IM Ativan and Haldol at this time for his protection. 08/07/19 01:45 Stable at this time. Remains under IVC and will be evaluated by Mental Health Service in AM. Care turned over to Dr. Lam at this time. - Vital Signs Vital signs: Temp Pulse Resp BP Pulse Ox 98.1 F 79 18 126/66 H 94 08/06/19 22:39 08/06/19 22:39 08/06/19 22:39 08/06/19 22:39 08/06/19 22:39 - Laboratory Result Diagrams: 08/06/19 16:49 08/06/19 16:49 Laboratory results interpreted by me: 08/06/19 08/06/19 16:49 16:49 RBC 3.85 L Hgb 12.6 L Hct 36.2 L RDW 15.8 H Sodium 130.0 L Chloride 97 L Carbon Dioxide 20 L BUN 3 L AST 70 H Creatine Kinase 310 H Salicylates < 1.0 L Acetaminophen < 10 L - EKG Interpretation by Me Additional EKG results interpreted by me: 08/06/19 17:22 Normal sinus rhythm 87. No acute ST/T changes. Normal axis. Discharge - Discharge Clinical Impression: Suicidal ideation, Chronic alcoholism Acute alcohol intoxication Qualifiers: Complication of substance-induced condition: with unspecified complication Qualified Code(s): F10.929 - Alcohol use, unspecified with intoxication, unspecified Disposition: PSYCH HOSP/UNIT Referrals: EDINSON HUIZAR PA-C [Primary Care Provider] - Follow up as needed
[2019-08-06] MEDS ORDERED: HALOPERIDOL LACTATE INJ 5 MG/1 ML VIAL IM ONE (17:12)
[2019-08-06] MEDS ORDERED: LORAZEPAM INJ 2 MG/1 ML VIAL IM ONE (17:13)
[2019-08-06 17:24] LABS: ABSOLUTE EOSINOPHILS # (AUTO) 0.1 10^3/uL (0.0-0.6); ABSOLUTE MONOCYTES (AUTO) 0.5 10^3/uL (0.1-1.4); ABSOLUTE NEUT (AUTO) 3.8 10^3/uL (1.7-8.2); BASOPHILS % (AUTO) 0.7 % (0-2); EOSINOPHILS % (AUTO) 1.7 % (0-6); HEMATOCRIT 36.2 % (37.9-51.0); HEMOGLOBIN 12.6 g/dL (13.5-17.0); LYMPHOCYTES % (AUTO) 31.3 % (13-45); MEAN CORPUSCULAR HEMOGLOBIN 32.8 pg (27.0-33.4); MEAN CORPUSCULAR HGB CONC 34.9 g/dL (32.0-36.0); MEAN CORPUSCULAR VOLUME 94 fl (80-97); MONOCYTES % (AUTO) 7.1 % (3-13); PLATELET COUNT 312 10^3/uL (150-450); RED BLOOD COUNT 3.85 10^6/uL (4.35-5.55); RED CELL DISTRIBUTION WIDTH 15.8 % (11.5-14.0); SEGMENTED NEUTROPHILS % (AUTO) 59.2 % (42-78); TOTAL CELLS COUNTED % (AUTO) 100 %; WHITE BLOOD COUNT 6.4 10^3/uL (4.0-10.5)
[2019-08-06 17:40] LABS: ALBUMIN 4.1 g/dL (3.5-5.0); ALCOHOL 294 mg/dL (NONE DETECTED); ALKALINE PHOSPHATASE 69 U/L (38-126); ANION GAP 13 (5-19); ASPARTATE AMINO TRANSFERASE 70 U/L (17-59); BILIRUBIN,DIRECT 0.1 mg/dL (0.0-0.4); BILIRUBIN,TOTAL 0.3 mg/dL (0.2-1.3); BLOOD UREA NITROGEN 3 mg/dL (7-20); CARBON DIOXIDE 20 mmol/L (22-30); CHLORIDE 97 mmol/L (98-107); CREATINE KINASE 310 U/L (55-170); GLUCOSE 83 mg/dL (75-110); POTASSIUM 3.9 mmol/L (3.6-5.0); TOTAL PROTEIN 6.9 g/dL (6.3-8.2)
[2019-08-06 17:44] LABS: ACETAMINOPHEN < 10 ug/mL (10-30); SALICYLATE < 1.0 mg/dL (2.0-20.0)
--- NOTE | 2019-08-06 20:05 | EKG REPORT ---
SEVERITY:- BORDERLINE ECG - SINUS RHYTHM BORDERLINE T ABNORMALITIES, ANT-LAT LEADS : Confirmed by: Gracy Gusman MD 06-Aug-2019 20:04:34
[2019-08-07] MEDS ORDERED: QUETIAPINE FUMARATE 100 MG TABLET PO ONE (00:15)
[2019-08-07] MEDS ORDERED: SERTRALINE HCL 50 MG TABLET PO SCH (08:00)
--- NOTE | 2019-08-07 09:50 | PSYCHOLOGICAL NOTE ---
Psych Note - Psych Note Date seen by psych provider: 08/07/19 Time seen by psych provider: 08:30 Psych Note: Reason for consult: ETOH Abuse/Suicidal Ideation Patient is a 47-year-old male who presents to ED via EMS. Patient contacted the Crisis Line for help. The Crisis Line contacted [facility] to perform a wellness check. Patient is known to behavioral health team. Patient has chronic ETOH abuse. Patient has a mental health diagnosis of Bipolar Disorder. Patient has a reported history of Delirium tremens with alcohol withdrawal. Following collateral information obtained from patients spouse, Carmela. Spouse states she had no idea what was going on until the optical fabrication technician showed up. Spouse states she knew patient was [facility] with the [facility] but did not know the extent of the conversation. Spouse states she went upstairs to get ready to take her son out to supper and when she went to look for patient he was upstairs in the bed asleep. Spouse states patient cant go home like this. Spouse states patient has been like this since May. Spouse states MIRNA removed 6 guns from the home, however she believes there may be one pistol remaining in the home. Souse denies patient has attempted suicide. Spouse r eports patient endorses passive suicidal ideation with no plan. Spouse reports a family history of Bipolar Disorder and suicide completions in patients family. Spouse reports patient does not take medications for mental health and medical conditions at night due to ETOH abuse. Spouse reports patients increasing erratic behavior. Spouse reports patient frequently goes to the [place], but it is actually to drink. Spouse states patient has a trailer that he takes with him to the [employer] that contains hidden compartments. Spouse reports patient takes guns and ammunition on his hunting trips. Spouse spoke of finding bullets and big sticks in the dryer after a hunting trip. Spouse denies any suicide attempts or markings on patient to indicate suicide attempts. Spouse spoke of patients erratic spending. Spouse states patient lack of attention to hygiene is of concern. When MIRNA went to secure the trailer, the trailer was found to be covered in feces. Spouse reports patient is not eating a lot. Spouse and patient shared an 18 year old high school student and a child that is in high school. Spouse verbalized concern for her and their 18 year old rakesh safety. Spouse states she frequently works out of town, and 18 year old is in the care of the patient while she is at work. Spouse left ED to search for possible remaining gun and to remove trailer from the property. Spouse expressed frustration with the lack of assistance when she contacts the [facility] to inform them of patient's current state. Patient attended a 28 day program in 2018 at [facility]. Patient states, Salma got a lot of mental health problems. Patient reports being diagnosed by the [facility] with Bipolar Disorder. Patient denies endorsing suicidal ideation to [place] [facility]. Patient denies suicidal and homicidal ideation. Patient denies auditory and visual hallucinations. Patient states he modified the trailer to be a cabin. Patient denies hunting trips were related to suicidal or homicidal ideations, and that he truly does go to the [employer] [facility] to [place]. Patient states the bullets found in the dryer were unfired bullets not casings. Patient denied any safety or wellness concerns. Clinician asked what kind of help patient is requesting, patient replied mental health. Clinician attempted to provide psychoeduation regarding mental health and ETOH abuse. Discussed stability via medication management, frequent engagement with mental health services, and building a routine. Patient states he is prescribed Zoloft but is unsure of dose. Patient receives [facility] at the [facility]. Patient was receptive, however guarded with disclosures. Clinician will reevaluate later today. Patient states he is not feeling too good. Updated at 10:40. Patient reports a history of PTSD. 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 Patient states his alcohol use began as a way to cope with mental health con cerns. Patient stated "my is not helpful" because "she accuses me of drinking." Clinician asked how many times his accused him of drinking and he was actually drinking, patient replied, "a few." Discussed the need to be realistic of his medical and mental health circumstances. Patient states he wants treatment "but can't right now because I can't miss my sons graduation [college aged student from [employer], [employer]]." Patient states he can be present and sober for the graduation. wanted to speak with clinician regarding guns in the home. Clinician responded by having the conversation with patient and in the room together. Patient informed where the guns in question were located. Patient was calm, however clinician observed agitation with the guns being removed from the home. Patient stated he needed to urinate and left the room. Clinician spoke with patient later about the agitation. Patient stated his was making a big deal about it. Clinician reminded patient of the call to his call to the Crisis line, passive suicidal endorsement, and ETOH abuse. Clinician Patient denies thoughts of using the guns to complete suicide. Clinician encouraged patient to think realistically about his behavior and circumstance. Patient states he endorses passive suicidal ideation primarily when he is intoxicated. Patient is alert and oriented to person, place, time and circumstance. Mood is dysphoric with congruent affect. Patient denies suicidal and homicidal ideations. Delusions are absent and behavior is congruent with an intact reality based presentation (i.e.: organized and linear through processes). There is no observed behavior that suggests patient is responding to internal stimuli. Patient denies current auditory and visual hallucinations. Eye contact is fair. Conversational speech is within normal rate, tone, and prosody. Intellectual ability appears to be within average range. Attention and concentration are fair. Insight, judgment and impulse control are currently poor. DSM Diagnosis: Per report, Bipolar Disorder Alcohol Use Disorder; Severe Medication recommendations per [facility] contracted psychiatrist Dr. Donya SIMPSON is as follows: Discontinue Seroquel Discontinue Zoloft Add Effexor 37.5MG, twice a day Add Buspar 10MG, twice a day Impression/Plan: Patient is cleared from acute psychiatric services. Patient does not meet IVC criteria per [place] GS 122C. Medication recommendations have been provided. Patient denies suicidal and homicidal ideations. There is no observed behavior that suggests patient is responding to internal stimuli. Patient denies current auditory and visual hallucinations. Patient is a 47 year old male [place] with chronic ETOH abuse and reported mental health diagnoses of Bipolar Disorder and PTSD. Patients substance abuse and impulsive behavior is suggestive of an active manic phase. Patient would benefit from stabilization on appropriate medications and mental health services to address symptoms of Bipolar Disorder and PTSD, to include substance abuse treatment to address ETOH abuse. Patient refuses inpatient treatment at this time. Clinician reached out to [facility], and was told there would be no beds available today. The [place] will be notified of patient's spouse's concern for the lack of follow up they are receiving. [facility] of [facility]. Patient is being provided with a community mental health resource list with [facility] highlighted. Plan is to link patient with [facility] mobile crisis at discharge. Dr. Crocker was consulted on the care and management of this patient; attending physician is in agreement with recommendations and disposition.
[2019-08-07] MEDS ORDERED: (PENDING PHARMACY ID) (Cyanocobalamin (Vitamin B-12) [Vitamin B-12 100 Mcg Tablet] 100 MCG PO SCH (10:00)
[2019-08-07] MEDS: METOPROLOL SUCCINATE 50 MG TAB.SR.24H PO SCH (10:14)
[2019-08-07] MEDS: PREGABALIN 100 MG CAPSULE PO SCH ×3 (10:15→18:45)
[2019-08-07] MEDS: LORAZEPAM 1 MG TABLET PO PRN ×2 (10:15→15:12)
[2019-08-07] MEDS: PANTOPRAZOLE SODIUM 40 MG TABLET.DR PO SCH (10:16)
[2019-08-07] MEDS: BACLOFEN 10 MG TABLET PO SCH ×3 (10:16→18:45)
[2019-08-07] MEDS: CLOPIDOGREL BISULFATE 75 MG TABLET PO SCH (10:16)
[2019-08-07] MEDS: RIVAROXABAN 10 MG TABLET PO SCH (10:25)
--- NOTE | 2019-08-07 10:54 | ER Document Report ---
Doctor's Note Notes: 08/07/19 10:53 As the rounding provider this AM, I assessed the patient's labs, vitals, and records. No concerning findings this morning. Patient denies any acute complaints. Patient is cleared for disposition by psychiatry. It appears the patient is medically stable for transfer or discharge.
[2019-08-07 16:29] LABS: ABSOLUTE BASOPHILS # (AUTO) 0.1 10^3/uL (0.0-0.2); ABSOLUTE EOSINOPHILS # (AUTO) 0.1 10^3/uL (0.0-0.6); ABSOLUTE MONOCYTES (AUTO) 0.7 10^3/uL (0.1-1.4); ABSOLUTE NEUT (AUTO) 6.6 10^3/uL (1.7-8.2); BASOPHILS % (AUTO) 0.8 % (0-2); EOSINOPHILS % (AUTO) 0.7 % (0-6); HEMATOCRIT 40.5 % (37.9-51.0); HEMOGLOBIN 13.8 g/dL (13.5-17.0); MEAN CORPUSCULAR HEMOGLOBIN 32.2 pg (27.0-33.4); MEAN CORPUSCULAR HGB CONC 34.1 g/dL (32.0-36.0); MEAN CORPUSCULAR VOLUME 95 fl (80-97); MONOCYTES % (AUTO) 8.4 % (3-13); PLATELET COUNT 331 10^3/uL (150-450); RED BLOOD COUNT 4.28 10^6/uL (4.35-5.55); SEGMENTED NEUTROPHILS % (AUTO) 78.1 % (42-78); TOTAL CELLS COUNTED % (AUTO) 100 %; WHITE BLOOD COUNT 8.4 10^3/uL (4.0-10.5)
[2019-08-07 16:40] LABS: ANION GAP 8 (5-19); BLOOD UREA NITROGEN 11 mg/dL (7-20); CALCIUM 9.8 mg/dL (8.4-10.2); CARBON DIOXIDE 27 mmol/L (22-30); CHLORIDE 103 mmol/L (98-107); GLUCOSE 159 mg/dL (75-110); POTASSIUM 4.3 mmol/L (3.6-5.0)
[2019-08-07] MEDS ORDERED: PRAMIPEXOLE DI-HCL 0.25 MG TABLET PO SCH (22:00)
[2019-08-07] MEDS ORDERED: ATORVASTATIN CALCIUM 40 MG TABLET PO SCH (22:00)
[2019-08-07] MEDS ORDERED: QUETIAPINE FUMARATE 100 MG TABLET PO SCH (22:00)
[2019-08-08] MEDS: PREGABALIN 100 MG CAPSULE PO SCH ×3 (09:47→18:34)
[2019-08-08] MEDS: CLOPIDOGREL BISULFATE 75 MG TABLET PO SCH (09:47)
[2019-08-08] MEDS: PANTOPRAZOLE SODIUM 40 MG TABLET.DR PO SCH (09:47)
[2019-08-08] MEDS: METOPROLOL SUCCINATE 50 MG TAB.SR.24H PO SCH (09:47)
[2019-08-08] MEDS: BACLOFEN 10 MG TABLET PO SCH ×3 (09:47→18:35)
[2019-08-08] MEDS: RIVAROXABAN 10 MG TABLET PO SCH (09:51)
[2019-08-08] MEDS ORDERED: ERGOCALCIFEROL (VITAMIN D2) 50000 UNIT (1.25 MG) CAPSULE PO SCH (10:00)
[2019-08-08 11:05] LABS: URINE AMPHETAMINES SCREEN NEGATIVE; URINE BARBITURATES SCREEN NEGATIVE; URINE COCAINE SCREEN NEGATIVE; URINE METHADONE SCREEN NEGATIVE; URINE PHENCYCLIDINE SCREEN NEGATIVE
[2019-08-08 11:07] LABS: URINE BENZODIAZEPINES SCREEN UNCONFIRMED POSITIVE; URINE MARIJUANA (THC) SCREEN UNCONFIRMED POSITIVE
[2019-08-08 11:26] LABS: APPEARANCE,URINE CLEAR; BILIRUBIN,URINE SMALL (NEGATIVE); COLOR,URINE DARK YELLOW; GLUCOSE, URINE NEGATIVE (NEGATIVE); KETONES,URINE 100 mg/dL (NEGATIVE); PROTEIN,URINE 30 mg/dL (NEGATIVE); URINE SPECIFIC GRAVITY 1.027
--- NOTE | 2019-08-08 11:42 | ER Document Report ---
Doctor's Note Notes: 08/08/19 11:39 As the rounding provider this AM, I assessed the patient's labs, vitals, and records. No concerning findings this morning. Patient denies any acute complaints. Briefly spoke with [facility], this morning and plan is to petition patient. She is attempting to contact [facility] abuse Patient is cleared for disposition by psychiatry. It appears the patient is medically stable.
--- NOTE | 2019-08-08 12:27 | PSYCHOLOGICAL NOTE ---
Psych Note - Psych Note Date seen by psych provider: 08/08/19 Psych Note: No reported history of seizures or DTs Mom's May 2018 seemed to be a trigger for patient (unresolved emotions due to Last reported relapse appears to be January 2019 after one year sober. Diagnosis: PTSD per history provided by [facility] Alcohol Use Disorder; Severe provided by ID Somatoform pain disorder provided by [facility] Generalized Anxiety Disorder provided by ID Depressive Disorder provided by [facility] Medication recommendations per [facility] contracted psychiatrist Dr. Donya SIMPSON is as follows: Continue Effexor 37.5MG, twice a day Continue Buspar 10MG, twice a day Impression/Plan: Patient is cleared from acute psychatric serives. He does not meet IVC criteria per [place] GS 122C.
[2019-08-08 18:47] VITALS: BP 139/86
[2019-08-08] MEDS ORDERED: VENLAFAXINE HCL 37.5 MG CAP.SR.24H PO SCH (19:40)
[2019-08-08] MEDS ORDERED: BUSPIRONE HCL 10 MG TABLET PO SCH (19:41)
== END 2019-08-08 19:07 | disposition home or self-care (01) ==
LOC: ER 16:20
DX: R45.851 Suicidal ideations (principal); F10.229 Alcohol dependence with intoxication, unspecified; F41.1 Generalized anxiety disorder; F32.9 Major depressive disorder, single episode, unspecified; F45.41 Pain disorder exclusively related to psychological factors; K08.89 Other specified disorders of teeth and supporting structures; Z79.899 Other long term (current) drug therapy; F17.200 Nicotine dependence, unspecified, uncomplicated; I10 Essential (primary) hypertension
CPT/HCPCS: 93005; 36415; 80307 ×4; 82550; 85025; 80048; 80053; 81001; 93010; J3490 ×4; J1630; J2060; 96372; 99285

== ENCOUNTER 2020-03-03 16:11 | Emergency (ER) | payer BC ==
[2020-03-03 16:15] VITALS: BP 132/87
[2020-03-03] MEDS ORDERED: AMOXICILLIN TRIHYDRATE 500 MG CAPSULE PO ONE (17:50)
[2020-03-03] MEDS ORDERED: LIDOCAINE 2% VISCOUS SOLN 15 ML UDCUP PO ONE (17:50)
--- NOTE | 2020-03-03 17:57 | ER Document Report ---
ED Oral Problem - General Chief Complaint: Toothache Stated Complaint: MOUTH/JAW PAIN,TOOTH PAIN Time Seen by Provider: 03/03/20 17:42 Primary Care Provider: EDINSON HUIZAR PA-C [Primary Care Provider] - Follow up as needed Mode of Arrival: Ambulatory Information source: Patient Notes: 50-year-old male presented to ED for pain to multiple teeth to the upper and lower gums. He states he has a dental appointment on Thursday. He states he went to urgent care and they gave him a prescription for amoxicillin but did not give him a dose and when he went to the pharmacy was closed. He states that he they did give him a Toradol shot and he had some Ultram and he took 1 of those. He states he is still in a lot of pain. He is alert oriented respirations regular nonlabored speaking in full sentences. TRAVEL OUTSIDE OF THE [place] IN LAST 30 DAYS: No - HPI Patient complains to provider of: Toothache Onset: Other - Tonic Onset: Gradual Quality of pain: Sharp, Throbbing Severity: Severe Pain Level: 5 Associated symptoms: Toothache Worsened by: Cold Relieved by: Nothing Similar symptoms previously: Yes Recently seen / treated by doctor/dentist: Yes - Related Data Allergies/Adverse Reactions: No Known Allergies Allergy (Verified 03/03/20 17:34) Past Medical History - General Information source: Patient - Social History Smoking Status: Current Every Day Smoker Cigarette use (# per day): Yes - Pack per day Smoking Education Provided: Yes - 4 min Frequency of alcohol use: None Drug Abuse: None Lives with: Family Family History: CAD, DM, Reviewed & Not Pertinent Patient has homicidal ideation: No - Past Medical History Cardiac Medical History: Reports: Hx Hypercholesterolemia, Hx Hypertension Pulmonary Medical History: Reports: Hx COPD EENT Medical History: Reports: None Neurological Medical History: Reports: None Endocrine Medical History: Reports: None Renal/ Medical History: Reports: Hx Hydrocele, Hx Varicocele Malignancy Medical History: Reports Hx Skin 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 Squamous cell carcinoma removed from the hand., Other - Exploratory laparotomy, superior mesenteric artery thrombectomy; stent SMA - Immunizations Hx Diphtheria, Pertussis, Tetanus Vaccination: Yes - unknowon Review of Systems - Review of Systems Constitutional: No symptoms reported EENT: Mouth pain, Dental problem Cardiovascular: No symptoms reported Respiratory: No symptoms reported Gastrointestinal: No symptoms reported Genitourinary: No symptoms reported Male Genitourinary: No symptoms reported Musculoskeletal: No symptoms reported Skin: No symptoms reported Hematologic/Lymphatic: No symptoms reported Neurological/Psychological: No symptoms reported -: Yes All other systems reviewed and negative Physical Exam - Vital signs Vitals: Temp Pulse Resp BP Pulse Ox 97.6 F 67 17 132/87 H 97 03/03/20 16:14 03/03/20 16:14 03/03/20 16:14 03/03/20 16:14 03/03/20 16:14 Interpretation: Normal - General General appearance: Appears well, Alert - HEENT Head: Normocephalic, Atraumatic Eyes: Normal Pupils: PERRL Ears: Normal External canal: Normal Tympanic membrane: Normal Sinus: Normal Nasal: Normal Mouth/Lips: Caries Mucous membranes: Normal Pharynx: Normal Neck: Normal - Respiratory Respiratory status: No respiratory distress Chest status: Nontender Breath sounds: Normal Chest palpation: Normal - Cardiovascular Rhythm: Regular Heart sounds: Normal auscultation Murmur: No - Abdominal Inspection: Normal Distension: No distension Bowel sounds: Normal Tenderness: Nontender Organomegaly: No organomegaly - Back Back: Normal, Nontender - Extremities General upper extremity: Normal inspection, Nontender, Normal color, Normal ROM, Normal temperature General lower extremity: Normal inspection, Nontender, Normal color, Normal ROM, Normal temperature, Normal weight bearing. No: Ihsan's sign - Neurological Neuro grossly intact: Yes Cognition: Normal Orientation: AAOx4 Ines Coma Scale Eye Opening: Spontaneous Ines Coma Scale Verbal: Oriented Ines Coma Scale Motor: Obeys Commands [place] Coma Scale Total: 15 Speech: Normal Motor strength normal: LUE, RUE, LLE, RLE Sensory: Normal - Psychological Associated symptoms: Normal affect, Normal mood - Skin Skin Temperature: Warm Skin Moisture: Dry Skin Color: Normal Course - Re-evaluation Re-evalutation: 03/03/20 22:12 Patient was ordered viscous lidocaine and amoxicillin as he stated he had not gotten amoxicillin at the care center but had been given a prescription for amoxicillin. Before nurse was able to give the medications and discharge instructions the patient did leave. He had been given verbal discharge instructions. He had been discharged by me he was just waiting for his medications and written discharge which was printed and waiting for the nurse. - Vital Signs Vital signs: Temp Pulse Resp BP Pulse Ox 97.6 F 67 17 132/87 H 97 03/03/20 16:14 03/03/20 16:14 03/03/20 16:14 03/03/20 16:14 03/03/20 16:14 Discharge - Discharge Clinical Impression: Pain due to dental caries Condition: Stable Disposition: AGAINST MEDICAL ADVICE Additional Instructions: TOOTHACHE: Your pain is due to dental decay. The tooth must be repaired in order for you to feel better. You will, therefore, be referred to a dentist. We do not have dentists on the staff at [facility]. Severe swelling or drainage around a tooth usually means a dental abscess. This also requires evaluation and treatment by the dentist, but antibiotics may be prescribed while awaiting dental treatment. You should be rechecked immediately if you develop major swelling of the face, increasing pain, a lump in the jaw or gums, headache, difficulty swallowing, or fever. Amoxicillin Amoxicillin is a member of the penicillin family. It covers the germs like ly to cause ear, bronchial, and urinary infections better than plain penicillin. Amoxicillin can be taken without regard to meals. Nausea after taking the medication is rare, but can occur. Diarrhea can occur, particularly in small children. Vaginal yeast infections and oral thrush in infants are also common. Contact your physician if these problems occur. Allergy to penicillins is common. If you have had an allergic reaction to any drug of the penicillin family, you should never take any other penicillin. Notify your doctor at once if you develop hives, itching, swelling, faintness, or shortness of breath. Less serious side effects can include nausea or diarrhea. You have been given a syringe of viscous lidocaine. Please place a small amount of this medicine on your finger and rub it on the gums and teeth that are painful. Please do not do this any more often than every 4 hours or will evaluate the skin on your gums and actually make it more painful. FOLLOW-UP CARE: You have been referred for follow-up care to the dentists listed below. Call the dentists office for an appointment as you were instructed or within the next two days. If you experience worsening or a significant change in your symptoms, notify the physician immediately or return to the Emergency Department at any time for re-evaluation. [facility] [address] [place] [address] [facility] [place] [address] [facility] [address] [facility] [address] [email or web address] [address] [place] [address] Thursday- 8:00am to 5:00 pm Will see patients from other [facility]. Charges based on income and family size and accepts Medicare, Medicaid, and Insurances Will pull molars [facility] [address] Hours of Operation 8:00 am - 4:30 pm weekdays The following dental offices accept Medicaid: [facility] Dr. Santos Dr. Garcia Dr. Ruiz Dr. Tatum [place], and Di oral surgery Dr. Jauregui ([place]) Dr. Lazaro ([place]) [facility] Drs. Baker and Michael ([place]) Dr. Chaidez ([place]) [facility] Dr. Templeton ([place]) Drs. Strickland and ([place]) Medicaid Care Line Forms: Elevated Blood Pressure, Smoking Cessation Education Referrals: EDINSON HUIZAR PA-C [Primary Care Provider] - Follow up as needed
== END 2020-03-03 18:29 | disposition left against medical advice (07) ==
LOC: ER 16:11
DX: K02.9 Dental caries, unspecified (principal); F17.210 Nicotine dependence, cigarettes, uncomplicated; E78.00 Pure hypercholesterolemia, unspecified; I10 Essential (primary) hypertension; Z90.49 Acquired absence of other specified parts of digestive tract
CPT/HCPCS: 99282; 99406

== ENCOUNTER → 2020-04-23 | Outpatient (CLI) | payer BC ==
--- NOTE | 2020-04-23 13:26 | RADIOLOGY REPORT (SQ) ---
EXAM DESCRIPTION: CHEST PA/LATERAL IMAGES COMPLETED DATE/TIME: 04/23/2020 12:28 pm REASON FOR STUDY: CHEST PAIN; SOB COMPARISON: 08/27/2014 EXAM PARAMETERS: NUMBER OF VIEWS: two views TECHNIQUE: Digital Frontal and Lateral radiographic views of the chest acquired. RADIATION DOSE: NA LIMITATIONS: none FINDINGS: LUNGS AND PLEURA: No opacities, masses or pneumothorax. No pleural effusion. MEDIASTINUM AND HILAR STRUCTURES: No masses or contour abnormalities. HEART AND VASCULAR STRUCTURES: Heart normal size. No evidence for failure. BONES: No acute findings. HARDWARE: None in the chest. OTHER: No other significant finding. IMPRESSION: 1. No significant interval changes since the prior examination dated 08/27/2014. No ac [place] findings. TECHNICAL DOCUMENTATION: JOB ID: [id number] 2010 [email or web address]- All Rights Reserved Reading location - IP/workstation name: [email or web address]
--- NOTE | 2020-04-23 19:35 | EKG REPORT ---
SEVERITY:- BORDERLINE ECG - SINUS RHYTHM BORDERLINE T ABNORMALITIES, ANT-LAT LEADS : Confirmed by: Gracy Gusman MD 23-Apr-2020 19:34:25
== END ==
LOC: OD 12:05
PROVIDERS: ATTEND Obstetrics & Gynecology
DX: R07.9 Chest pain, unspecified (principal); R06.02 Shortness of breath
CPT/HCPCS: 71046; 93005; 93010

== ENCOUNTER 2020-09-21 11:40 | Emergency (ER) | payer BC ==
--- NOTE | 2020-09-21 12:05 | EKG REPORT ---
SEVERITY:- ABNORMAL ECG - SINUS RHYTHM PROBABLE LEFT ATRIAL ABNORMALITY PROBABLE INFERIOR INFARCT, AGE INDETERMINATE : Confirmed by: Tereso Le MD 21-Sep-2020 12:04:36
--- NOTE | 2020-09-21 12:27 | ER Document Report ---
ED General - General Chief Complaint: Chest Pain Stated Complaint: CHEST PAIN,ABDOMINAL PAIN Time Seen by Provider: 09/21/20 12:19 Primary Care Provider: LARISA BALDERRAMA MD [Primary Care Provider] - Follow up as needed Mode of Arrival: Ambulatory Information source: Patient TRAVEL OUTSIDE OF THE [place] IN LAST 30 DAYS: No - HPI Notes: Patient presents with flank pain on the right and gross hematuria that is been present for about 48 hours. He says this was preceded by some chest pains that he has been having intermittently for about 3 weeks. Prior to that he had noted increasing dyspnea on exertion. He loaded up heavy a cardiac catheterization done at [place] about 6 or 8 weeks ago. He does not know the results yet. He continues to have some dyspnea on exertion. He continues to have intermittent chest pains. The flank pain will come the hospital. He has known peripheral arterial disease and has an SMA stent. He is on Plavix and Xarelto. He has been passing grossly bloody urine. He denies any fever or chills. He denies any significant edema. He is otherwise in his usual state of health. - Related Data Allergies/Adverse Reactions: No Known Allergies Allergy (Verified 03/03/20 17:34) Past Medical History - General Information source: Patient - Social History Smoking Status: Current Every Day Smoker Family History: CAD, DM, Reviewed & Not Pertinent - Medical History Medical History: Other Notes: Past medical history as documented in the electronic health record is reviewed. 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 Squamous cell carcinoma removed from the hand., Other - Exploratory laparotomy, superior mesenteric artery thrombectomy; stent SMA - Immunizations Hx Diphtheria, Pertussis, Tetanus Vaccination: Yes - unknowon Review of Systems - Review of Systems Notes: All other systems are reviewed and are negative or noncontributory except as noted in history of present illness. Physical Exam - Vital signs Vitals: Temp Pulse Resp BP Pulse Ox 98.3 F 91 16 117/71 98 09/21/20 11:50 09/21/20 11:50 09/21/20 11:50 09/21/20 11:50 09/21/20 11:50 - Notes Notes: General: Uncomfortable white male in no acute physiologic distress. Vital signs and nursing documentation are reviewed. HEENT: Grossly normal to inspection. Neck: Supple nontender no adenopathy trachea midline. Chest: Normal configuration also auscultation all wilkes. Heart: Regular rate and rhythm no murmur rub or gallop. Abdomen: Soft mild right lower quadrant direct tenderness not over McBurney's point. Plus minus guarding no rebound. No real tenderness over the inguinal canal. normally developed circumcised male. Bilaterally descended testes. No palpable hernia noted on either side. Patient had significant pain with traction of the right testicle. Left testicle is unremarkable. Extremities: Without clubbing cyanosis or diffuse edema. Skin: Warm moist good turgor no rashes. Neuro: Alert and oriented x3. Cranial nerves II 12 intact bilaterally. Stren gth and sensation are 5/5. Course - Re-evaluation Re-evalutation: 09/21/20 18:41 The patient was reassessed periodically throughout his stay. His pain improved. He was rehydrated. He was given his first dose of antibiotics intravenously in the form of ceftriaxone. My plan is to discharge him home on cefdinir 300 mg twice daily x10 days. Urine culture is pending. I was able to get his records from [facility] and there was no significant obstruction found on his recent coronary artery angiogram. Follow-up should be with his primary care provider and his aids counselor as previously instructed. - Vital Signs Vital signs: Temp Pulse Resp BP Pulse Ox 98.3 F 91 27 H 96/59 L 96 09/21/20 11:50 09/21/20 11:50 09/21/20 14:01 09/21/20 15:00 09/21/20 15:01 - Laboratory Results Result Diagrams: 09/21/20 12:45 09/21/20 12:45 Laboratory Results Interpreted: 09/21/20 09/21/20 09/21/20 12:45 12:45 14:15 WBC 14.7 H Lymph % (Auto) 8.0 L Absolute Neuts (auto) 12.1 H Seg Neutrophils % 82.3 H Sodium 131.7 L Lipase 11.8 L Urine Protein 100 H Urine Ketones TRACE H Urine Blood LARGE H Urine Bilirubin SMALL H Urine Urobilinogen 2.0 H Ur Leukocyte Esterase MODERATE H Critical Laboratory Results Reviewed: No Critical Results - Radiology Results Radiology Results Interpreted: 09/21/20 18:41 Chest X-Ray 09/21/20 12:04 IMPRESSION: No acute cardiopulmonary process. Abdomen/Pelvis CT 09/21/20 15:16 IMPRESSION: 1. The wall of the urinary bladder is diffusely thickened - correlate for urinalysis to exclude an acute cystitis. 2. There is no hydronephrosis, nephrolithiasis, hydroureter or ureterolithias is. Critical Radiology Results Reviewed: No Critical Results - EKG Interpretation by Me EKG shows normal: Sinus rhythm Rate: Normal Rhythm: NSR Additional EKG results interpreted by me: 09/21/20 12:32 Q waves inferiorly suggesting possible inferior infarct. Discharge - Discharge Clinical Impression: UTI (urinary tract infection) Condition: Stable Disposition: HOME, SELF-CARE Instructions: Urinary Tract Infection ([facility]) Additional Instructions: A prescription for cefdinir, an antibiotic, has been sent to your pharmacy. Please pick this up and start taking it tomorrow morning according to label directions. Take it until it is all gone. Continue taking your other medications as prescribed. Make sure you drink plenty of fluids. We will be doing a urine culture to identify the bacteria causing your infection so that we can test it against a panel of antibiotics. If these tests reveal any need for change in your antibiotic therapy we will call you. Follow-up with your primary care doctor in 3 to 4 days for a recheck. Call for an appointment. Return to the emergency department if any concerning symptoms develop. Prescriptions: Cefdinir 300 mg PO BID #20 capsule Referrals: LARISA BALDERRAMA MD [Primary Care Provider] - Follow up as needed
[2020-09-21] MEDS ORDERED: ONDANSETRON HCL INJ/PF 4 MG/2 ML SDV IV ONE (12:29)
[2020-09-21] MEDS: MORPHINE SULFATE 10 MG/ML INJ IV PRN ×2 (13:01→16:39)
[2020-09-21 13:10] LABS: ABSOLUTE LYMPHOCYTES (AUTO) 1.2 10^3/uL (0.5-4.7); ABSOLUTE MONOCYTES (AUTO) 1.4 10^3/uL (0.1-1.4); ABSOLUTE NEUT (AUTO) 12.1 10^3/uL (1.7-8.2); BASOPHILS % (AUTO) 0.2 % (0-2); EOSINOPHILS % (AUTO) 0.1 % (0-6); HEMATOCRIT 42.9 % (37.9-51.0); HEMOGLOBIN 15.2 g/dL (13.5-17.0); MEAN CORPUSCULAR HEMOGLOBIN 31.9 pg (27.0-33.4); MEAN CORPUSCULAR HGB CONC 35.4 g/dL (32.0-36.0); MEAN CORPUSCULAR VOLUME 90 fl (80-97); MONOCYTES % (AUTO) 9.4 % (3-13); PLATELET COUNT 268 10^3/uL (150-450); RED BLOOD COUNT 4.77 10^6/uL (4.35-5.55); RED CELL DISTRIBUTION WIDTH 13.3 % (11.5-14.0); SEGMENTED NEUTROPHILS % (AUTO) 82.3 % (42-78); TOTAL CELLS COUNTED % (AUTO) 100 %; WHITE BLOOD COUNT 14.7 10^3/uL (4.0-10.5)
--- NOTE | 2020-09-21 13:14 | RADIOLOGY REPORT (SQ) ---
EXAM DESCRIPTION: CHEST SINGLE VIEW IMAGES COMPLETED DATE/TIME: 09/21/2020 1:06 pm REASON FOR STUDY: cp COMPARISON: PA and lateral views of the chest from 04/23/2020. EXAM PARAMETERS: NUMBER OF VIEWS: One view. TECHNIQUE: An AP view of the chest was obtained. RADIATION DOSE: NA LIMITATIONS: None. FINDINGS: LUNGS AND PLEURA: No consolidation, pleural effusion or pneumothorax. MEDIASTINUM AND HILAR STRUCTURES: No mediastinal or hilar contour abnormality. HEART AND VASCULAR STRUCTURES: The cardiac silhouette and pulmonary vasculature are within normal hercules its. BONES: No acute findings. HARDWARE: None in the chest. OTHER: No other finding. IMPRESSION: No acute cardiopulmonary process. TECHNICAL DOCUMENTATION: JOB ID: [id number] 2010 [employer]- All Rights Reserved Reading location - IP/workstation name: [email or web address]
[2020-09-21 13:28] LABS: ALBUMIN 4.1 g/dL (3.5-5.0); ALKALINE PHOSPHATASE 102 U/L (38-126); ANION GAP 11 (5-19); ASPARTATE AMINO TRANSFERASE 23 U/L (17-59); BILIRUBIN,DIRECT 0.2 mg/dL (0.0-0.4); BILIRUBIN,TOTAL 1.1 mg/dL (0.2-1.3); BLOOD UREA NITROGEN 16 mg/dL (7-20); CALCIUM 9.7 mg/dL (8.4-10.2); CARBON DIOXIDE 23 mmol/L (22-30); CHLORIDE 98 mmol/L (98-107); CREATINE KINASE 76 U/L (55-170); GLUCOSE 102 mg/dL (75-110); TOTAL PROTEIN 7.1 g/dL (6.3-8.2)
[2020-09-21 13:38] LABS: CREATINE KINASE MB 0.42 ng/mL (<4.55)
[2020-09-21 13:40] LABS: TROPONIN I < 0.012 ng/mL
[2020-09-21 14:35] LABS: APPEARANCE,URINE CLOUDY; BILIRUBIN,URINE SMALL (NEGATIVE); COLOR,URINE AMBER; GLUCOSE, URINE NEGATIVE (NEGATIVE); KETONES,URINE TRACE mg/dL (NEGATIVE); LEUKOCYTE ESTERASE,URINE MODERATE (NEGATIVE); NITRITE,URINE NEGATIVE (NEGATIVE); PROTEIN,URINE 100 mg/dL (NEGATIVE); URINE SPECIFIC GRAVITY 1.025
[2020-09-21 15:52] VITALS: BP 96/59
--- NOTE | 2020-09-21 15:56 | RADIOLOGY REPORT (SQ) ---
EXAM DESCRIPTION: CT ABD/PELVIS NO ORAL OR IV IMAGES COMPLETED DATE/TIME: 09/21/2020 3:31 pm REASON FOR STUDY: R flank pain, hematuria COMPARISON: CT of the abdomen and pelvis with contrast from 04/15/2019. TECHNIQUE: CT scan of the abdomen and pelvis performed without intravenous or oral contrast. Images reviewed with lung, soft tissue, and bone windows. Reconstructed coronal and sagittal MPR images revi ewed. All images stored on PACS. All CT scanners at this facility use dose modulation, iterative reconstruction, and/or weight based d osing when appropriate to reduce radiation dose to as low as reasonably achievable (ALARA). [facility]: Dose Right [facility]: CareDose [facility]: Dose Right [facility]: Teradose 4D [facility]: [employer] RADIATION DOSE: CT Rad equipment meets quality standard of care and radiation dose reduction techniq ues were employed. CTDIvol: 7.3 mGy. DLP: 395 mGy-cm LIMITATIONS: None. FINDINGS: LOWER CHEST: No acute abnormality. NON-CONTRASTED LIVER, SPLEEN, ADRENALS: Evaluation is limited by the absence of intravenous contrast. There is no evidence hepatic steatosis. The spleen is normal in size. There is no adrenal mass. PANCREAS: No acute gross abnormality of the pancreas. GALLBLADDER: Surgically absent. RIGHT KIDNEY AND URETER: Evaluation is limited by the absence of intravenous contrast. There is no h ydronephrosis, nephrolithiasis, hydroureter or ureterolithiasis. LEFT KIDNEY AND URETER: Evaluation is limited by the absence of intravenous contrast. There is no hy dronephrosis, nephrolithiasis, hydroureter or ureterolithiasis. AORTA AND RETROPERITONEUM: Atherosclerotic calcification of the abdominal aorta and stent in the SMA ; there is no abdominal aortic aneurysm. There is no retroperitoneal adenopathy, hemorrhage or mass. BOWEL AND PERITONEAL CAVITY: Colonic diverticulosis without diverticulitis. There is no bowel obstru ction, bowel wall thickening or pericolonic/ perienteric inflammation. There is no mesenteric adenop athy, free intraperitoneal fluid or mesenteric/ omental. APPENDIX: Unable to identify the appendix. PELVIS, BLADDER, AND ABDOMINAL WALL: The prostate gland is enlarged and it measures 4.8 cm in transve rse diameter. The wall of the urinary bladder is diffusely thickened. There are fat-containing para umbilical hernias. BONES: Transitional segment at the lumbosacral junction and degenerative spondylosis of the lumbar sp ine at L4-L5 and L5-S1. OTHER: No other finding. IMPRESSION: 1. The wall of the urinary bladder is diffusely thickened - correlate for urinalysis to exclude an acute cystitis. 2. There is no hydronephrosis, nephrolithiasis, hydroureter or ureterolithiasis. COMMENT: Quality ID # [id number]: Final reports with documentation of one or more dose reduction techniques (e.g., Automated exposure control, adjustment of the mA and/or kV according to patient size, use of iterative reconstruction technique) TECHNICAL DOCUMENTATION: JOB ID: [id number] 2010 [employer]- All Rights Reserved Reading location - IP/workstation name: [email or web address]
[2020-09-21] MEDS ORDERED: CEFTRIAXONE 2 GM/D5W RTU 2 GM/50 ML RTUPB IV ONE (16:58)
== END 2020-09-21 19:04 | disposition home or self-care (01) ==
LOC: ER 11:40
DX: N39.0 Urinary tract infection, site not specified (principal); R31.0 Gross hematuria; R07.9 Chest pain, unspecified; I73.9 Peripheral vascular disease, unspecified; F17.200 Nicotine dependence, unspecified, uncomplicated; I10 Essential (primary) hypertension; J44.9 Chronic obstructive pulmonary disease, unspecified; Z86.718 Personal history of other venous thrombosis and embolism; Z79.02 Long term (current) use of antithrombotics/antiplatelets; Z79.01 Long term (current) use of anticoagulants
CPT/HCPCS: 93005; 99285; 96375; 96365; 36415; 87086; 82553; 82550; 83690; 85025; 87088; 80053; 81001; 84484; 87186; 71045; 74176; 93010; J2270; J2405; J0696